=== PATIENT | female | born 1985 | race Hispanic/Latino ===

== ENCOUNTER 2018-03-10 09:47 | Emergency (ER) | payer SELFPAY ==
[2018-03-10] MEDS ORDERED: BENZONATATE 100 MG CAP PO ONE ×2 (10:18→10:27)
[2018-03-10] MEDS ORDERED: IPRATROPIUM BROM 0.5MG/2.5ML ONE (10:18)
[2018-03-10] MEDS ORDERED: ALBUTEROL 2.5 MG/3 ML NEB SOL ONE (10:18)
--- NOTE | 2018-03-10 12:01 | ER ---
Nurse's Notes [facility] Name: Allyn Lynn Age: 32 yrs Sex: Female : 1985 Arrival Date: 03/10/2018 Time: 09:49 Bed 5 Private MD: Diagnosis: Acute upper respiratory infection, unspecified Presentation: 03/10 09:53 Presenting complaint: Patient states: cough x 2 days and difficulty breathing that ss began last night. Pt denies fever. Transition of care: patient was not received from another setting of care. Resp Distress? No respiratory distress is noted at this time. Onset of symptoms was March 08, 2018. Risk Assessment: Do you want to hurt yourself or someone else? Patient reports no desire to harm self or others. Initial Sepsis Screen: Does the patient meet any 2 criteria? RR > 20 per min. Does the patient have a suspected source of infection? Yes: Productive cough/pneumonia. Care prior to arrival: None. 09:53 Method Of Arrival: Ambulatory ss 09:53 Acuity: ERICK 4 ss Historical: - Allergies: 09:55 No Known Allergies; ss - Home Meds: 09:55 None [Active]; ss - PMHx: 09:55 None; ss - PSHx: 09:55 Cholecystectomy; ss - Immunization history:: Adult Immunizations up to date. - Social history:: Smoking status: Patient/guardian denies using tobacco. - Ebola Screening: : Patient denies exposure to infectious person Patient denies travel to an Ebola-affected area in the 21 days before illness onset. Screenin:00 Abuse screen: Denies threats or abuse. Denies injuries from another. Nutritional hb screening: No deficits noted. Tuberculosis screening: No symptoms or risk factors identified. Fall Risk None identified. Assessment: 09:55 General: Appears in no apparent distress. comfortable, well groomed, well developed, sg well nourished, Behavior is calm, cooperative, appropriate for age. Pain: Denies pain. Neuro: Level of Consciousness is awake, alert, obeys commands, Oriented to person, place, time, Compliance Testing Analyst are equal bilaterally Moves all extremities. Full function Speech is normal, Facial symmetry appears normal. Cardiovascular: Heart tones S1 S2 present Capillary refill is brisk in bilateral fingers Patient's skin is warm and dry. Chest pain is denied. Respiratory: Airway is patent Respiratory effort is even, unlabored, Respiratory pattern is regular, symmetrical, Breath sounds are clear. GI: No signs and/or symptoms were reported involving the gastrointestinal system. : No signs and/or symptoms were reported regarding the genitourinary system. EENT: No signs and/or symptoms were reported regarding the EENT system. Derm: Skin is pink, warm \T\ dry. Musculoskeletal: No signs and/or symptoms reported regarding the musculoskeletal system. 10:45 Reassessment: Patient appears in no apparent distress at this time. Patient and/or hb family updated on plan of care and expected duration. Pain level reassessed. Patient is alert, oriented x 3, equal unlabored respirations, skin warm/dry/pink. Vital Signs: 09:55 Pulse 88; Resp 22; Temp 98.6(O); Pulse Ox 99% on R/A; Weight 83.91 kg; Height 5 ft. 11 ss in. (180.34 cm); Pain 5/10; 10:45 BP 122 / 70; Pulse 92; Resp 17; Pulse Ox 100% on R/A; hb 12:40 BP 114 / 70; Pulse 80; Resp 17; Pulse Ox 99% on R/A; Pain 1/10; sg 09:55 Body Mass Index 25.80 (83.91 kg, 180.34 cm) ss ED Course: 08:55 No provider procedures requiring assistance completed. sg 09:49 Patient arrived in ED. sb2 09:53 Jose Hernandez PA is PHCP. cp 09:53 Charles Kilpatrick MD is Attending Physician. cp 09:54 Triage completed. ss 09:55 Arm band placed on right wrist. ss 09:55 Patient has correct armband on for positive identification. Bed in low position. Pulse sg ox on. NIBP on. 11:14 Gab Santos, DAVID is Primary Nurse. sg 12:46 Patient did not have IV access during this emergency room visit. sg Administered Medications: 10:19 Drug: AtroVENT Aerosol 0.5 mg Route: Inhalation; sg 10:20 Drug: Albuterol 2.5 mg Route: Inhalation; sg 12:20 Drug: Tessalon Perle 200 mg Route: PO; sg Outcome: 12:00 Discharge ordered by MD. cp 12:46 Discharged to home ambulatory, with family. sg 12:46 Condition: good 12:46 Discharge instructions given to patient, Instructed on discharge instructions, follow up and referral plans. no drinking with medication, no driving heavy equipment, medication usage, Demonstrated understanding of instructions, follow-up care, medications, Prescriptions given X 3. 12:47 Patient left the ED. sg Signatures: Gab Santos RN RN sg Trudy Hassan RN RN ss Jose Hernandez PA PA cp Baxter, Heather, RN RN Renetta Quesada sb2 Corrections: (The following items were deleted from the chart) 09:56 09:53 Acuity: ERICK 3 ss
--- NOTE | 2018-03-10 12:01 | EDPHYS ---
Physician Documentation [facility] Name: Allyn Lynn Age: 32 yrs Sex: Female : 1985 Arrival Date: 03/10/2018 Time: 09:49 Bed 5 Private MD: ED Physician Charles Kilpatrick HPI: 03/10 10:08 This 32 yrs old Female presents to ER via Ambulatory with complaints of cp Congestion, Cough. 10:08 The patient or guardian reports cough, with no sputum. cp 10:08 Onset: The symptoms/episode began/occurred 2 day(s) ago. Associated signs and symptoms: cp Pertinent positives: shortness of breath, congestion, Pertinent negatives: chest pain, diarrhea, ear ache, fever, sore throat, vomiting. Severity of symptoms: in the emergency department the symptoms are unchanged. Historical: - Allergies: 09:55 No Known Allergies; ss - Home Meds: 09:55 None [Active]; ss - PMHx: 09:55 None; ss - PSHx: 09:55 Cholecystectomy; ss - Immunization history:: Adult Immunizations up to date. - Social history:: Smoking status: Patient/guardian denies using tobacco. - Ebola Screening: : Patient denies exposure to infectious person Patient denies travel to an Ebola-affected area in the 21 days before illness onset. ROS: 10:15 Constitutional: Negative for body aches, chills, fever, poor PO intake. cp 10:15 Eyes: Negative for injury, pain, redness, and discharge. cp 10:15 ENT: Negative for drainage from ear(s), ear pain, sinus congestion, sinus pain, sore throat, difficulty swallowing, difficulty handling secretions. 10:15 Neck: Negative for pain with movement, pain at rest, stiffness, swollen nodes, tenderness. 10:15 Cardiovascular: Negative for chest pain, edema, palpitations. 10:15 Respiratory: Positive for cough, with no reported sputum, shortness of breath, Negative for wheezing. 10:15 Abdomen/GI: Negative for abdominal pain, nausea, vomiting, and diarrhea. 10:15 Back: Negative for radiated pain. 10:15 : Negative for urinary symptoms. 10:15 Skin: Negative for cellulitis, rash. 10:15 Neuro: Negative for altered mental status, headache, syncope, near syncope, weakness. 10:15 All other systems are negative. Exam: 10:20 Constitutional: The patient appears in no acute distress, alert, awake, cp non-diaphoretic, non-toxic, well developed, well nourished. 10:20 Head/Face: Normocephalic, atraumatic. cp 10:20 Eyes: Periorbital structures: appear normal, Pupils: equal, round, and reactive to light and accomodation, Extraocular movements: intact throughout, Conjunctiva: normal, no exudate, no injection, Sclera: no appreciated abnormality, Lids and lashes: appear normal, bilaterally. 10:20 ENT: External ear(s): are unremarkable, Ear canal(s): are normal, clear, TM's: bulging, is not appreciated, bilaterally, dullness, bilaterally, erythema, is not appreciated, bilaterally, Nose: is normal, Mouth: Lips: moist, Oral mucosa: pink and intact, moist, Posterior pharynx: is normal, airway is patent, no erythema, no exudate, Tonsils: are normal in appearance, Uvula: midline, swelling, is not appreciated, erythema, is not appreciated, exudate, is not appreciated. 10:20 Neck: ROM/movement: is normal, is supple, without pain, no range of motions limitations, no meningismus, no nuchal rigidity, Lymph nodes: no appreciated lymphadenopathy. 10:20 Chest/axilla: Inspection: normal, Palpation: is normal, no crepitus, no tenderness. 10:20 Cardiovascular: Rate: normal, Rhythm: regular. 10:20 Respiratory: the patient does not display signs of respiratory distress, Respirations: normal, no use of accessory muscles, no retractions, no splinting, no tachypnea, labored breathing, is not present, Breath sounds: bronchial sounds, that are mild, are heard diffusely, decreased breath sounds, are not appreciated, rhonchi, are not appreciated, stridor, is not appreciated, wheezing: is not appreciated. 10:20 Abdomen/GI: Inspection: abdomen appears normal, Palpation: abdomen is soft and non-tender, in all quadrants, rebound tenderness, is not appreciated, voluntary guarding, is not appreciated, involuntary guarding, is not appreciated. 10:20 Back: pain, is absent, ROM is normal. 10:20 Skin: cellulitis, is not appreciated, no rash present. 10:20 Neuro: Orientation: is normal, Mentation: is normal, Cerebellar function: is grossly normal, Motor: moves all fours, strength is normal, Sensation: is normal. Vital Signs: 09:55 Pulse 88; Resp 22; Temp 98.6(O); Pulse Ox 99% on R/A; Weight 83.91 kg; Height 5 ft. 11 ss in. (180.34 cm); Pain 5/10; 10:45 BP 122 / 70; Pulse 92; Resp 17; Pulse Ox 100% on R/A; hb 12:40 BP 114 / 70; Pulse 80; Resp 17; Pulse Ox 99% on R/A; Pain 1/10; sg 09:55 Body Mass Index 25.80 (83.91 kg, 180.34 cm) ss MDM: 09:53 Patient medically screened. cp 11:00 Differential diagnosis: bronchitis, URI, pneumonia. Data reviewed: vital signs, nurses cp notes, lab test result(s), and as a result, I will discharge patient. 12:00 Antibiotic administration: Not indicated, the patient does not have an appreciated cp infiltrate. 03/10 11:58 Order name: Urine Dipstick--Ancillary (enter results) eb 03/10 11:58 Order name: Urine --Ancillary (enter results) eb 03/10 10:05 Order name: Urine Dipstick-Ancillary (obtain specimen); Complete Time: 11:56 cp 03/10 10:05 Order name: Urine Test (obtain specimen); Complete Time: 11:56 cp Administered Medications: 10:19 Drug: AtroVENT Aerosol 0.5 mg Route: Inhalation; sg 10:20 Drug: Albuterol 2.5 mg Route: Inhalation; sg 12:20 Drug: Tessalon Perle 200 mg Route: PO; sg Disposition: 03/11 10:35 Co-signature as Attending Physician, Charles Kilpatrick MD I agree with the assessment and kdr plan of care. Disposition: 03/10/18 12:00 Discharged to Home. Impression: Acute upper respiratory infection, unspecified. - Condition is Stable. - Discharge Instructions: Upper Respiratory Infection, Adult. - Prescriptions for Tessalon Perles 100 mg Oral Capsule - take 1 capsule by ORAL route every 8 hours As needed; 15 capsule. Prednisone 20 mg Oral Tablet - take 2 tablet by ORAL route once daily for 5 days; 10 tablet. Albuterol Sulfate 90 mcg/actuation - inhale 1-2 puff by INHALATION route every 4-6 hours; 1 Inhaler. - Medication Reconciliation Form, Thank You Letter, Antibiotic Education, Prescription Opioid Use form. - Follow up: Private Physician; When: 2 - 3 days; Reason: Recheck today's complaints. - Problem is new. - Symptoms have improved. Signatures: Dispatcher [employer] EDMS Gab Santos RN RN sg Charles Kilpatrick MD MD [facility] Trudy Hassan RN RN ss Jose Hernandez PA PA cp Corrections: (The following items were deleted from the chart) 03/10 12:47 12:00 03/10/2018 12:00 Discharged to Home. Impression: Acute upper respiratory sg infection, unspecified. Condition is Stable. Forms are Medication Reconciliation Form, Thank You Letter, Antibiotic Education, Prescription Opioid Use. Follow up: Private Physician; When: 2 - 3 days; Reason: Recheck today's complaints. Problem is new. Symptoms have improved. cp
[2018-03-10 12:50] VITALS: TEMP 98.6
[2018-03-10 12:51] VITALS: BP 122/70; O2SAT 100
[2018-03-10 14:16] LABS: Urine Blood TRACE (NEG); Urine Glucose NEGATIVE (NEG); Urine Protein NEGATIVE (NEG); Urine pH 5.5 (5.0-7.0)
== END 2018-03-10 12:47 | disposition home or self-care (01) ==
LOC: ER 09:47
DX: J06.9 Acute upper respiratory infection, unspecified (principal)
CPT/HCPCS: 81003; 81025; 99284

== ENCOUNTER 2019-06-16 10:37 | Emergency (ER) | payer SELFPAY ==
[2019-06-16] MEDS ORDERED: MECLIZINE HCL 12.5 MG TAB ONE (11:08)
--- NOTE | 2019-06-16 11:26 | RAD REPORT ---
EXAM DESCRIPTION: CT - Head Brain Wo Cont - 06/16/2019 11:19 am CLINICAL HISTORY: DIZZINESS Headache, drowsiness COMPARISON: No comparisons TECHNIQUE: All CT scans are performed using dose optimization technique as appropriate and may inclu de automated exposure control or mA/KV adjustment according to patient size. FINDINGS: No intracranial hemorrhage, hydrocephalus or extra-axial fluid collection.No areas of brai n edema or evidence of midline shift. The paranasal sinuses and mastoids are clear. The calvarium is intact. IMPRESSION: No acute intracranial abnormality.
[2019-06-16 11:45] LABS: Absolute Lymphocytes (CBC) 1.9 K/uL (0.7-4.9); Basophils % 0.5 % (0-1.3); Hematocrit 36.2 % (36.0-45.0); Lymphocytes % 24.4 % (15.3-44.8); RBC Red Blood Cell Count 4.13 M/uL (3.86-4.86)
[2019-06-16 11:48] LABS: Protime INR 1.06
[2019-06-16 12:03] LABS: ALT/SGPT 22 U/L (12-78); AST/SGOT 19 U/L (15-37); Albumin 3.7 g/dL (3.4-5.0); Alkaline Phosphatase 110 U/L (45-117); BUN Blood Urea Nitrogen 8 mg/dL (7-18); Bicarbonate 27 mmol/L (21-32); Bilirubin Direct < 0.1 mg/dL (0-0.2); Bilirubin Total 0.4 mg/dL (0.2-1.0); Glucose Level 97 mg/dL (74-106); Magnesium 2.5 mg/dL (1.8-2.4); NT PRO-BNP 41 pg/mL (<125); Potassium 3.5 mmol/L (3.5-5.1); Protein, Total 8.3 g/dL (6.4-8.2); Sodium Level 139 mmol/L (136-145); Troponin (Emerg Dept Use Only) < 0.02 ng/mL (0.0-0.045)
--- NOTE | 2019-06-16 12:58 | EDPHYS ---
Physician Documentation [facility] Name: Allyn Lynn Age: 33 yrs Sex: Female : 1985 Arrival Date: 06/16/2019 Time: 10:40 Bed 18 Private MD: ED Physician Jose Jefferson HPI: 06/16 11:06 This 33 yrs old Female presents to ER via Ambulatory with complaints of jmm Dizziness, Vision Problem. 11:06 The patient presents with dizziness. Onset: The symptoms/episode began/occurred jmm acutely, 1 week(s) ago. Modifying factors: The symptoms are alleviated by nothing, holding head still, the symptoms are aggravated by movement of head, standing up, changing position. This is a 33 year old female with a history of hlp that presents to the ED with complaints of dizziness which began 7 days ago. Patient states symptoms are worsened with changes in position. Patient has had similar episodes before. Patient unable to fill prescribed medication. Denies vomiting, denies chest pain. . 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 - Social history:: Smoking status: Patient/guardian denies using tobacco. - Ebola Screening: : Patient denies travel to an Ebola-affected area in the 21 days before illness onset. ROS: 11:06 Constitutional: Negative for fever, chills, and weight loss. jmm 11:06 Neck: Negative for injury, pain, and swelling, Cardiovascular: Negative for chest pain, palpitations, and edema, Respiratory: Negative for shortness of breath, cough, wheezing, and pleuritic chest pain, Abdomen/GI: Negative for abdominal pain, nausea, vomiting, diarrhea, and constipation. 11:06 Eyes: Positive for visual disturbance. 11:06 Neuro: Positive for dizziness. 11:06 All other systems are negative. Exam: 11:06 Constitutional: This is a well developed, well nourished patient who is awake, alert, jmm and in no acute distress. Head/Face: atraumatic. Eyes: EOMI, no conjunctival erythema appreciated ENT: Moist Mucus Membranes Neck: Trachea midline, Supple Chest/axilla: Normal chest wall appearance and motion. Cardiovascular: Regular rate and rhythm. No edema appreciated 11:06 Cardiovascular: Rate: normal, Rhythm: regular. 11:06 Respiratory: the patient does not display signs of respiratory distress, Respirations: normal, Breath sounds: are clear throughout. 11:06 Abdomen/GI: Inspection: abdomen appears normal, Bowel sounds: normal, Palpation: abdomen is soft and non-tender, in all quadrants. 11:06 Neuro: Orientation: is normal, Mentation: is normal, Memory: is normal. 11:06 Neuro: Cerebellar function: normal finger to nose testing. 11:06 Psych: Behavior/mood is pleasant, cooperative. Vital Signs: 10:51 BP 113 / 61; Pulse 72; Resp 16; Temp 98.1; Pulse Ox 100% on R/A; Weight 83.46 kg (R); aj1 Height 5 ft. 1 in. (154.94 cm) (R); Pain 0/10; 12:14 BP 109 / 61; Pulse 58; Resp 16; Pulse Ox 97% on R/A; Pain 0/10; em 13:21 BP 110 / 68; Pulse 55; Resp 18; Pulse Ox 99% on R/A; Pain 0/10; em 10:51 Body Mass Index 34.77 (83.46 kg, 154.94 cm) aj1 MDM: 10:58 Patient medically screened. sunil 12:56 Data reviewed: vital signs, nurses notes. Counseling: I had a detailed discussion with sierra the patient and/or guardian regarding: the historical points, exam findings, and any diagnostic results supporting the discharge/admit diagnosis, lab results, radiology results, the need for outpatient follow up, to return to the emergency department if symptoms worsen or persist or if there are any questions or concerns that arise at home. ED course: Patient has normal cerebellar exam, normal gait, I do not suspect central cause. Patient is advised to follow up with neuro for reevaluation and otherwise given strict return precautions. Patient understood and agrees with the plan of care. . 06/16 11: Order name: Basic Metabolic Panel; Complete Time: 12:29 [facility] 06/16 11: Order name: CBC with Diff [facility] 06/16 11:02 Order name: LFT's; Complete Time: 12:29 [facility] 06/16 11:02 Order name: Magnesium; Complete Time: 12:29 [facility] 06/16 11:02 Order name: NT PRO-BNP; Complete Time: 12:29 [facility] 06/16 11:02 Order name: PT-INR; Complete Time: 12:29 [facility] 06/16 11:02 Order name: Troponin (emerg Dept Use Only); Complete Time: 12:29 [facility] 06/16 11:02 Order name: EKG; Complete Time: 11:03 [facility] 06/16 11:02 Order name: Cardiac monitoring; Complete Time: 11:12 [facility] 06/16 11:02 Order name: EKG - Nurse/Tech; Complete Time: 11:12 [facility] 06/16 11:02 Order name: IV Saline Lock; Complete Time: 11:32 [facility] 06/16 11:02 Order name: Labs collected and sent; Complete Time: 11:12 [facility] 06/16 11:02 Order name: CT Head Brain wo Cont; Complete Time: 11:41 [facility] 06/16 11:02 Order name: O2 Per Protocol; Complete Time: 11: [facility] 06/16 11:02 Order name: O2 Sat Monitoring; Complete Time: 11:12 [facility] Administered Medications: 11:31 Drug: Meclizine 50 mg Route: PO; em 12:26 Follow up: Response: No adverse reaction; Marked relief of symptoms em Disposition: 13:44 Co-signature as Attending Physician, Jose Jefferson MD I agree with the assessment and sunil plan of care. Disposition: 06/16/19 12:57 Discharged to Home. Impression: Vertigo. - Condition is Stable. - Discharge Instructions: Benign Positional Vertigo. - Prescriptions for Meclizine 25 mg Oral Tablet - take 1 tablet by ORAL route every 8 hours As needed; 30 tablet. - Medication Reconciliation Form, Thank You Letter, Antibiotic Education, Prescription Opioid Use form. - Follow up: Saul Chowdhury MD; When: 2 - 3 days; Reason: Recheck today's complaints, Continuance of care, Re-evaluation by your physician. Signatures: Dispatcher [employer] Jennifer Caputo RN RN aj1 Ronny, Jose, MD MD sunil Mickail, Kain, PA PA jmm Urrutia, Fabio, IT HELP DESK ASSOCIATE IT HELP DESK ASSOCIATE em Corrections: (The following items were deleted from the chart) 13:41 12:57 06/16/2019 12:57 Discharged to Home. Impression: Vertigo. Condition is Stable. em Forms are Medication Reconciliation Form, Thank You Letter, Antibiotic Education, Prescription Opioid Use. Follow up: Saul Chowdhury; When: 2 - 3 days; Reason: Recheck today's complaints, Continuance of care, Re-evaluation by your physician. sierra
--- NOTE | 2019-06-16 12:58 | ER ---
Nurse's Notes [facility] Name: Allyn Lynn Age: 33 yrs Sex: Female : 1985 Arrival Date: 06/16/2019 Time: 10:40 Bed 18 Private MD: Diagnosis: Vertigo Presentation: 06/16 10:48 Presenting complaint: Patient states: "I went to a clinic and they told me I have high aj1 cholesterol and they haven't given me my medicine because they said they are changing the pills they have and they haven't called me. Today I'm feeling dizzy, like floaty. I tried changing my diet, so I'm eating healthy" Patient reports headache that comes and goes. Reports she has been feeling like this for the past week now. Transition of care: patient was not received from another setting of care. Onset of symptoms was June 2019. Risk Assessment: Do you want to hurt yourself or someone else? Patient reports no desire to harm self or others. Initial Sepsis Screen: Does the patient meet any 2 criteria? No. Patient's initial sepsis screen is negative. Does the patient have a suspected source of infection? No. Patient's initial sepsis screen is negative. Care prior to arrival: None. 10:48 Method Of Arrival: Ambulatory aj1 10:48 Acuity: ERICK 3 aj1 Triage Assessment: 10:51 General: Appears in no apparent distress. comfortable, Behavior is calm, cooperative, aj1 appropriate for age. Pain: Denies pain. Neuro: Level of Consciousness is awake, alert, obeys commands. Cardiovascular: Patient's skin is warm and dry. Respiratory: Airway is patent Respiratory effort is even, unlabored, Respiratory pattern is regular, symmetrical. 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 - Social history:: Smoking status: Patient/guardian denies using tobacco. - Ebola Screening: : Patient denies travel to an Ebola-affected area in the 21 days before illness onset. Screenin:11 Abuse screen: Denies threats or abuse. Nutritional screening: No deficits noted. em Tuberculosis screening: No symptoms or risk factors identified. Fall Risk None identified. Assessment: 11:10 General: Appears in no apparent distress. comfortable, Behavior is calm, cooperative, em Denies fever. Pain: Denies pain. Neuro: Level of Consciousness is awake, alert, obeys commands, Oriented to person, place, time, situation, Appropriate for age Moves all extremities. Speech is normal, Facial symmetry appears normal, Reports dizziness, since for 2 weeks. Cardiovascular: Capillary refill < 3 seconds Patient's skin is warm and dry. Respiratory: Airway is patent Respiratory effort is even, unlabored, Respiratory pattern is regular, symmetrical. GI: Abdomen is flat, Patient currently denies nausea, vomiting. Derm: Skin is intact, is healthy with good turgor, Skin is pink, warm \\T\\ dry. Musculoskeletal: Capillary refill < 3 seconds, Range of motion: intact in all extremities. 11:10 Reassessment: I agree with assessment completed by Fabio Urrutia LVN . aa5 12:14 Reassessment: Patient appears in no apparent distress at this time. Patient and/or em family updated on plan of care and expected duration. Pain level reassessed. Patient is alert, oriented x 3, equal unlabored respirations, skin warm/dry/pink. Patient states feeling better. Patient states symptoms have improved. 13:21 Reassessment: Patient appears in no apparent distress at this time. Patient and/or em family updated on plan of care and expected duration. Pain level reassessed. Patient is alert, oriented x 3, equal unlabored respirations, skin warm/dry/pink. Patient denies pain at this time. Patient states feeling better. Patient states symptoms have improved. Vital Signs: 10:51 BP 113 / 61; Pulse 72; Resp 16; Temp 98.1; Pulse Ox 100% on R/A; Weight 83.46 kg (R); aj1 Height 5 ft. 1 in. (154.94 cm) (R); Pain 0/10; 12:14 BP 109 / 61; Pulse 58; Resp 16; Pulse Ox 97% on R/A; Pain 0/10; em 13:21 BP 110 / 68; Pulse 55; Resp 18; Pulse Ox 99% on R/A; Pain 0/10; em 10:51 Body Mass Index 34.77 (83.46 kg, 154.94 cm) aj1 ED Course: 10:40 Patient arrived in ED. mr 10:50 Triage completed. aj1 10:51 Arm band placed on Patient placed in an exam room. aj1 10:53 Kain Kelly PA is PHCP. [facility] 10:53 Jose Jefferson MD is Attending Physician. [facility] 10:57 Fabio Urrutia LVN is Primary Nurse. em 11:11 Patient has correct armband on for positive identification. Bed in low position. Call em light in reach. Pulse ox on. NIBP on. 11:17 CT completed. Patient tolerated procedure well. Patient moved to CT via wheelchair. sw Patient moved back from CT. 11:21 CT Head Brain wo Cont In Process Unspecified. EDMS 11:27 Initial lab(s) drawn, by me, sent to lab. Inserted saline lock: 22 gauge in left em antecubital area, using aseptic technique. Blood collected. 11:29 EKG done, by television technician. reviewed by Kain ROBLES. 3 12:57 Saul Chowdhury MD is Referral Physician. [facility] 13:20 No provider procedures requiring assistance completed. IV discontinued, intact, em bleeding controlled, No redness/swelling at site. Pressure dressing applied. Administered Medications: 11:31 Drug: Meclizine 50 mg Route: PO; em 12:26 Follow up: Response: No adverse reaction; Marked relief of symptoms em Outcome: 12:57 Discharge ordered by MD. [facility] 13:20 Discharged to home ambulatory, with family. em 13:20 Condition: good 13:20 Discharge instructions given to patient, family, Instructed on discharge instructions, follow up and referral plans. medication usage, Demonstrated understanding of instructions, follow-up care, medications, Prescriptions given X 1. 13:20 Patient left the ED. sr5 Signatures: Dispatcher [employer] EDMS Jennifer Muniz, DAVID RN aj1 Kain Kelly PA PA jmm Rivera, Mary mr Fabio Urrutia, STAY CUTTER STAY CUTTER em Darya Concepcion RN RN [email or web address] Elli Workman Sam RN RN sr5 Arlin Peres sm3 Corrections: (The following items were deleted from the chart) 13:42 13:41 Patient left the ED. em sr5
[2019-06-16 18:27] VITALS: TEMP 98.1
[2019-06-16 18:28] VITALS: BP 110/68; O2SAT 99
--- NOTE | 2019-06-18 12:50 | EKG ---
Test Date: 2019-06-16 Test Time: 11:13:41 Wood Buffer: ELLYN MEASUREMENT RESULTS: Intervals: Rate: 63 TN: 132 QRSD: 86 QT: 408 QTc: 417 Polk: P: 41 TN: 132 QRS: 24 T: 15 INTERPRETIVE STATEMENTS: Normal sinus rhythm Nonspecific ST abnormality Abnormal ECG Compared to ECG 06/21/2017 04:01:58 ST (T wave) deviation now present Electronically Signed On 06-18-19 12:45:51 TANK BUILDER HELPER by Wayne Duran
--- OUTSIDE RECORDS SUMMARY | 2019-06-19 05:15 | XMS REPORT ---
:1985 Author Organization [facility] Address [address] [place] [address] Dr. Hu[address] [place] [address] Care Team Providers Name Role Phone Unavailable Unavailable Unavailable Problems This patient has no known problems. Allergies, Adverse Reactions, Alerts This patient has no known allergies or adverse reactions. Medications This patient has no known medications.
== END 2019-06-16 13:41 | disposition home or self-care (01) ==
LOC: ER 10:37
DX: R42 Dizziness and giddiness (principal); E78.5 Hyperlipidemia, unspecified
CPT/HCPCS: 36415; 70450; 80048; 80076; 83735; 83880; 84484; 85025; 85610; 93005; 99284; J8597

== ENCOUNTER 2020-02-26 06:56 | Inpatient (IN) | payer SELFPAY ==
--- OUTSIDE RECORDS SUMMARY | 2020-02-26 06:59 | XMS REPORT | Summary of Care ---
:1985 Author Organization [facility] Address [address] [place] [address] Care Team Providers Name Role Phone Rachell Oquendo [facility] Primary Care Provider Encounter Details Date Type Department Care Team Description 12/12/2019 Letter (Out) [facility]- Rachlel Oquendo [facility] 110[address] [facility] [address] [place] [id number] 955 [facility] A [phone] [place], [place] [address] [phone] Allergies No Known Allergiesdocumented as of this encounter (statuses as of 12/12/2019) Medications Medication Sig Dispensed Refills Start Date End Date Status doxylamine-pyridoxine, Take 1 tablet by 60 tablet 2 07/31/2019 Active vit B6, (DICLEGIS) mouth 4 (four) 10-10 mg per times daily as tabletIndications: needed for Nausea Supervision of high and Vomiting risk in (N/V). first trimester documented as of this encounter (statuses as of 12/12/2019) Active Problems Problem Noted Date Supervision of high-risk of elderly multigra jared 07/10/2019 AMA (advanced maternal age) multigravida 35+ 9 Obesity in 12/16/2015 Estimated Date of Delivery Comments Yes 03/03/2020 Based on last menstr ual period of 05/28/2019 (Approximate) documented as of this encounter (statuses as of 12/12/2019) Resolved Problems Problem Noted Date Resolved Date Well woman exam with routine gynecological exam 05/13/2017 07/10/2019 Encounter for contraceptive management, unspecified type 12/201607/10/2019 Screening examination for STD (sexually transmitted disease) 05/13/2017 07/10/2019 Dysuria 05/13/2017 07/10/2019 Breast pain, left 05/13/2017 12/06/2018 Pain pelvic 05/13/2017 12/06/2018 BMI 30.0-30.9,adult 05/13/2017 07/10/2019 Arm pain 12/16/2015 05/13/2017 Fatigue 07/18/2015 12/16/2015 Hair loss 07/18/2015 12/16/2015 Bone pain 07/18/2015 12/16/2015 General counseling and advice for contraceptive management 0 04/08/2015 07/10/2019 Overview: ICD10 Diagnosis Term Outpatient Coder Utility Encounter for routine gynecological examination 04/08/2015 07/18/2015 Overview: ICD10 Diagnosis Term Outpatient Coder Utility Overweight 04/08/2015 12/16/2015 Overview: ICD10 Diagnosis Term Outpatient Coder Utility care and examination of lactating mother 03/18/20 15 04/08/2015 Urinary tract infection, site not specified 03/18/2015 04/08/2015 Multiparity 02/24/2015 03/18/2015 Induction 02/22/2015 03/18/2015 Indication for care in labor and delivery, antepartum 201403/18/2015 Anemia of mother in , antepartum, third trimester 0 01/23/2015 02/23/2015 Rubella immune 10/04/2014 02/23/2015 Immune to varicella 10/04/2014 02/23/2015 related nausea, antepartum 09/05/2014 UTI in , antepartum, second trimester 09/05/2014 03/18/2015 High-risk , second trimester [V23.9] 09/05/2014 02/23/2015 Overweight 09/05/2014 02/23/2015 Overview: ICD10 Diagnosis Term Outpatient Coder Utility care and examination 01/01/2006 10/05/19 15 Overview: ICD10 Diagnosis Term Outpatient Coder Utility Anemia complicating , childbirth, or the puerperium 01/01/2006 10/05/2014 documented as of this encounter (statuses as of 12/12/2019) Immunizations Name Administration Dates Next Due Influenza Virus Vaccine Quad .5 mL IM 6+ MO 07/10/2019 Influenza Virus Vaccine Quad IM Multi-dose 6+ MO 09/05/2014 Rubella 10/22/2009 Tdap 11/30/2014 documented as of this encounter Social History Tobacco Use Types Packs/Day Years Used Date Never Smoker Smokeless Tobacco: Never Used Alcohol Use Drinks/Week oz/Week Comments No Estimated Date of Delivery Comments Yes 03/03/2020 Based on last menstr ual period of 05/28/2019 (Approximate) Sex Assigned at Date Recorded Not on file Job Start Date Occupation Industry Not on file Not on file Not on file Travel History Travel Start Travel End No recent travel history available. documented as of this encounter Last Filed Vital Signs Not on filedocumented in this encounter Plan of Treatment Date Type Specialty Care Team Description 12/21/2019 Routine Visit OB Satellites Ghada Oquendo, CNP [address] [place], [place] [address] [phone] Health Maintenance Due Date Last Done Comments PAP SMEAR 03/10/2021 09/05/2014, 10/22/2009, Postpone d from 10/18/2007, Additional 0 ( or history exists ) DTaP,Tdap,and Td Vaccines 11/30/2024 11/30/2014 (2 - Td) INFLUENZA VACCINE Completed 07/10/2019, 09/05/2014 PNEUMOCOCCAL 0-64 YEARS Aged Out No longe r eligible COMBINED SERIES based on patient 's age to complete this topic documented as of this encounter Results Not on filedocumented in this encounter Insurance Payer Benefit Plan / Subscriber ID Effective Phone Address T ype Group Dates [facility] CHILDRENS [id number] 2019-Prese P O RADHA X [facility] HEALTH PLAN nt [id number] HEALTH PLAN [place] [address] [facility] FAMILY FAMILY [id number] 2018-Pres [address] Ag ency PLANNING OPAL PLANNING OPAL ent [id number] [phone] [place] [address] documented as of this encounter Advance Directives Name Relationship Healthcare Agent Relationship Co mmunication Dejan Lynn Spouse Primary healthcare agent
--- OUTSIDE RECORDS SUMMARY | 2020-02-26 06:59 | XMS REPORT | Continuity of Care Document ---
:1985 Author Organization [facility] t Address [address] [place] [address] Care Team Providers Name Role Phone Haider Alejandre Attending Clinician Doctor Unassigned, Name Attending Clinician Unavailable Problems This patient has no known problems. Allergies, Adverse Reactions, Alerts This patient has no known allergies or adverse reactions. Medications This patient has no known medications. Procedures This patient has no known procedures. Encounters Start End Encounter Admission Attending Care Care Encounter Source Date/Time Date/Time Type Type Clinicians Facility Department ID 2020-02-22 2020-02-22 Routine Azra, [facility] [id number] 14:22:22 14:37:22 Rachell C SYSTEMS ARCHITECTURE ANALYST [id number] Visit REGIONAL [id number] MATERNAL [id number] & CHILD 107 [facility] 2020-02-22 2020-02-22 Orders Doctor ANA [id number] 00:00:00 00:00:00 Only Unassigned, STEPHANIE [id number] [place] [id number] [id number] 2020-02-14 2020-02-14 Routine Azra, [facility] [id number] 13:59:03 14:14:03 Rachell C SYSTEMS ARCHITECTURE ANALYST [id number] [facility] [id number] MATERNAL [id number] & CHILD 107 [facility] 2020-02-07 2020-02-07 Routine Akinsipe, [facility] [id number] 14:04:13 14:44:35 Rachell Maloney SYSTEMS ARCHITECTURE ANALYST [id number] [facility] [id number] MATERNAL [id number] & CHILD [address] [place] [address] [place] Results This patient has no known results.
--- OUTSIDE RECORDS SUMMARY | 2020-02-26 06:59 | XMS REPORT | Summary of Care ---
:1985 Author Organization [facility] - Health Address [address] [place] [address] Care Team Providers Name Role Phone Otisbaironjomar Rachell Maloney [facility] Primary Care Provider [phone] Encounter Details Date Type Department Care Team Description 10/11/2019 Orders Only [facility] Doctor Unassigned, No [address] [facility] [place] [address] [address] [place] [address] Allergies No Known Allergiesdocumented as of this encounter (statuses as of 12/15/2019) Medications Medication Sig Dispensed Refills Start Date End Date Status doxylamine-pyridoxine, Take 1 tablet by 60 tablet 2 07/31/2019 Active vit B6, (DICLEGIS) mouth 4 (four) 10-10 mg per times daily as tabletIndications: needed for Nausea Supervision of high and Vomiting risk in (N/V). first trimester documented as of this encounter (statuses as of 12/15/2019) Active Problems Problem Noted Date Supervision of high-risk of elderly multigra jared 07/10/2019 AMA (advanced maternal age) multigravida 35+ 9 Obesity in 12/16/2015 Estimated Date of Delivery Comments Yes 03/03/2020 Based on last menstr ual period of 05/28/2019 (Approximate) documented as of this encounter (statuses as of 12/15/2019) Resolved Problems Problem Noted Date Resolved Date [...] 0 04/08/2015 07/10/2019 Overview: ICD10 Diagnosis Term Ammunition Components Inspector Utility Encounter for routine gynecological examination 04/08/2015 07/18/2015 Overview: ICD10 Diagnosis Term Ammunition Components Inspector Utility Overweight 04/08/2015 12/16/2015 Overview: ICD10 Diagnosis Term Ammunition Components Inspector Utility care and examination of lactating mother [...] Overweight 09/05/2014 02/23/2015 Overview: ICD10 Diagnosis Term Ammunition Components Inspector Utility care and examination 01/01/2006 10/05/19 15 Overview: ICD10 Diagnosis Term Ammunition Components Inspector Utility Anemia complicating , childbirth, or the puerperium 01/01/2006 10/05/2014 documented as of this encounter (statuses as of 12/15/2019) Immunizations Name Administration Dates Next Due Influenza [...] Team Description 12/21/2019 Routine Visit OB Satellites Azra, Ghada Maloney, WHCNP [address] [place], [place] [address] [phone] Health Maintenance Due Date Last Done Comments PAP SMEAR 03/10/2021 09/05/2014, 10/22/2009, Postpone d from 10/18/2007, Additional 0 ( or history exists ) DTaP,Tdap,and Td Vaccines 11/30/2024 11/30/2014 (2 - Td) INFLUENZA VACCINE Completed 07/10/2019, 09/05/2014 PNEUMOCOCCAL 0-64 YEARS Aged Out No longe r eligible COMBINED SERIES based on patient 's age to complete this topic documented as of this encounter Procedures Procedure Name Priority Date/Time Associated Diagnosis Comme nts GENETICS COUNSELING NOTE Routine 10/11/2019 12:01 AM SLIP FEEDER documented in this encounter Results Not on filedocumented in this encounter Insurance Payer Benefit Plan / Subscriber ID Effective Phone Address T ype Group Dates [facility]IP [facility] [place] CHILDRENS [id number] 2019-Prese P O RADHA X [facility] CHILDRENS HEALTH PLAN nt [id number] [place] [id number] [facility]ILY [id number] 2018-Pres [address] Ag ency PLANNING OPAL PLANNING OPAL ent [id number] [phone] [place] [address] documented as of this encounter Advance Directives Name Relationship Healthcare Agent Relationship Co mmunication Dejan Lynn Spouse Primary healthcare agent
--- OUTSIDE RECORDS SUMMARY | 2020-02-26 06:59 | XMS REPORT | Summary of Care ---
:1985 Author Organization [facility] - Health Address [address] [place] [address] Care Team Providers Name Role Phone Otisbaironjomar Rachell Maloney [facility] Primary Care Provider [phone] Encounter Details Date Type Department Care Team Description 12/26/2019 Orders Only [facility] Doctor Unassigned, No 301 [facility] [place] [address] [address] [place] [address] Allergies No Known Allergiesdocumented as of this encounter (statuses as of 12/26/2019) Medications Medication Sig Dispensed Refills Start Date End Date Status doxylamine-pyridoxine, Take 1 tablet by 60 tablet 2 07/31/2019 Active vit B6, (DICLEGIS) mouth 4 (four) 10-10 mg per times daily as tabletIndications: needed for Nausea Supervision of high and Vomiting risk in (N/V). first trimester documented as of this encounter (statuses as of 12/26/2019) Active Problems Problem Noted Date Supervision of high-risk of elderly multigra jared 07/10/2019 AMA (advanced maternal age) multigravida 35+ 9 Obesity in 12/16/2015 Estimated Date of Delivery Comments Yes 03/03/2020 Based on last menstr ual period of 05/28/2019 (Approximate) documented as of this encounter (statuses as of 12/26/2019) Resolved Problems Problem Noted Date Resolved Date [...] 0 04/08/2015 07/10/2019 Overview: ICD10 Diagnosis Term Rubber Roller Grinder Utility Encounter for routine gynecological examination 04/08/2015 07/18/2015 Overview: ICD10 Diagnosis Term Rubber Roller Grinder Utility Overweight 04/08/2015 12/16/2015 Overview: ICD10 Diagnosis Term Rubber Roller Grinder Utility care and examination of lactating mother [...] Overweight 09/05/2014 02/23/2015 Overview: ICD10 Diagnosis Term Rubber Roller Grinder Utility care and examination 01/01/2006 10/05/19 15 Overview: ICD10 Diagnosis Term Rubber Roller Grinder Utility Anemia complicating , childbirth, or the puerperium 01/01/2006 10/05/2014 documented as of this encounter (statuses as of 12/26/2019) Immunizations Name Administration Dates Next Due Influenza [...] filedocumented in this encounter Plan of Treatment Health Maintenance Due Date Last Done Comments [...] Name Priority Date/Time Associated Diagnosis Comme nts ASSIGNMENT OF BENEFITS Routine 12/26/2019 10:01 AM CDT documented in this encounter Results Not on filedocumented in this encounter Insurance Payer Benefit Plan / Subscriber ID Effective Phone Address T ype Group Dates [facility] [id number] 2019-Prese P O RADHA X [facility] HEALTH PLAN nt [id number] [place] [address] [facility] FAMILY FAMILY [id number] 2018-Pres [address] Ag ency PLANNING OPAL PLANNING OPAL ent [id number] [phone] [place] [address] documented as of this encounter Advance Directives Name Relationship Healthcare Agent Relationship Co mmunication Dejan Lynn Spouse Primary healthcare agent
--- OUTSIDE RECORDS SUMMARY | 2020-02-26 07:00 | XMS REPORT | Summary of Care ---
:1985 Author Organization [facility] Address [address] [place] [address] Care Team Providers Name Role Phone Rachell Oquendo [facility] Primary Care Provider [phone] Reason for Visit Reason Comments Care Encounter Details Date Type Department Care Team Description 12/26/2019 Routine [facility] Azra, Supervision of high risk in second trimester (Primary Dx); Visit [facility] [place] Rachell Maloney, Multigravida of advanced mat ernal age in third trimester; [address] [facility] Need for Tdap vaccination; [place] [address] Hypertriglyceridemia [facility] [id number] [facility] [phone] [place] [address] Allergies No Known Allergiesdocumented as of this [...] of 12/26/2019) Active Problems Problem Noted Date Hypertriglyceridemia 12/26/2019 Overview: Reports history Supervision of high-risk of elderly multigra jared [...] 0 04/08/2015 07/10/2019 Overview: ICD10 Diagnosis Term Fire Regulator Utility Encounter for routine gynecological examination 04/08/2015 07/18/2015 Overview: ICD10 Diagnosis Term Fire Regulator Utility Overweight 04/08/2015 12/16/2015 Overview: ICD10 Diagnosis Term Fire Regulator Utility care and examination of lactating mother [...] Overweight 09/05/2014 02/23/2015 Overview: ICD10 Diagnosis Term Fire Regulator Utility care and examination 01/01/2006 10/05/19 15 Overview: ICD10 Diagnosis Term Fire Regulator Utility Anemia complicating , childbirth, or the puerperium 01/01/2006 10/05/2014 documented as of this encounter (statuses as of 12/26/2019) Immunizations Name Administration Dates Next Due Influenza Virus Vaccine Quad .5 mL IM 6+ MO 07/10/2019 Influenza Virus Vaccine Quad IM Multi-dose 6+ MO 09/05/2014 Rubella 10/22/2009 TDAP (ADACEL) VACCINE 12/26/2019 Tdap 11/30/2014 documented as of this encounter [...] Travel End No recent travel history available. COVID-19 Exposure Response Date Recorded In the last month, have you been in contact with No / Unsure 12/26/2019 10:06 AM CDT someone who was confirmed or suspected to have Coronavirus / COVID-19? documented as of this encounter Last Filed Vital Signs Vital Sign Reading Time Taken Comments Blood Pressure 116/68 12/26/2019 10:07 AM CDT Pulse 77 12/26/2019 10:07 AM CDT Temperature 36.3 C (97.3 F) 12/26/2019 10:07 AM CDT Respiratory Rate 16 12/26/2019 10:07 AM CDT Oxygen Saturation - - Inhaled Oxygen Concentration - - Weight 84.5 kg (186 lb 4 oz) 12/26/2019 10:07 AM CDT Height 152.4 cm (5') 12/26/2019 10:07 AM CDT Body Mass Index 36.37 12/26/2019 10:07 AM CDT documented in this encounter Progress Notes Rachell Oquendo, WHCNP - 12/26/2019 10:00 AM CDT Chief complaint: Chief Complaint Patient presents with Care HPI CC: Follow Up Visit Allyn Lynn is a 34 year old, , /White female. Patient's last menstrual period was 05/28/2019 (approximate). She is 30w2d with an intrauterine . Her estimated date of delivery is 03/03/2020, by Last Menstrual Period. She has no complaints today. She reports +FM and denies contractions, LOF and bleeding today. Histories OB History Para Term AB Living 6 4 4 0 1 4 SAB TAB Ectopic Multiple Live Births 1 0 0 0 4 # Outcome Date GA Lbr Saleem/2nd Weight Sex Delivery Anes PTL Lv 6 Current 5 Term 02/23/15 39w6d 8 lb (3.629 kg) F NORMAL SPONT ASHWINI 4 SAB 2012 15w0d 3 Term 01/01/06 40w0d 7 lb 2 oz (3.232 kg) M NORMAL SPONT EPIDURAL N ASHWINI 2 Term 06/30/03 40w0d 7 lb 15 oz (3.6 kg) M NORMAL SPONT EPIDURAL N ASHWINI 1 Term 07/31/01 40w0d 8 lb 2 oz (3.685 kg) M NORMAL SPONT EPIDURAL N ASHWINI Past Medical History: Diagnosis Date Anemia 2014 with previous . High cholesterol 2018 managed by pcp, pt dcd meds with postiive preg test Screening examination for STD (sexually transmitted disease) 05/13/2017 Family History Problem Relation Age of Onset Diabetes Mother Uterine Cancer Mother High cholesterol Mother No Significant Medical Problems Father No Significant Medical Problems Sister Other - see comments Brother stroke Diabetes Maternal Aunt Diabetes Maternal Uncle No Significant Medical Problems Paternal Aunt No Significant Medical Problems Paternal Uncle Osteoporosis Maternal Grandmother Diabetes Maternal Grandfather Diabetes Paternal Grandmother GI Paternal Grandmother No Significant Medical Problems Paternal Grandfather Arthritis NoFHx defects NoFHx Asthma NoFHx Breast Cancer NoFHx Colon Cancer NoFHx Cancer NoFHx Depression NoFHx Genetic NoFHx Heart NoFHx Hypertension NoFHx Mental retardation NoFHx Neurological NoFHx Psychiatry NoFHx Family Status Relation Name Status Mo Alive Fa Alive Sis Alive Bro Alive MAunt (Not Specified) MUnc (Not Specified) PAunt (Not Specified) PUnc (Not Specified) MGMo MGFa PGMo Alive PGFa NoFHx (Not Specified) Past Surgical History: Procedure Laterality Date ANALGESIA,LABOR/VAGINAL DEL 02/23/2015 CHOLECYSTECTOMY 2009 HEART RATE, UTERINE ACTIVITY, AND RESTING TONE MONITORING 02/23/2015 OBSTETRICAL CARE,VAG DELIV ONLY 02/23/2015 OXYTOCIN INDUCTION/AUGMENTATION REFERENCE LINK ORDER 02/23/2015 Social History Socioeconomic History Marital status: Spouse name: Not on file Number of children: Not on file Years of education: Not on file Highest education level: Not on file Occupational History Not on file Social Needs Financial resource strain: Not on file Food insecurity: Worry: Not on file Inability: Not on file Transportation needs: Medical: Not on file Non-medical: Not on file Tobacco Use Smoking status: Never Smoker Smokeless tobacco: Never Used Substance and Sexual Activity Alcohol use: No Drug use: No Sexual activity: Yes Partners: Male control/protection: Condom Comment: last sexual intercourse 07/04/2019 Lifestyle Physical activity: Days per week: Not on file Minutes per session: Not on file Stress: Not on file Relationships Social connections: Talks on phone: Not on file Gets together: Not on file Attends yarsanism service: Not on file Active member of club or organization: Not on file Attends meetings of clubs or organizations: Not on file Relationship status: Not on file Intimate partner violence: Fear of current or ex partner: Not on file Emotionally abused: Not on file Physically abused: Not on file Forced sexual activity: Not on file Other Topics Concern Not on file Social History Narrative Rastafari preference is Jehovah'S Witness. Patient lives with and children. Patient denies any cats Social History Substance and Sexual Activity Sexual Activity Yes Partners: Male control/protection: Condom Comment: last sexual intercourse 07/04/2019 Labs Labs are pending. and Routine Visit on 2019 Component Date Value POCT U SP GRAV 2019 . POCT PH U 2019 . POCT U LEUK EST 2019 . POCT U NIT 2019 . POCT U PROT 2019 Trace POCT U GLU 2019 Neg POCT U KETONE 2019 . POCT U UROBILI 2019 . POCT U BILI 2019 . POCT U BLD 2019 . AFP-MS 2019 37.0 AFP-MS Interpretation 2019 Value:NTD SCREENING RESULTS: Gestation Age: Weeks 17 days 5 based on _X_ LMP __ PE __ US. Maternal Serum AFP value in ng/mL is 37.0. The corrected AFP MOM is 1.12. NORMAL RANGE is less than 2.5 MOM in NTD screening. The NTD screen result is: _X_ Negative __ Positive with a risk of 1 in Radiology No new radiology. Allergies Allyn has No Known Allergies. Medications Allyn has a current medication list which includes the following prescription(s): doxylamine-pyridoxine (vit b6). Review of Systems Constitutional: Negative. HENT: Negative. Eyes: Negative. Respiratory: Negative. Breasts: Negative. Cardiovascular: Negative. Gastrointestinal: Negative. Genitourinary: Negative. Musculoskeletal: Negative. Skin: Negative. Neurological: Negative. Psychiatric/Behavioral: Negative. Endocrine: Endocrine negative BP 116/68 (BP Location: Right arm, Patient Position: Sitting, BP CUFF SIZE: Adult Medium) | Pulse 77 | Temp 36.3 C (97.3 F) (Oral) | Resp 16 | Ht 5' (1.524 m) | Wt 186 lb 4 oz (84.5 kg) | LMP1 (Approximate) | BMI 36.37 kg/m Pregravid BMI: 34.8 Physical Exam PHYSICAL: General Exam: Neurological: Normal Abdomen: Normal gravid Extremities: Normal Pelvic Exam: Uterus: 30 Weeks Assessment/Plan Return to clinic in 2 weeks. Denies zika virus risk, signs and symptoms such as fever,rash,joint pain, conjunctivitis (red eyes),muscle pain, headaches; outside [place] travel to areas affected by zika, and FOB exposure to zika. Educated on use of mosquito repellent. Supervision of high risk in second trimester (primary encounter diagnosis) Multigravida of advanced maternal age in third trimester Comment: routine Plan: POCT URINALYSIS W SPECIFIC GRAVITY, HIV 1/2 AG-AB WITH REFLEX, GALV ONLY - SYPHILIS IGG/IGM Need for Tdap vaccination Comment: as ordered Plan: TDAP (ADACEL) IMMUNIZATION Hypertriglyceridemia Comment: reports history Plan: Patient advised to continue diet modification, limit weight gain to 15- 20lbs, and light exercises for the , she reports she desires to see M, requesting for lab work This visit did not involve counseling and coordination that comprised more than 50% of the visit time. SHARA Merchant 12/26/2019 10:47 AM Lissy Boo RN - 12/26/2019 10:00 AM CDTPatient provided with 28 weeks packet; stressed the importance of the kick count of 10 x within 2 hours; patient verbalized understanding. Tdap given IM to left deltoid per aseptic tech; site massaged; band-aid applied; tolerated well; VISgiven and reviewed with patient at this time. Shared decision plan completed today. Reviewed s/s of labor. PHQ2 done at this time. Patient denies any complications at this time. documented in this encounter Plan of Treatment Name Type Priority Associated Diagnoses Order S chedule HIV 1/2 AG-AB WITH LAB Routine Supervision of high ri sk Ordered: 12/26/2019 REFLEX in second trimester GALV ONLY - SYPHILIS LAB Routine Supervision of high risk Ordered: 12/26/2019 IGG/IGM in second trimester Health Maintenance Due Date Last Done Comments [...] Name Priority Date/Time Associated Diagnosis Comme nts TDAP (ADACEL) Routine 12/26/2019 10:25 Need for Tdap IMMUNIZATION AM CDT vaccination POCT URINALYSIS Routine 12/26/2019 10:24 Supervision of high R esults for this AM CDT risk in procedure are in second trimester the results section. documented in this encounter Results POCT URINALYSIS W SPECIFIC GRAVITY (12/26/2019 10:24 AM CDT) Pathologist Sig nature POCT U SP GRAV . 1.005 - 1.025 mg/dl POCT PH U . 5 - 8 mg/dl POCT U LEUK EST . Negative - Negative POCT U NIT . Negative - Negative POCT U PROT Trace Negative - Negative POCT U GLU Neg Negative - Negative POCT U KETONE . Negative - Negative POCT U UROBILI . 0.2 - 1 mg/dl POCT U BILI . Negative - Negative POCT U BLD . Negative - Negative POCT U COLOR POCT U APPEAR Specimen Urine - URINE, CLEAN CATCH documented in this encounter Visit Diagnoses Diagnosis Supervision of high risk in se cond trimester - Primary Unspecified high-risk Multigravida of advanced maternal age in third trimester Need for Tdap vaccination Need for prophylactic vaccination with c ombined kvxrshxilr-wqaefkv-dqdlyatya (DTP) vaccine Hypertriglyceridemia Pure hyperglyceridemia documented in this encounter Insurance Payer Benefit Plan / Subscriber ID Effective Phone Address T ype Group Dates [facility] [id number] 2019-Prese P O RADHA X CHIP [facility] HEALTH PLAN MOM nt [id number] HEALTH PLAN [facility] [place] [address] documented as of this encounter Advance Directives Name Relationship Healthcare Agent Relationship Co mmunication Dejan Lynn Spouse Primary healthcare agent "
--- OUTSIDE RECORDS SUMMARY | 2020-02-26 07:01 | XMS REPORT | Summary of Care ---
:1985 Author Organization [facility] Address [address] [place] [address] Care Team Providers Name Role Phone Rachell Oquendo [facility] Primary Care Provider [phone] Reason for Visit Reason Comments Care Encounter Details Date Type Department Care Team Description 12/26/2019 Routine [facility] Keenan Oquendo vision of high risk in second trimester (Primary Dx); Visit Kervin Maloney [facility] Multigravida of advanced maternal age in third trimester; [address] [place] [address] Need for Tdap vaccination; [facility] Hypertriglyceridemia; [phone] LIV A Supervision of high-risk of satnam lyle multigravida [phone] [place] [address] Allergies No Known Allergiesdocumented as [...] 0 04/08/2015 07/10/2019 Overview: ICD10 Diagnosis Term Aquarist Utility Encounter for routine gynecological examination 04/08/2015 07/18/2015 Overview: ICD10 Diagnosis Term Aquarist Utility Overweight 04/08/2015 12/16/2015 Overview: ICD10 Diagnosis Term Aquarist Utility care and examination of lactating mother [...] Overweight 09/05/2014 02/23/2015 Overview: ICD10 Diagnosis Term Aquarist Utility care and examination 01/01/2006 10/05/19 15 Overview: ICD10 Diagnosis Term Aquarist Utility Anemia complicating , childbirth, or the [...] file Gets together: Not on file Attends anglican service: Not on file Active member of [...] Concern Not on file Social History Narrative Presybeterian preference is Zoroastrianism. Patient lives with and children. Patient denies [...] visit time. SHARA Merchant 12/26/2019 10:47 AM Milan Davila RN - 12/26/2019 10:00 AM CDTPatient provided [...] Patient denies any complications at this time. Pt desires permanent sterilization. Discussed the 1/200 failure rate and the increased risk for ectopic with pt. Pt counseled on the risk of infection, hemorrhage, perforation to surrounding organs, reaction to anesthesia, and the high risk of regret with the procedure. Pt declines l mc term methods, including the iud and nexplanon. She is sure that she does not want any more children. Bilateral tubal ligation consent signed and copy given to pt. MILAN DAVILA RN 12/26/2019 10:55 AM documented in this encounter Plan of Treatment Date Type Specialty Care Team Description 01/08/2020 Telemedicine Visit [facility], Lalo Dawkins Mf m Name Type Priority Associated Diagnoses Date/Ti me HIV 1/2 AG-AB WITH REFLEX LAB Routine Supervision of high risk 12/26/2019 11:06 AM in second CDT trimester GALV ONLY - SYPHILIS LAB Routine Supervision of high risk 12/26/2019 11:06 AM IGG/IGM in second CDT trimester Glucose 1 Hour Post LAB Routine Supervision of high-r isk 12/26/2019 11:06 AM Prandial of elderly CDT multigravida CBC with Differential LAB Routine Supervision of high -risk 12/26/2019 11:06 AM of elderly CDT multigravida CBC WITH DIFFERENTIAL LAB Routine Supervision of high -risk 12/26/2019 11:06 AM of elderly CDT multigravida Health Maintenance Due Date Last Done Comments [...] Need for prophylactic vaccination with c ombined ywzbpmrrqs-eqdtalv-oxiicnxzi (DTP) vaccine Hypertriglyceridemia Pure hyperglyceridemia Supervision of high-risk of satnam lyle multigravida documented in this encounter Insurance Payer Benefit Plan / Subscriber ID Effective Phone Address T ype Group Dates [facility] [id number] 2019-Prese P O RADHA X CHIP [employer]ILDR[employer] [place] PLAN [place]OM nt [id number] HE[place] [address] ([place]) [place] [address] documented as of this encounter Advance Directives Name Relationship Healthcare Agent Relationship Co mmunication Dejan Lynn Spouse Primary healthcare agent "
--- OUTSIDE RECORDS SUMMARY | 2020-02-26 07:01 | XMS REPORT | Summary of Care ---
:1985 Author Organization [facility] Address [address] [place] [address] Care Team Providers Name Role Phone Rachell Oquendo [facility] Primary Care Provider Reason for Visit Reason Comments Care Encounter Details Date Type Department Care Team Description 12/26/2019 Routine [facility] Azra, Supervision of high risk in second trimester (Primary Dx); Visit [facility] [place] Rachell Maloney, Multigravida of advanced mat ernal age in third trimester; [address] [facility] Need for Tdap vaccination; [place] [address] Hypertriglyceridemia [facility] [address] [facility] [phone] [place] [address] Allergies No Known Allergiesdocumented as [...] 0 04/08/2015 07/10/2019 Overview: ICD10 Diagnosis Term Marketing Sales Supervisor Utility Encounter for routine gynecological examination 04/08/2015 07/18/2015 Overview: ICD10 Diagnosis Term Marketing Sales Supervisor Utility Overweight 04/08/2015 12/16/2015 Overview: ICD10 Diagnosis Term Marketing Sales Supervisor Utility care and examination of lactating mother [...] Overweight 09/05/2014 02/23/2015 Overview: ICD10 Diagnosis Term Marketing Sales Supervisor Utility care and examination 01/01/2006 10/05/19 15 Overview: ICD10 Diagnosis Term Marketing Sales Supervisor Utility Anemia complicating , childbirth, or the [...] file Gets together: Not on file Attends hinduism service: Not on file Active member of [...] Concern Not on file Social History Narrative Denominational preference is Church. Patient lives with and children. Patient denies [...] Telemedicine Visit [facility], Lalo Dawkins m Name Type Priority Associated Diagnoses Order S [...] Need for prophylactic vaccination with c ombined htqglerrqi-ggzfmoc-pizydeeab (DTP) vaccine Hypertriglyceridemia Pure hyperglyceridemia documented in this encounter Insurance Payer Benefit Plan / Subscriber ID Effective Phone Address T ype Group Dates [facility] [id number] 2019-Prese P O RADHA X [facility] HEALTH PLAN MOM nt [id number] [place] [address] documented as of this encounter Advance Directives Name Relationship Healthcare Agent Relationship Co mmunication Dejan Shane Spouse Primary healthcare agent "
--- OUTSIDE RECORDS SUMMARY | 2020-02-26 07:01 | XMS REPORT | Summary of Care ---
:1985 Author Organization [facility] Address [address] [place] [address] Care Team Providers Name Role Phone Rachell Oquendo [facility] Primary Care Provider Reason for Visit Reason Comments Care Encounter Details Date Type Department Care Team Description 12/26/2019 Routine [facility]- Keenan Oquendo vision of high risk in second trimester (Primary Dx); Visit Kervin Maloney [facility] Multigravida of advanced maternal age in third trimester; [address] [place] [address] Need for Tdap vaccination; [facility] Hypertriglyceridemia; [phone] LIV [facility] Supervision of high-risk of satnam lyle multigravida [phone] [place] [address] Allergies No Known Allergiesdocumented as [...] 0 04/08/2015 07/10/2019 Overview: ICD10 Diagnosis Term Naturopathic Doctor Utility Encounter for routine gynecological examination 04/08/2015 07/18/2015 Overview: ICD10 Diagnosis Term Naturopathic Doctor Utility Overweight 04/08/2015 12/16/2015 Overview: ICD10 Diagnosis Term Naturopathic Doctor Utility care and examination of lactating mother [...] Overweight 09/05/2014 02/23/2015 Overview: ICD10 Diagnosis Term Naturopathic Doctor Utility care and examination 01/01/2006 10/05/19 15 Overview: ICD10 Diagnosis Term Naturopathic Doctor Utility Anemia complicating , childbirth, or the [...] file Gets together: Not on file Attends mormonism service: Not on file Active member of [...] Concern Not on file Social History Narrative Samaritan preference is Cheondoism. Patient lives with and children. Patient denies [...] 01/08/2020 Telemedicine Visit [facility], Lalo jovon m Name Type Priority Associated Diagnoses Order S chedule HIV 1/2 AG-AB WITH REFLEX LAB Routine Supervision of high risk Ordered: 12/26/2019 in second trimester GALV ONLY - SYPHILIS LAB Routine Supervision of high risk Ordered: 12/26/2019 IGG/IGM in second trimester CBC WITH DIFFERENTIAL LAB Routine Supervision of high -risk Ordered: 12/26/2019 of elderly multigravida Health Maintenance Due Date Last Done [...] Need for prophylactic vaccination with c ombined djyvpdnepd-gnnmpdv-fbfgaadgv (DTP) vaccine Hypertriglyceridemia Pure hyperglyceridemia Supervision of high-risk of satnam lyle multigravida documented in this encounter Insurance Payer Benefit Plan / Subscriber ID Effective Phone Address T ype Group Dates CHIP [facility] [id number] 2019-Prese P O RADHA X CHIP [employer] CHILDRENS HEALTH PLAN MOM nt [id number] HEALTH [place] [address] documented as of this encounter Advance Directives Name Relationship Healthcare Agent Relationship Co mmunication Dejan Lynn Spouse Primary healthcare agent "
--- OUTSIDE RECORDS SUMMARY | 2020-02-26 07:02 | XMS REPORT | Summary of Care ---
:1985 Author Organization [facility] Address [address] [place] [address] Care Team Providers Name Role Phone Rachell Oquendo [facility] Primary Care Provider Reason for Visit Reason Comments Abnormal Lab Encounter Details Date Type Department Care Team Description [facility] Abnormal Lab [address] [place] [address] [address] [facility] [phone] [place] [address] [phone] Allergies No Known Allergiesdocumented as of this encounter (statuses as of 12/28/2019) Medications Medication Sig Dispensed Refills Start Date End Date Status doxylamine-pyridoxine, Take 1 tablet by 60 tablet 2 07/31/2019 Active vit B6, (DICLEGIS) mouth 4 (four) 10-10 mg per times daily as tabletIndications: needed for Nausea Supervision of high and Vomiting risk in (N/V). first trimester documented as of this encounter (statuses as of 12/28/2019) Active Problems Problem Noted Date Abnormal maternal glucose tolerance, antepartum 2019 Overview: pending 3hr gtt Hypertriglyceridemia 12/26/2019 Overview: Reports history Supervision of high-risk of elderly multigra jared 07/10/2019 AMA (advanced maternal age) multigravida 35+ 9 Obesity in 12/16/2015 Estimated Date of Delivery Comments Yes 03/03/2020 Based on last menstr ual period of 05/28/2019 (Approximate) documented as of this encounter (statuses as of 12/28/2019) Resolved Problems Problem Noted Date Resolved Date [...] 0 04/08/2015 07/10/2019 Overview: ICD10 Diagnosis Term Campus Rep Utility Encounter for routine gynecological examination 04/08/2015 07/18/2015 Overview: ICD10 Diagnosis Term Campus Rep Utility Overweight 04/08/2015 12/16/2015 Overview: ICD10 Diagnosis Term Campus Rep Utility care and examination of lactating mother [...] Overweight 09/05/2014 02/23/2015 Overview: ICD10 Diagnosis Term Campus Rep Utility care and examination 01/01/2006 02/27/20 15 Overview: ICD10 Diagnosis Term Campus Rep Utility Anemia complicating , childbirth, or the puerperium 01/01/2006 10/05/2014 documented as of this encounter (statuses as of 12/28/2019) Immunizations Name Administration Dates Next Due Influenza [...] 01/08/2020 Telemedicine Visit [facility] Name Type Priority Associated Diagnoses Order S chedule 3 HR GLUCOSE TOLERANCE LAB Routine Abnormal maternal glucose Expected: 01/28/2020, PANEL tolerance, antepartum s: 01/28/2020 Health Maintenance Due Date Last Done Comments PAP SMEAR 03/10/2021 09/05/2014, 10/22/2009, Postpone d from 10/18/2007, Additional 0 ( or history exists ) DTaP,Tdap,and Td Vaccines 12/25/2029 12/26/2019, 11/30/2014 (3 - Td) INFLUENZA VACCINE Completed 07/10/2019, 09/05/2014 PNEUMOCOCCAL 0-64 YEARS Aged Out No longe r eligible COMBINED SERIES based on patient 's age to complete this topic documented as of this encounter Results Not on filedocumented in this encounter Visit Diagnoses Diagnosis Abnormal maternal glucose tolerance, ant epartum - Primary documented in this encounter Insurance Payer Benefit Plan / Subscriber ID Effective Phone Address T ype Group Dates [place] [facility] [id number] 2019-Prese P O RADHA X [facility] [place]ILDREN [place] PLAN nt [id number] [place] [address] [facility] FAMILY [id number] 2018-Pres P O BOX Ag ency PLANNING OPAL PLANNING OPAL [facility] [id number] [phone] [place] [address] documented as of this encounter Advance Directives Name Relationship Healthcare Agent Relationship Co mmunication Dejan Lynn Spouse Primary healthcare agent
--- OUTSIDE RECORDS SUMMARY | 2020-02-26 07:03 | XMS REPORT | Summary of Care ---
:1985 Author Organization [facility] Address [address] [place] [address] Care Team Providers Name Role Phone Rachell Oquendo [facility] Primary Care Provider [phone] Reason for Visit Reason Comments Abnormal Lab Encounter Details Date Type Department Care Team Description 12/28/2019 [facility], Abnormal Lab [address] [place] [address] [address] [facility] [phone] [place], [place] [address] [phone] Allergies No Known Allergiesdocumented as of this [...] 0 04/08/2015 07/10/2019 Overview: ICD10 Diagnosis Term Direct Marketing Executive Utility Encounter for routine gynecological examination 04/08/2015 07/18/2015 Overview: ICD10 Diagnosis Term Direct Marketing Executive Utility Overweight 04/08/2015 12/16/2015 Overview: ICD10 Diagnosis Term Direct Marketing Executive Utility care and examination of lactating mother [...] Overweight 09/05/2014 02/23/2015 Overview: ICD10 Diagnosis Term Direct Marketing Executive Utility care and examination 01/01/2006 02/27/20 15 Overview: ICD10 Diagnosis Term Direct Marketing Executive Utility Anemia complicating , childbirth, or the [...] Treatment Date Type Specialty Care Team Description 12/29/2019 Firer Helper Visit [facility], Yennifer 01/08/2020 Telemedicine Visit [facility] Name Type Priority Associated Diagnoses Order [...] Effective Phone Address T ype Group Dates [facility] [id number] 2019-Prese P O RADHA X [facility] HEALTH PLAN nt [phone] HEALTH PLAN [place], [place] FPL [address] [facility] FAMILY FAMILY [id number] 2018-Pres P O BOX Ag ency PLANNING OPAL PLANNING OPAL [facility] [phone]% [place] [address] documented as of this encounter Advance Directives Name Relationship Healthcare Agent Relationship Co mmunication Dejan Lynn Spouse Primary healthcare agent
--- OUTSIDE RECORDS SUMMARY | 2020-02-26 07:03 | XMS REPORT | Summary of Care ---
:1985 Author Organization [facility] Address [address] [place] [address] Care Team Providers Name Role Phone Rachell Oquendo [facility] Primary Care Provider [phone] Reason for Visit Reason Comments Abnormal Lab Encounter Details Date Type Department Care Team Description 12/28/2019 [facility], Abnormal Lab [address] [place] [address] [address] [facility] [phone] [place], [place] [address] [phone] Allergies No Known Allergiesdocumented as of this [...] 0 04/08/2015 07/10/2019 Overview: ICD10 Diagnosis Term Tea Tree Farm Worker Utility Encounter for routine gynecological examination 04/08/2015 07/18/2015 Overview: ICD10 Diagnosis Term Tea Tree Farm Worker Utility Overweight 04/08/2015 12/16/2015 Overview: ICD10 Diagnosis Term Tea Tree Farm Worker Utility care and examination of lactating mother [...] Overweight 09/05/2014 02/23/2015 Overview: ICD10 Diagnosis Term Tea Tree Farm Worker Utility care and examination 01/01/2006 02/27/20 15 Overview: ICD10 Diagnosis Term Tea Tree Farm Worker Utility Anemia complicating , childbirth, or the [...] 01/08/2020 Telemedicine Visit [facility] Name Type Priority Associated Diagnoses [...] Address T ype Group Dates [place] [facility] [id number] 2019-Prese P O RADHA X [facility] CHILDREN HEALTH PLAN nt [id number] [place] [address] [facility] FAMILY FAMILY [id number] 2018-Pres P O BOX Ag ency PLANNING OPAL PLANNING OPAL [facility] [phone] [place] [address] documented as of this encounter Advance Directives Name Relationship Healthcare Agent Relationship Co mmunication Dejan Lynn Spouse Primary healthcare agent
--- OUTSIDE RECORDS SUMMARY | 2020-02-26 07:04 | XMS REPORT | Summary of Care ---
:1985 Author Organization [facility] Address [address] [place] [address] Care Team Providers Name Role Phone Rachell Oquendo [facility] Primary Care Provider [phone] Reason for Visit Reason Comments LAB Encounter Details Date Type Department Care Team Description 12/29/2019 Print Binding Worker Visit [facility] Eleuterio Oquendo, [facility] [address] [facility] [place] [address] Abnormal maternal [place] [facility], [facility] glucose tolerance, [address] [place] [address] Allergies No Known Allergiesdocumented as of this encounter (statuses as of 12/29/2019) Medications Medication Sig Dispensed Refills Start Date End Date Status doxylamine-pyridoxine, Take 1 tablet by 60 tablet 2 07/31/2019 Active vit B6, (DICLEGIS) mouth 4 (four) 10-10 mg per times daily as tabletIndications: needed for Nausea Supervision of high and Vomiting risk in (N/V). first trimester documented as of this encounter (statuses as of 12/29/2019) Active Problems Problem Noted Date Abnormal maternal glucose tolerance, antepartum 2019 Overview: pending 3hr gtt Hypertriglyceridemia 12/26/2019 Overview: Reports history Supervision of high-risk of elderly multigra jared 07/10/2019 AMA (advanced maternal age) multigravida 35+ 9 Obesity in 12/16/2015 Estimated Date of Delivery Comments Yes 03/03/2020 Based on last menstr ual period of 05/28/2019 (Approximate) documented as of this encounter (statuses as of 12/29/2019) Resolved Problems Problem Noted Date Resolved Date [...] 0 04/08/2015 07/10/2019 Overview: ICD10 Diagnosis Term Temporary Office Assistant Utility Encounter for routine gynecological examination 04/08/2015 07/18/2015 Overview: ICD10 Diagnosis Term Temporary Office Assistant Utility Overweight 04/08/2015 12/16/2015 Overview: ICD10 Diagnosis Term Temporary Office Assistant Utility care and examination of lactating mother [...] Overweight 09/05/2014 02/23/2015 Overview: ICD10 Diagnosis Term Temporary Office Assistant Utility care and examination 01/01/2006 10/05/19 15 Overview: ICD10 Diagnosis Term Temporary Office Assistant Utility Anemia complicating , childbirth, or the puerperium 01/01/2006 10/05/2014 documented as of this encounter (statuses as of 12/29/2019) Immunizations Name Administration Dates Next Due Influenza [...] been in contact with No / Unsure 12/29/2019 8:45 AM CDT someone who was confirmed or suspected to have Coronavirus / COVID-19? documented as of this encounter Last Filed Vital Signs Not on filedocumented in this encounter Plan of Treatment Date Type Specialty Care Team Description 01/08/2020 Telemedicine Visit [facility], Lalo [facility] Mf m Name Type Priority Associated Diagnoses Date/Ti me 3 HR GLUCOSE TOLERANCE LAB Routine Abnormal maternal 12/29/2019 8:16 AM CDT PANEL glucose tolerance, antepartum GLUCOSE FASTING LAB Routine Abnormal maternal 020 8:16 AM CDT glucose tolerance, antepartum 1 HR GLUCOSE TOLERANCE LAB Routine Abnormal maternal 12/29/2019 9:24 AM CDT TEST glucose tolerance, antepartum Name Type Priority Associated Diagnoses Order S chedule 2 HR GLUCOSE TOLERANCE LAB Routine Abnormal maternal glucose Ordered: 12/29/2019 TEST tolerance, antepartum 3 HR GLUCOSE TOLERANCE LAB Routine Abnormal maternal glucose Ordered: 12/29/2019 TEST tolerance, antepartum Health Maintenance Due Date Last Done Comments [...] Diagnosis Abnormal maternal glucose tolerance, ant epartum documented in this encounter Insurance Payer Benefit Plan / Subscriber ID Effective Phone Address T ype Group Dates [facility] [id number] 2019-Prese P O RADHA X CHIP Nakia [facility] HEALTH PLAN MOM nt [id number] [place] [address] (Home) [place] [address] documented as of this encounter Advance Directives Name Relationship Healthcare Agent Relationship Co mmunication Dejan Lynn Spouse Primary healthcare agent
--- OUTSIDE RECORDS SUMMARY | 2020-02-26 07:04 | XMS REPORT | Summary of Care ---
:1985 Author Organization [facility] Address [address] [place] [address] Care Team Providers Name Role Phone Rachell Oquendo [facility] Primary Care Provider Reason for Visit Reason Comments LAB Encounter Details Date Type Department Care Team Description 12/29/2019 Advertising Copywriter Visit [facility]- Eleuterio Oquendo, [facility] [address] [facility] [place] [address] Abnormal maternal [place] Lab, [facility] glucose tolerance, [address] [place] [address] Allergies No Known Allergiesdocumented as [...] 0 04/08/2015 07/10/2019 Overview: ICD10 Diagnosis Term Baggage Agent Supervisor Utility Encounter for routine gynecological examination 04/08/2015 07/18/2015 Overview: ICD10 Diagnosis Term Baggage Agent Supervisor Utility Overweight 04/08/2015 12/16/2015 Overview: ICD10 Diagnosis Term Baggage Agent Supervisor Utility care and examination of lactating [...] Overweight 09/05/2014 02/23/2015 Overview: ICD10 Diagnosis Term Baggage Agent Supervisor Utility care and examination 01/01/2006 10/05/19 15 Overview: ICD10 Diagnosis Term Baggage Agent Supervisor Utility Anemia complicating , childbirth, or [...] 020 8:16 AM CDT glucose tolerance, antepartum Name Type Priority Associated Diagnoses Order S chedule 1 HR GLUCOSE TOLERANCE LAB Routine Abnormal maternal glucose Ordered: 12/29/2019 TEST tolerance, antepartum 2 HR GLUCOSE TOLERANCE LAB Routine Abnormal [...] Phone Address T ype Group Dates [facility] [id number] 2019-Prese P O RADHA X CHIP Nakia [facility] HEALTH PLAN MOM nt [id number] HEALTH [place] [address] documented as of this encounter Advance Directives Name Relationship Healthcare Agent Relationship Co mmunication Dejan Lynn Spouse Primary healthcare agent
--- OUTSIDE RECORDS SUMMARY | 2020-02-26 07:05 | XMS REPORT | Summary of Care ---
:1985 Author Organization [facility] Address [address] [place] [address] Care Team Providers Name Role Phone Rachell Oquendo [facility] Primary Care Provider Reason for Visit Reason Comments LAB Encounter Details Date Type Department Care Team Description 12/29/2019 Infantry Operations Specialist Visit [facility]- Eleuterio Oquendo, [facility] [address] [facility] [place] [address] Abnormal maternal [place] Lab, [facility] glucose tolerance, [address] [place] [address] Allergies No Known Allergiesdocumented as [...] 0 04/08/2015 07/10/2019 Overview: ICD10 Diagnosis Term Bonding Machine Tender Utility Encounter for routine gynecological examination 04/08/2015 07/18/2015 Overview: ICD10 Diagnosis Term Bonding Machine Tender Utility Overweight 04/08/2015 12/16/2015 Overview: ICD10 Diagnosis Term Bonding Machine Tender Utility care and examination of lactating mother [...] Overweight 09/05/2014 02/23/2015 Overview: ICD10 Diagnosis Term Bonding Machine Tender Utility care and examination 01/01/2006 10/05/19 15 Overview: ICD10 Diagnosis Term Bonding Machine Tender Utility Anemia complicating , childbirth, or the [...] Telemedicine Visit [facility], Lalo jovon Mf m Name Type Priority Associated Diagnoses Date/Ti me 3 HR GLUCOSE TOLERANCE LAB Routine Abnormal maternal 12/29/2019 8:16 AM CDT PANEL glucose tolerance, antepartum GLUCOSE FASTING LAB Routine Abnormal maternal 020 8:16 AM CDT glucose tolerance, antepartum 1 HR GLUCOSE TOLERANCE LAB Routine Abnormal maternal 12/29/2019 9:24 AM CDT TEST glucose tolerance, antepartum 2 HR GLUCOSE TOLERANCE LAB Routine Abnormal maternal 12/29/2019 10:24 AM CDT TEST glucose tolerance, antepartum 3 HR GLUCOSE TOLERANCE LAB Routine Abnormal maternal 12/29/2019 11:24 AM CDT TEST glucose tolerance, antepartum Health Maintenance Due Date Last [...] Phone Address T ype Group Dates [facility]IP [facility] [id number] 2019-Prese P O RADHA X CHIP Nakia [facility] HEALTH PLAN MOM nt [id number] [place] [address] documented as of this encounter Advance Directives Name Relationship Healthcare Agent Relationship Co mmunication Dejan Lynn Spouse Primary healthcare agent
--- OUTSIDE RECORDS SUMMARY | 2020-02-26 07:05 | XMS REPORT | Summary of Care ---
:1985 Author Organization [facility] Address [address] [place] [address] Care Team Providers Name Role Phone Rachell Oquendo [facility] Primary Care Provider Reason for Visit Reason Comments Refill Request Encounter Details Date Type Department Care Team Description 12/28/2019 [facility] Jay[facility] Refill Request [address] [address] [id number] [place] [address] [place], [place] [id number] Allergies No Known Allergiesdocumented as of this encounter (statuses as of 01/02/2020) Medications Medication Sig Dispensed Refills Start Date End Date Status doxylamine-pyridoxine, Take 1 tablet by 60 tablet 2 07/31/2019 Active vit B6, (DICLEGIS) mouth 4 (four) 10-10 mg per times daily as tabletIndications: needed for Nausea Supervision of high and Vomiting risk in (N/V). first trimester documented as of this encounter (statuses as of 01/02/2020) Active Problems Problem Noted Date Abnormal maternal glucose tolerance, antepartum 2019 Overview: pending 3hr gtt Hypertriglyceridemia 12/26/2019 Overview: Reports history Supervision of high-risk of elderly multigra ajred 07/10/2019 AMA (advanced maternal age) multigravida 35+ 9 Obesity in 12/16/2015 Estimated Date of Delivery Comments Yes 03/03/2020 Based on last menstr ual period of 05/28/2019 (Approximate) documented as of this encounter (statuses as of 01/02/2020) Resolved Problems Problem Noted Date Resolved Date [...] 0 04/08/2015 07/10/2019 Overview: ICD10 Diagnosis Term Cyber Forensic Specialist Utility Encounter for routine gynecological examination 04/08/2015 07/18/2015 Overview: ICD10 Diagnosis Term Cyber Forensic Specialist Utility Overweight 04/08/2015 12/16/2015 Overview: ICD10 Diagnosis Term Cyber Forensic Specialist Utility care and examination of lactating mother [...] Overweight 09/05/2014 02/23/2015 Overview: ICD10 Diagnosis Term Cyber Forensic Specialist Utility care and examination 01/01/2006 10/05/19 15 Overview: ICD10 Diagnosis Term Cyber Forensic Specialist Utility Anemia complicating , childbirth, or the puerperium 01/01/2006 10/05/2014 documented as of this encounter (statuses as of 01/02/2020) Immunizations Name Administration Dates Next Due Influenza [...] 01/08/2020 Telemedicine Visit [facility], Lalo Rmchp Mf m Health Maintenance Due Date Last Done Comments [...] filedocumented in this encounter Visit Diagnoses Diagnosis Supervision of high risk in rst trimester Unspecified high-risk documented in this encounter Insurance Payer Benefit Plan / Subscriber ID Effective Phone Address T ype Group Dates [facility] [place] [facility] [id number] 2019-Prese P O RADHA X CHIP Nakia CHILDRENS HEALTH PLAN nt [id number] HEALTH PLAN MOM [place] FPL [address] [facility] [id number] 2018-Pres Michael OREILLY Ag ency PLANNING OPAL PLANNING OPAL [facility] [phone]% [place] [address] documented as of this encounter Advance Directives Name Relationship Healthcare Agent Relationship Co mmunication Dejan Lynn Spouse Primary healthcare agent
--- OUTSIDE RECORDS SUMMARY | 2020-02-26 07:06 | XMS REPORT | Summary of Care ---
:1985 Author Organization [facility] Address [address] [place] [address] Care Team Providers Name Role Phone Rachell Oquendo [facility] Primary Care Provider [phone] Reason for Visit Reason Comments DIABETES IN Encounter Details Date Type Department Care Team Description 01/02/2020 Telephone [facility]- Rachell Oquendo [place] [facility] [address] [facility] [address] [facility] [address] [place], [place] [address] Allergies No Known Allergiesdocumented as of this encounter (statuses as of 01/02/2020) Medications Medication Sig Dispensed Refills Start Date End Date Status doxylamine-pyridoxine, Take 1 tablet by 60 tablet 2 07/31/2019 Active vit B6, (DICLEGIS) mouth 4 (four) 10-10 mg per times daily as tabletIndications: needed for Nausea Supervision of high and Vomiting risk in (N/V). first trimester lancets (FREESTYLE Check blood 1 Each 2 01/02/2020 Active LANCETS) 28 gauge glucose 4x daily MiscIndications: Diet controlled gestational diabetes mellitus (GDM) in third trimester Blood-Glucose Meter Check blood 1 Kit 0 01/02/2020 Active (FREESTYLE LITE METER) glucose 4x daily KitIndications: Diet controlled gestational diabetes mellitus (GDM) in third trimester blood sugar diagnostic Check blood 1 Box 2 01/02/2020 Active (FREESTYLE LITE glucose 4 daily STRIPS) stripIndications: Diet controlled gestational diabetes mellitus (GDM) in third trimester documented as of this encounter (statuses as of 01/02/2020) Active Problems Problem Noted Date GDM (gestational diabetes mellitus) 01/02/2020 Overview: Failed 3hr gtt Abnormal maternal glucose tolerance, antepartum 2019 Overview: [...] 0 04/08/2015 07/10/2019 Overview: ICD10 Diagnosis Term [facility] Utility Encounter for routine gynecological examination 04/08/2015 07/18/2015 Overview: ICD10 Diagnosis Term [facility] Utility Overweight 04/08/2015 12/16/2015 Overview: ICD10 Diagnosis Term [facility] Utility care and examination of lactating mother [...] Overweight 09/05/2014 02/23/2015 Overview: ICD10 Diagnosis Term [facility] Utility care and examination 01/01/2006 10/05/19 Overview: ICD10 Diagnosis Term [facility] Utility Anemia complicating , childbirth, or the [...] 01/08/2020 Telemedicine Visit [facility], Lalo Daleyp Mf m Health Maintenance Due Date Last [...] filedocumented in this encounter Visit Diagnoses Diagnosis Diet controlled gestational diabetes chandan litus (GDM) in third trimester - Primary documented in this encounter Insurance Payer Benefit Plan / Subscriber ID Effective Phone Address T ype Group Dates [facility] [id number] 2019-Prese P O RADHA X [facility] HEALTH PLAN nt [id number] HEALTH PLAN [facility] [id number] [facility] FAMILY FAMILY [id number] 2018-Pres P O BOX Ag ency PLANNING OPAL PLANNING OPAL ent [id number] [phone] [place] [address] documented as of this encounter Advance Directives Name Relationship Healthcare Agent Relationship Co mmunication Dejan Lynn Spouse Primary healthcare agent
--- OUTSIDE RECORDS SUMMARY | 2020-02-26 07:06 | XMS REPORT | Summary of Care ---
:1985 Author Organization [facility] Address [address] [place] [address] Care Team Providers Name Role Phone Rachell Oquendo [facility] Primary Care Provider [phone] Reason for Visit Reason Comments DIABETES IN Encounter Details Date Type Department Care Team Description 01/02/2020 Telephone [facility] Rachell Oquendo [place] [facility] [address] [facility] [address] [facility] [address] [place], [place] [id number] Allergies No Known Allergiesdocumented as of this encounter (statuses as of 01/03/2020) Medications Medication Sig Dispensed Refills Start Date [...] as of this encounter (statuses as of 01/03/2020) Active Problems Problem Noted Date GDM (gestational [...] as of this encounter (statuses as of 01/03/2020) Resolved Problems Problem Noted Date Resolved Date [...] 0 04/08/2015 07/10/2019 Overview: ICD10 Diagnosis Term Technical Associate Utility Encounter for routine gynecological examination 04/08/2015 07/18/2015 Overview: ICD10 Diagnosis Term Technical Associate Utility Overweight 04/08/2015 12/16/2015 Overview: ICD10 Diagnosis Term Technical Associate Utility care and examination of lactating mother [...] Overweight 09/05/2014 02/23/2015 Overview: ICD10 Diagnosis Term Technical Associate Utility care and examination 01/01/2006 10/05/19 Overview: ICD10 Diagnosis Term Technical Associate Utility Anemia complicating , childbirth, or the puerperium 01/01/2006 10/05/2014 documented as of this encounter (statuses as of 01/03/2020) Immunizations Name Administration Dates Next Due Influenza [...] Treatment Date Type Specialty Care Team Description 01/05/2020 Nurse Visit [facility] Visit, Yennifer Nurse 01/08/2020 Telemedicine Visit [facility] Faculty, Lalo Dawkins m Health Maintenance Due Date Last Done [...] Effective Phone Address T ype Group Dates [facility] [id number] 2019-Prese P O RADHA X [facility] HEALTH PLAN nt [id number] HEALTH PLAN [facility] [address] [facility] [id number] 2018-Pres [address] PLANNING OPAL PLANNING OPAL [facility] [id number] [phone] [place] [address] documented as of this encounter Advance Directives Name Relationship Healthcare Agent Relationship Co mmunication Dejan Lynn Spouse Primary healthcare agent
--- OUTSIDE RECORDS SUMMARY | 2020-02-26 07:07 | XMS REPORT | Summary of Care ---
:1985 Author Organization [facility] Address [address] [place] [address] Care Team Providers Name Role Phone Rachell Oquendo [facility] Primary Care Provider [phone] Reason for Visit Reason Comments Diabetic Education Encounter Details Date Type Department Care Team Description 01/05/2020 Nurse Visit [facility]- Carl Oquendo [facility] [address] [place] [address] Encounter for diabetes [place] Visit, [facility] Nurse education (Primary Dx) [address] [place] [address] Allergies No Known Allergiesdocumented as of this encounter (statuses as of 01/05/2020) Medications Medication Sig Dispensed Refills Start Date [...] as of this encounter (statuses as of 01/05/2020) Active Problems Problem Noted Date GDM (gestational [...] as of this encounter (statuses as of 01/05/2020) Resolved Problems Problem Noted Date Resolved Date [...] 0 04/08/2015 07/10/2019 Overview: ICD10 Diagnosis Term Paint Booth Operator Utility Encounter for routine gynecological examination 04/08/2015 07/18/2015 Overview: ICD10 Diagnosis Term Paint Booth Operator Utility Overweight 04/08/2015 12/16/2015 Overview: ICD10 Diagnosis Term Paint Booth Operator Utility care and examination of lactating mother [...] Overweight 09/05/2014 02/23/2015 Overview: ICD10 Diagnosis Term Paint Booth Operator Utility care and examination 01/01/2006 10/05/19 Overview: ICD10 Diagnosis Term Paint Booth Operator Utility Anemia complicating , childbirth, or the puerperium 01/01/2006 10/05/2014 documented as of this encounter (statuses as of 01/05/2020) Immunizations Name Administration Dates Next Due Influenza [...] Sign Reading Time Taken Comments Blood Pressure 101/58 01/05/2020 8:46 AM CDT Pulse 74 01/05/2020 8:46 AM CDT Temperature 36.4 C (97.5 F) 01/05/2020 8:46 AM CDT Respiratory Rate 16 01/05/2020 8:46 AM CDT Oxygen Saturation - - Inhaled Oxygen Concentration - - Weight 84.3 kg (185 lb 12.8 oz) 01/05/2020 8:46 AM CDT Height 154.9 cm (5' 1") 01/05/2020 8:46 AM CDT Body Mass Index 35.11 01/05/2020 8:46 AM CDT documented in this encounter Patient Instructions Patient InstructionsJon Castle, RN - 01/05/2020 8:00 AM CDT Patient Education Gestational Diabetes: Getting Exercise Exercise can help you keep your blood sugar in a normal range. Thats because your body uses more blood sugar when you exercise. Exercise regularly Your healthcareprovider may want you to exercise each day. The best time depends on when your blood sugar is highest. Ask about exercise during at your first care visit. Your provider will work with you to make an exercise plan that fits your needs: Aim to exercise for30 to 60 minutes a day at moderate intensity. This means you are moving enough to raise your heart rate and start sweating. But you can still talk normally. Try breaking up daily exercise into 2 or 3 sessions. For example, take a15- minute walk after each meal. Exercise with a friend or your partner. This may help you stick to your exercise plan. Find a yoga or Pilates program designed for . Go at a comfortable pace. Dont tire yourself out. Exercising may help decrease some of the common symptoms of . These include bloating, constipation, and backaches.A stationary bike is a better choice than a standard bike. It will stop you from getting off balance with your growing belly. Exercise safely Ask your healthcare provider about exercise safety measures for you and your baby. Walking, swimming, and low-impact or water aerobics are often the safest things to do. Other safety tips include: Don't do activities where you jump, turn, twist, stop or start quickly, or lift heavy weights. Don't exercise on your back after the first trimester. This can put too much pressure on an important vein. It can limit blood flow to the baby. Use a sports bra during to support your breasts. You may also want to use a belly support belt later in . Don't get overheated. Don't do hot yoga or hot Pilates. Don't raise your heart rate to a level that makes it hard to talk. Drink plenty of water. If you use insulin, carry a carbohydrate snack with you. If you walk or do low-impact aerobics, wear sturdy shoes. If you havent eaten in 2 or more hours, have a light snack before exercising. Don't do contact sports that put you at risk of being hit in the belly. These include boxing, icehockey, soccer, and basketball. Don't go niko diving or scuba diving. And don't do things that may cause a serious fall. These include horseback riding, gymnastics, and off-road cycling. When it's not safe to exercise It's not advised to exercise when if you have any of these health conditions: Some types of heart and lung diseases with twins or more, and at risk for labor labor of your water has broken (ruptured membranes) Placenta previa later than 26 weeks of Preeclampsia or high blood pressure due to Severe anemia Cervical insufficiency or cerclage When to stop exercising and call your healthcare provider Call your healthcare provider right away or go to the emergency room if you have any of these: Belly pain Shortness of breath before starting exercise Vaginal bleeding Dizziness or feeling faint Chest pain Headache Decreased movement contractions Muscle weakness Calf pain or swelling Fluid leaking from the vagina [employer] last reviewed this educational content on 01/07/201919992846-9780 [employer]. [address] [place] [address]. All rights reserved. This information is not intended as a substitute for professional medical care. Always follow your healthcare professional's instructions. documented in this encounter Progress Notes Jon Castle RN - 01/05/2020 8:00 AM CDTPt recently dx with GDM, in clinic today for diabetic teaching. Pt instructed on how to check her blood glucose levels at home 4x/day and keep a daily glucose log. Pt demonstrated appropriate teach back. Reviewed GDM nutrition packet, will adhere to a 2000 calorie diet. Pt scheduled to rtc in 2 week for follow up, verbalzied understanding. documented in this encounter Plan of Treatment Date Type Specialty Care Team Description 01/08/2020 Telemedicine Visit [facility] Faculty, Lalo Dawkins Mf m 01/19/2020 Routine Visit [facility] [address] [place], [place] [address] [phone] Health Maintenance Due Date Last Done Comments Depression Screening 12/25/2020 12/26/2019 PAP SMEAR 03/10/2021 09/05/2014, 10/22/2009, Postpone d [...] filedocumented in this encounter Visit Diagnoses Diagnosis Encounter for diabetes education - Prima ry documented in this encounter Insurance Payer Benefit Plan / Subscriber ID Effective Phone Address T ype Group Dates CHIP [facility] [id number] 2019-Prese P O RADHA X CHIP [facility] HEALTH PLAN MOM nt [id number] HE[place] [address] documented as of this encounter Advance Directives Name Relationship Healthcare Agent Relationship Co mmunication Dejan Lynn Spouse Primary healthcare agent
--- OUTSIDE RECORDS SUMMARY | 2020-02-26 07:07 | XMS REPORT | Summary of Care ---
:1985 Author Organization [facility] Address [address] [place] [address] Care Team Providers Name Role Phone Rachell Oquendo [facility] Primary Care Provider [phone] Reason for Visit Reason Comments Care Encounter Details Date Type Department Care Team Description 01/19/2020 Routine [facility]- Keenan Oquendo vision of high risk in third trimester (Primary Dx); [facility] Kint[facility]isela [facility] Multigravida of advanced maternal age in third trimester; [address] Diet c ontrolled gestational diabetes mellitus (GDM) in third trimester; [facility] Screening for viral disease [place], [place] [address] [place], [place] [phone] [address] Allergies No Known Allergiesdocumented as of this encounter (statuses as of 01/19/2020) Medications Medication Sig Dispensed Refills Start Date [...] as of this encounter (statuses as of 01/19/2020) Active Problems Problem Noted Date GDM (gestational [...] as of this encounter (statuses as of 01/19/2020) Resolved Problems Problem Noted Date Resolved Date [...] 0 04/08/2015 07/10/2019 Overview: ICD10 Diagnosis Term Warehouse Person Utility Encounter for routine gynecological examination 04/08/2015 07/18/2015 Overview: ICD10 Diagnosis Term Warehouse Person Utility Overweight 04/08/2015 12/16/2015 Overview: ICD10 Diagnosis Term Warehouse Person Utility care and examination of lactating mother [...] Overweight 09/05/2014 02/23/2015 Overview: ICD10 Diagnosis Term Warehouse Person Utility care and examination 01/01/2006 10/05/19 15 Overview: ICD10 Diagnosis Term Warehouse Person Utility Anemia complicating , childbirth, or the puerperium 01/01/2006 10/05/2014 documented as of this encounter (statuses as of 01/19/2020) Immunizations Name Administration Dates Next Due Influenza [...] been in contact with No / Unsure 01/19/2020 8:30 AM CDT someone who was confirmed or suspected to have Coronavirus / COVID-19? documented as of this encounter Last Filed Vital Signs Vital Sign Reading Time Taken Comments Blood Pressure 102/60 01/19/2020 8:31 AM CDT Pulse 69 01/19/2020 8:31 AM CDT Temperature 36.6 C (97.9 F) 01/19/2020 8:31 AM CDT Respiratory Rate 16 01/19/2020 8:31 AM CDT Oxygen Saturation - - Inhaled Oxygen Concentration - - Weight 81.7 kg (180 lb 2 oz) 01/19/2020 8:31 AM CDT Height 154.9 cm (5' 1") 01/19/2020 8:31 AM CDT Body Mass Index 34.03 01/19/2020 8:31 AM CDT documented in this encounter Progress Notes Rachell Oquendo, SAHILP - 01/19/2020 8:30 AM CDT Chief complaint: Chief Complaint Patient presents with Care HPI: CC: Follow Up Visit Allyn Lynn is a 34 year old, , /White female. Patient's last menstrual period was 05/28/2019 (approximate). She is 33w5d with an intrauterine . Her estimated date [...] N ASHWINI Past Medical History: Diagnosis Date Abnormal maternal glucose tolerance, antepartum 12/28/2019 Anemia 2015 with previous . GDM (gestational diabetes mellitus) 01/02/2020 High cholesterol 2018 managed by pcp, pt [...] file Gets together: Not on file Attends episcopalian service: Not on file Active member of [...] Concern Not on file Social History Narrative Pentecostal preference is Sikh. Patient lives with and children. Patient denies any cats Social History Substance and Sexual Activity Sexual Activity Yes Partners: Male control/protection: Condom Comment: last sexual intercourse 07/04/2019 Labs No new labs, Labs are pending. and Emergency Response Officer Visit on 12/29/2019 Component Date Value GLU FASTNG 12/29/2019 93 GLUC 1 HR 12/29/2019 187* GLUC 2 HR 12/29/2019 181* GLUC 3 HR 12/29/2019 126* Routine Visit on 12/26/2019 Component Date Value POCT U SP GRAV 12/26/2019 . POCT PH U 12/26/2019 . POCT U LEUK EST 12/26/2019 . POCT U NIT 12/26/2019 . POCT U PROT 12/26/2019 Trace POCT U GLU 12/26/2019 Neg POCT U KETONE 12/26/2019 . POCT U UROBILI 12/26/2019 . POCT U BILI 12/26/2019 . POCT U BLD 12/26/2019 . HIV 1/2 Ag-Ab with Reflex 12/26/2019 Negative HIV Semi-quantitative 12/26/2019 0.07 Syphilis IgG/IgM 12/26/2019 Non-reactive GLUC 1 HR 12/26/2019 160 WBC 12/26/2019 6.24 RBC 12/26/2019 3.67* HGB 12/26/2019 10.8* HCT 12/26/2019 33.0* MCV 12/26/2019 89.9 MCH 12/26/2019 29.4 MCHC 12/26/2019 32.7 RDW-SD 12/26/2019 42.8 RDW-CV 12/26/2019 13.0 PLT 12/26/2019 309 MPV 12/26/2019 10.4 NRBC/100 WBC 12/26/2019 0.0 NRBC x10^3 12/26/2019 <0.01 GRAN MAT (NEUT) % 12/26/2019 71.2 IMM GRAN % 12/26/2019 0.30 LYMPH % 12/26/2019 21.8 MONO % 12/26/2019 5.3 EOS % 12/26/2019 1.1 BASO % 12/26/2019 0.3 GRAN MAT x10^3(ANC) 12/26/2019 4.44 IMM GRAN x10^3 12/26/2019 <0.03 LYMPH x10^3 12/26/2019 1.36 MONO x10^3 12/26/2019 0.33 EOS x10^3 12/26/2019 0.07 BASO x10^3 12/26/2019 <0.03 Radiology No new radiology. Allergies Allyn has No Known Allergies. Medications Allyn has a current medication list which includes the following prescription(s): blood sugar diagnostic, blood-glucose meter, lancets, and doxylamine-pyridoxine (vit b6). Review of Systems Constitutional: Negative. HENT: Negative. Eyes: Negative. Respiratory: Negative. Breasts: Negative. Cardiovascular: Negative. Gastrointestinal: Negative. Genitourinary: Negative. Musculoskeletal: Negative. Skin: Negative. Neurological: Negative. Psychiatric/Behavioral: Negative. Endocrine: Endocrine negative BP 102/60 (BP Location: Right arm, Patient Position: Sitting, BP CUFF SIZE: Adult Medium) | Pulse 69 | Temp 36.6 C (97.9 F) (Oral) | Resp 16 | Ht 5' 1" (1.549 m) | Wt 180 lb 2 oz (81.7 kg) | LMP 05/28/2019 (Approximate) | BMI 34.03 kg/m Pregravid BMI: 33.7 Physical Exam PHYSICAL: General Exam: Neurological: Normal Abdomen: Normal gravid Extremities: Normal Pelvic Exam: Uterus: 35 Weeks Assessment/Plan Return to clinic in 2 weeks. pnv Denies zika virus risk, signs and symptoms such as fever,rash,joint pain, conjunctivitis (red eyes),muscle pain, headaches; outside [place] travel to areas affected by zika, and FOB exposure to zika. Educated on use of mosquito repellent. Supervision of high risk in third trimester (primary encounter diagnosis) Multigravida of advanced maternal age in third trimester Comment: routine Plan: POCT URINALYSIS W SPECIFIC GRAVITY, CBC WITH DIFF, GROUP B STREPTOCOCCUS BY PCR Diet controlled gestational diabetes mellitus (GDM) in third trimester Comment: glucose log toda y 0/15 fasting levels elevated and 3/40 after meal levels elevated Plan: continue checking blood glucose, continue diet modifications Screening for viral disease Comment: future ordered Plan: SARS-COV-2 IGG This visit did not involve counseling and coordination that comprised more than 50% of the visit time. SHARA Merchant 01/19/2020 9:08 AM documented in this encounter Plan of Treatment Date Type Specialty Care Team Description 02/02/2020 Routine Visit [facility]ell[facility] Azra SHARA Amor [address] [place], [place] [address] [phone] Name Type Priority Associated Diagnoses Order S chedule CBC WITH DIFF LAB Routine Supervision of high risk Ex pected: 01/19/2020, in third Expires: 01/18/2021 trimester GROUP B STREPTOCOCCUS BY LAB Routine Supervision of h igh risk Expected: 01/30/2020, PCR in third Expires: 01/18/2021 trimester SARS-COV-2 IGG LAB Routine Screening for viral Expect ed: 01/30/2020, disease Expires: 2020 Health Maintenance Due Date Last Done Comments Depression Screening 01/18/2021 01/19/2020 PAP SMEAR 03/10/2021 09/05/2014, 10/22/2009, Postpone d [...] Name Priority Date/Time Associated Diagnosis Comme nts POCT URINALYSIS Routine 01/19/2020 8:38 AM Supervision of marcel gusman Results for this CDT risk in procedure are in third trimester the results section. documented in this encounter Results POCT URINALYSIS W SPECIFIC GRAVITY (01/19/2020 8:38 AM CDT) Pathologist Sig nature POCT U [...] Diagnoses Diagnosis Supervision of high risk in th ird trimester - Primary Unspecified high-risk Multigravida of advanced maternal age in third trimester Diet controlled gestational diabetes chandan litus (GDM) in third trimester Screening for viral disease Special screening examination for unspec ified viral disease documented in this encounter Insurance Payer Benefit Plan / Subscriber ID Effective Phone Address T ype Group Dates CHIP N[facility]IA [facility] [id number] 2019-Prese P O RADHA X CHIP Nakia [facility] HEALTH PLAN MOM nt [id number] HEALTH [place] [address] documented as of this encounter Advance Directives Name Relationship Healthcare Agent Relationship Co mmunication Dejan Lynn Spouse Primary healthcare agent
[2020-02-26] MEDS ORDERED: OXYTOCIN/LR 20 UNIT/1,000 ML BAG IV ONE (07:08)
--- OUTSIDE RECORDS SUMMARY | 2020-02-26 07:08 | XMS REPORT | Summary of Care ---
:1985 Author Organization [facility] Address [address] [place] [address] Care Team Providers Name Role Phone Rachell Oquendo [facility] Primary Care Provider Reason for Visit Reason Comments Care Encounter Details Date Type Department Care Team Description 01/19/2020 Routine [facility] Health [facility]- Keenan Oquendo vision of high risk in third trimester (Primary Dx); [facility] [place]ts[place]ggisela [facility] Multigravida of advanced maternal age in third trimester; [address] Diet c ontrolled gestational diabetes mellitus (GDM) in third trimester; [facility] Screening for viral disease [place], [place] [address] [place], [place] [phone] [address] Allergies No Known Allergiesdocumented as of [...] 0 04/08/2015 07/10/2019 Overview: ICD10 Diagnosis Term Shoe Sticks Repairer Utility Encounter for routine gynecological examination 04/08/2015 07/18/2015 Overview: ICD10 Diagnosis Term Shoe Sticks Repairer Utility Overweight 04/08/2015 12/16/2015 Overview: ICD10 Diagnosis Term Shoe Sticks Repairer Utility care and examination of lactating mother [...] Overweight 09/05/2014 02/23/2015 Overview: ICD10 Diagnosis Term Shoe Sticks Repairer Utility care and examination 01/01/2006 10/05/19 15 Overview: ICD10 Diagnosis Term Shoe Sticks Repairer Utility Anemia complicating , childbirth, or the [...] file Gets together: Not on file Attends spiritism service: Not on file Active member of [...] Concern Not on file Social History Narrative Hindu preference is Gnosticist. Patient lives with and children. Patient denies any cats Social History Substance and Sexual Activity Sexual Activity Yes Partners: Male control/protection: Condom Comment: last sexual intercourse 07/04/2019 Labs No new labs, Labs are pending. and Private Branch Exchange Service Advisor Visit on 12/29/2019 Component Date Value GLU [...] Satellites Azra SHARA Amor [address] [place], [place] [address] [phone] Name Type Priority Associated Diagnoses Order S [...] Address T ype Group Dates CHIP NAKIA [facility] [id number] 2019-Prese P O RADHA X CHIP Nakia [facility] HEALTH PLAN MOM nt [id number] [place] [address] documented as of this encounter Advance Directives Name Relationship Healthcare Agent Relationship Co mmunication Dejan Lynn Spouse Primary healthcare agent
--- OUTSIDE RECORDS SUMMARY | 2020-02-26 07:09 | XMS REPORT | Summary of Care ---
:1985 Author Organization [facility] Address [address] [place] [address] Care Team Providers Name Role Phone Rachell Oquendo [facility] Primary Care Provider Reason for Visit Reason Comments Care Encounter Details Date Type Department Care Team Description 01/19/2020 Routine [facility]- Keenan Oquendo vision of high risk in third trimester (Primary Dx); [facility] Switzergisela [facility] Multigravida of advanced maternal age in third trimester; [address] Diet c ontrolled gestational diabetes mellitus (GDM) in third trimester; [facility] Screening for viral disease [place], [place] [address] [place], [place] [phone] [address] Allergies No Known Allergiesdocumented as of [...] 0 04/08/2015 07/10/2019 Overview: ICD10 Diagnosis Term Corporate Physical Security Supervisor Utility Encounter for routine gynecological examination 04/08/2015 07/18/2015 Overview: ICD10 Diagnosis Term Corporate Physical Security Supervisor Utility Overweight 04/08/2015 12/16/2015 Overview: ICD10 Diagnosis Term Corporate Physical Security Supervisor Utility care and examination of lactating [...] Overweight 09/05/2014 02/23/2015 Overview: ICD10 Diagnosis Term Corporate Physical Security Supervisor Utility care and examination 01/01/2006 10/05/19 15 Overview: ICD10 Diagnosis Term Corporate Physical Security Supervisor Utility Anemia complicating , childbirth, or [...] file Gets together: Not on file Attends zoroastrianism service: Not on file Active member of [...] Concern Not on file Social History Narrative Faith preference is Oriental Orthodox. Patient lives with and children. Patient denies any cats Social History Substance and Sexual Activity Sexual Activity Yes Partners: Male control/protection: Condom Comment: last sexual intercourse 07/04/2019 Labs No new labs, Labs are pending. 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
--- OUTSIDE RECORDS SUMMARY | 2020-02-26 07:09 | XMS REPORT | Summary of Care ---
:1985 Author Organization [facility] - [facility] Address [address] [place] [address] Care Team Providers Name Role Phone OtisbaironjomarCarlRachell Haider [facility] Primary Care Provider [phone] Reason for Visit Reason Comments ULTRASOUND (Routine) Status Reason Specialty Diagnoses / Referred By Referred To Procedures Contact Contact Authorized OG-OBSTETRICS & Diagnoses f/u anatomy in 4wks*add extra time* Rell Bruner [facility] GYNECOLOGY / Procedures CONSULT MATERNAL MEDICINE ULTRASOUND ULTRASOUND Shakir Rodriguez MD Ultrasound-[facility] Maternal [address] [facility] Medicine [id number] [place] [address] Drive, 3rd Floor Phone: [place], [place] [phone] Fax: Fax: Encounter Details Date Type Department Care Team Description 01/24/2020 Operations Research Scientist Visit [facility] Women's Deuce Almendarez MD [address] [facility] [id number] [place] [address] [phone] Diet controlled gestational diabetes chandan litus (GDM) in third trimester; [facility] [id number], [facility] Usg Room Supervision of elderly multigravida in t hird trimester [facility] [address], 3rd Floor [place] [phone] Allergies No Known Allergiesdocumented as of this encounter (statuses as of 01/24/2020) Medications Medication Sig Dispensed Refills Start Date [...] as of this encounter (statuses as of 01/24/2020) Active Problems Problem Noted Date GDM (gestational [...] as of this encounter (statuses as of 01/24/2020) Resolved Problems Problem Noted Date Resolved Date [...] 0 04/08/2015 07/10/2019 Overview: ICD10 Diagnosis Term Paid Internship Utility Encounter for routine gynecological examination 04/08/2015 07/18/2015 Overview: ICD10 Diagnosis Term Paid Internship Utility Overweight 04/08/2015 12/16/2015 Overview: ICD10 Diagnosis Term Paid Internship Utility care and examination of lactating mother [...] Overweight 09/05/2014 02/23/2015 Overview: ICD10 Diagnosis Term Paid Internship Utility care and examination 01/01/2006 10/05/19 15 Overview: ICD10 Diagnosis Term Paid Internship Utility Anemia complicating , childbirth, or the puerperium 01/01/2006 10/05/2014 documented as of this encounter (statuses as of 01/24/2020) Immunizations Name Administration Dates Next Due Influenza [...] been in contact with No / Unsure 01/23/2020 4:22 PM CDT someone who was confirmed or suspected to have Coronavirus / COVID-19? documented as of this encounter Last Filed Vital Signs Not on filedocumented in this encounter Plan of Treatment Date Type Specialty Care Team Description 02/02/2020 Routine Visit OB Satellites Azra, Ghada Maloney, WHCNP [address] [place], [place] [address] [phone] Health Maintenance Due Date Last Done Comments [...] diabetes chandan litus (GDM) in third trimester Supervision of elderly multigravida in t hird trimester Supervision of high-risk of el dariela multigravida documented in this encounter Insurance Payer Benefit Plan / Subscriber ID Effective Phone Address T ype Group Dates [facility] [place] [facility] [id number] 2019-Prese P O RADHA X [employer] [facility] HEALTH PLAN MOM nt [id number] [place] [address] documented as of this encounter Advance Directives Name Relationship Healthcare Agent Relationship Co mmunication Dejan Shane Spouse Primary healthcare agent
--- OUTSIDE RECORDS SUMMARY | 2020-02-26 07:09 | XMS REPORT | Summary of Care ---
:1985 Author Organization [facility] Address [address] [place] [address] Care Team Providers Name Role Phone Rachell Oquendo [facility] Primary Care Provider [phone] Reason for Visit Reason Comments Care Encounter Details Date Type Department Care Team Description 01/19/2020 Routine [facility]- Keenan Oquendo vision of high risk in third trimester (Primary Dx); [facility] Multigravida of advanced maternal age in third trimester; [address] Diet c ontrolled gestational diabetes mellitus (GDM) in third trimester; [facility] Screening for viral disease [place], [place] [address] [place], [place] [phone] [address] Allergies No Known Allergiesdocumented as of [...] 0 04/08/2015 07/10/2019 Overview: ICD10 Diagnosis Term Sample Steamer Utility Encounter for routine gynecological examination 04/08/2015 07/18/2015 Overview: ICD10 Diagnosis Term Sample Steamer Utility Overweight 04/08/2015 12/16/2015 Overview: ICD10 Diagnosis Term Sample Steamer Utility care and examination of lactating mother [...] Overweight 09/05/2014 02/23/2015 Overview: ICD10 Diagnosis Term Sample Steamer Utility care and examination 01/01/2006 10/05/19 15 Overview: ICD10 Diagnosis Term Sample Steamer Utility Anemia complicating , childbirth, or the [...] file Gets together: Not on file Attends sabianism service: Not on file Active member of [...] Concern Not on file Social History Narrative Synagogue preference is [employer]. Patient lives with and children. Patient denies any cats Social History Substance and Sexual Activity Sexual Activity Yes Partners: Male control/protection: Condom Comment: last sexual intercourse 07/04/2019 Labs No new labs, Labs are pending. and Courtesy Car Driver Visit on 12/29/2019 Component Date Value GLU [...] Treatment Date Type Specialty Care Team Description 01/24/2020 Courtesy Car Driver Visit Maternal 5, [facility] Usg Room Medicine 02/02/2020 Routine Visit OB Satellites Otisbaironjomar Ghada Maloney, SHARA [address] [place], [place] [address] [phone] Name Type Priority Associated Diagnoses Order S chedule CBC WITH DIFF LAB Routine Supervision of high risk Ex pected: 01/19/2020, in third Expires: 01/18/2021 trimester GROUP B STREPTOCOCCUS BY LAB Routine Supervision of igh risk Expected: 01/30/2020, PCR in third [...] Address T ype Group Dates [facility] [id number] 2019-Prese P O RADHA X [employer] [facility] HEALTH PLAN MOM nt [id number] [place] [address] (Home) [place] [address] documented as of this encounter Advance Directives Name Relationship Healthcare Agent Relationship Co mmunication Dejan Lynn Spouse Primary healthcare agent
--- OUTSIDE RECORDS SUMMARY | 2020-02-26 07:10 | XMS REPORT | Summary of Care ---
:1985 Author Organization [facility] Address [address] [place] [address] Care Team Providers Name Role Phone Rachell Oquendo [facility] Primary Care Provider [phone] Encounter Details Date Type Department Care Team Description [facility]/29/2020 [facility], [address] [place] [address] [phone] [place], [place] [address] [phone] Allergies No Known Allergiesdocumented as of this encounter (statuses as of 01/29/2020) Medications Medication Sig Dispensed Refills Start Date [...] as of this encounter (statuses as of 01/29/2020) Active Problems Problem Noted Date GDM (gestational [...] as of this encounter (statuses as of 01/29/2020) Resolved Problems Problem Noted Date Resolved Date [...] 0 04/08/2015 07/10/2019 Overview: ICD10 Diagnosis Term Program Coordinator Executive Education Utility Encounter for routine gynecological examination 04/08/2015 07/18/2015 Overview: ICD10 Diagnosis Term Program Coordinator Executive Education Utility Overweight 04/08/2015 12/16/2015 Overview: ICD10 Diagnosis Term Program Coordinator Executive Education Utility care and examination of lactating mother [...] Overweight 09/05/2014 02/23/2015 Overview: ICD10 Diagnosis Term Program Coordinator Executive Education Utility care and examination 01/01/2006 10/05/19 Overview: ICD10 Diagnosis Term Program Coordinator Executive Education Utility Anemia complicating , childbirth, or the puerperium 01/01/2006 10/05/2014 documented as of this encounter (statuses as of 01/29/2020) Immunizations Name Administration Dates Next Due Influenza Virus Vaccine Quad .5 mL IM 6+ MO 07/10/2019 Influenza Virus Vaccine Quad IM Multi-dose 6+ MO 09/05/2014 Rubella 10/22/2009 TDAP 11/30/2014 TDAP (ADACEL) VACCINE 12/26/2019 documented as of this encounter Social History [...] Team Description 02/02/2020 Routine Visit OB Satellites Ghdaa Oquendo, CNP [address] [place], [place] [address] [phone] Health Maintenance Due Date Last Done Comments [...] Effective Phone Address T ype Group Dates [facility] [id number] 2019-Prese P O RADHA X [facility] HEALTH PLAN nt 508365 [place] [address] [facility] FAMILY FAMILY [id number] 2018-Pres [address] PLANNING OPAL PLANNING OPAL [place] [id number] [phone] [place] [address] documented as of this encounter Advance Directives Name Relationship Healthcare Agent Relationship Co mmunication Dejan Lynn Spouse Primary healthcare agent
[2020-02-26] MEDS ORDERED: LIDOCAINE 1% MPF 30 ML VIAL ONE (07:11)
--- OUTSIDE RECORDS SUMMARY | 2020-02-26 07:11 | XMS REPORT | Summary of Care ---
:1985 Author Organization [facility] Address [address] [place] [address] Care Team Providers Name Role Phone Rachell Oquendo [facility] Primary Care Provider Reason for Visit Reason Comments Anemia Encounter Details Date Type Department Care Team Description 02/05/2020 [facility], Anemia [address] [place] [address] [phone] [place], [place] [address] [phone] Allergies No Known Allergiesdocumented as of this encounter (statuses as of 02/05/2020) Medications Medication Sig Dispensed Refills Start Date End Date Status doxylamine-pyridoxine, Take 1 tablet by 60 tablet 2 07/31/2019 Active vit B6, (DICLEGIS) mouth 4 (four) 10-10 mg per times daily as tabletIndications: needed for Nausea Supervision of high and Vomiting risk in (N/V). first trimester Blood-Glucose Meter Check blood 1 Kit 0 01/02/2020 Active (FREESTYLE LITE METER) glucose 4x daily KitIndications: Diet controlled gestational diabetes mellitus (GDM) in third trimester blood sugar diagnostic Check blood 1 Box 2 02/02/2020 Active (FREESTYLE LITE glucose 4 daily STRIPS) stripIndications: Diet controlled gestational diabetes mellitus (GDM) in third trimester lancets (FREESTYLE Check blood 1 Each 2 02/02/2020 Active LANCETS) 28 gauge glucose 4x daily MiscIndications: Diet controlled gestational diabetes mellitus (GDM) in third trimester ferrous sulfate 325 mg Take 1 tablet by 60 tablet 3 02/05/2020 Active (65 mg iron) mouth 2 (two) tabletIndications: times daily. Anemia of mother in , antepartum ascorbic acid, vitamin Take 1 tablet by 90 tablet 2 02/05/2020 Active C, 500 mg mouth 3 (three) tabletIndications: times daily. Anemia of mother in , antepartum documented as of this encounter (statuses as of 02/05/2020) Active Problems Problem Noted Date Anemia of mother in , antepartum 02/05/2020 GDM (gestational diabetes mellitus) 01/02/2020 Overview: Failed [...] as of this encounter (statuses as of 02/05/2020) Resolved Problems Problem Noted Date Resolved Date [...] 0 04/08/2015 07/10/2019 Overview: ICD10 Diagnosis Term Production Technologist Utility Encounter for routine gynecological examination 04/08/2015 07/18/2015 Overview: ICD10 Diagnosis Term Production Technologist Utility Overweight 04/08/2015 12/16/2015 Overview: ICD10 Diagnosis Term Production Technologist Utility care and examination of lactating mother [...] Overweight 09/05/2014 02/23/2015 Overview: ICD10 Diagnosis Term Production Technologist Utility care and examination 01/01/2006 10/05/19 15 Overview: ICD10 Diagnosis Term Production Technologist Utility Anemia complicating , childbirth, or the puerperium 01/01/2006 10/05/2014 documented as of this encounter (statuses as of 02/05/2020) Immunizations Name Administration Dates Next Due Influenza [...] been in contact with No / Unsure 02/02/2020 11:22 AM CDT someone who was confirmed or suspected to have Coronavirus / COVID-19? documented as of this encounter Last Filed Vital Signs Not on filedocumented in this encounter Plan of Treatment Date Type Specialty Care Team Description 02/07/2020 Routine Visit OB Satellites [facility] [address] [place], [place] [address] [phone] Health Maintenance Due Date Last Done Comments Depression Screening 02/01/2021 02/02/2020 PAP SMEAR 03/10/2021 09/05/2014, 10/22/2009, Postpone d [...] filedocumented in this encounter Visit Diagnoses Diagnosis Anemia of mother in , antepartu m - Primary Anemia, antepartum documented in this encounter Insurance Payer Benefit Plan / Subscriber ID Effective Phone Address T ype Group Dates [facility] [id number] 2019-Prese P O RADHA X [facility] HEALTH PLAN nt [phone] [place] [address] [facility] FAMILY FAMILY [id number] 2018-Pres [address] en[address] PLANNING OPAL PLANNING OPAL [facility] [id number] [phone] [place] [address] documented as of this encounter Advance Directives Name Relationship Healthcare Agent Relationship Co mmunication Dejan Fernandezata Spouse Primary healthcare agent
--- OUTSIDE RECORDS SUMMARY | 2020-02-26 07:11 | XMS REPORT | Summary of Care ---
:1985 Author Organization [facility] Address [address] [place] [address] Care Team Providers Name Role Phone Rachell Oquendo [facility] Primary Care Provider [phone] Reason for Visit Reason Comments Anemia Encounter Details Date Type Department Care Team Description 02/05/2020 [facility] Race[facility]ll Rausch, Anemia [address] [place] [address] [phone] [place], [place] [address] [phone] Allergies No Known Allergiesdocumented as of this [...] 0 04/08/2015 07/10/2019 Overview: ICD10 Diagnosis Term Employee Relation Manager Utility Encounter for routine gynecological examination 04/08/2015 07/18/2015 Overview: ICD10 Diagnosis Term Employee Relation Manager Utility Overweight 04/08/2015 12/16/2015 Overview: ICD10 Diagnosis Term Employee Relation Manager Utility care and examination of lactating mother [...] Overweight 09/05/2014 02/23/2015 Overview: ICD10 Diagnosis Term Employee Relation Manager Utility care and examination 01/01/2006 10/05/19 15 Overview: ICD10 Diagnosis Term Employee Relation Manager Utility Anemia complicating , childbirth, or the [...] 02/07/2020 Routine Visit OB Satellites [facility]ada [facility]quendo, [facility] [address] [place], [place] [address] [phone] Health Maintenance Due Date Last Done Comments [...] Effective Phone Address T ype Group Dates [facility] [id number] 2019-Prese P O RADHA X [facility] HEALTH PLAN nt [phone] HEALTH PLAN [place] [address] [facility] FAMILY FAMILY [id number] 2018-Pres [address] en[address] PLANNING OPAL PLANNING OPAL [facility] [phone] documented as of this encounter Advance Directives Name Relationship Healthcare Agent Relationship Co mmunication Dejan Fernandezata Spouse Primary healthcare agent
--- OUTSIDE RECORDS SUMMARY | 2020-02-26 07:11 | XMS REPORT | Summary of Care ---
:1985 Author Organization [facility] Address [address] [place] [address] Care Team Providers Name Role Phone Rachell Oquendo [facility] Primary Care Provider [phone] Reason for Visit Reason Comments Care Encounter Details Date Type Department Care Team Description 02/02/2020 Routine [facility]- Keenan Oquendo vision of high risk in third trimester (Primary Dx); Visit Bakergisela Maloney RONI Screening for viral disease; [address] Antepa rtum multigravida of advanced maternal age; [facility] Obesity in ; [place], [place] LIV A Diet controlled gestational diabetes chandan litus (GDM) in third trimester [address] [place], [place] [phone] [address] Allergies No Known Allergiesdocumented as of this encounter (statuses as of 02/02/2020) Medications Medication Sig Dispensed Refills Start Date End Date Status doxylamine-pyrido Take 1 tablet 60 tablet 2 07/31/2019 Active xine, vit B6, by mouth 4 (DICLEGIS) 10-10 (four) times mg per daily as tabletIndications needed for : Supervision of Nausea and high risk Vomiting in (N/V). first trimester Blood-Glucose Check blood 1 Kit 0 01/02/2020 Act tyrone Meter (FREESTYLE glucose 4x LITE METER) daily KitIndications: Diet controlled gestational diabetes mellitus (GDM) in third trimester blood sugar Check blood 1 Box 2 02/02/2020 Activ e diagnostic glucose 4 (FREESTYLE LITE daily STRIPS) stripIndications: Diet controlled gestational diabetes mellitus (GDM) in third trimester lancets Check blood 1 Each 2 02/02/2020 Active (FREESTYLE glucose 4x LANCETS) 28 gauge daily MiscIndications: Diet controlled gestational diabetes mellitus (GDM) in third trimester lancets Check blood 1 Each 2 01/02/2020 Discont inued (FREESTYLE glucose 4x 0 (Reorder ) LANCETS) 28 gauge daily MiscIndications: Diet controlled gestational diabetes mellitus (GDM) in third trimester blood sugar Check blood 1 Box 2 01/02/2020 Disco ntinued diagnostic glucose 4 0 (Reorder) (FREESTYLE LITE daily STRIPS) stripIndications: Diet controlled gestational diabetes mellitus (GDM) in third trimester documented as of this encounter (statuses as of 02/02/2020) Active Problems Problem Noted Date GDM (gestational [...] as of this encounter (statuses as of 02/02/2020) Resolved Problems Problem Noted Date Resolved Date [...] 0 04/08/2015 07/10/2019 Overview: ICD10 Diagnosis Term Handle Bender Utility Encounter for routine gynecological examination 04/08/2015 07/18/2015 Overview: ICD10 Diagnosis Term Handle Bender Utility Overweight 04/08/2015 12/16/2015 Overview: ICD10 Diagnosis Term Handle Bender Utility care and examination of lactating mother [...] Overweight 09/05/2014 02/23/2015 Overview: ICD10 Diagnosis Term Handle Bender Utility care and examination 01/01/2006 10/05/19 15 Overview: ICD10 Diagnosis Term Handle Bender Utility Anemia complicating , childbirth, or the puerperium 01/01/2006 10/05/2014 documented as of this encounter (statuses as of 02/02/2020) Immunizations Name Administration Dates Next Due Influenza [...] Sign Reading Time Taken Comments Blood Pressure 115/74 02/02/2020 11:00 AM CDT Pulse 66 02/02/2020 11:00 AM CDT Temperature 36.6 C (97.9 F) 02/02/2020 11:00 AM CDT Respiratory Rate 16 02/02/2020 11:00 AM CDT Oxygen Saturation - - Inhaled Oxygen Concentration - - Weight 83.5 kg (184 lb 1 oz) 02/02/2020 11:00 AM CDT Height 162.6 cm (5' 4") 02/02/2020 11:00 AM CDT Body Mass Index 31.59 02/02/2020 11:00 AM CDT documented in this encounter Progress Notes Rachell Oquendo, [facility] - 02/02/2020 11:00 AM CDT Chief complaint: Chief Complaint Patient presents with Care HPI CC: Follow Up Visit Allyn Lynn is a 34 year old, , /White female. Patient's last menstrual period was 05/28/2019 (approximate). She is 35w5d with an intrauterine . Her estimated date [...] NORMAL SPONT EPIDURAL N ASHWINI 1 Term 12/23/01 40w0d 8 lb 2 oz (3.685 kg) [...] file Gets together: Not on file Attends bahai service: Not on file Active member of [...] Concern Not on file Social History Narrative Sikh preference is Jew. Patient lives with and children. Patient denies any cats Social History Substance and Sexual Activity Sexual Activity Yes Partners: Male control/protection: Condom Comment: last sexual intercourse 07/04/2019 Labs No new labs, Labs are pending. and Routine Visit on 01/19/2020 Component Date Value POCT U SP GRAV 01/19/2020 . POCT PH U 01/19/2020 . POCT U LEUK EST 01/19/2020 . POCT U NIT 01/19/2020 . POCT U PROT 01/19/2020 Trace POCT U GLU 01/19/2020 Neg POCT U KETONE 01/19/2020 . POCT U UROBILI 01/19/2020 . POCT U BILI 01/19/2020 . POCT U BLD 01/19/2020 . Tube Winder Hand Visit on 12/29/2019 Component Date Value GLU [...] includes the following prescription(s): blood sugar diagnostic, lancets, blood-glucose meter, and doxylamine-pyridoxine (vit b6). Review of Systems Constitutional: Negative. HENT: Negative. Eyes: Negative. Respiratory: Negative. Breasts: Negative. Cardiovascular: Negative. Gastrointestinal: Negative. Genitourinary: Negative. Musculoskeletal: Negative. Skin: Negative. Neurological: Negative. Psychiatric/Behavioral: Negative. Endocrine: Endocrine negative BP 115/74 (BP Location: Right arm, Patient Position: Sitting, BP CUFF SIZE: Adult Medium) | Pulse 66 | Temp 36.6 C (97.9 F) (Oral) | Resp 16 | Ht 5' 4" (1.626 m) | Wt 184 lb 1 oz (83.5 kg) | LMP 05/28/2019 (Approximate) | BMI 31.59 kg/m Pregravid BMI: 30.5 Physical Exam PHYSICAL: General Exam: Neurological: Normal Abdomen: Normal gravid Extremities: Normal Pelvic Exam: Uterus: 37 Weeks Assessment/Plan Return to clinic in 1 weeks. Denies zika virus risk, signs and symptoms such as fever,rash,joint pain, conjunctivitis (red eyes),muscle pain, headaches; outside [place] travel to areas affected by zika, and FOB exposure to zika. Educated on use of mosquito repellent. Supervision of high risk in third trimester (primary encounter diagnosis) Antepartum multigravida of advanced maternal age Comment: routine Plan: CBC WITH DIFF, GROUP B STREPTOCOCCUS BY PCR, CBC WITH DIFFERENTIAL, POCT URINALYSIS W SPECIFIC GRAVITY Screening for viral disease Comment: as ordered Plan: SARS-COV-2 IGG Obesity in Comment: see bmi Plan: BMI discussed, appropriate weight gain, sensible diet, and exercise, increased fiber and waterintake and protein low in fat. Encouraged exercise for 30 min everyday; begin regimen with caution to prevent injury. Encouraged to decrease BMI to <25. Diet controlled gestational diabetes mellitus (GDM) in third trimester Comment: glucose log today 0 before glucose levels elevated and after meal glucose levels elevated Plan: blood sugar diagnostic (FREESTYLE LITE STRIPS) strip, lancets (FREESTYLE LANCETS) 28 gauge Misc This visit did not involve counseling and coordination that comprised more than 50% of the visit time SHARA Merchant 02/02/2020 11:48 AM . documented in this encounter Plan of Treatment Date Type Specialty Care Team Description 02/07/2020 Routine Visit OB Satellites Ghada Oquendo [facility] [address], [place] [address] [phone] Name Type Priority Associated Diagnoses Date/Ti me CBC WITH DIFF LAB Routine Supervision of high risk 10:58 AM in third CDT trimester GROUP B STREPTOCOCCUS BY LAB Routine Supervision of h igh risk 02/02/2020 10:58 AM PCR in third CDT trimester SARS-COV-2 IGG LAB Routine Screening for viral 2019 10:58 AM disease CDT CBC WITH DIFFERENTIAL LAB Routine Supervision of high risk 02/02/2020 10:58 AM in third CDT trimester Health Maintenance Due Date Last Done [...] Associated Diagnosis Comme nts POCT URINALYSIS Routine 02/02/2020 11:02 AM Supervision of marcel gusman Results for this CDT risk in procedure are in third trimester the results section. documented in this encounter Results POCT URINALYSIS W SPECIFIC GRAVITY (02/02/2020 11:02 AM CDT) Pathologist Sig nature POCT U SP GRAV . 1.005 - 1.025 mg/dl POCT PH U . 5 - 8 mg/dl POCT U LEUK EST . Negative - Negative POCT U NIT . Negative - Negative POCT U PROT trace Negative - Negative POCT U GLU neg Negative - Negative POCT U KETONE . Negative - Negative POCT U UROBILI . 0.2 - 1 mg/dl POCT U BILI . Negative - Negative POCT U BLD . Negative - Negative POCT U COLOR POCT U APPEAR Specimen Urine - URINE, CLEAN CATCH documented in this encounter Visit Diagnoses Diagnosis Supervision of high risk in th ird trimester - Primary Unspecified high-risk Screening for viral disease Special screening examination for unspec ified viral disease Antepartum multigravida of advanced mate rnal age Obesity in Obesity complicating , childbir th, or the puerperium, unspecified as to episode of care or not applicable Diet controlled gestational diabetes chandan litus (GDM) in third trimester documented in this encounter Insurance Payer Benefit Plan / Subscriber ID Effective Phone Address T ype Group Dates [facility] [id number] 2019-Prese P O RADHA X [facility] HEALTH PLAN MOM nt [id number] [place] [address] (Home) [place] [address] documented as of this encounter Advance Directives Name Relationship Healthcare Agent Relationship Co mmunication Dejan Shane Spouse Primary healthcare agent
--- OUTSIDE RECORDS SUMMARY | 2020-02-26 07:12 | XMS REPORT | Summary of Care ---
:1985 Author Organization [facility] Address [address] [place] [address] Care Team Providers Name Role Phone Rachell Oquendo [facility] Primary Care Provider Reason for Visit Reason Comments Anemia Encounter Details Date Type Department Care Team Description 02/05/2020 [facility]phone [facility]ll [facility]ausch, Anemia [address] [place] [address] [phone] [place], [place] [address] [phone] Allergies No Known Allergiesdocumented as of this [...] 0 04/08/2015 07/10/2019 Overview: ICD10 Diagnosis Term Frame Straightener Utility Encounter for routine gynecological examination 04/08/2015 07/18/2015 Overview: ICD10 Diagnosis Term Frame Straightener Utility Overweight 04/08/2015 12/16/2015 Overview: ICD10 Diagnosis Term Frame Straightener Utility care and examination of lactating mother [...] Overweight 09/05/2014 02/23/2015 Overview: ICD10 Diagnosis Term Frame Straightener Utility care and examination 01/01/2006 10/05/19 15 Overview: ICD10 Diagnosis Term Frame Straightener Utility Anemia complicating , childbirth, or the [...] 02/07/2020 Routine Visit OB Satellites Ghada Oquendo, [facility] [address] [place], [place] [address] [phone] Health Maintenance Due Date Last Done Comments [...] Effective Phone Address T ype Group Dates [facility] [id number] 2019-Prese P O RADHA X [facility] HEALTH PLAN nt [id number] HE[place] [address] [facility] FAMILY FAMILY [id number] 2018-Pres [address] PLANNING OPAL PLANNING OPAL [facility] [phone] [place] [address] documented as of this encounter Advance Directives Name Relationship Healthcare Agent Relationship Co mmunication Dejan Fernandezata Spouse Primary healthcare agent
--- OUTSIDE RECORDS SUMMARY | 2020-02-26 07:13 | XMS REPORT | Summary of Care ---
:1985 Author Organization [facility] Address [address] [place] [address] Care Team Providers Name Role Phone Rachell Oquendo [facility] Primary Care Provider Reason for Visit Reason Comments Assessment Encounter Details Date Type Department Care Team Description 02/06/[address] [facility], Assessment [address] [place] [address] [phone] [place], [place] [address] [phone] Allergies No Known Allergiesdocumented as of this encounter (statuses as of 02/07/2020) Medications Medication Sig Dispensed Refills Start Date [...] as of this encounter (statuses as of 02/07/2020) Active Problems Problem Noted Date Anemia of [...] as of this encounter (statuses as of 02/07/2020) Resolved Problems Problem Noted Date Resolved Date [...] 0 04/08/2015 07/10/2019 Overview: ICD10 Diagnosis Term Inspector [employer] Utility Encounter for routine gynecological examination 04/08/2015 07/18/2015 Overview: ICD10 Diagnosis Term Inspector [employer] Utility Overweight 04/08/2015 12/16/2015 Overview: ICD10 Diagnosis Term Inspector [employer] Utility care and examination of lactating mother [...] Overweight 09/05/2014 02/23/2015 Overview: ICD10 Diagnosis Term Inspector [employer] Utility care and examination 01/01/2006 10/05/19 15 Overview: ICD10 Diagnosis Term Inspector [employer] Utility Anemia complicating , childbirth, or the puerperium 01/01/2006 10/05/2014 documented as of this encounter (statuses as of 02/07/2020) Immunizations Name Administration Dates Next Due Influenza [...] 02/07/2020 Routine Visit OB Satellites Ghada Oquendo, [facility] [address] [place], [place] [address] [phone] Health Maintenance Due Date Last Done Comments INFLUENZA VACCINE (#1) 2020 07/10/2019, 09/05/2014 Depression Screening 02/01/2021 02/02/2020 PAP SMEAR 03/10/2021 09/05/2014, 10/22/2009, Postpone d from 10/18/2007, Additional 0 ( or history exists ) DTaP,Tdap,and Td Vaccines 12/25/2029 12/26/2019, 11/30/2014 (3 - Td) PNEUMOCOCCAL 0-64 YEARS Aged Out No longe r eligible COMBINED SERIES based on patient 's age to complete this topic documented as of this encounter Results Not on filedocumented in this encounter Insurance Payer Benefit Plan / Subscriber ID Effective Phone Address T ype Group Dates [facility] [id number] 2019-Prese P O RADHA X [facility] HEALTH PLAN nt [id number] HEALTH PLAN [facility] [id number] [facility] FAMILY FAMILY [id number] 2018-Pres [address] PLANNING OPAL PLANNING OPAL [facility] [id number] [phone] [place] [address] documented as of this encounter Advance Directives Name Relationship Healthcare Agent Relationship Co mmunication Dejan Lynn Spouse Primary healthcare agent
--- OUTSIDE RECORDS SUMMARY | 2020-02-26 07:13 | XMS REPORT | Summary of Care ---
:1985 Author Organization [facility] Address [address] [place] [address] Care Team Providers Name Role Phone Rachell Oquendo [facility] Primary Care Provider Reason for Visit Reason Comments Assessment Encounter Details Date Type Department Care Team Description 02/06/2020 [facility], Assessment [address] [place] [address] [phone] [place], [place] [address] [phone] Allergies No Known Allergiesdocumented as of this [...] 0 04/08/2015 07/10/2019 Overview: ICD10 Diagnosis Term Radio Host Utility Encounter for routine gynecological examination 04/08/2015 07/18/2015 Overview: ICD10 Diagnosis Term Radio Host Utility Overweight 04/08/2015 12/16/2015 Overview: ICD10 Diagnosis Term Radio Host Utility care and examination of lactating mother [...] Overweight 09/05/2014 02/23/2015 Overview: ICD10 Diagnosis Term Radio Host Utility care and examination 01/01/2006 10/05/19 15 Overview: ICD10 Diagnosis Term Radio Host Utility Anemia complicating , childbirth, or the [...] 02/07/2020 Routine Visit OB Satellites Ghada Oquendo, [facility] [address] [place], [place] [address] [phone] Health Maintenance Due Date Last Done Comments [...] Effective Phone Address T ype Group Dates [facility] [id number] 2019-Prese P O RADHA X [facility] HEALTH PLAN nt [id number] HEALTH PLAN [facility] [address] [facility] FAMILY FAMILY [id number] 2018-Pres [address] PLANNING OPAL PLANNING OPAL [facility] [phone] [place] [address] documented as of this encounter Advance Directives Name Relationship Healthcare Agent Relationship Co mmunication Dejan Lynn Spouse Primary healthcare agent
--- OUTSIDE RECORDS SUMMARY | 2020-02-26 07:13 | XMS REPORT | Summary of Care ---
:1985 Author Organization [facility] Address [address] [place] [address] Care Team Providers Name Role Phone Rachell Oquendo [facility] Primary Care Provider Reason for Visit Reason Comments Care Encounter Details Date Type Department Care Team Description 02/07/2020 Routine [facility]- Keenan Oquendo vision of high risk in third trimester (Primary Dx); Visit Laurelgisela Maloney [facility] Multigravida of advanced maternal age in third trimester; [address] Obesit y in ; Street ST Diet controlled gestational diabetes chandan litus (GDM) in third trimester; [place], [place] [address] [place] [phone] [address] Allergies No Known Allergiesdocumented as of [...] 0 04/08/2015 07/10/2019 Overview: ICD10 Diagnosis Term Skid [address] Worker Utility Encounter for routine gynecological examination 04/08/2015 07/18/2015 Overview: ICD10 Diagnosis Term [address] Worker Utility Overweight 04/08/2015 12/16/2015 Overview: ICD10 Diagnosis Term [address] Worker Utility care and examination of lactating [...] Overweight 09/05/2014 02/23/2015 Overview: ICD10 Diagnosis Term [address] Worker Utility care and examination 01/01/2006 10/05/19 15 Overview: ICD10 Diagnosis Term [address] Worker Utility Anemia complicating , childbirth, or [...] been in contact with No / Unsure 02/07/2020 2:21 PM CDT someone who was confirmed or suspected to have Coronavirus / COVID-19? documented as of this encounter Last Filed Vital Signs Vital Sign Reading Time Taken Comments Blood Pressure 103/62 02/07/2020 2:22 PM CDT Pulse 57 02/07/2020 2:22 PM CDT Temperature 36.8 C (98.3 F) 02/07/2020 2:22 PM CDT Respiratory Rate 16 02/07/2020 2:22 PM CDT Oxygen Saturation - - Inhaled Oxygen Concentration - - Weight 83.5 kg (184 lb) 02/07/2020 2:22 PM CDT Height - - Body Mass Index 31.58 02/02/2020 11:00 AM CDT documented in this encounter Progress Notes Rachell Oquendo, [facility] - 02/07/2020 2:15 PM CDT Chief complaint: Chief Complaint Patient presents with Care HPI CC: Follow Up Visit Allyn Lynn is a 34 year old, , /White female. Patient's last menstrual period was 05/28/2019 (approximate). She is 36w3d with an intrauterine . Her estimated date [...] Procedure Laterality Date ANALGESIA,LABOR/VAGINAL DEL 02/23/2015 CHOLECYSTECTOMY 2010 HEART RATE, UTERINE ACTIVITY, AND RESTING TONE [...] file Gets together: Not on file Attends holiness service: Not on file Active member of [...] Concern Not on file Social History Narrative Spiritism preference is Mandaen. Patient lives with and children. Patient denies any cats Social History Substance and Sexual Activity Sexual Activity Yes Partners: Male control/protection: Condom Comment: last sexual intercourse 07/04/2019 Labs No new labs and Routine Visit on 02/02/2020 Component Date Value Group B Streptococcus by* 02/02/2020 Negative CoV-2 IgG 02/02/2020 Negative WBC 02/02/2020 5.32 RBC 02/02/2020 3.54* HGB 02/02/2020 10.2* HCT 02/02/2020 31.5* MCV 02/02/2020 89.0 MCH 02/02/2020 28.8 MCHC 02/02/2020 32.4 RDW-SD 02/02/2020 43.7 RDW-CV 02/02/2020 13.3 PLT 02/02/2020 281 MPV 02/02/2020 11.2 NRBC/100 WBC 02/02/2020 0.0 NRBC x10^3 02/02/2020 <0.01 GRAN MAT (NEUT) % 02/02/2020 55.6 IMM GRAN % 02/02/2020 0.20 LYMPH % 02/02/2020 32.7 MONO % 02/02/2020 10.5 EOS % 02/02/2020 0.4 BASO % 02/02/2020 0.6 GRAN MAT x10^3(ANC) 02/02/2020 2.96 IMM GRAN x10^3 02/02/2020 <0.03 LYMPH x10^3 02/02/2020 1.74 MONO x10^3 02/02/2020 0.56 EOS x10^3 02/02/2020 <0.03* BASO x10^3 02/02/2020 0.03 POCT U SP GRAV 02/02/2020 . POCT PH U 02/02/2020 . POCT U LEUK EST 02/02/2020 . POCT U NIT 02/02/2020 . POCT U PROT 02/02/2020 trace POCT U GLU 02/02/2020 neg POCT U KETONE 02/02/2020 . POCT U UROBILI 02/02/2020 . POCT U BILI 02/02/2020 . POCT U BLD 02/02/2020 . Routine Visit on 01/19/2020 Component Date Value POCT U SP GRAV 01/19/2020 . POCT PH U 01/19/2020 . POCT U LEUK EST 01/19/2020 . POCT U NIT 01/19/2020 . POCT U PROT 01/19/2020 Trace POCT U GLU 01/19/2020 Neg POCT U KETONE 01/19/2020 . POCT U UROBILI 01/19/2020 . POCT U BILI 01/19/2020 . POCT U BLD 01/19/2020 . Admissions Clerk Visit on 12/29/2019 Component Date Value GLU [...] medication list which includes the following prescription(s): ascorbic acid (vitamin c), ferrous sulfate, blood sugar diagnostic, lancets, blood-glucose meter, and doxylamine-pyridoxine (vit b6). Review of Systems Constitutional: Negative. HENT: Negative. Eyes: Negative. Respiratory: Negative. Breasts: Negative. Cardiovascular: Negative. Gastrointestinal: Negative. Genitourinary: Negative. Musculoskeletal: Negative. Skin: Negative. Neurological: Negative. Psychiatric/Behavioral: Negative. Endocrine: Endocrine negative BP 103/62 (BP Location: Right arm, Patient Position: Sitting, BP CUFF SIZE: Adult Medium) | Pulse 57 | Temp 36.8 C (98.3 F) (Oral) | Resp 16 | Wt 184 lb (83.5 kg) | LMP 05/28/2019 (Approximate) | BMI 31.58 kg/m Pregravid BMI: 30.5 Physical Exam PHYSICAL: [...] Comment: routine Plan: POCT URINALYSIS W SPECIFIC GRAVITY Obesity in Comment: see bmi Plan: BMI discussed, appropriate weight gain, sensible diet, and exercise, increased fiber and waterintake and protein low in fat. Encouraged exercise for 30 min everyday; begin regimen with caution to prevent injury. Encouraged to decrease BMI to <25. Diet controlled gestational diabetes mellitus (GDM) in third trimester Comment: glcuose log today 0/6 fasting glucose levels elevated and 3/14 after meal glucose levels elevated Plan: continue diet modification, continue checking blood glucose Anemia of mother in , antepartum Comment: continue iron, PNV and iron-rich foods Plan: as needed mgmt This visit did not involve counseling and coordination that comprised more than 50% of the visit time. SHARA Merchant 02/07/2020 2:44 PM documented in this encounter Plan of Treatment Date Type Specialty Care Team Description 02/14/2020 Routine Visit OB Satellites Ghada Oquendo [facility] [address], [place] [address] [phone] Health Maintenance Due Date Last Done Comments [...] Associated Diagnosis Comme nts POCT URINALYSIS Routine 02/07/2020 Supervision of high risk Results for this in third procedure are in the trimester results section . documented in this encounter Results POCT URINALYSIS W SPECIFIC GRAVITY (02/07/2020) Pathologist Sig nature POCT U SP GRAV . 1.005 - 1.025 mg/dl POCT PH U . 5 - 8 mg/dl POCT U LEUK EST . Negative - Negative POCT U NIT . Negative - Negative POCT U PROT trace Negative - Negative POCT U GLU . Negative - Negative POCT U KETONE . Negative - Negative POCT U UROBILI . 0.2 - 1 mg/dl POCT U BILI . Negative - Negative POCT U BLD . Negative - Negative POCT U COLOR POCT U APPEAR Specimen Urine - URINE, CLEAN CATCH documented in this encounter Visit Diagnoses Diagnosis Supervision of high risk in ird trimester - Primary Unspecified high-risk Multigravida of advanced maternal age in third trimester Obesity in Obesity complicating , childbir , or the puerperium, unspecified as to episode of care or not applicable Diet controlled gestational diabetes chandan litus (GDM) in third trimester Anemia of mother in , antepartu m Anemia, antepartum documented in this encounter Insurance Payer Benefit Plan / Subscriber ID Effective Phone Address T ype Group Dates [facility] [id number] 2019-Prese P O RADHA X [facility] HEALTH PLAN MOM nt [id number] [place] [address] (Home) [place] [address] documented as of this encounter Advance Directives Name Relationship Healthcare Agent Relationship Co mmunication Dejan Lynn Spouse Primary healthcare agent "
--- OUTSIDE RECORDS SUMMARY | 2020-02-26 07:14 | XMS REPORT | Summary of Care ---
:1985 Author Organization [facility] Address [address] [place] [address] Care Team Providers Name Role Phone Rachell Oquendo [facility] Primary Care Provider [phone] Reason for Visit Reason Comments Care Encounter Details Date Type Department Care Team Description 02/07/2020 Routine [facility] Health [facility]- Keenan Oquendo vision of high risk in third trimester (Primary Dx); Visit Albiongisela Maloney [facility] Multigravida of advanced maternal age in third trimester; [address] Obesit y in ; Street ST Diet controlled gestational diabetes chandan litus (GDM) in third trimester; [place], [place] Anemia of [place] , [place] [address] [place], [place] [phone] [address] Allergies No Known Allergiesdocumented as of [...] 0 04/08/2015 07/10/2019 Overview: ICD10 Diagnosis Term Ware Cleaner Utility Encounter for routine gynecological examination 04/08/2015 07/18/2015 Overview: ICD10 Diagnosis Term Ware Cleaner Utility Overweight 04/08/2015 12/16/2015 Overview: ICD10 Diagnosis Term Ware Cleaner Utility care and examination of lactating mother [...] Overweight 09/05/2014 02/23/2015 Overview: ICD10 Diagnosis Term Ware Cleaner Utility care and examination 01/01/2006 10/05/19 15 Overview: ICD10 Diagnosis Term Ware Cleaner Utility Anemia complicating , childbirth, or the [...] file Gets together: Not on file Attends shinto service: Not on file Active member of [...] Concern Not on file Social History Narrative Anglican preference is Mormonism. Patient lives with and children. Patient denies [...] 01/19/2020 . POCT U BLD 01/19/2020 . Clay Digger Visit on 12/29/2019 Component Date Value GLU [...] Visit OB Satellites Ghada Oquendo [facility] [address] [place], [place] [address] [phone] Health Maintenance Due Date Last Done Comments [...] Effective Phone Address T ype Group Dates [facility] [id number] 2019-Prese P O RADHA X CHIP [facility] HEALTH PLAN MOM nt [id number] HE[place] [address] (Home) [place] [address] documented as of this encounter Advance Directives Name Relationship Healthcare Agent Relationship Co mmunication Dejan Lynn Spouse Primary healthcare agent "
--- OUTSIDE RECORDS SUMMARY | 2020-02-26 07:15 | XMS REPORT | Summary of Care ---
:1985 Author Organization [facility] Address [address] [place] [address] Care Team Providers Name Role Phone Rachell Oquendo [facility] Primary Care Provider [phone] Reason for Visit Reason Comments Care Encounter Details Date Type Department Care Team Description 02/14/2020 Routine [facility] Health [facility]- Keenan Oquendo vision of high risk in third trimester (Primary Dx); [facility] Multigravida of advanced maternal age in third trimester; [address] Obesit y in ; Street ST Diet controlled gestational diabetes chandan litus (GDM) in third trimester [place], [place] [address] [place] [phone] [address] Allergies No Known Allergiesdocumented as of this encounter (statuses as of 02/14/2020) Medications Medication Sig Dispensed Refills Start Date [...] as of this encounter (statuses as of 02/14/2020) Active Problems Problem Noted Date Anemia of [...] as of this encounter (statuses as of 02/14/2020) Resolved Problems Problem Noted Date Resolved Date [...] 0 04/08/2015 07/10/2019 Overview: ICD10 Diagnosis Term Servomechanism Assembler Utility Encounter for routine gynecological examination 04/08/2015 07/18/2015 Overview: ICD10 Diagnosis Term Servomechanism Assembler Utility Overweight 04/08/2015 12/16/2015 Overview: ICD10 Diagnosis Term Servomechanism Assembler Utility care and examination of lactating mother [...] Overweight 09/05/2014 02/23/2015 Overview: ICD10 Diagnosis Term Servomechanism Assembler Utility care and examination 01/01/2006 10/05/19 15 Overview: ICD10 Diagnosis Term Servomechanism Assembler Utility Anemia complicating , childbirth, or the puerperium 01/01/2006 10/05/2014 documented as of this encounter (statuses as of 02/14/2020) Immunizations Name Administration Dates Next Due Influenza [...] been in contact with No / Unsure 02/14/2020 2:13 PM CDT someone who was confirmed or suspected to have Coronavirus / COVID-19? documented as of this encounter Last Filed Vital Signs Vital Sign Reading Time Taken Comments Blood Pressure 115/63 02/14/2020 2:13 PM CDT Pulse 79 02/14/2020 2:13 PM CDT Temperature 36.8 C (98.2 F) 02/14/2020 2:13 PM CDT Respiratory Rate 16 02/14/2020 2:13 PM CDT Oxygen Saturation - - Inhaled Oxygen Concentration - - Weight 82.7 kg (182 lb 4 oz) 02/14/2020 2:13 PM CDT Height 162.6 cm (5' 4") 02/14/2020 2:13 PM CDT Body Mass Index 31.28 02/14/2020 2:13 PM CDT documented in this encounter Progress Notes Rachell Oquendo, WHSAHILP - 02/14/2020 2:00 PM CDT Chief complaint: Chief Complaint Patient presents with Care HPI CC: Follow Up Visit Allyn Lynn is a 34 year old, , /White female. Patient's last menstrual period was 05/28/2019 (approximate). She is 37w3d with an intrauterine . Her estimated date [...] file Gets together: Not on file Attends yazidism service: Not on file Active member of [...] file Social History Narrative Hindu preference is Episcopalian. Patient lives with and children. Patient denies any cats Social History Substance and Sexual Activity Sexual Activity Yes Partners: Male control/protection: Condom Comment: last sexual intercourse 07/04/2019 Labs No new labs and Routine Visit on 02/07/2020 Component Date Value POCT U SP GRAV 02/07/2020 . POCT PH U 02/07/2020 . POCT U LEUK EST 02/07/2020 . POCT U NIT 02/07/2020 . POCT U PROT 02/07/2020 trace POCT U GLU 02/07/2020 . POCT U KETONE 02/07/2020 . POCT U UROBILI 02/07/2020 . POCT U BILI 02/07/2020 . POCT U BLD 02/07/2020 . Routine Visit on 02/02/2020 Component Date Value [...] 01/19/2020 . POCT U BLD 01/19/2020 . Camera Machinist Visit on 12/29/2019 Component Date Value GLU [...] Negative. Psychiatric/Behavioral: Negative. Endocrine: Endocrine negative BP 115/63 (BP Location: Right arm, Patient Position: Sitting, BP CUFF SIZE: Adult Medium) | Pulse 79 | Temp 36.8 C (98.2 F) (Oral) | Resp 16 | Ht 5' 4" (1.626 m) | Wt 182 lb 4 oz (82.7 kg) | LMP 05/28/2019 (Approximate) | BMI 31.28 kg/m Pregravid BMI: 30.5 Physical Exam PHYSICAL: General Exam: Neurological: Normal Abdomen: Normal gravid Extremities: Normal Pelvic Exam: Uterus: 38 Weeks Assessment/Plan Return to clinic in 1 [...] in third trimester Comment: glucose log today fasting levels elevated and 10/27 after meal glucose levels elevated Plan: continue checking blood glucose, continue diet modifications This visit did not involve counseling and coordination that comprised more than 50% of the visit time SHARA Merchant 02/14/2020 2:25 PM . documented in this encounter Plan of Treatment Health Maintenance Due Date Last Done Comments INFLUENZA VACCINE (#1) 2020 07/10/2019, 09/05/2014 Depression Screening 02/13/2021 02/14/2020 PAP SMEAR 03/10/2021 09/05/2014, 10/22/2009, Postpone d from 10/18/2007, Additional 0 ( or history exists ) DTaP,Tdap,and Td Vaccines 12/25/2029 12/26/2019, 11/30/2014 (3 - Td) PNEUMOCOCCAL 0-64 YEARS Aged Out No longe r eligible COMBINED SERIES based on patient 's age to complete this topic documented as of this encounter Procedures Procedure Name Priority Date/Time Associated Diagnosis Comme nts POCT URINALYSIS Routine 02/14/2020 2:15 PM Supervision of [facility] Results for this CDT risk in procedure are in third trimester the results section. documented in this encounter Results POCT URINALYSIS W SPECIFIC GRAVITY (02/14/2020 2:15 PM CDT) Pathologist Sig nature POCT U SP [...] Phone Address T ype Group Dates [facility]IP [facility] [id number] 2019-Prese P O RADHA X CHIP Nakia [facility] HEALTH PLAN MOM nt [phone] HEALTH [place] [address] (Home) [place] [address] documented as of this encounter Advance Directives Name Relationship Healthcare Agent Relationship Co mmunication Dejan Lynn Spouse Primary healthcare agent
--- OUTSIDE RECORDS SUMMARY | 2020-02-26 07:16 | XMS REPORT | Summary of Care ---
:1985 Author Organization [facility] - Health Address [address] [place] [address] Care Team Providers Name Role Phone Otisbaironjomar Rachell Maloney [facility] Primary Care Provider [phone] Encounter Details Date Type Department Care Team Description 02/22/2020 Orders Only [facility] Doctor Unassigned, No [address] [facility] [place] [address] [address] [place] [address] Allergies No Known Allergiesdocumented as of this encounter (statuses as of 02/23/2020) Medications Medication Sig Dispensed Refills Start Date [...] daily. Anemia of mother in , antepartum lancets (FREESTYLE Check blood 2 Each 2 02/22/2020 Active LANCETS) 28 gauge glucose 4x daily MiscIndications: Diet controlled gestational diabetes mellitus (GDM) in third trimester documented as of this encounter (statuses as of 02/23/2020) Active Problems Problem Noted Date Anemia of [...] as of this encounter (statuses as of 02/23/2020) Resolved Problems Problem Noted Date Resolved Date [...] 0 04/08/2015 07/10/2019 Overview: ICD10 Diagnosis Term Sanitary Aide Utility Encounter for routine gynecological examination 04/08/2015 07/18/2015 Overview: ICD10 Diagnosis Term Sanitary Aide Utility Overweight 04/08/2015 12/16/2015 Overview: ICD10 Diagnosis Term Sanitary Aide Utility care and examination of lactating mother [...] Overweight 09/05/2014 02/23/2015 Overview: ICD10 Diagnosis Term Sanitary Aide Utility care and examination 01/01/2006 10/05/19 15 Overview: ICD10 Diagnosis Term Sanitary Aide Utility Anemia complicating , childbirth, or the puerperium 01/01/2006 10/05/2014 documented as of this encounter (statuses as of 02/23/2020) Immunizations Name Administration Dates Next Due Influenza [...] been in contact with No / Unsure 02/22/2020 2:43 PM CDT someone who was confirmed or suspected to have Coronavirus / COVID-19? documented as of this encounter Last Filed Vital Signs Not on filedocumented in this encounter Plan of Treatment Health Maintenance Due Date Last Done Comments INFLUENZA VACCINE (#1) 2020 07/10/2019, 09/05/2014 Depression Screening 02/21/2021 02/22/2020 PAP SMEAR 03/10/2021 09/05/2014, 10/22/2009, Postpone d from 10/18/2007, Additional 0 ( or history exists ) DTaP,Tdap,and Td Vaccines 12/25/2029 12/26/2019, 11/30/2014 (3 - Td) PNEUMOCOCCAL 0-64 YEARS Aged Out No longe r eligible COMBINED SERIES based on patient 's age to complete this topic documented as of this encounter Procedures Procedure Name Priority Date/Time Associated Diagnosis Comme nts PATIENT QUESTIONNAIRE Routine 02/22/2020 12:01 AM CDT documented in this encounter Results Not on filedocumented in this encounter Insurance Payer Benefit Plan / Subscriber ID Effective Phone Address T ype Group Dates [facility] [id number] 2019-Prese P O RADHA X [facility] HEALTH PLAN nt [id number] HEALTH PL[place] [address] [facility] FAMILY FAMILY [id number] 2018-Pres [address] PLANNING OPAL PLANN[facility] OPAL [facility] [id number] [phone] [place] [address] documented as of this encounter Advance Directives Name Relationship Healthcare Agent Relationship Co mmunication Dejan Lynn Spouse Primary healthcare agent
--- OUTSIDE RECORDS SUMMARY | 2020-02-26 07:16 | XMS REPORT | Summary of Care ---
:1985 Author Organization [facility] Address [address] [place] [address] Care Team Providers Name Role Phone Rachell Oquendo [facility] Primary Care Provider [phone] Reason for Visit Reason Comments Care Encounter Details Date Type Department Care Team Description 02/22/2020 Routine [facility] Health [facility]- Azra, Keenan vision of high- risk of elderly multigravida (Primary Dx); Visit [place] Rachell Maloney [facility] Multigravida of advanced maternal age in third trimester; [address] Obesit y in ; Street Anemia of mother in , antepartu m; [place], [place] LIV [place] Diet controlled gestational diabetes chandan litus (GDM) in third trimester; [address] [place], [place] Supervision of high risk pre gnancy in third trimester [phone] [address] Allergies No Known Allergiesdocumented as of this encounter (statuses as of 02/22/2020) Medications Medication Sig Dispensed Refills Start Date [...] mellitus (GDM) in third trimester ferrous sulfate Take 1 tablet 60 tablet 3 02/05/2020 Active 325 mg (65 mg by mouth 2 iron) (two) times tabletIndications daily. : Anemia of mother in , antepartum ascorbic acid, Take 1 tablet 90 tablet 2 02/05/2020 Active vitamin C, 500 mg by mouth 3 tabletIndications (three) times : Anemia of daily. mother in , antepartum lancets Check blood 2 Each 2 02/22/2020 Active (FREESTYLE glucose 4x LANCETS) 28 gauge daily MiscIndications: Diet controlled gestational diabetes mellitus (GDM) in third trimester lancets Check blood 1 Each 2 02/02/2020 Discont inued (FREESTYLE glucose 4x 0 (Reorder ) LANCETS) 28 gauge daily MiscIndications: Diet controlled gestational diabetes mellitus (GDM) in third trimester documented as of this encounter (statuses as of 02/22/2020) Active Problems Problem Noted Date Anemia of [...] as of this encounter (statuses as of 02/22/2020) Resolved Problems Problem Noted Date Resolved Date [...] 0 04/08/2015 07/10/2019 Overview: ICD10 Diagnosis 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 Encounter for routine gynecological examination 04/08/2015 07/18/2015 Overview: ICD10 Diagnosis 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 Overweight 04/08/2015 12/16/2015 Overview: ICD10 Diagnosis 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 care and examination of lactating mother [...] Overweight 09/05/2014 02/23/2015 Overview: ICD10 Diagnosis 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 care and examination 01/01/2006 10/05/19 15 Overview: ICD10 Diagnosis 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 Anemia complicating , childbirth, or the puerperium 01/01/2006 10/05/2014 documented as of this encounter (statuses as of 02/22/2020) Immunizations Name Administration Dates Next Due Influenza [...] Sign Reading Time Taken Comments Blood Pressure 114/66 02/22/2020 2:43 PM CDT Pulse 66 02/22/2020 2:43 PM CDT Temperature 36.5 C (97.7 F) 02/22/2020 2:43 PM CDT Respiratory Rate 16 02/22/2020 2:43 PM CDT Oxygen Saturation - - Inhaled Oxygen Concentration - - Weight 82.7 kg (182 lb 6 oz) 02/22/2020 2:43 PM CDT Height 162.6 cm (5' 4") 02/22/2020 2:43 PM CDT Body Mass Index 31.3 02/22/2020 2:43 PM CDT documented in this encounter Progress Notes Rachell Oquendo, CNP - 02/22/2020 2:15 PM CDT Chief complaint: Chief Complaint Patient presents with Care HPI CC: Follow Up Visit Allyn Lynn is a 34 year old, , /White female. Patient's last menstrual period was 05/28/2019 (approximate). She is 38w4d with an intrauterine . Her estimated date [...] file Gets together: Not on file Attends yarsani service: Not on file Active member of [...] file Social History Narrative Presybeterian preference is Yazidi. Patient lives with and children. Patient denies any cats Social History Substance and Sexual Activity Sexual Activity Yes Partners: Male control/protection: Condom Comment: last sexual intercourse 07/04/2019 Labs No new labs and Routine Visit on 02/14/2020 Component Date Value POCT U SP GRAV 02/14/2020 . POCT PH U 02/14/2020 . POCT U LEUK EST 02/14/2020 . POCT U NIT 02/14/2020 . POCT U PROT 02/14/2020 Trace POCT U GLU 02/14/2020 Neg POCT U KETONE 02/14/2020 . POCT U UROBILI 02/14/2020 . POCT U BILI 02/14/2020 . POCT U BLD 02/14/2020 . Routine Visit on 02/07/2020 Component Date Value [...] 01/19/2020 . POCT U BLD 01/19/2020 . Inking Machine Tender Visit on 12/29/2019 Component Date Value GLU [...] medication list which includes the following prescription(s): lancets, ascorbic acid (vitamin c), ferrous sulfate, blood sugar diagnostic, blood-glucose meter, and doxylamine-pyridoxine (vit b6). Review of Systems Constitutional: Negative. HENT: Negative. Eyes: Negative. Respiratory: Negative. Breasts: Negative. Cardiovascular: Negative. Gastrointestinal: Negative. Genitourinary: Negative. Musculoskeletal: Negative. Skin: Negative. Neurological: Negative. Psychiatric/Behavioral: Negative. Endocrine: Endocrine negative BP 114/66 (BP Location: Right arm, Patient Position: Sitting, BP CUFF SIZE: Adult Medium) | Pulse 66 | Temp 36.5 C (97.7 F) (Oral) | Resp 16 | Ht 5' 4" (1.626 m) | Wt 182 lb 6 oz (82.7 kg) | LMP 05/28/2019 (Approximate) | BMI 31.30 kg/m Pregravid BMI: 30.5 Physical Exam PHYSICAL: General Exam: Neurological: Normal Abdomen: Normal gravid Extremities: Normal Pelvic Exam: Uterus: 40 Weeks Assessment/Plan Return to clinic in 1 weeks. Denies zika virus risk, signs and symptoms such as fever,rash,joint pain, conjunctivitis (red eyes),muscle pain, headaches; outside [place] travel to areas affected by zika, and FOB exposure to zika. Educated on use of mosquito repellent. Supervision of high-risk of elderly multigravida (primary encounter diagnosis) Multigravida of advanced maternal age in third trimester Comment: routine Plan: as needed mgmt Obesity in Comment: see bmi Plan: BMI discussed, appropriate weight gain, sensible diet, and exercise, increased fiber and waterintake and protein low in fat. Encouraged exercise for 30 min everyday; begin regimen with caution to prevent injury. Encouraged to decrease BMI to <25. Anemia of mother in , antepartum Comment: continue iron, PNV and iron-rich foods Plan: monitor Diet controlled gestational diabetes mellitus (GDM) in third trimester Comment: glucose log today 0 fasting levels elevated and 08/31 after meal glucose levels elevated Plan: lancets (FREESTYLE LANCETS) 28 gauge Misc, continue diet modifications, continue checking blood glucose This visit did not involve counseling and coordination that comprised more than 50% of the visit time. SHARA Merchant 02/22/2020 2:49 PM documented in this encounter Plan of [...] Associated Diagnosis Comme nts POCT URINALYSIS Routine 02/22/2020 2:45 PM Supervision of marcel gusman Results for this CDT risk in procedure are in third trimester the results section. documented in this encounter Results POCT URINALYSIS W SPECIFIC GRAVITY (02/22/2020 2:45 PM CDT) Pathologist Sig nature POCT U [...] this encounter Visit Diagnoses Diagnosis Supervision of high-risk of satnam dariela multigravida - Primary Multigravida of advanced maternal age in third trimester Obesity in Obesity complicating , childbir th, or the puerperium, unspecified as to episode of care or not applicable Anemia of mother in , antepartu m Anemia, antepartum Diet controlled gestational diabetes chandan litus (GDM) in third trimester Supervision of high risk in ird trimester Unspecified high-risk documented in this encounter Insurance Payer Benefit Plan / Subscriber ID Effective Phone Address T ype Group Dates [facility]IP [place] [facility] [id number] 2019-Prese P O RADHA X CHIP [employer] [facility] HEALTH PLAN MOM nt [id number] HEALTH PLAN CHIP LOW [place] [id number] documented as of this encounter Advance Directives Name Relationship Healthcare Agent Relationship Co mmunication Dejan Lynn Spouse Primary healthcare agent
[2020-02-26] MEDS ORDERED: Ringers Lactate 1,000 ML IV PRN (07:27)
[2020-02-26 08:00] LABS: Urine Appearance CLEAR; Urine Bilirubin NEGATIVE (NEG); Urine Blood 1+ (NEG); Urine Color YELLOW; Urine Glucose NEGATIVE (NEG); Urine Protein NEGATIVE (NEG); Urine pH 5.5 (5.0-7.0)
[2020-02-26] MEDS ORDERED: Ringers Lactate 1,000 ML IV SCH (08:00)
[2020-02-26 08:02] LABS: Absolute Lymphocytes (CBC) 3.3 K/uL (0.7-4.9); Basophils % 0.2 % (0-1.3); Hematocrit 35.5 % (36.0-45.0); MPV 9.8 fL (7.6-11.3); RBC Red Blood Cell Count 4.08 M/uL (3.86-4.86)
[2020-02-26 08:08] LABS: Urine Microscopic Reflex ORDER UMIC
[2020-02-26 08:52] LABS: Urine Bacteria <20 /HPF (<20); Urine Culture Reflex Order REFLEXED; Urine Mucus 1+ /HPF (NONE SEEN)
--- NOTE | 2020-02-26 09:43 | PREOPHP ---
Date of Admission: 02/26/2020 A 34-year-old, 5, para 4, followed by [facility], noted to have gestational diabetes and anemia. N o other lab or history available. Came into our institution 7-8 cm and pushing. When I saw the michael ent, she was complete, rupture of membranes, very light meconium. Basically 1 push, spontaneous vagi nal delivery of an estimated 7-pound plus male . Nuchal cord x2. Apgars 9 and 9. Very small first-degree laceration, more of a small tear, 1 [id number] stitch with 3-0 chromic after local infiltration. Schultze delivery of the placenta, which was inspected and noted to be intact and norm al. 350 cc blood loss at this point. Blood type is pending. Final Diagnoses: Term intrauterine . The patient is scheduled for induction tomorrow at [facility], vaginal delivery. Lab pending. Nuchal cord x2. Very light meconium. No suspicion of aspiratio n. NBC/MODL Voice ID: [id number]
[2020-02-26 10:25] VITALS: BMI 4919.1
[2020-02-26] MEDS ORDERED: IBUPROFEN 400 MG TAB PO PRN (11:14)
[2020-02-26] MEDS ORDERED: BISACODYL 10 MG RECTAL SUPP RC PRN (12:43)
[2020-02-26] MEDS ORDERED: Oxycodone HCl/Acetaminophen 1 TAB TAB PO PRN ×2 (12:43)
[2020-02-26] MEDS ORDERED: DOCUSATE NA/SENNA CONC 1 TAB PO PRN (12:43)
[2020-02-26] MEDS ORDERED: DIPHENHYDRAMINE 25 MG TAB/CAP PO PRN (12:43)
[2020-02-26] MEDS ORDERED: IBUPROFEN 600 MG TAB PO PRN (12:43)
[2020-02-26] MEDS ORDERED: ACETAMINOPHEN 500 MG TAB PO PRN (12:43)
[2020-02-26] MEDS ORDERED: miSOPROStoL 100 MCG TAB ONE (12:52)
[2020-02-26] MEDS ORDERED: OXYTOCIN/LR 20 UNIT/1,000 ML BAG IV SCH (13:00)
[2020-02-27 01:52] LABS: RPR (Rapid Plasma Reagin) NON-REACT (NON-REACT)
[2020-02-27 07:41] VITALS: BP 108/60; TEMP 97.1
--- NOTE | 2020-02-27 07:51 | DS ---
Allyn Lynn is a 34-year-old, multiparous female, G6, P5, 39 weeks gestation, followed antepartum by [facility], dropped into our institution in active advanced labor 7-8 cm on admission, was comple te when I examined her second stage of 10 minutes or less. Spontaneous vaginal delivery a 6 pounds, 15 ounce male , Apgars 9 and 9. Very small first-degree tear repaired with 1 [id number] s titch 3-0 chromic under local infiltration. Schultze delivery of the placenta. Estimated blood loss 350 mL. Rh positive, immune to Rubella. Negative beta strep screen. Tolerated all procedures well . ; afebrile, ambulating and voiding. Lochia is normal. She will be dismissed after pedi atric evaluation the baby. She can come back to my office in 6 weeks for followup, or follow up with [facility]. Final Diagnoses: Term intrauterine , 39 weeks. [facility] drop in delivery. JUHI/SANCHEZ Voice ID: [id number] Report ID: [id number]
--- NOTE | 2020-02-27 09:15 | HP ---
Date of Admission: 02/26/2020 History Of Present Illness: This is a 34-year-old, 5, para 4, followed antepartum at [facility] apparent complications other than anemia and gestational diabetes, diet controlled. Family History: Noncontributory. Allergies: NO ALLERGIES NOTED. Physical Examination: HEENT: Clear. Pupils are equal, round, reactive to light and accommodation. Conjunctivae well perf used. No oral, lingual or buccal lesions. Chest and Lungs: Basically clear. Breasts: Not examined. Abdomen: Term size. Baby is vertex. Completely dilated on first exam by myself. Extremities: Clear without edema, cyanosis, or clubbing. Assessment And Plan: Advanced at 39 weeks 1 day, delivery eminent. Admit for delivery. JUHI/SANCHEZ Voice ID: [id number]
== END 2020-02-27 10:12 | disposition home or self-care (01) | DRG 807 ==
LOC: L&D 06:56 → 2ND-WCNRSY 07:41 → 2ND-WC 07:44
PROVIDERS: ADMIT Specialist; ATTEND Specialist
PROC: 10E0XZZ Delivery of Products of Conception, External Approach (ICD-10-PCS; principal; 2020-02-27)
PROC: 10907ZC Drainage of Amniotic Fluid, Therapeutic from Products of Conception, Via Natural or Artificial Opening (ICD-10-PCS; 2020-02-27)
PROC: 0HQ9XZZ Repair Perineum Skin, External Approach (ICD-10-PCS; 2020-02-27)
DX: O24.429 Gestational diabetes mellitus in childbirth, unspecified control (principal); Z37.0 Single live birth; O99.02 Anemia complicating childbirth; Z3A.39 39 weeks gestation of pregnancy
CPT/HCPCS: 36415; 81003; 81015; 85025; 86592; 86900; 86901; 87086; 87088; 87340; J2590; U0002

== ENCOUNTER 2021-03-20 20:32 | Emergency (ER) | payer OTHER, SELFPAY ==
--- OUTSIDE RECORDS SUMMARY | 2021-03-20 20:35 | XMS REPORT | Continuity of Care Document ---
:1985 Author Organization [facility] t Address [address] [place] [address] Care Team Providers Name Role Phone Stephan Almendarez DO Attending Clinician Omid Wells Attending Clinician Doctor Unassigned, Name Attending Clinician Unavailable Problems This patient has no known problems. Allergies, Adverse Reactions, Alerts This patient has no known allergies or adverse reactions. Social History Social Habit Start Date Stop Date Quantity Comments Source Sex Assigned At [facility] Medications This patient has no known medications. Procedures This patient has no known procedures. Encounters Start End Encounter Admission Attending Care Care Encounter Source Date/Time Date/Time Type Type Clinicians Facility Department ID 2020-10-28 2020-10-28 Patient Erickson NEJULIAN [id number] 00:00:00 00:00:00 Outreach [facility] [id number] Stephan [facility] [id number] ERIS [id number] 2020-04-19 2020-04-19 Office Kapil NEJULIAN [id number] 08:06:56 09:49:01 Visit Huseyin Anne LATHE TENDER [id number] [facility] [id number] MATERNAL [id number] & CHILD [address] [place] [address] 2020-02-14 2020-02-14 Orders Doctor PEREZ [id number] 00:00:00 00:00:00 Only UnassignedSTEPHANIE [id number] [place] [facility] [id number] [id number] 2020-02-05 2020-02-05 Orders Doctor ANA [id number] 00:00:00 00:00:00 Only UnassignedSTEPHANIE [id number] [place] [facility] [id number] [id number] 2020-01-19 2020-01-19 Orders Doctor ANA Holguin.[id number] 00:00:00 00:00:00 Only UnassignedSTEPHANIE [id number] [place] [facility] [id number] [id number] Results Test Description Test Time Test Comments Results Result Comments Source SARS-COV2/RT-PCR ([facility]) 2020-02-27 10:08:00 Test Item Value Reference Range Interpretation Comme nts SARS-COV2/RT-PCR (test code = [id number]) Negative Not Detected, N egative, See external report for linked test SARS-COV-2 PERFORMING LAB (test code = [facility] [id number]) Negative result for this test determines that SARS-CoV-2 RNA was not present in the specimen above the Limit of Detection (LOD). However, Negative results do not preclude SARS-CoV-2 infection and should not be used as the sole basis for treatment or patient management decisions. Negative results mustbe combined with clinical observations, patient history, and epidemiological information. A false negative result may occur if a specimen is improperly collected, transported or handled. A false negative result should be considered if patient's recent exposures or clinical presentation indicate that COVID-19 (SARS-CoV-2) is likely and diagnostic tests for other causes of illness are negative. Re-testing should be considered in cases of suspected false negatives.The limit of detection for this assay is 800 copies/mL.This SARS CoV-2 test is a real-time RT-PCR test intended for the qualitative detection of nucleic acid from SARS-CoV-2 in a nasopharyngeal swab specimen collected from individuals susp ected of COVID-19 by their healthcare provider.This test has not been Food and Drug Administration (FDA) cleared or approved. This is a modified version of an approved Emergency Use Authorization (EUA) and is in the process of review by the FDA. Once authorized by the FDA, the issued EUA will be effective until the declaration that circumstances exist justifying the authorization of the emergency use of in vitro diagnostic tests for detection and/or diagnosis of COVID-19 is terminated under Section 564(b)(2) of the Act or the EUA is revoked under Section 564(g) of the Act.Fact Sheet for Healthcare Providers:https://www.[employer]/sites/default/files/product/documents/Fact_Shee a_NM_Wyeyevicl_Jkik_FXAR-AwW-7.pdfFact Sheet for Healthcare Patients:https://www.[employer]/sites/default/files/product/ documents/Ocqv_Roeen_Oxdqxdes_Ihgi_TAJR-VoU-0.pdfPerforming Laboratory:[facility] [place] [address]
[2021-03-20] MEDS ORDERED: ACETAMINOPHEN 500 MG TAB ONE (22:20)
[2021-03-20 23:03] LABS: SARS-COV-2 RT PCR POSITIVE (NEGATIVE)
--- NOTE | 2021-03-21 00:11 | ER ---
Nurse's Notes [facility] Name: Allyn Lynn Age: 35 yrs Sex: Female : 1985 Arrival Date: 03/20/2021 Time: 20:37 Bed DIS11 Private MD: Diagnosis: Headache;SARS-associated coronavirus as the cause of diseases classified elsewhere;Acute upper respiratory infection, unspecified Presentation: 03/20 21:42 Chief complaint: Patient states: Cough and headache with fever that started early this lp1 morning. Coronavirus screen: Client denies travel out of the [place] in the last 14 days. Client presents with at least one sign or symptom that may indicate coronavirus-19. Standard/surgical mask placed on the client. Ebola Screen: Patient negative for fever greater than or equal to 101.5 degrees Fahrenheit, and additional compatible Ebola Virus Disease symptoms Patient denies exposure to infectious person. Patient denies travel to an Ebola-affected area in the 21 days before illness onset. Initial Sepsis Screen: Does the patient meet any 2 criteria? No. Patient's initial sepsis screen is negative. Does the patient have a suspected source of infection? No. Patient's initial sepsis screen is negative. Risk Assessment: Do you want to hurt yourself or someone else? Patient reports no desire to harm self or others. Onset of symptoms was March 20, 2021. 21:42 Method Of Arrival: Ambulatory lp1 21:42 Acuity: ERICK 3 lp1 PERIOPERATIVE TECH: 21:43 LMP 02/28/2021 lp1 Historical: - Allergies: 21:44 No Known Allergies; lp1 - Home Meds: 21:44 None [Active]; lp1 - PMHx: 21:44 Hyperlipidemia; lp1 - PSHx: 21:44 Cholecystectomy; lp1 - Immunization history:: Client reports having NOT received the Covid vaccine. - Social history:: Smoking status: Patient denies any tobacco usage or history of. Patient/guardian denies using alcohol, street drugs. Screenin/13 00:28 Abuse screen: Denies threats or abuse. Nutritional screening: No deficits noted. bb Tuberculosis screening: No symptoms or risk factors identified. Fall Risk None identified. Assessment: 00:28 Reassessment: pt seen by this RN at discharge pt is A\T\O x 4, resp unlabored, pt bb verbalized understanding of and agrees to plan of care pt ambulated with steady gait to exit. Vital Signs: 03/20 21:43 BP 112 / 60; Pulse 90; Resp 18; Temp 100.1; Pulse Ox 98% ; Weight 77.56 kg; Height 5 lp1 ft. 0 in. (152.40 cm); Pain 4/10; 03/21 00:23 BP 98 / 59 RA Sitting (auto/reg); Pulse 80; Resp 18; Temp 98.9; Pulse Ox 97% on R/A; tt3 03/20 21:43 Body Mass Index 33.40 (77.56 kg, 152.40 cm) lp1 ED Course: 03/20 20:37 Patient arrived in ED. bp1 21:43 Triage completed. lp1 21:45 Arm band placed on right wrist. lp1 23:55 Jose Hernandez PA is PHCP. cp 23:55 Jose Jefferson MD is Attending Physician. cp 03/21 00:28 Patient has correct armband on for positive identification. bb 00:28 No provider procedures requiring assistance completed. Patient did not have IV access bb during this emergency room visit. Administered Medications: 03/20 22:00 Drug: Tylenol 1000 mg Route: PO; lp1 03/21 00:30 Follow up: Response: No adverse reaction bb Outcome: 00:10 Discharge ordered by . cp 00:28 Discharged to home ambulatory. bb 00:28 Condition: stable 00:28 Discharge instructions given to patient, Instructed on discharge instructions, follow up and referral plans. medication usage, Demonstrated understanding of instructions, follow-up care, medications, Prescriptions given X 2. 00:30 Patient left the ED. bb Signatures: Mirna Maldonado, RN RN bb Irma Richards, DAVID RN lp1 Jose Hernandez PA PA cp Irina Payton bp1 Trim, Abiodun tt3
--- NOTE | 2021-03-21 00:11 | EDPHYS ---
Physician Documentation [facility] Name: Allyn Lynn Age: 35 yrs Sex: Female : 1985 Arrival Date: 03/20/2021 Time: 20:37 Bed DIS11 Private MD: SHU Physician Jose Jefferson HPI: 03/21 00:04 This 35 yrs old Female presents to ER via Ambulatory with complaints of Cough, cp Headache. 00:04 The patient or guardian reports cough, that is intermittent. Onset: The cp symptoms/episode began/occurred yesterday. Associated signs and symptoms: Pertinent positives: fever, Pertinent negatives: chest pain, ear ache, sore throat, vomiting. 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 - Social history:: Smoking status: Patient denies any tobacco usage or history of. Patient/guardian denies using alcohol, street drugs. ROS: 03/21 00:06 Eyes: Negative for injury, pain, redness, and discharge. cp Constitutional: Positive for body aches, Negative for fever, poor PO intake. ENT: Negative for drainage from ear(s), ear pain, sore throat, difficulty swallowing, difficulty handling secretions. Cardiovascular: Negative for chest pain, edema. Respiratory: Positive for cough, with no reported sputum, Negative for shortness of breath, wheezing. Abdomen/GI: Negative for abdominal pain, nausea, vomiting, and diarrhea. Back: Negative for radiated pain. Neuro: Positive for headache, Negative for altered mental status, dizziness, syncope, weakness. All other systems are negative. Exam: 00:07 Head/Face: Normocephalic, atraumatic. cp 00:07 Constitutional: The patient appears in no acute distress, alert, awake, comfortable, non-toxic, well developed, well nourished. 00:07 Eyes: Periorbital structures: appear normal, Conjunctiva: normal, no exudate, no injection, Sclera: no appreciated abnormality, Lids and lashes: appear normal, bilaterally. 00:07 ENT: External ear(s): are unremarkable, Nose: is normal, Mouth: Lips: moist, Oral mucosa: moist, Posterior pharynx: Airway: no evidence of obstruction, patent. 00:07 Neck: ROM/movement: is normal, is supple, without pain, no range of motions limitations, no meningismus. 00:07 Chest/axilla: Inspection: normal, Palpation: is normal, no crepitus, no tenderness. 00:07 Cardiovascular: Rate: normal, Rhythm: regular. 00:07 Respiratory: the patient does not display signs of respiratory distress, Respirations: normal, no use of accessory muscles, no retractions, labored breathing, is not present, Breath sounds: are clear throughout, no decreased breath sounds, no stridor, no wheezing. 00:07 Abdomen/GI: Exam negative for discomfort, distension, guarding, Inspection: abdomen cp appears normal. 00:07 Skin: no rash present. cp 00:07 Neuro: Orientation: to person, place \T\ time. Mentation: is normal, Motor: moves all fours, strength is normal, Gait: is steady. Vital Signs: 03/20 21:43 BP 112 / 60; Pulse 90; Resp 18; Temp 100.1; Pulse Ox 98% ; Weight 77.56 kg; Height 5 lp1 ft. 0 in. (152.40 cm); Pain 4/10; 03/21 00:23 BP 98 / 59 RA Sitting (auto/reg); Pulse 80; Resp 18; Temp 98.9; Pulse Ox 97% on R/A; tt3 03/20 21:43 Body Mass Index 33.40 (77.56 kg, 152.40 cm) lp1 MDM: 03/20 23:56 Patient medically screened. cp 03/21 00:00 Differential Diagnosis: Influenza Sinusitis Pharyngitis Otitis Media Viral Syndrome cp Pneumonia Other COVID-19. 00:10 Data reviewed: vital signs, nurses notes, lab test result(s). cp 00:10 Counseling: I had a detailed discussion with the patient and/or guardian regarding: the cp historical points, exam findings, and any diagnostic results supporting the discharge/admit diagnosis, lab results, to return to the emergency department if symptoms worsen or persist or if there are any questions or concerns that arise at home. ED course: VSS. Patient appears non-toxic and no signs of respiratory distress. Will discharge to home for continued monitoring. 03/20 21:47 Order name: Flu lp1 03/20 23:03 Order name: COVID-19/FLU A+B; Complete Time: 23:55 EDMS Administered Medications: 03/20 22:00 Drug: Tylenol 1000 mg Route: PO; lp1 03/21 00:30 Follow up: Response: No adverse reaction bb Disposition: 07:47 Co-signature as Attending Physician, Jose Jefferson MD I agree with the assessment and sunil plan of care. Disposition Summary: 03/21/21 00:10 Discharge Ordered Location: Home cp Problem: new cp Symptoms: have improved cp Condition: Stable cp Diagnosis - Headache cp - SARS-associated coronavirus as the cause of diseases classified elsewhere cp - Acute upper respiratory infection, unspecified cp Followup: cp - With: Private Physician - When: 2 - 3 days - Reason: Worsening of condition Discharge Instructions: - Discharge Summary Sheet cp - General Headache Without Cause cp - Upper Respiratory Infection, Adult cp - Viral Respiratory Infection cp - Cool Mist Vaporizer cp - Form - Excuse from Work, School, or Physical Activity cp - COVID-19 cp - Things to Know about the COVID-19 Pandemic - [facility] cp - 10 Things You Can Do to Manage Your COVID-19 Symptoms at Home - [facility] cp - COVID-19: Quarantine vs. Isolation - [facility] cp - Prevent the Spread of COVID-19 if You Are Sick - [facility] cp Forms: - Medication Reconciliation Form cp - Thank You Letter cp - Antibiotic Education cp - Prescription Opioid Use cp Prescriptions: - Ibuprofen 800 mg Oral Tablet - take 1 tablet by ORAL route every 8 hours As needed take with food; 30 tablet; cp Refills: 0, Product Selection Permitted - Tessalon Perles 100 mg Oral Capsule - take 2 capsule by ORAL route every 8 hours As needed; 30 capsule; Refills: 0, cp Product Selection Permitted Signatures: Dispatcher [employer] Jose Jones MD MD cha Pena, Laura RN RN lp1 Jose Hernandez PA PA cp Ballard, Brenda RN bb Corrections: (The following items were deleted from the chart) 03/20 22:13 21:47 Influenza Screen (A ordered. EDNH EDMS 22:13 21:53 CORONAVIRUS+MR.LAB.BRZ ordered. EDMS EDMS
[2021-03-21 00:50] VITALS: BP 98/59; TEMP 98.9; O2SAT 97
== END 2021-03-21 00:30 | disposition home or self-care (01) ==
LOC: ER 20:32
DX: U07.1 COVID-19 (principal); J06.9 Acute upper respiratory infection, unspecified
CPT/HCPCS: 0240U; 99283

== ENCOUNTER 2021-04-21 21:14 | Inpatient (IN) | payer SELFPAY ==
--- OUTSIDE RECORDS SUMMARY | 2021-04-21 21:20 | XMS REPORT | Continuity of Care Document ---
:1985 Author Organization [facility] t Address 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 [id number] 2020-02-05 2020-02-05 Orders Doctor ANA [id number] 00:00:00 00:00:00 Only UnassignedSTEPHANIE [id number] [facility] [id number] 2020-01-19 2020-01-19 Orders Doctor ANA [id number] [id number] 00:00:00 00:00:00 [facility]PHANIE [id number] [id number] Results This patient has no known results.
[2021-04-21 22:16] LABS: Absolute Lymphocytes (CBC) 2.3 K/uL (0.7-4.9); Basophils % 1.8 % (0-1.3); Hematocrit 38.1 % (36.0-45.0); Lymphocytes % 25.7 % (15.3-44.8); RBC Red Blood Cell Count 4.39 M/uL (3.86-4.86)
--- NOTE | 2021-04-21 22:20 | RAD REPORT ---
EXAM DESCRIPTION: RAD - Chest Single View - 04/21/2021 10:07 pm CLINICAL HISTORY: CHEST PAIN COMPARISON: July 2016 TECHNIQUE: AP portable chest image was obtained 04/21/2021 10:07 pm . FINDINGS: Lungs are clear. Heart and vasculature are normal. No measurable pleural effusion and no p neumothorax. No acute bony abnormality seen. No acute aortic findings suspected. IMPRESSION: No acute cardiopulmonary process.
[2021-04-21] MEDS ORDERED: NA CHLORIDE 0.9% 1,000 ML ONE (22:22)
[2021-04-21 22:34] LABS: ALT/SGPT 13 U/L (12-78); AST/SGOT 19 U/L (15-37); Alkaline Phosphatase 122 U/L (45-117); BUN Blood Urea Nitrogen 11 mg/dL (7-18); Bicarbonate 22 mmol/L (21-32); Bilirubin Direct < 0.1 mg/dL (0-0.2); Bilirubin Total 0.3 mg/dL (0.2-1.0); Glucose Level 130 mg/dL (74-106); Magnesium 2.4 mg/dL (1.8-2.4); NT PRO-BNP 67 pg/mL (<125); Potassium 3.1 mmol/L (3.5-5.1); Protein, Total 8.4 g/dL (6.4-8.2); Sodium Level 141 mmol/L (136-145); Troponin (Emerg Dept Use Only) < 0.02 ng/mL (0.0-0.045)
--- NOTE | 2021-04-21 22:56 | EDPHYS ---
Physician Documentation [facility] Name: Allyn Lynn Age: 35 yrs Sex: Female : 1985 Arrival Date: 04/21/2021 Time: 21:19 Bed 15 Private MD: ED Physician Avelino Lamb HPI: 04/21 21:53 This 35 yrs old Female presents to ER via Ambulatory with complaints of pkl FAST/SLOW HR. 21:53 The patient or guardian reports chest pain that is located primarily in the substernal pkl area. The pain does not radiate. Associated signs and symptoms: Pertinent positives: nausea, palpitations. The chest pain is described as a pressure. The patient has experienced a previous episode, approximately 1 months ago. Historical: - Allergies: 21:30 No Known Allergies; wg - Home Meds: 21:30 None [Active]; wg - Immunization history:: Adult Immunizations. - Social history:: Smoking status: Patient denies any tobacco usage or history of. ROS: 21:53 Eyes: Negative for injury, pain, redness, and discharge, ENT: Negative for injury, pkl pain, and discharge, Neck: Negative for injury, pain, and swelling. 21:53 Cardiovascular: Positive for chest pain. 21:53 Respiratory: Negative for cough, shortness of breath. 21:53 Abdomen/GI: Negative for abdominal pain, nausea, vomiting, and diarrhea. 21:53 Back: Negative for acute changes. 21:53 : Negative for urinary symptoms. 21:53 MS/extremity: Negative for acute changes. 21:53 Skin: Negative for rash. 21:53 Neuro: Negative for altered mental status, loss of consciousness. Exam: 21:53 Head/Face: Normocephalic, atraumatic. Eyes: Pupils equal round and reactive to light, pkl extra-ocular motions intact. Lids and lashes normal. Conjunctiva and sclera are non-icteric and not injected. Cornea within normal limits. Periorbital areas with no swelling, redness, or edema. ENT: Nares patent. No nasal discharge, no septal abnormalities noted. Tympanic membranes are normal and external auditory canals are clear. Oropharynx with no redness, swelling, or masses, exudates, or evidence of obstruction, uvula midline. Mucous membranes moist. Neck: Trachea midline, no thyromegaly or masses palpated, and no cervical lymphadenopathy. Supple, full range of motion without nuchal rigidity, or vertebral point tenderness. No Meningismus. Chest/axilla: Normal chest wall appearance and motion. Nontender with no deformity. No lesions are appreciated. 21:53 Cardiovascular: Rate: normal, Rhythm: irregular. 21:53 ECG was reviewed by the Attending Physician. 21:53 Respiratory: the patient does not display signs of respiratory distress, Respirations: normal, Breath sounds: are clear throughout. 21:53 Abdomen/GI: Bowel sounds: 21:53 Abdomen/GI: Bowel sounds: normal, Palpation: abdomen is soft and non-tender, in all quadrants. 21:53 Back: Exam negative for acute changes. 21:53 : Exam negative for acute changes. 21:53 Musculoskeletal/extremity: Exam is negative for acute changes. 21:53 Skin: Exam negative for rash. Vital Signs: 21:26 BP 118 / 65 RA Sitting (auto/reg); Pulse 42; Resp 18; Temp 98.7; Pulse Ox 100% on R/A; wg Weight 75.3 kg; Height 5 ft. 1 in. (154.94 cm); Pain 4/10; 22:40 BP 128 / 91; Pulse 95; Resp 18; Pulse Ox 96% on R/A; Pain 0/10; ms4 22:50 BP 132 / 80; Pulse 98; Resp 20; Pulse Ox 100% ; Pain 0/10; ms4 21:26 Body Mass Index 31.37 (75.30 kg, 154.94 cm) wg MDM: 21:43 Patient medically screened. pkl 22:42 Data reviewed: vital signs, nurses notes, lab test result(s), EKG, radiologic studies, pkl plain films. ED course: Talked to Theo Torres ( STUDY ABROAD ADVISOR ) For observation ( Dr. Smith ). 04/21 21:33 Order name: Basic Metabolic Panel 04/21 21:33 Order name: CBC with Diff; Complete Time: 22:27 04/21 21:33 Order name: LFT's; Complete Time: 22:35 04/21 21:33 Order name: Magnesium; Complete Time: 22:35 04/21 21:33 Order name: NT PRO-BNP; Complete Time: 22:35 04/21 21:33 Order name: PT-INR; Complete Time: 22:35 wg 04/21 21:33 Order name: Troponin (emerg Dept Use Only); Complete Time: 22:35 wg 04/21 21:33 Order name: Basic Metabolic Panel; Complete Time: 22:35 EDOH 04/21 21:50 Order name: UDS pkl 04/21 22:14 Order name: D-Dimer; Complete Time: 22:35 EDMS 04/21 21:33 Order name: XRAY Chest (1 view); Complete Time: 22:27 wg 04/21 22:14 Order name: T4 Free; Complete Time: 22:35 EDMS 04/21 22:14 Order name: Thyroid Stimulating Hormone; Complete Time: 22:35 EDMS 04/21 22:38 Order name: CT Chest For PE Angio la1 04/21 23:14 Order name: Urine Dipstick-Ancillary [facility] 04/21 23:20 Order name: SARS-COV-2 RT PCR EDOH 04/22 05:53 Order name: CBC with Automated Diff EDOH 04/22 06:22 Order name: Comprehensive Metabolic Panel [facility] 04/22 06:22 Order name: Troponin I [facility] 04/22 06:22 Order name: Lipid Profile [facility]OH 04/22 06:22 Order name: Magnesium EDOH 04/22 12:27 Order name: Troponin I [facility] 04/22 12:45 Order name: CT [facility] 04/21 21:33 Order name: EKG; Complete Time: 21:33 04/21 21:33 Order name: Cardiac monitoring; Complete Time: 22:05 04/21 21:33 Order name: EKG - Nurse/Tech; Complete Time: 22:05 04/21 21:33 Order name: IV Saline Lock; Complete Time: 22:05 04/21 21:33 Order name: Labs collected and sent; Complete Time: 22:05 04/21 21:33 Order name: O2 Per Protocol; Complete Time: 22:05 04/21 21:33 Order name: O2 Sat Monitoring; Complete Time: 22:05 04/21 21:49 Order name: Urine Dipstick-Ancillary (obtain specimen); Complete Time: 23:35 pkl Administered Medications: 22:04 Drug: NS 0.9% 1000 ml Route: IV; Rate: 125 ml/hr; Site: right forearm; ms4 23:31 Drug: Lopressor (metoprolol TARTRATE)) 25 mg Route: PO; ms4 23:31 Drug: Potassium Effervescent Tablet 50 mEq Route: PO; ms4 Disposition Summary: 04/21/21 22:55 Hospitalization Ordered Hospitalization Status: Observation pkl Provider: Ricki Smith pkl Condition: Stable pkl Problem: new pkl Symptoms: are unchanged pkl Bed/Room Type: Standard pkl Location: [facility] ER HOLD(04/22/21 00:17) Room Assignment: ERHOLD-(04/22/21 00:17) Diagnosis - Chest pain. Palpitations pkl Discharge Instructions: - Discharge Summary Sheet iw Forms: - Medication Reconciliation Form pkl - SBAR form pkl Signatures: Dispatcher [employer] EDMS Jojo Hughes RN RN Avelino Lamb MD MD pkl Theo Torres, BELLMAN DRIVER-C BELLMAN DRIVER-Cla1 Lorna Waddell RN RN ms4 Augustine Naiper RN wg Corrections: (The following items were deleted from the chart) 22:13 21:50 D-DIMER+COAG.LAB.BRZ ordered. EDMS EDMS 22:13 21:52 THYROID STIMULAT HORMONE+C.LAB.BRZ ordered. EDMS EDMS 22:13 21:52 T4 FREE+C.LAB.BRZ ordered. EDMS EDMS 22:19 21:52 CORONAVIRUS+MR.LAB.BRZ ordered. EDMS EDMS 04/22 00:04/21 22:55 Telemetry/MedSurg (observation) pkl 04/22 00:04/21 22:55 pkl
--- NOTE | 2021-04-21 22:56 | ER ---
Nurse's Notes [facility] Name: Allyn Lynn Age: 35 yrs Sex: Female : 1985 Arrival Date: 04/21/2021 Time: 21:19 Bed 15 Private MD: Diagnosis: Chest pain. Palpitations Presentation: 04/21 21:26 Chief complaint: Patient states: Pt states around 7pm she was eating and experienced wg chest pressure non radiating. Pt states she checked her heart rate and it was around 140 and then dropped to around 40. Pt stated she felt nauseated and has also experienced diarrhea. Pt denies SOB, dizziness, Abd pain. Coronavirus screen: At this time, the client does not indicate any symptoms associated with coronavirus-19. Client reports previous positive COVID test result. Date of collection: March 18, 2021. Ebola Screen: Patient negative for fever greater than or equal to 101.5 degrees Fahrenheit, and additional compatible Ebola Virus Disease symptoms Patient denies exposure to infectious person. Patient denies travel to an Ebola-affected area in the 21 days before illness onset. No symptoms or risks identified at this time. Initial Sepsis Screen: Does the patient meet any 2 criteria? No. Patient's initial sepsis screen is negative. Does the patient have a suspected source of infection? No. Patient's initial sepsis screen is negative. Risk Assessment: Do you want to hurt yourself or someone else? Patient reports no desire to harm self or others. Onset of symptoms was April 21, 2021 at 19:00. Care prior to arrival: None. 21:26 Method Of Arrival: Ambulatory 21:26 Acuity: ERICK 3 Triage Assessment: 21:31 General: Appears in no apparent distress. uncomfortable, Behavior is calm, cooperative, wg appropriate for age. Pain: Complains of pain in chest. EENT: No deficits noted. Neuro: No deficits noted. Cardiovascular: Reports chest pain, nausea, Denies diaphoresis, lightheadedness, shortness of breath, vomiting, Rhythm is. Respiratory: No deficits noted. GI: No deficits noted. : No deficits noted. Derm: No deficits noted. Musculoskeletal: No deficits noted. Historical: - Allergies: 21:30 No Known Allergies; wg - Home Meds: 21:30 None [Active]; wg - Immunization history:: Adult Immunizations. - Social history:: Smoking status: Patient denies any tobacco usage or history of. Screenin:44 Abuse screen: Denies threats or abuse. Denies injuries from another. Nutritional ms4 screening: No deficits noted. Tuberculosis screening: No symptoms or risk factors identified. Fall Risk None identified. Assessment: 22:38 Reassessment: Patient appears in no apparent distress at this time. No changes from ms4 previously documented assessment. Patient and/or family updated on plan of care and expected duration. Pain level reassessed. Patient is alert, oriented x 3, equal unlabored respirations, skin warm/dry/pink. General: Appears in no apparent distress. Behavior is calm, cooperative, appropriate for age. Cardiovascular: Reports chest pain, palpitations. Respiratory: Reports shortness of breath on exertion. Vital Signs: 21:26 BP 118 / 65 RA Sitting (auto/reg); Pulse 42; Resp 18; Temp 98.7; Pulse Ox 100% on R/A; wg Weight 75.3 kg; Height 5 ft. 1 in. (154.94 cm); Pain 4/10; 22:40 BP 128 / 91; Pulse 95; Resp 18; Pulse Ox 96% on R/A; Pain 0/10; ms4 22:50 BP 132 / 80; Pulse 98; Resp 20; Pulse Ox 100% ; Pain 0/10; ms4 21:26 Body Mass Index 31.37 (75.30 kg, 154.94 cm) ED Course: 21:19 Patient arrived in ED. wm 21:30 Triage completed. wg 21:30 Arm band placed on right wrist. wg 21:42 Avelino Lamb MD is Attending Physician. pkl 22:05 XRAY Chest (1 view) Sent. ms4 22:05 Basic Metabolic Panel Sent. ms4 22:06 XRAY Chest (1 view) In Process Unspecified. EDMS 22:28 Notified ED physician of a critical lab result(s). D-Dimer 665. Dr Lamb notified. bb 22:54 Ricki Smith DO is Hospitalizing Provider. pkl 04/22 09:13 Nusrat Jeong is Primary Nurse. kh1 15:06 No provider procedures requiring assistance completed. kh1 Administered Medications: 04/21 22:04 Drug: NS 0.9% 1000 ml Route: IV; Rate: 125 ml/hr; Site: right forearm; ms4 23:31 Drug: Lopressor (metoprolol TARTRATE)) 25 mg Route: PO; ms4 23:31 Drug: Potassium Effervescent Tablet 50 mEq Route: PO; ms4 Outcome: 22:55 Decision to Hospitalize by Provider. pkpatricia 04/22 15:06 Discharged to home ambulatory. kh1 Condition: stable Discharge instructions given to patient. 15:07 Patient left the ED. iw Signatures: Dispatcher [employer] EDAvelino Smith MD MD pkl Ballard, Brenda RN RN bb Kavitha Kim RN RN Alexandria Valle Mikaela, RN RN ms4 Nusrat Jeong 1 Augustine Napier RN
--- NOTE | 2021-04-21 23:02 | P.HP ---
Certification for Inpatient Patient admitted to: Observation With expected LOS: <2 Midnights Patient will require the following post-hospital care: None Practitioner: I am a practitioner with admitting privileges, knowledge of patient current condition, hospital course, and medical plan of care. Services: Services provided to patient in accordance with Admission requirements found in Title 42 Section 412.3 of the Code of Federal Regulations Patient History Date of Service: 04/21/21 Reason for admission: Chest pain, palpitations History of Present Illness: 35-year-old female with history of Covid infection tested + March 20, 2021 presented to the emergency department for chest pressure, palpitations. Patient reports 2 similar episodes in the past couple of weeks each lasting for couple of hours. Upon arrival to the emergency department patient noted to be tachycardic with heart rate around 110-120, very irregular with ventricular b igeminy and frequent PACs/PVCs. Patient was evaluated in the emergency department labs were significant for potassium 3.1 D-dimer 665 UDS pending thyroid function normal CT PE protocol pending. ED prior wishes to admit patient under observation for palpitations/chest pain rule out. Allergies No Known Allergies Allergy (Unverified 05/16/12 21:18) Home Medications: NK [No Home Meds] 02/26/20 - Past Medical/Surgical History Diabetic: Yes -: Gestational diabetic -: Cholecystectomy Psychosocial/ Personal History: Unemployed, lives with family - Family History Mother -: Hypertension, Diabetes Sister -: Hypertension - Social History Smoking Status: Never smoker Alcohol use: No CD- Drugs: No Caffeine use: No Place of Residence: Home Review of Systems 10-point ROS is otherwise unremarkable Cardiovascular: Chest Pain, Palpitations Physical Examination - Physical Exam General: Alert, In no apparent distress, Oriented x3 HEENT: Atraumatic Neck: Supple Respiratory: Clear to auscultation bilaterally, Normal air movement Cardiovascular: No edema, Normal S1 S2 Capillary refill: <2 Seconds Gastrointestinal: Normal bowel sounds Musculoskeletal: No contractures, No erythema, No tenderness Integumentary: No significant lesion, No tenderness/swelling, No erythema Neurological: Normal speech, Normal strength at 5/5 x4 extr, Normal tone, Sensation intact - Studies Laboratory Data (last 24 hrs) 04/21/21 21:55: PT 11.5, INR 1.00 04/21/21 21:55: WBC 9.10, Hgb 12.8, Hct 38.1, Plt Count 261 04/21/21 21:55: Sodium 141, Potassium 3.1 L, BUN 11, Creatinine 0.57, Glucose 130 H, Magnesium 2.4, Total Bilirubin 0.3, AST 19, ALT 13, Alkaline Phosphatase 122 H Assessment and Plan - Plan Assessment: Chest pain, palpitations, ventricular bigeminy Recent COVID-19 infection Plan: Chest pain, palpitations, ventricular bigeminy: Trend troponins, monitor on telemetry, cardiology consult in place continue Lopressor 25 mg p.o. twice daily, daily aspirin. Appreciate further input from cardiology, likely related to COVID-19. Recent COVID-19 infection: Tested + March 20, patient with no respiratory symptoms at this time. Continue to monitor. DVT PPX: Lovenox Code status: Full Discharge Plan: Home Plan to discharge in: 24 Hours - Advance Directives Does patient have a Living Will: No Does patient have a Durable POA for Healthcare: No - Code Status/Comfort Care Code Status Assessed: Yes (FC) Critical Care: No Time Spent Managing Pts Care (In Minutes): 55
[2021-04-21 23:14] LABS: Urine Blood 3+ (Negative); Urine Glucose Negative (Negative); Urine Protein Negative (Negative)
[2021-04-21] MEDS ORDERED: METOPROLOL TAR 25 MG TAB ONE (23:26)
[2021-04-21] MEDS ORDERED: POTASSIUM 25 MEQ EFFERV TAB ONE (23:26)
[2021-04-21 23:40] LABS: Barbiturates NEGATIVE (NEGATIVE); Benzodiazepines NEGATIVE (NEGATIVE); Cocaine NEGATIVE (NEGATIVE); METHAMPHETAM NEGATIVE (NEGATIVE); Methadone NEGATIVE (NEGATIVE); Opiates NEGATIVE (NEGATIVE); Phencyclidine NEGATIVE (NEGATIVE); THC Cannibis NEGATIVE (NEGATIVE)
[2021-04-22] MEDS ORDERED: ACETAMINOPHEN 500 MG TAB PO PRN (00:03)
[2021-04-22] MEDS: NA CHLORIDE 0.9% 1,000 ML IV SCH ×2 (00:03→10:03)
[2021-04-22] MEDS ORDERED: ONDANSETRON 4 MG/2 ML VIAL IV PRN (00:03)
[2021-04-22 00:09] VITALS: BMI 31.4
[2021-04-22] MEDS ORDERED: NA CHLORIDE 0.9% 1,000 ML ONE (02:53)
[2021-04-22 05:49] LABS: Absolute Lymphocytes (CBC) 1.5 K/uL (0.7-4.9); Basophils % 0.4 % (0-1.3); Hematocrit 34.8 % (36.0-45.0); Lymphocytes % 21.7 % (15.3-44.8); MPV 8.6 fL (7.6-11.3); RBC Red Blood Cell Count 4.01 M/uL (3.86-4.86)
[2021-04-22] MEDS ORDERED: METOPROLOL TAR 25 MG TAB PO SCH ×2 (06:00→18:00)
[2021-04-22 06:22] LABS: ALT/SGPT 15 U/L (12-78); AST/SGOT 10 U/L (15-37); Albumin 3.5 g/dL (3.4-5.0); Alkaline Phosphatase 97 U/L (45-117); BUN Blood Urea Nitrogen 7 mg/dL (7-18); Bicarbonate 22 mmol/L (21-32); Bilirubin Total 0.3 mg/dL (0.2-1.0); Glucose Level 118 mg/dL (74-106); HDL Cholesterol 44 mg/dL (40-60); LDL Cholesterol, Calculated 100 (<130); Magnesium 2.3 mg/dL (1.8-2.4); Potassium 3.5 mmol/L (3.5-5.1); Protein, Total 7.6 g/dL (6.4-8.2); Sodium Level 143 mmol/L (136-145); Troponin I < 0.02 ng/mL (0.0-0.045)
--- NOTE | 2021-04-22 06:27 | P.PN ---
Subjective Date of Service: 04/22/21 Primary Care Provider: none Chief Complaint: Chest pain, palpitations Subjective: Improving, Doing well Physical Examination - Vital Signs Blood Pressure: 104/59 Pulse: 58 Respirations: 18 Pulse Ox (%): 98 - Studies Laboratory Data (last 24 hrs) 04/21/21 21:55: PT 11.5, INR 1.00 04/21/21 21:55: WBC 9.10, Hgb 12.8, Hct 38.1, Plt Count 261 04/21/21 21:55: Sodium 141, Potassium 3.1 L, BUN 11, Creatinine 0.57, Glucose 130 H, Magnesium 2.4, Total Bilirubin 0.3, AST 19, ALT 13, Alkaline Phosphatase 122 H Assessment & Plan Discharge Plan: Home Plan to discharge in: 24 Hours Physician Review Additional Text: COVID: Negative CT Chest: Pending Physical exam: General: Alert, In no apparent distress, Oriented x3 HEENT: Atraumatic Neck: Supple Respiratory: Clear to auscultation bilaterally, Normal air movement Cardiovascular: No edema, Normal S1 S2 Capillary refill: <2 Seconds Gastrointestinal: Normal bowel sounds Musculoskeletal: No contractures, No erythema, No tenderness Integumentary: No significant lesion, No tenderness/swelling, No erythema Neurological: Normal speech, Normal strength at 5/5 x4 extr, Normal tone, Sensation intact Impression: Chest pain, palpitations, ventricular bigeminy Recent COVID-19 infection Plan: Chest pain, palpitations, ventricular bigeminy: So far troponins unremarkable. Patient doing well with Lopressor. Continue Lopressor 12.5 mg 1 pill twice daily with parameters in place. CT chest pending. Await recommendations from cardiology. Anticipate likely home today with follow-up with cardiology. Recent COVID-19 infection: Tested + March 20, patient with no respiratory symptoms at this time. Repeat negative at this time. Continue to monitor. DVT PPX: Lovenox Code status: Full Discharge Plan: Home Time Spent Managing Pts Care (In Minutes): 55
[2021-04-22] MEDS ORDERED: POTASSIUM 25 MEQ EFFERV TAB PO ONE (06:32)
[2021-04-22] MEDS ORDERED: POTASSIUM 25 MEQ EFFERV TAB ONE (06:59)
--- NOTE | 2021-04-22 07:53 | P.DS ---
Admission Date: 04/22/21 Discharge Date: 04/22/21 Primary Care Provider: none Discharge Condition: GOOD Reason for Admission: Chest pain, palpitations Consultations: Cardiology-Dr. Duran Procedures: COVID: Negative CT Chest: FINDINGS: Pulmonary arteries and vascular: Diagnostic quality bolus. No filling defects. Heart and mediastinum: Heart size is normal. No lymphadenopathy. Thyroid gland: Visualized portions are normal. Lungs: Areas of mild air trapping are noted in the upper lobes. Airways: No filling defects. No bronchiectasis. Pleura: No pneumothorax. No significant pleural effusion. Subphrenic structures: Cholecystectomy. Musculoskeletal and soft tissues: Within normal limits for age. CHEST IMPRESSION: 1. No evidence of pulmonary embolus. 2. Areas of mild air trapping may represent mild reactive airways disease or COPD, among other causes. ECHO: WNL, unremarkable Medical problem list: Chest pain, palpitations, ventricular bigeminy Recent COVID-19 infection Brief History of Present Illness: 35-year-old female with history of Covid infection tested + March 20, 2021 presented to the emergency department for chest pressure, palpitations. Patient reports 2 similar episodes in the past couple of weeks each lasting for couple of hours. Upon arrival to the emergency department patient noted to be tachycardic with heart rate around 110-120, very irregular with ventricular bigeminy and frequent PACs/PVCs. Patient was evaluated in the emergency department labs were significant for potassium 3.1 D-dimer 665 UDS pending thyroid function normal. Patient admitted for further evaluation. Hospital Course: Patient presented with chest pain, palpitations and ventricular bigeminy. Patient was admitted for further evaluation and treatment. Patient with history of COVID-19 infection. Repeat Covid test at this time negative. Cardiac enzymes unremarkable. Patient was placed on Lopressor with improvement of symptoms. Cardiology consulted. No further intervention required. At discharge patient will continue with Lopressor 12.5 mg 1 pill twice daily. Hold if blood pressure systolic less than 110 or heart rate less than 50. Recommend follow-up with cardiology within 1 week to follow-up this hospitalization. Further outpatient work-up will be done by cardiology. Repeat Covid test negative at this time. Continue with handwashing, facemask use and social distancing. Vital Signs/Physical Exam: Temp Pulse Resp BP Pulse Ox 58 18 104/59 L 98 04/22/21 07:52 04/22/21 07:52 04/22/21 07:52 04/22/21 07:52 General: Alert, In no apparent distress, Oriented x3, Cooperative HEENT: Atraumatic Neck: Supple Respiratory: Clear to auscultation bilaterally, Normal air movement Cardiovascular: Normal pulses, Regular rate/rhythm Gastrointestinal: Normal bowel sounds, No tenderness, No masses, No rebound, No guarding Musculoskeletal: No erythema, No tenderness, No warmth Integumentary: No tenderness/swelling Neurological: Normal speech, Normal strength at 5/5 x4 extr, Normal tone, Normal affect Laboratory Data at Discharge: WBC 6.70 K/uL (4.3-10.9) D 04/22/21 05:18 Hgb 11.6 g/dL (12.0-15.0) L 04/22/21 05:18 Hct 34.8 % (36.0-45.0) L 04/22/21 05:18 Plt Count 270 K/uL (152-406) 04/22/21 05:18 PT 11.5 SECONDS (9.5-12.5) 04/21/21 21:55 INR 1.00 04/21/21 21:55 Sodium 143 mmol/L (136-145) 04/22/21 05:18 Potassium 3.5 mmol/L (3.5-5.1) 04/22/21 05:18 BUN 7 mg/dL (7-18) 04/22/21 05:18 Creatinine 0.42 mg/dL (0.55-1.3) L 04/22/21 05:18 Glucose 118 mg/dL (74-106) H 04/22/21 05:18 Magnesium 2.3 mg/dL (1.8-2.4) 04/22/21 05:18 Total Bilirubin 0.3 mg/dL (0.2-1.0) 04/22/21 05:18 AST 10 U/L (15-37) L 04/22/21 05:18 ALT 15 U/L (12-78) 04/22/21 05:18 Alkaline Phosphatase 97 U/L (45-117) 04/22/21 05:18 Troponin I < 0.02 ng/mL (0.0-0.045) 09/14/21 05:18 Triglycerides 99 mg/dL (<150) 04/22/21 05:18 Cholesterol 164 mg/dL (<200) 04/22/21 05:18 HDL Cholesterol 44 mg/dL (40-60) 04/22/21 05:18 Cholesterol/HDL Ratio 3.73 04/22/21 05:18 Home Medications: Metoprolol Tartrate [Lopressor*] 12.5 mg PO BID 6AM 6PM #30 tab 04/22/21 New Medications: Metoprolol Tartrate [Lopressor*] 12.5 mg PO BID 6AM 6PM #30 tab Physician Discharge Instructions: Patient presented with chest pain, palpitations and ventricular bigeminy. Patient was admitted for further evaluation and treatment. Patient with history of COVID-19 infection. Repeat Covid test at this time negative. Cardiac enzymes unremarkable. Patient was placed on Lopressor with improvement of symptoms. Cardiology consulted. No further intervention required. At discharge patient will continue with Lopressor 12.5 mg 1 pill twice daily. Hold if blood pressure systolic less than 110 or heart rate less than 50. Recommend follow-up with cardiology within 1 week to follow-up this hospitalization. Further outpatient work-up will be done by cardiology. Repeat Covid test negative at this time. Continue with handwashing, facemask use and social distancing. Diet: AHA Activity: Ad tara Followup: NONE,NONE [Primary Care Provider] - Time spent managing pt's care (in minutes): 55
[2021-04-22] MEDS ORDERED: ASPIRIN EC 81 MG TAB PO SCH (09:00)
[2021-04-22] MEDS ORDERED: ENOXAPARIN 40 MG/0.4 ML SQ SCH (09:00)
[2021-04-22] MEDS ORDERED: ASPIRIN EC 81 MG TAB PO ONE (09:57)
[2021-04-22] MEDS ORDERED: METOPROLOL TAR 25 MG TAB ONE (09:57)
[2021-04-22] MEDS ORDERED: ENOXAPARIN 40 MG/0.4 ML SQ ONE (09:57)
--- NOTE | 2021-04-22 10:06 | EKG ---
Test Date: 2021-04-21 Test Time: 21:39:02 Driving Teacher: DUY MEASUREMENT RESULTS: Intervals: Rate: 116 AL: 138 QRSD: 80 QT: 334 QTc: 464 [place]: P: 61 AL: 138 QRS: 36 T: 26 INTERPRETIVE STATEMENTS: Undetermined rhythm Nonspecific ST abnormality Abnormal ECG Compared to ECG 06/16/2019 11:13:41 Sinus rhythm no longer present ST (T wave) deviation still present Electronically Signed On 04-22-21 10:04:37 CDT by Wayne Duran
--- NOTE | 2021-04-22 10:06 | EKG ---
Test Date: 2021-04-21 Test Time: 21:39:28 Hand Sewer: DUY MEASUREMENT RESULTS: Intervals: Rate: 124 VT: 134 QRSD: 76 QT: 356 QTc: 511 [place]: P: 50 VT: 134 QRS: 31 T: 25 INTERPRETIVE STATEMENTS: Undetermined rhythm Nonspecific ST abnormality Abnormal ECG Compared to ECG 04/21/2021 21:39:02 No significant changes Electronically Signed On 04-22-21 10:04:36 CDT by Wayne Duran
--- NOTE | 2021-04-22 12:43 | RAD REPORT ---
EXAM DESCRIPTION: CTA Chest, Pulmonary Embolus Protocol COMPARISON: None. CLINICAL HISTORY: HS MAIN Chest pain, elev. DD, tachycardia TECHNIQUE: CT images through the chest with IV contrast using the pulmonary embolus protocol. Multip lanar reformats. MIPS reformats are provided. Automated exposure control was utilized on this exami nation as a dose lowering technique. FINDINGS: Pulmonary arteries and vascular: Diagnostic quality bolus. No filling defects. Heart and mediastinum: Heart size is normal. No lymphadenopathy. Thyroid gland: Visualized portions are normal. Lungs: Areas of mild air trapping are noted in the upper lobes. Airways: No filling defects. No bronchiectasis. Pleura: No pneumothorax. No significant pleural effusion. Subphrenic structures: Cholecystectomy. Musculoskeletal and soft tissues: Within normal limits for age. CHEST IMPRESSION: 1. No evidence of pulmonary embolus. 2. Areas of mild air trapping may represent mild reactive airways disease or COPD, among other causes . Electronically signed by: Juan Bell MD 04/21/2021 11:46 PM CDT Due to temporary technical issues with the PACS/Fluency reporting system, reports are being signed by the in house radiologists without review as a courtesy to insure prompt reporting. The interpreting radiologist is fully responsible for the content of the report.
[2021-04-22 13:13] VITALS: BP 99/58; TEMP 98.3
[2021-04-22 15:29] VITALS: O2SAT 100
--- NOTE | 2021-04-23 08:48 | ECHO ---
HEIGHT: 5 ft 1 in WEIGHT: 166 lb 0.129 oz DATE OF STUDY: 04/22/[address]: Ricki Smith DO 2-DIMENSIONAL: YES M.MODE: YES DOPPLER: YES COLOR FLOW: YES TDS: NO PORTABLE: NO DEFINITY: NO BUBBLE STUDY: NO DIAGNOSIS: PALPITATIONS, CHEST PAIN CARDIAC HISTORY: CATHERIZATION: NO SURGERY: NO PROSTHETIC VALVE: NO PACEMAKER: NO MEASUREMENTS (cm) DIASTOLIC (NORMALS) SYSTOLIC (NORMALS) IVSd 0.9 (0.6-1.2) LA Diam 2.4 (1.9-4.0) LVEF 62% LVIDd 4.3 (3.5-5.7) LVIDs 2.9 (2.0-3.5) %FS 33% LVPWd 0.9 (0.6-1.2) Ao Diam 2.2 (2.0-3.7) 2 DIMENSIONAL ASSESSMENT: RIGHT ATRIUM: NORMAL LEFT ATRIUM: NORMAL RIGHT VENTRICLE: NORMAL LEFT VENTRICLE: NORMAL TRICUSPID VALVE: NORMAL MITRAL VALVE: NORMAL PULMONIC VALVE: NORMAL AORTIC VALVE: NORMAL PERICARDIAL EFFUSION: NONE AORTIC ROOT: NORMAL LEFT VENTRICULAR WALL MOTION: NORMAL DOPPLER/COLOR FLOW: NORMAL COMMENTS: NORMAL 2D ECHOCARDIOGRAM WITH DOPPLER. NO EFFUISION. TECHNOLOGIST: Simon COBB
--- NOTE | 2021-04-27 07:31 | CON ---
Date of Consultation: 04/22/2021 Admitted on 04/21/[address] Smith. I saw the patient on 04/22/2021. Reason For Consultation: Chest pain. History Of Present Illness: Ms. Lynn is a young lady. She is 35. She has recently had COVID and came in with headache, cough, atypical chest pain, palpitation. Her cough was getting worse when she took a deep breath. Her chest pain was also worse when she took a deep breath. Palpitation was her most significant complaint. Denied fever or chills. Denied PND, orthopnea, pedal edema, or syncope . Past Medical History: Negative. Allergies: NONE. Review of Systems: Negative. Social History: Negative. Family History: Negative. Physical Examination: Vital Signs: Stable. Afebrile. HEENT: Negative. Neck: Supple. No bruit. Chest: Clear. Cardiac: Revealed a regular rhythm and rate. No murmurs, gallops, or rubs. Abdomen: Benign. Extremities: Revealed no clubbing, cyanosis, or edema. Diagnostic Data: All normal. Echocardiogram was perfectly normal. Impression And Plan: Palpitations may be reasonable to treat with a low-dose beta luba and it may be reasonable for her to get her appointment an outpatient event monitor to make sure she is not hav ing any atrial fibrillation. For now, we have not seen anything except for some premature atrial con tractions. Her thyroid level is normal. Her potassium is normal. Her other issues include pleuriti c chest pain that does not really need to be evaluated at this point. I am comfortable with her charlie g home whenever it is okay with Dr. Smith. I will see her as an outpatient. TATE/SANCHEZ Voice ID: [id number] Report ID: [id number]
== END 2021-04-22 15:04 | disposition home or self-care (01) | DRG 313 ==
LOC: ER 21:14 → ERHOLD 23:09 → OBSVTOIN 04-22 10:35
PROVIDERS: ADMIT Family Medicine; ATTEND Family Medicine
DX: R07.9 Chest pain, unspecified (principal); R00.2 Palpitations; R00.8 Other abnormalities of heart beat; Z86.16 Personal history of COVID-19
CPT/HCPCS: 36415; 71045; 71275; 80048; 80053; 80061; 80076; 80307; 81003; 83735; 83880; 84439; 84443; 84484; 85025; 85379; 85610; 93005; 93306; 99283; G0378; J1650; J7030; Q9967; U0003

== ENCOUNTER 2021-04-25 19:06 | Emergency (ER) | payer SELFPAY ==
--- NOTE | 2021-04-25 20:06 | RAD REPORT ---
EXAM DESCRIPTION: Lucio Single View04/25/2021 7:52 pm CLINICAL HISTORY: Chest pain COMPARISON: April 21, 2021 FINDINGS: The lungs are mildly aerated. The lungs appear clear of acute infiltrate. The heart is normal size IMPRESSION: No acute abnormalities displayed
[2021-04-25 22:17] LABS: Absolute Lymphocytes (CBC) 2.3 K/uL (0.7-4.9); Basophils % 0.3 % (0-1.3); Lymphocytes % 31.8 % (15.3-44.8); MPV 8.7 fL (7.6-11.3); Protime INR 1.03; RBC Red Blood Cell Count 4.68 M/uL (3.86-4.86)
[2021-04-25 22:44] LABS: ALT/SGPT 14 U/L (12-78); AST/SGOT 13 U/L (15-37); Albumin 4.4 g/dL (3.4-5.0); Alkaline Phosphatase 119 U/L (45-117); BUN Blood Urea Nitrogen 10 mg/dL (7-18); Bicarbonate 24 mmol/L (21-32); Bilirubin Direct < 0.1 mg/dL (0-0.2); Bilirubin Total 0.3 mg/dL (0.2-1.0); Glucose Level 97 mg/dL (74-106); Magnesium 2.5 mg/dL (1.8-2.4); NT PRO-BNP 96 pg/mL (<125); Potassium 3.3 mmol/L (3.5-5.1); Protein, Total 9.2 g/dL (6.4-8.2); Sodium Level 140 mmol/L (136-145); Troponin (Emerg Dept Use Only) < 0.02 ng/mL (0.0-0.045)
--- NOTE | 2021-04-25 23:13 | ER ---
Nurse's Notes [facility] Name: Allyn Lynn Age: 35 yrs Sex: Female : 1985 Arrival Date: 04/25/2021 Time: 19:11 Bed 6 Private MD: Diagnosis: Chest pain, unspecified;Palpitations Presentation: 04/25 19:12 Chief complaint: Patient states: chest pain that started last night, was admitted to em the hospital on Wednesday for the same thing. Coronavirus screen: Vaccine status: Patient reports being unvaccinated. Ebola Screen: Patient negative for fever greater than or equal to 101.5 degrees Fahrenheit, and additional compatible Ebola Virus Disease symptoms Patient denies exposure to infectious person. Patient denies travel to an Ebola-affected area in the 21 days before illness onset. No symptoms or risks identified at this time. Initial Sepsis Screen: Does the patient meet any 2 criteria? No. Patient's initial sepsis screen is negative. Does the patient have a suspected source of infection? No. Patient's initial sepsis screen is negative. Risk Assessment: Do you want to hurt yourself or someone else? Patient reports no desire to harm self or others. Onset of symptoms was April 25, 2021. 19:12 Method Of Arrival: Ambulatory em 19:12 Acuity: ERICK 3 em Historical: - Allergies: 19:13 No Known Allergies; em - PMHx: 19:13 Hyperlipidemia; em - PSHx: 19:13 Cholecystectomy; em - Immunization history:: Client reports having NOT received the Covid vaccine. - Social history:: Smoking status: Patient denies any tobacco usage or history of. Screenin:51 Abuse screen: Denies threats or abuse. Nutritional screening: No deficits noted. ch4 Tuberculosis screening: No symptoms or risk factors identified. Fall Risk None identified. Assessment: 19:46 General: Appears distressed, Behavior is cooperative, anxious. Pain: Complains of pain ch4 in chest Pain does not radiate. Pain began 1 hour ago. Neuro: No deficits noted. Cardiovascular: Reports chest pain, lightheadedness, nausea, Heart tones S1 S2. Respiratory: No deficits noted. Reports cough that is. GI: No deficits noted. : No deficits noted. 19:51 Also complains of nausea. Musculoskeletal: No deficits noted. ch4 Vital Signs: 19:12 BP 139 / 75; Pulse 82; Resp 18; Temp 98.5; Pulse Ox 99% on R/A; Weight 73.94 kg; Height em 5 ft. 0 in. (152.40 cm); 19:50 BP 101 / 51; Pulse 75; Resp 20; Temp 98.4; Pulse Ox 99% on R/A; ch4 22:48 BP 112 / 69; Pulse 57; Resp 18; Pulse Ox 99% ; ch4 23:20 BP 96 / 49; Pulse 53; Resp 18; Temp 98.4; Pulse Ox 100% ; ch4 19:12 Body Mass Index 31.83 (73.94 kg, 152.40 cm) em Vitals: 19:51 Cardiac Rhythm Assessment Regular. ch4 Evelin Coma Score: 19:51 Eye Response: spontaneous(4). Verbal Response: oriented(5). Motor Response: obeys ch4 commands(6). Total: 15. ED Course: 19:11 Patient arrived in ED. em 19:13 Triage completed. em 19:13 Arm band placed on. em 19:26 Mahesh Silva MD is Attending Physician. [facility] 19:46 Inserted saline lock: 22 gauge in right forearm, using aseptic technique. ch4 19:47 Dulce Ontiveros, RN is Primary Nurse. ch4 19:51 Patient has correct armband on for positive identification. teletypesetter monitor on. Pulse ch4 ox on. NIBP on. 19:52 XRAY Chest (1 view) In Process Unspecified. EDMS 23:12 Wayne Duran MD is Referral Physician. [facility] 23:20 IV discontinued, intact, bleeding controlled, No redness/swelling at site. Pressure ch4 dressing applied. Administered Medications: 23:10 Drug: Potassium Chloride 20 mEq Route: PO; ch4 Outcome: 23:12 Discharge ordered by . 7 23:45 Patient left the ED. [facility] Signatures: Dispatcher [employer] EDNV Fabio Urrutia, RN RN Mahesh Silva MD MD [facility] Dulce Ontiveros, DAVID RN [facility]
--- NOTE | 2021-04-25 23:13 | EDPHYS ---
Physician Documentation [facility] Name: Allyn Lynn Age: 35 yrs Sex: Female : 1985 Arrival Date: 04/25/2021 Time: 19:11 Bed 6 Private MD: ED Physician Mahesh Silva HPI: 04/25 19:45 This 35 yrs old Female presents to ER via Ambulatory with complaints of Chest mh7 Pain > 30 y/o. 19:45 The patient or guardian reports chest pain that is located primarily in the anterior mh7 chest wall, bilaterally. The pain does not radiate. 19:45 Associated signs and symptoms: Pertinent positives: dizziness, lightheadedness, nausea, mh7 palpitations, Pertinent negatives: abdominal pain, cough, diaphoresis, headache, lower extremity pain, lower extremity swelling, near syncope, recent travel, shortness of breath, syncope, vomiting. The chest pain is described as a pressure. Duration: The patient or guardian reports multiple episodes, that are intermittent, that wax and wane. 19:45 Modifying factors: The symptoms are alleviated by nothing. the symptoms are aggravated mh7 by nothing. Severity of pain: At its worst the pain was moderate yesterday, in the emergency department the pain has resolved and did so just prior to arrival. The patient has experienced similar episodes in the past, a few times. The patient has been recently been admitted at [facility], was discharged earlier this week. Patient reports being admitted to the hospital for fast heartbeat and chest pressure 4 days ago. She was discharged and told to take Lopressor which was called into pharmacy due to computers being down. She has not been able to get the medication from pharmacy who state that they do not have record of that medication being called in. . Historical: - Allergies: 19:13 No Known Allergies; em - PMHx: 19:13 Hyperlipidemia; em - PSHx: 19:13 Cholecystectomy; em - Immunization history:: Client reports having NOT received the Covid vaccine. - Social history:: Smoking status: Patient denies any tobacco usage or history of. ROS: 19:45 Constitutional: Negative for fever, chills, and weight loss, Eyes: Negative for injury, mh7 pain, redness, and discharge, ENT: Negative for injury, pain, and discharge, Neck: Negative for injury, pain, and swelling, Respiratory: Negative for shortness of breath, cough, wheezing, and pleuritic chest pain. 19:45 Back: Negative for injury and pain, : Negative for injury, bleeding, discharge, and swelling, MS/Extremity: Negative for injury and deformity, Skin: Negative for injury, rash, and discoloration, Neuro: Negative for headache, weakness, numbness, tingling, and seizure, Psych: Negative for depression, anxiety, suicide ideation, homicidal ideation, and hallucinations, Allergy/Immunology: Negative for hives, rash, and allergies, Endocrine: Negative for neck swelling, polydipsia, polyuria, polyphagia, and marked weight changes, Hematologic/Lymphatic: Negative for swollen nodes, abnormal bleeding, and unusual bruising. 19:45 Abdomen/GI: Negative for abdominal pain, vomiting, diarrhea, constipation, abdominal cramps, abdominal distension, anorexia, dysphagia, hematemesis, black/tarry stool, rectal pain, rectal bleeding, bowel incontinence, flatulence. Exam: 19:45 Constitutional: This is a well developed, well nourished patient who is awake, alert, mh7 and in no acute distress. Head/Face: Normocephalic, atraumatic. Eyes: Pupils equal round and reactive to light, extra-ocular motions intact. Lids and lashes normal. Conjunctiva and sclera are non-icteric and not injected. Cornea within normal limits. Periorbital areas with no swelling, redness, or edema. Neck: Trachea midline, no thyromegaly or masses palpated, and no cervical lymphadenopathy. Supple, full range of motion without nuchal rigidity, or vertebral point tenderness. No Meningismus. Chest/axilla: Normal chest wall appearance and motion. Nontender with no deformity. No lesions are appreciated. Cardiovascular: Regular rate and rhythm with a normal S1 and S2. No gallops, murmurs, or rubs. Normal PMI, no JVD. No pulse deficits. Respiratory: Lungs have equal breath sounds bilaterally, clear to auscultation and percussion. No rales, rhonchi or wheezes noted. No increased work of breathing, no retractions or nasal flaring. Abdomen/GI: Soft, non-tender, with normal bowel sounds. No distension or tympany. No guarding or rebound. No evidence of tenderness throughout. Back: No spinal tenderness. No costovertebral tenderness. Full range of motion. Skin: Warm, dry with normal turgor. Normal color with no rashes, no lesions, and no evidence of cellulitis. MS/ Extremity: Pulses equal, no cyanosis. Neurovascular intact. Full, normal range of motion. Neuro: Awake and alert, GCS 15, oriented to person, place, time, and situation. Cranial nerves II-XII grossly intact. Motor strength 5/5 in all extremities. Sensory grossly intact. Cerebellar exam normal. Normal gait. Psych: Awake, alert, with orientation to person, place and time. Behavior, mood, and affect are within normal limits. Vital Signs: 19:12 BP 139 / 75; Pulse 82; Resp 18; Temp 98.5; Pulse Ox 99% on R/A; Weight 73.94 kg; Height em 5 ft. 0 in. (152.40 cm); 19:50 BP 101 / 51; Pulse 75; Resp 20; Temp 98.4; Pulse Ox 99% on R/A; ch4 22:48 BP 112 / 69; Pulse 57; Resp 18; Pulse Ox 99% ; ch4 23:20 BP 96 / 49; Pulse 53; Resp 18; Temp 98.4; Pulse Ox 100% ; ch4 19:12 Body Mass Index 31.83 (73.94 kg, 152.40 cm) em Evelin Coma Score: 19:51 Eye Response: spontaneous(4). Verbal Response: oriented(5). Motor Response: obeys ch4 commands(6). Total: 15. MDM: 23:10 Differential diagnosis: acute myocardial infarction, acute pericarditis, anxiety, mh7 coronary artery disease chest wall pain, costochondritis, myocarditis, pericarditis, pneumonia, pneumothorax. HEART Score: History: Slightly Suspicious (0), ECG: Non specific repolarization disturbance / LBTB / PM (1), Age: < or = 45 years (0), Risk Factors: 1 or 2 risk factors (1), [Hypercholesterolemia] Troponin: < or = 1 x Normal Limit (0), Total Score = 2. Data reviewed: vital signs, nurses notes, old medical records, lab test result(s), cardiac enzymes, CBC, electrolytes, EKG, radiologic studies, plain films. Data interpreted: Pulse oximetry: on room air is 99 %. Interpretation: normal. Counseling: I had a detailed discussion with the patient and/or guardian regarding: the historical points, exam findings, and any diagnostic results supporting the discharge/admit diagnosis, lab results, radiology results, the need for outpatient follow up, to return to the emergency department if symptoms worsen or persist or if there are any questions or concerns that arise at home. Response to treatment: the patient's symptoms have resolved after treatment, the patient's blood pressure is in an acceptable range, mental status has returned to baseline, the patient no longer shows bradycardia, the patient is not short of breath, the patient is not tachycardic, the patient's pain is gone, the patient's temperature has normalized. 23:12 Patient medically screened. [facility] 04/25 19:20 Order name: Basic Metabolic Panel; Complete Time: 23:04 04/25 19:20 Order name: CBC with Diff; Complete Time: 23: 04/25 19:20 Order name: LFT's; Complete Time: 23: 04/25 19:20 Order name: Magnesium; Complete Time: 23: 04/25 19:20 Order name: NT PRO-BNP; Complete Time: 23: 04/25 19:20 Order name: PT-INR; Complete Time: 22:26 04/25 19:20 Order name: Troponin (emerg Dept Use Only); Complete Time: 23:04 04/25 19:20 Order name: XRAY Chest (1 view); Complete Time: 20:38 04/25 19:20 Order name: EKG; Complete Time: 19:21 04/25 19:20 Order name: Cardiac monitoring; Complete Time: 19:46 04/25 19:20 Order name: EKG - Nurse/Tech; Complete Time: 19:46 04/25 19:20 Order name: IV Saline Lock; Complete Time: 19:46 04/25 19:20 Order name: Labs collected and sent; Complete Time: :46 04/25 19:20 Order name: O2 Per Protocol; Complete Time: :46 04/25 19:20 Order name: O2 Sat Monitoring; Complete Time: 19:46 Administered Medications: 23:10 Drug: Potassium Chloride 20 mEq Route: PO; ch4 Disposition Summary: 04/25/21 23:12 Discharge Ordered Location: Home [facility] Problem: an ongoing problem [facility] Symptoms: have improved [facility] Condition: Stable [facility] Diagnosis - Chest pain, unspecified [facility] - Palpitations 7 Followup: [facility] - With: Private Physician - When: 2 - 3 days - Reason: Worsening of condition, Recheck today's complaints, Continuance of care, Re-evaluation by your physician Followup: [facility] - With: Wayne Duran MD - When: 5 - 6 days - Reason: Worsening of condition, Recheck today's complaints Discharge Instructions: - Discharge Summary Sheet [facility] - Nonspecific Chest Pain, Adult, [id number] [facility] - Palpitations, [id number] [facility] Forms: - Medication Reconciliation Form [facility] - Thank You Letter [facility] - Antibiotic Education [facility] - Prescription Opioid Use [facility] Prescriptions: - metoprolol tartrate (bulk) - take 12.5 milligram by ORAL route every 12 hours Hold if blood pressure [facility] systolic less than 110 or heart rate less than 50.; 30 tablet; Refills: 0, Product Selection Permitted Signatures: Dispatcher [employer] Fabio Pena, Roslyn Levin RN, RN RN ea Holmes, Maurice, MD MD [facility] Dulce Ontiveros RN DAVID ch4 Corrections: (The following items were deleted from the chart) 20:07 19:45 Associated signs and symptoms: Pertinent positives: palpitations, Pertinent [facility] negatives: abdominal pain, cough, diaphoresis, lower extremity pain, lower extremity swelling, nausea, near syncope, recent travel, shortness of breath, syncope, vomiting, 7
[2021-04-25] MEDS ORDERED: POTASSIUM CL SA 10 MEQ TAB PO ONE (23:34)
[2021-04-26 00:36] VITALS: TEMP 98.4
[2021-04-26 00:38] VITALS: BP 96/49; O2SAT 100
== END 2021-04-25 23:45 | disposition home or self-care (01) ==
LOC: ER 19:06
DX: R00.2 Palpitations (principal); E78.5 Hyperlipidemia, unspecified
CPT/HCPCS: 36415; 71045; 80048; 80076; 83735; 83880; 84484; 85025; 85610; 93005; 99284

== ENCOUNTER 2021-06-16 18:45 | Emergency (ER) | payer SELFPAY ==
[2021-06-16] MEDS ORDERED: NA CHLORIDE 0.9% 500 ML ONE (19:15)
[2021-06-16 19:55] LABS: Urine Blood Trace-intact (Negative); Urine Glucose Negative (Negative); Urine Protein Negative (Negative); Urine Specific Gravity >=1.030 (1.005-1.030); Urine pH 5.5 (5.0-7.0)
[2021-06-16 20:23] LABS: Protime INR 1.03
--- NOTE | 2021-06-16 20:25 | RAD REPORT ---
EXAM DESCRIPTION: RAD - Chest Single View - 06/16/2021 7:56 pm CLINICAL HISTORY: dizziness;Palpitations Chest pain. COMPARISON: Chest Single View dated 04/25/2021; Chest Single View dated 04/21/2021; Chest Single View dated 07/30/2016; Chest Single View dated 06/08/2016 FINDINGS: Portable technique limits examination quality. The lungs are grossly clear. The heart is normal in size. No displaced fractures. IMPRESSION: No acute intrathoracic process suspected.
[2021-06-16 20:29] LABS: Absolute Lymphocytes (CBC) 2.2 K/uL (0.7-4.9); Basophils % 0.5 % (0-1.3); Hematocrit 36.3 % (36.0-45.0); Lymphocytes % 20.8 % (15.3-44.8); MPV 9.3 fL (7.6-11.3); RBC Red Blood Cell Count 4.17 M/uL (3.86-4.86)
[2021-06-16 20:34] LABS: Urine Bacteria <20 /HPF (<20); Urine Mucus MOD /HPF (NONE SEEN); Urine RBC NONE SEEN /HPF (NONE SEEN)
[2021-06-16 20:38] LABS: Urine Specific Gravity/Preg >1.030 (1.005-1.030)
[2021-06-16 20:48] LABS: BUN Blood Urea Nitrogen 8 mg/dL (7-18); Bicarbonate 25 mmol/L (21-32); Glucose Level 98 mg/dL (74-106); Magnesium 2.3 mg/dL (1.8-2.4); NT PRO-BNP 38 pg/mL (<125); Potassium 3.4 mmol/L (3.5-5.1); Sodium Level 140 mmol/L (136-145); Troponin (Emerg Dept Use Only) < 0.02 ng/mL (0.0-0.045)
[2021-06-16 20:59] LABS: Blood Morphology Comment NOT SEEN (NOT SEEN); Platelet Estimate ADEQ; White Blood Cell Scan OK (OK)
--- NOTE | 2021-06-16 21:07 | EDPHYS ---
Physician Documentation [facility] Name: Allyn Lynn Age: 35 yrs Sex: Female : 1985 Arrival Date: 06/16/2021 Time: 18:49 Bed 6 Private MD: ED Physician Stepehn Gleason HPI: 06/16 19:41 This 35 yrs old Female presents to ER via Ambulatory with complaints of rn Dizziness. 19:42 The patient has experienced near-syncope, almost passed out, felt dizzy, felt faint. rn The patient has experienced near-syncope, felt like heart was pounding. Onset: The symptoms/episode began/occurred just prior to arrival. Duration: This was a single episode, that lasted an unknown period of time. Associated injury: The patient did not suffer any apparent associated injury. Associated signs and symptoms: Pertinent positives: palpitations, Pertinent negatives: abdominal pain, agitation, ataxia, blurred vision, chest pain, confusion, headache, seizure, shortness of breath, vertigo, vomiting. Current symptoms: Mild dizziness. The patient has experienced similar episodes in the past. The patient has been recently seen by a physician:. Patient felt dizzy and lightheaded prior to arrival. States this is happened multiple times before with negative work-ups in ER, followed up with cardiology with negative stress test and echo. Ultimately was put on metoprolol twice daily and compliant with medication. States today was at rest when felt lightheaded and dizzy like was going to pass out, did not completely pass out, feels similar to previous episodes but still not back to normal so came for evaluation. Has not taken nighttime metoprolol yet. Denies any other complaints. Denies headache or vision changes. Denies chest pain or cough or shortness of breath. Denies abdominal pain/vomiting/diarrhea. Last menstrual period was 1 month ago and denies heavy periods.. 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 - Social history:: Smoking status: Patient denies any tobacco usage or history of. - Family history:: not pertinent. - Hospitalizations: : No recent hospitalization is reported. ROS: 19:42 Constitutional: Negative for fever, chills, and weight loss, Eyes: Negative for injury, rn pain, redness, and discharge, ENT: Negative for injury, pain, and discharge, Neck: Negative for injury, pain, and swelling, Cardiovascular: Negative for chest pain, and edema, Respiratory: Negative for shortness of breath, cough, wheezing, and pleuritic chest pain, Abdomen/GI: Negative for abdominal pain, nausea, vomiting, diarrhea, and constipation, Back: Negative for injury and pain, : Negative for injury, bleeding, discharge, and swelling, MS/Extremity: Negative for injury and deformity, Skin: Negative for injury, rash, and discoloration, Neuro: Negative for headache, numbness, tingling, and seizure. Exam: 19:42 Constitutional: This is a well developed, well nourished patient who is awake, alert, rn and in no acute distress. Head/Face: Normocephalic, atraumatic. Eyes: Pupils equal round and reactive to light, extra-ocular motions intact. Lids and lashes normal. Conjunctiva and sclera are non-icteric and not injected. Cornea within normal limits. Periorbital areas with no swelling, redness, or edema. ENT: Dry mucous membranes Neck: Trachea midline, no thyromegaly or masses palpated, and no cervical lymphadenopathy. Supple, full range of motion without nuchal rigidity, or vertebral point tenderness. No Meningismus. Cardiovascular: Regular rate and rhythm. No pulse deficits. Respiratory: No increased work of breathing, no retractions or nasal flaring. Abdomen/GI: Soft, non-tender Skin: Warm, dry MS/ Extremity: Pulses equal, no cyanosis. Neurovascular intact. Full, normal range of motion. Equal circumference. Neuro: Awake and alert, GCS 15, oriented to person, place, time, and situation. Cranial nerves II-XII grossly intact. Motor strength 5/5 in all extremities. Sensory grossly intact. Cerebellar exam normal. 21:04 ECG was reviewed by the Attending Physician. rn Vital Signs: 18:52 BP 128 / 68; Pulse 83; Resp 17; Temp 97.6(TE); Pulse Ox 100% on R/A; tw2 19:27 BP 150 / 55; Pulse 70; Resp 22; Pulse Ox 100% on R/A; Pain 0/10; tw5 21:24 BP 116 / 60; Pulse 62; Resp 18; Pulse Ox 99% on R/A; Pain 0/10; df1 MDM: 19:00 Patient medically screened. rn 21:04 Differential Diagnosis: cardiac arrhythmia, emotional response, idiopathic syncope, rn vasovagal episode, dehydration, palpitations, anxiety. Data reviewed: vital signs, nurses notes, lab test result(s), EKG, radiologic studies, plain films, and as a result, I will discharge patient. Data interpreted: media monitor: rate is 70 beats/min, rhythm is normal sinus rhythm, regular, with no ectopy, Interpretation: normal rate, normal rhythm, Pulse oximetry: on room air is 100 %. Interpretation: normal. Test interpretation: by ED physician or midlevel provider: ECG, plain radiologic studies, CXR negative for pneumothorax/pneumonia. Counseling: I had a detailed discussion with the patient and/or guardian regarding: the historical points, exam findings, and any diagnostic results supporting the discharge/admit diagnosis, lab results, radiology results, the need for outpatient follow up, to return to the emergency department if symptoms worsen or persist or if there are any questions or concerns that arise at home. Response to treatment: the patient's symptoms have markedly improved after treatment, and as a result, I will discharge patient. Special discussion: I discussed with the patient/guardian in detail that at this point there is no indication for admission to the hospital. It is understood, however, that if the symptoms persist or worsen the patient needs to return immediately for re-evaluation. Based on the history and exam findings, there is no indication for further emergent testing or inpatient evaluation. I discussed with the patient/guardian the need to see the lithographed plate inspector for further evaluation of the symptoms. I discussed with the patient/guardian the need to see the primary care provider for further evaluation of the symptoms. 06/16 19:11 Order name: Basic Metabolic Panel; Complete Time: 21:03 rn 06/16 19:11 Order name: CBC with Diff; Complete Time: 21:03 rn 06/16 19:11 Order name: Magnesium; Complete Time: 21: rn 06/16 19:11 Order name: NT PRO-BNP; Complete Time: 21:03 rn 06/16 19:11 Order name: PT-INR; Complete Time: 21:03 rn 06/16 19:11 Order name: Troponin (emerg Dept Use Only); Complete Time: 21:03 rn 06/16 19:11 Order name: XRAY Chest (1 view); Complete Time: 20:26 rn 06/16 19:11 Order name: TSH; Complete Time: 21:03 rn 06/16 19:11 Order name: T4 Free; Complete Time: 21:03 rn 06/16 19:11 Order name: Urine Microscopic Only; Complete Time: 21:03 rn 06/16 19:55 Order name: Urine Dipstick-Ancillary; Complete Time: 20:19 [facility] 06/16 20:02 Order name: Urine --Ancillary (enter results); Complete Time: 21:03 [facility] 06/16 20:59 Order name: CBC Smear Scan; Complete Time: 21:03 EDKY 06/16 19:11 Order name: EKG; Complete Time: 19:12 06/16 19:11 Order name: Cardiac monitoring; Complete Time: 20:38 rn 06/16 19:11 Order name: EKG - Nurse/Tech; Complete Time: 20:49 rn 06/16 19:11 Order name: IV Saline Lock; Complete Time: 20:38 rn 06/16 19:11 Order name: Labs collected and sent; Complete Time: 20:38 rn 06/16 19:11 Order name: O2 Per Protocol; Complete Time: 20:38 rn 06/16 19:11 Order name: O2 Sat Monitoring; Complete Time: 20:38 rn 06/16 19:11 Order name: Urine Dipstick-Ancillary (obtain specimen); Complete Time: 19:58 rn 06/16 19:11 Order name: Urine Test (obtain specimen); Complete Time: 20:00 rn EC:04 Rate is 60 beats/min. Rhythm is regular. QRS [place] is Normal. [place] interval is normal. QRS rn interval is normal. QT interval is normal. No Q waves. T waves are Normal. No ST changes noted. Clinical impression: Normal ECG. Interpreted by me. Reviewed by me. Administered Medications: 19:47 Drug: NS 0.9% 500 ml Route: IV; Rate: bolus; Site: right hand; tw5 Disposition Summary: 06/16/21 21:06 Discharge Ordered Location: Home rn Problem: an ongoing problem rn Symptoms: have improved rn Condition: Stable rn Diagnosis - Dizziness and giddiness rn - Essential (primary) hypertension rn Followup: rn - With: Private Physician - When: As needed - Reason: Recheck today's complaints, Re-evaluation by your physician Discharge Instructions: - Discharge Summary Sheet rn - Dizziness rn - Hypertension, Adult rn Forms: - Medication Reconciliation Form rn - Thank You Letter rn - Antibiotic precision grinder external - Prescription Opioid Use rn Signatures: Dispatcher [employer] Stephen Perkins MD MD rn Wise, Tara, RN RN tw2 Kayleigh Crespo tw5
--- NOTE | 2021-06-16 21:07 | ER ---
Nurse's Notes [facility] Name: Allyn Lynn Age: 35 yrs Sex: Female : 1985 Arrival Date: 06/16/2021 Time: 18:49 Bed 6 Private MD: Diagnosis: Dizziness and giddiness;Essential (primary) hypertension Presentation: 06/16 18:52 Chief complaint: Patient states: i felt like i was going to pass out. i am taking some tw2 medicine for my blood pressure and its making me so dizzy. its Metoprolol 25 mg. i have been on it a month. Chief complaint: Patient states: no matter what i am doing i stay dizzy all day. Coronavirus screen: At this time, the client does not indicate any symptoms associated with coronavirus-19. Ebola Screen: Patient denies travel to an Ebola-affected area in the 21 days before illness onset. Initial Sepsis Screen: Does the patient meet any 2 criteria? No. Patient's initial sepsis screen is negative. Does the patient have a suspected source of infection? No. Patient's initial sepsis screen is negative. Risk Assessment: Do you want to hurt yourself or someone else? Patient reports no desire to harm self or others. Onset of symptoms was June 16, 2021. 18:52 Method Of Arrival: Ambulatory tw2 18:52 Acuity: ERICK 3 tw2 Triage Assessment: 18:56 General: Appears in no apparent distress. slender, Behavior is calm, cooperative, tw2 appropriate for age. Pain: Denies pain. 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 - Social history:: Smoking status: Patient denies any tobacco usage or history of. - Family history:: not pertinent. - Hospitalizations: : No recent hospitalization is reported. Screenin:27 Abuse screen: Denies threats or abuse. Denies injuries from another. Nutritional tw5 screening: No deficits noted. Tuberculosis screening: No symptoms or risk factors identified. Fall Risk None identified. Assessment: 19:27 General: Reports " I have just been feeling so dizzy since they told me to take a whole tw5 metoprolol in the morning and at night. before I was only taking a half. I have been taking the whole tab for two weeks and I just feel so so dizzy. I cannot even bend ove to clean my table without feeling like I am going to pass out.". Pain: Denies pain. Neuro: Level of Consciousness is awake, alert, obeys commands, Oriented to person, place, time, situation, Cell Repairer are equal bilaterally Moves all extremities. Full function. Neuro: Pupils are PERRLA. Cardiovascular: Heart tones S1 S2 present Capillary refill < 3 seconds is brisk in bilateral fingers. Respiratory: Airway is patent Trachea midline Respiratory effort is even, Respiratory pattern is regular. : Urine is clear. Vital Signs: 18:52 BP 128 / 68; Pulse 83; Resp 17; Temp 97.6(TE); Pulse Ox 100% on R/A; tw2 19:27 BP 150 / 55; Pulse 70; Resp 22; Pulse Ox 100% on R/A; Pain 0/10; tw5 21:24 BP 116 / 60; Pulse 62; Resp 18; Pulse Ox 99% on R/A; Pain 0/10; df1 ED Course: 18:49 Patient arrived in ED. am2 18:55 Triage completed. tw2 18:55 Arm band placed on. tw2 18:57 Devan Cash, RN is Primary Nurse. bp 19:00 Stephen Gleason MD is Attending Physician. rn 19:19 Primary Nurse role handed off by Devan Cash, DAVID tw5 19:19 Kayleigh Crespo is Primary Nurse. tw5 19:20 Patient has correct armband on for positive identification. Assisted to bathroom. tw5 19:27 shaper operator on. Pulse ox on. NIBP on. Door closed. Noise minimized. Lights dimmed. tw5 Moved to private room. Warm blanket given. Verbal reassurance given. 19:56 XRAY Chest (1 view) In Process Unspecified. EDMS 19:57 Resting quietly. tw5 19:57 Unable to obtain blood. Lab called. Inserted saline lock: 22 gauge in right hand, using tw5 aseptic technique. Missed attempt(s): 22 gauge in right forearm. Bleeding controlled, band aid applied, catheter tip intact. 20:00 Urine Microscopic Only Sent. tw5 21:33 No provider procedures requiring assistance completed. IV discontinued, intact, df1 bleeding controlled, No redness/swelling at site. Pressure dressing applied. Administered Medications: 19:47 Drug: NS 0.9% 500 ml Route: IV; Rate: bolus; Site: right hand; tw5 Outcome: 21:06 Discharge ordered by . rn 21:33 Discharged to home ambulatory. df1 21:33 Condition: good 21:33 Discharge instructions given to patient, Instructed on discharge instructions, follow up and referral plans. medication usage, Demonstrated understanding of instructions, follow-up care, medications. 21:34 Patient left the ED. df1 Signatures: Dispatcher [employer] EDMS Stephen Gleason MD MD rn Wise, Tara RN RN tw2 Alexa Sauceda Brian RN Vidhi Gonzalez df1 Kayleigh Crespo tw5
[2021-06-16 22:25] VITALS: TEMP 97.6
[2021-06-16 22:27] VITALS: BP 116/60; O2SAT 99
--- NOTE | 2021-06-18 11:25 | EKG ---
Test Date: 2021-06-16 Test Time: 20:44:16 Trucker Hand: MEASUREMENT RESULTS: Intervals: Rate: 60 [place]: 140 QRSD: 82 QT: 436 QTc: 436 [place]: P: 43 [place]: 140 QRS: 9 T: 8 INTERPRETIVE STATEMENTS: Normal sinus rhythm with sinus arrhythmia Normal ECG Compared to ECG 04/25/2021 19:28:50 ST (T wave) deviation no longer present Electronically Signed On 06-18-21 11:20:49 PIN DRAFTER OPERATOR by Wayne Duran
--- OUTSIDE RECORDS SUMMARY | 2021-06-21 17:32 | XMS REPORT | Continuity of Care Document ---
:1985 Author Organization [facility] t Address [address] [place] [address] Care Team Providers Name Role Phone Azra Rachell OLMEDO Primary Care Physician [phone] Zack MCQUEEN.H. Attending Clinician Unavailable Richar HUTCHINS, K.H. Attending Clinician Stephan Almendarez DO Attending Clinician Omid Wells Attending Clinician Doctor Unassigned, Name Attending Clinician Unavailable Advance Directives Directive Decision Effective Termination Comments Source Date Date Healthcare Agents on N/A [facility] FileNameRelationshipHealthcare [place] [facility] Alliance Agent Medical RelationshipCommunicationJose Branch [facility] [phone] (Mobile) Problems Condition Condition Condition Status Onset Resolution Last Treating Co mments Source Name Details Category Date Date Treatment Clinician Date Screen for Screen for Disease Active U nivers STD STD 8-11 ity of ([place] transmit[place] transmit[place] 00 Me dical d disease) d disease) Br anch Anemia of Anemia of Disease Active Uni vers mother in mother in 6-29 [place] , [place] antepartum antepartum 00 Me dical Branch GDM GDM Disease Active Overview: Univer s (gestation (gestation 5-26 Formattin ity of al al 00:00: g of this [place] diabetes diabetes 00 note Medica l mellitus) mellitus) might be Br anch different from the original. Failed 3hr gtt Hypertrigl Hypertrigl Disease Active Overview : Univers yceridemia yceridemia 5-19 Formattin ity of 00:00: g of this [place] 00 note Medical might be Branch different from the original. Reports history Encounter Encounter Disease Active 2016-08 Uni vers for for 0-05 ity of contracept contracept 00:00: yohannes tyrone tyrone 00 Medical management management Br anch , , unspecifie unspecifie d type d type BMI BMI Disease Active 2016-08 Univers 31.0-31.9, 31.0-31.9, 0-05 it y of adult adult 00:00: [place] 00 Medical Branch Obesity, Obesity, Disease Active Unive rs unspecifie unspecifie -09 it y of d d 00:00: [place] classifica classifica 00 Me dical tion, tion, Branch unspecifie unspecifie d obesity d obesity type, type, unspecifie unspecifie d whether d whether serious serious comorbidit comorbidit y present y present Allergies, Adverse Reactions, Alerts Allergy Allergy Status Severity Reaction(s) Onset Inactive Treating Comm ents Source Name Type Date Date Clinician NO KNOWN Drug Active Univers ALLERGIE Class ity of S [facility] Social History Social Habit Start Date Stop Date Quantity Comments Source Exposure to Not sure [facility] SARS-CoV-2 [place] Medical (event) Branch Alcohol intake 2021-06-18 2021-06-18 Current University of 00:00:00 00:00:00 non-drinker of [facility] alcohol [place] (finding) Tobacco use and 2014-09-05 2014-09-05 Never used Universit y of exposure 00:00:00 00:00:00 [facility] Sex Ass[birth year] At [birth year] Universit y of 00:00:00 00:00:00 [facility] Smoking Status Start Date Stop Date Source Never smoker [facility] Medications Ordered Filled Start Stop Current Ordering Indication Dosage Frequency Signature Comments Components Source Medication Medication Date Date Medication? Clinician (SIG) Name Name diltiazem 2020-08- Yes [id number] 120mg Take 1 Univers (CARDIZEM 08-18 capsule by ity of ) 120 mg 00:00: 05:59 mouth [place] 24 hr 00 :00 daily for Medical capsule 30 days. Branch diltiazem 2020-08- Yes [id number] 120mg Take 1 Univers (CARDIZEM 1-11 capsule by ity of ) 120 mg 00:00: 05:59 mouth [place] 24 hr 00 :00 daily for Medical capsule 30 days. Branch metoprolol 2020-08- No [id number] 25mg Take 1 Univers tartrate 25 0-22 11-10 tablet by it y of mg tablet 00:00: 00:00 [place] (two[place] Medical times [place] daily. metoprolol 2020-08- No [id number] 25mg Take 1 Univers tartrate 25 0-22 11-10 tablet by it y of mg tablet 00:00: 00:00 [place] (two[place] Medical times [place] daily. Immunizations Ordered Filled Immunization Date Status Comments [facility] e Immunization Name Name TDAP (ADACEL) 2019-12-26 Completed University of VACCINE 00:00:00 [facility] TDAP (ADACEL) 2019-12-26 Completed University of VACCINE 00:00:00 [facility] Influenza Virus 2019-07-10 Completed Universit y of Vaccine Quad .5 mL 00:00:00 [facility] IM 6+ MO Branch Influenza Virus 2019-07-10 Completed Universit y of Vaccine Quad .5 mL 00:00:00 [facility] IM 6+ MO Branch TDAP 2014-11-30 Completed University of 00:00:00 [facility] TDAP 2014-11-30 Completed University of 00:00:00 [facility] Influenza Virus 2014-09-05 Completed Universit y of Vaccine Quad IM 00:00:00 [place] Med ical Multi-dose 6+ MO Branch Influenza Virus 2014-09-05 Completed Universit y of Vaccine Quad IM 00:00:00 [facility] ical Multi-dose 6+ MO Branch Rubella 2009-10-22 Completed University of 00:00:00 [facility] Rubella 2009-10-22 Completed University of 00:00:00 [facility] Vital Signs Vital Name Observation Time Observation Value Comments Source Systolic blood 2021-06-18 17:02:00 130 mm[Hg] Univer sity of pressure [facility] Diastolic blood 2021-06-18 17:02:00 75 mm[Hg] Unive rsity of pressure [facility] Heart rate 2021-06-18 17:02:00 69 /min [facility] Respiratory rate 2021-06-18 17:02:00 21 /min [facility] Body height 2021-06-18 17:02:00 154.9 cm [facility] Body weight 2021-06-18 17:02:00 74.571 kg [facility] BMI 2021-06-18 17:02:00 31.06 kg/m2 [facility] Oxygen saturation in 2021-06-18 17:02:00 100 /min [facility] Arterial blood by [facility] Pulse oximetry Branch Procedures This patient has no known procedures. Encounters Start End Encounter Admission Attending Care Care Encounter Source Date/Time Date/Time Type Type Clinicians Facility Department ID 2021-06-18 2021-06-18 Outpatient R RICHAR [facility] [id number] Univers 11:00:00 11:34:21 GRISELDA [facility] 2021-06-18 2021-06-18 [facility] [id number] Univers 10:47:15 11:34:21 Visit Griselda SERRANO [id number] padmini [facility] [id number] Jose Elias ODOM [id number] [address] 2020-10-28 2020-10-[address] [facility] [id number] 00:00:00 00:00:00 Outreach Herminio STACY [id number] Stephan [facility] [id number] ERIS [id number] 2020-04-19 2020-04-19 [facility] [id number] 08:06:56 09:49:01 Visit Huseyin Anne [employer]PER[employer] [id number] [facility] [id number] MATERNAL [phone] & CHILD [address] [place] [address] 2020-02-14 2020-02-14 Orders Doctor PEREZ [id number] 00:00:00 00:00:00 Only Unassigned, STEPHANIE [id number] [facility] [id number] 2020-02-05 2020-02-05 Orders Doctor NAA Holguin.[id number] 00:00:00 00:00:00 Only UnassignedSTEPHANIE [id number] [facility] [id number] 2020-01-19 2020-01-19 Orders Doctor ANA [id number] 00:00:00 00:00:00 Only UnassignedSTEPHANIE [id number] [facility] [id number] Results Test Description Test Time Test Comments Results Result Comments Source SARS-COV2/RT-PCR ([facility]) 2020-02-27 10:08:00 Test Item Value Reference Range Interpretation Comme nts SARS-COV2/RT-PCR (test code = [id number]) Negative Not Detected, N egative, See external report for linked test SARS-COV-2 PERFORMING LAB (test code = [facility] [id number]) Negative result for this test determines that [...] a nasopharyngeal swab specimen collected from individuals suspected of COVID-19 by their healthcare provider.This test [...] 564(g) of the Act.Fact Sheet for Healthcare Providers:https://www.[employer]/sites/default/files/product/documents/Fact_Shee h_VO_Ekfywrajl_Xjmv_YTPQ-WgY-8.pdfFact Sheet for Healthcare Patients:https://www.[employer]rage[employer]/sites/default/files/product/ documents/Prqi_Hupuz_Zwxezpqy_Lhzh_RVFK-FpX-7.pdfPerforming Laboratory:[facility] [place] [address]
== END 2021-06-16 21:34 | disposition home or self-care (01) ==
LOC: ER 18:45
DX: I10 Essential (primary) hypertension (principal)
CPT/HCPCS: 36415; 71045; 80048; 81003; 81015; 81025; 83735; 83880; 84439; 84443; 84484; 85025; 85610; 93005; 99284; J7040

== ENCOUNTER 2023-04-09 23:06 | Emergency (ER) | payer SELFPAY ==
--- OUTSIDE RECORDS SUMMARY | 2023-04-09 23:11 | XMS REPORT | Continuity of Care Document ---
:1985 Author Organization [facility] t Address [address] [facility] [address] [place] [address] Care Team Providers Name Role Phone Rebekah Alejandre Primary Care Physician [phone] REBEKAH OQUENDO Attending Clinician Unavailable MILAGRO MARTINEZ Attending Clinician Unavailable MILAGRO MARTINEZ Attending Clinician Unavailable URVASHI NUNEZ Attending Clinician Unavailable Urvashi Nunez DNP Attending Clinician Room, [facility] Attending Clinician Unavailable Clyde Guzman MD Attending Clinician CLYDE GUZMAN Attending Clinician Unavailable CHRISTINA COSTA Attending Clinician Unavailable Eileen Wolfe RN Attending Clinician Unavailable Christina Costa MD Attending Clinician KYM WADE Attending Clinician Unavailable Kym Wade DO Attending Clinician Azra Rebekah TAMAYO Attending Clinician [phone] Huseyin Wells Attending Clinician Unavailable Doctor Unassigned, [place] Attending Clinician Unavailable TEE GRANADOS Attending Clinician Unavailable Tee Granados MD Attending Clinician HUSEYIN RODRIGUEZ Attending Clinician Unavailable Lab, [facility] Attending Clinician Unavailable Cruz Mcqueen MD Attending Clinician CRUZ MCQUEEN Attending Clinician Unavailable Herminio Almendarez DO Attending Clinician 5, [facility] Usg Room Attending Clinician Unavailable Elli Almendarez MD Attending Clinician Visit, [facility] Nurse Attending Clinician Unavailable Lloyd Peter MD Attending Clinician LUZ CLIFTON Attending Clinician Unavailable Luz Clifton MD Attending Clinician Jennifer Li Attending Clinician Rell Bruner MD Attending Clinician Binta Azevedo MD Attending Clinician [facility] Attending Clinician Unavailable Lab, [facility] Attending Clinician Unavailable LLOYD PETER Attending Clinician Unavailable LLOYD PETER Attending Clinician Unavailable Neeta Paige Attending Clinician KYM WADE Admitting Clinician Unavailable Payers Payer Name Policy Type Policy Number Effective Date Expiration Date Mack SAMSS [id number] 2019 [employer]ALTH PLAN MOM 00:00:00 CHIP LOW [employer] Problems Condition Condition Condition Status Onset Resolution Last Treating Co mments Source Name Details Category Date Date Treatment Clinician Date Metrorrhag Metrorrhag Disease Active U nivers ia ia 5-12 ity of 00:00: [place] 00 Medical Branch Hematuria, Hematuria, Disease Active U nivers unspecifie unspecifie 5-12 it y of d type d type 00:00: [place] 00 Medical Branch Other Other Disease Active Univers general general 3-08 [place] of [place] advice 00 Me dical for for Branch contracept contracept tyrone tyrone management management Family Family Disease Active Univers history of history of 3-08 it y of diabetes diabetes 00:00: [place] mellitus mellitus 00 Medica l Branch Screen for Screen for Disease Active U nivers STD STD 8-11 ity of (sexually ([place] transmit[place] transmitte 00 Me dical d disease) d disease) Br anch Hypertrigl Hypertrigl Disease Active Overview : Univers yceridemia yceridemia 5-19 Formattin ity of 00:00: g of this [place] 00 note Medical might be Branch different from the original. Reports history Obesity Obesity Disease Active 2016-08 Univers (BMI (BMI 0-05 ity of 30-39.9) 30-39.9) 00:00: [address] Allergies, Adverse Reactions, Alerts Allergy Allergy Status Severity Reaction(s) Onset Inactive Treating Comm ents Source Name Type Date Date Clinician NO KNOWN Allergy Active [facility] NO KNOWN Drug Active Univers ALLERGIE Class ity of S [facility] Social History Social Habit Start Date Stop Date Quantity Comments Source Gender identity Universit y [facility] [place] [facility] Sexual orientation Univer sity [facility] [place] [facility] Exposure to 2023-01-29 2023-02-08 Not sure University of SARS-CoV-2 (event) 00:00:00 10:59:00 [facility] History of Social 2022-12-21 2022-12-21 Univers ity of function 00:00:00 00:00:00 [facility] Tobacco use and 2022-11-13 2022-11-[address] [facility] [facility] exposure 00:00:00 00:00:00 tobacco non-user [facility] Alcohol intake 2022-11-13 2022-11-[address] [facility] 00:00:00 00:00:00 non-drinker [facility] (finding) Sex Assigned At [address] [address] [facility] 00:00:00 00:00:00 [facility] Smoking Status Start Date Stop Date Source Never smoked tobacco [facility] Medications Ordered Filled Start Stop Current Ordering Indication Dosage Frequency Signature Comments Components Source Medication Medication Date Date Medication? Clinician (SIG) Name Name acetaminoph 2022- No 1000mg 1,000 mg, Univers en 01-27 Oral, ity of (TYLENOL) 00:15: 00:12 [place] dose, On Medical 1,000 mg [facility] 01/26/23 at 1915, [place] doxycycline Yes 100mg Q.5D Take [address] (VIBRAMYCIN 4-07 capsule [facility] ) 100 MG 17:10: (100 mg Medica l capsule 26 total) by Center mouth in the morning and 1 capsule (100 mg total) before bedtime. meclizine 0 2022- No 25mg Take 1 [facility] t (ANTIVERT) 11-13 04-17 tablet (25 Jeanne kes 25 mg 00:00: 23:59 mg total) Medica l tablet 00 :00 by mouth 3 Center (three) times daily as needed for up to 10 days. No known 0 No Univers medications 5-12 ity of 13:02: [address] Branch Immunizations Ordered Filled Immunization Date Status Comments [facility] e Immunization Name Name TDAP (ADACEL) 2019-12-26 Completed University of VACCINE 00:00:00 [facility] TDAP (ADACEL) 2019-12-26 Completed University of VACCINE 00:00:00 [facility] Branch TDAP (ADACEL) 2019-12-26 Completed University of VACCINE 00:00:00 [facility] TDAP (ADACEL) 2019-12-26 Completed University of VACCINE 00:00:00 [facility] TDAP (ADACEL) 2019-12-26 Completed University of VACCINE 00:00:00 [facility] Branch TDAP (ADACEL) 2019-12-26 Completed University of VACCINE 00:00:00 [facility] Branch TDAP (ADACEL) 2019-12-26 Completed University of VACCINE 00:00:00 [facility] Branch TDAP (ADACEL) 2019-12-26 Completed University of VACCINE 00:00:00 [facility] Branch TDAP (ADACEL) 2019-12-26 Completed University of VACCINE 00:00:00 [facility] Branch TDAP (ADACEL) 2019-12-26 Completed University of VACCINE 00:00:00 [facility] Branch TDAP (ADACEL) 2019-12-26 Completed University of VACCINE 00:00:00 [facility] Branch TDAP (ADACEL) 2019-12-26 Completed University of VACCINE 00:00:00 [facility] Branch TDAP (ADACEL) 2019-12-26 Completed University of VACCINE 00:00:00 [facility] Branch TDAP (ADACEL) 2019-12-26 Completed University of VACCINE 00:00:00 [facility] Branch TDAP (ADACEL) 2019-12-26 Completed University of VACCINE 00:00:00 [facility] Branch TDAP (ADACEL) 2019-12-26 Completed University of VACCINE 00:00:00 [place] [facility] TDAP (ADACEL) 2019-12-26 Completed University of VACCINE 00:00:00 [facility] Branch TDAP (ADACEL) 2019-12-26 Completed University of VACCINE 00:00:00 [facility] Branch TDAP (ADACEL) 2019-12-26 Completed University of VACCINE 00:00:00 [facility] TDAP (ADACEL) 2019-12-26 Completed University of VACCINE 00:00:00 [facility] TDAP (ADACEL) 2019-12-26 Completed University of VACCINE 00:00:00 [facility] TDAP (ADACEL) 2019-12-26 Completed University of VACCINE 00:00:00 [facility] Influenza Virus 2019-07-10 Completed Universit y of Vaccine Quad .5 mL 00:00:00 [place] [facility] 6+ MO Branch Influenza Virus 2019-07-10 Completed Universit y of Vaccine Quad .5 mL 00:00:00 [place] [facility] 6+ MO Branch Influenza Virus 2019-07-10 Completed Universit y of Vaccine Quad .5 mL 00:00:00 [place] [facility] IM 6+ MO Branch Influenza Virus 2019-07-10 Completed Universit y of Vaccine Quad .5 mL 00:00:00 [place] [facility] 6+ MO Branch Influenza Virus 2019-07-10 Completed Universit y of Vaccine Quad .5 mL 00:00:00 [place] [facility] 6+ MO Branch Influenza Virus 2019-07-10 Completed Universit y of Vaccine Quad .5 mL 00:00:00 [place] [facility] 6+ MO Branch Influenza Virus 2019-07-10 Completed Universit y of Vaccine Quad .5 mL 00:00:00 [place] [facility] 6+ MO Branch Influenza Virus 2019-07-10 Completed Universit y of Vaccine Quad .5 mL 00:00:00 [place] [facility] IM 6+ MO Branch Influenza Virus 2019-07-10 Completed Universit y of Vaccine Quad .5 mL 00:00:00 [place] [facility] 6+ MO Branch Influenza Virus 2019-07-10 Completed Universit y of Vaccine Quad .5 mL 00:00:00 [place] [facility] 6+ MO Branch Influenza Virus 2019-07-10 Completed Universit y of Vaccine Quad .5 mL 00:00:00 [place] [facility] 6+ MO Branch Influenza Virus 2019-07-10 Completed Universit y of Vaccine Quad .5 mL 00:00:00 [place] [facility] IM 6+ MO Branch Influenza Virus 2019-07-10 Completed Universit y of Vaccine Quad .5 mL 00:00:00 [place] [facility] 6+ MO Branch Influenza Virus 2019-07-10 Completed Universit y of Vaccine Quad .5 mL 00:00:00 [place] [facility] 6+ MO Branch Influenza Virus 2019-07-10 Completed Universit y of Vaccine Quad .5 mL 00:00:00 [place] [facility] 6+ MO Branch Influenza Virus 2019-07-10 Completed Universit y of Vaccine Quad .5 mL 00:00:00 [place] [facility] 6+ MO Branch Influenza Virus 2019-07-10 Completed Universit y of Vaccine Quad .5 mL 00:00:00 [place] [facility] IM 6+ MO Branch Influenza Virus 2019-07-10 Completed Universit y of Vaccine Quad .5 mL 00:00:00 [place] [facility] 6+ MO Branch Influenza Virus 2019-07-10 Completed Universit y of Vaccine Quad .5 mL 00:00:00 [place] [facility] IM 6+ MO Branch Influenza Virus 2019-07-10 Completed Universit y of Vaccine Quad .5 mL 00:00:00 [place] [facility] 6+ MO Branch Influenza Virus 2019-07-10 Completed Universit y of Vaccine Quad .5 mL 00:00:00 [place] [facility] IM 6+ MO Branch Influenza Virus 2019-07-10 Completed Universit y of Vaccine Quad .5 mL 00:00:00 [facility] 6+ MO Branch TDAP 2014-11-30 Completed University of 00:00:00 [place] [facility] TDAP 2014-11-30 Completed University of 00:00:00 [place] [facility] TDAP 2014-11-30 Completed University of 00:00:00 [place] [facility] TDAP 2014-11-30 Completed University of 00:00:00 [place] [facility] TDAP 2014-11-30 Completed University of 00:00:00 [place] [facility] TDAP 2014-11-30 Completed University of 00:00:00 [place] [facility] TDAP 2014-11-30 Completed University of 00:00:00 [place] [facility] TDAP 2014-11-30 Completed University of 00:00:00 [place] [facility] TDAP 2014-11-30 Completed University of 00:00:00 [place] [facility] TDAP 2014-11-30 Completed University of 00:00:00 [place] [facility] TDAP 2014-11-30 Completed University of 00:00:00 [place] [facility] TDAP 2014-11-30 Completed University of 00:00:00 [place] [facility] [place] TDAP 2014-11-30 Completed University of 00:00:00 [facility] Branch TDAP 2014-11-30 Completed University of 00:00: [facility] Branch TDAP 2014-11-30 Completed University of 00:00: [place] [facility] TDAP 2014-11-30 Completed University of 00:00: [place] [facility] TDAP 2014-11-30 Completed University of 00:00:00 [facility] Branch TDAP 2014-11-30 Completed University of 00:00:00 [place] [facility] TDAP 2014-11-30 Completed University of 00:00:00 [facility] Branch TDAP 2014-11-30 Completed University of 00:00:00 [facility] Branch TDAP 2014-11-30 Completed University of 00:00:00 [facility] TDAP 2014-11-30 Completed University of 00:00:00 [facility] Influenza Virus 2014-09-05 Completed Universit y of Vaccine Quad IM 00:00:00 [place] Med ical Multi-dose 6+ MO Branch Influenza Virus 2014-09-05 Completed Universit y of Vaccine Quad IM 00:00:00 [place] Med ical Multi-dose 6+ MO Branch Influenza Virus 2014-09-05 Completed Universit y of Vaccine Quad IM 00:00:00 [place] Med ical Multi-dose 6+ MO Branch Influenza Virus 2014-09-05 Completed Universit y of Vaccine Quad IM 00:00:00 [place] Med ical Multi-dose 6+ MO Branch Influenza Virus 2014-09-05 Completed Universit y of Vaccine Quad IM 00:00:00 [place] Med ical Multi-dose 6+ MO Branch Influenza Virus 2014-09-05 Completed Universit y of Vaccine Quad IM 00:00:00 [place] Med ical Multi-dose 6+ MO Branch Influenza Virus 2014-09-05 Completed Universit y of Vaccine Quad IM 00:00:00 [place] Med ical Multi-dose 6+ MO Branch Influenza Virus 2014-09-05 Completed Universit y of Vaccine Quad IM 00:00:00 [place] Med ical Multi-dose 6+ MO Branch Influenza Virus 2014-09-05 Completed Universit y of Vaccine Quad IM 00:00:00 [place] Med ical Multi-dose 6+ MO Branch Influenza Virus 2014-09-05 Completed Universit y of Vaccine Quad IM 00:00:00 [place] Med ical Multi-dose 6+ MO Branch Influenza Virus 2014-09-05 Completed Universit y of Vaccine Quad IM 00:00:00 [place] Med ical Multi-dose 6+ MO Branch Influenza Virus 2014-09-05 Completed Universit y of Vaccine Quad IM 00:00:00 [place] Med ical Multi-dose 6+ MO Branch Influenza Virus 2014-09-05 Completed Universit y of Vaccine Quad IM 00:00:00 [place] Med ical Multi-dose 6+ MO Branch Influenza Virus 2014-09-05 Completed Universit y of Vaccine Quad IM 00:00:00 [place] Med ical Multi-dose 6+ MO Branch Influenza Virus 2014-09-05 Completed Universit y of Vaccine Quad IM 00:00:00 [place] Med ical Multi-dose 6+ MO Branch Influenza Virus 2014-09-05 Completed Universit y of Vaccine Quad IM 00:00:00 [place] Med ical Multi-dose 6+ MO Branch Influenza Virus 2014-09-05 Completed Universit y of Vaccine Quad IM 00:00:00 [place] Med ical Multi-dose 6+ MO Branch Influenza Virus 2014-09-05 Completed Universit y of Vaccine Quad IM 00:00:00 [place] Med ical Multi-dose 6+ MO Branch Influenza Virus 2014-09-05 Completed Universit y of Vaccine Quad IM 00:00:00 [place] Med ical Multi-dose 6+ MO Branch Influenza Virus 2014-09-05 Completed Universit y of Vaccine Quad IM 00:00:00 [place] Med ical Multi-dose 6+ MO Branch Influenza Virus 2014-09-05 Completed Universit y of Vaccine Quad IM 00:00:00 [place] Med ical Multi-dose 6+ MO Branch Influenza Virus 2014-09-05 Completed Universit y of Vaccine Quad IM 00:00:00 [place] Med ical Multi-dose 6+ MO Branch Rubella 2009-10-22 Completed University of 00:00:00 [facility] Rubella 2009-10-22 Completed University of 00:00:00 [facility] Rubella 2009-10-22 Completed University of 00:00:00 [facility] Rubella 2009-10-22 Completed University of 00:00:00 [facility] Rubella 2009-10-22 Completed University of 00:00:00 [facility] Rubella 2009-10-22 Completed University of 00:00:00 [facility] Rubella 2009-10-22 Completed University of 00:00:00 [facility] Rubella 2009-10-22 Completed University of 00:00:00 [facility] Rubella 2009-10-22 Completed University of 00:00:00 [place] [facility] Rubella 2009-10-22 Completed University of 00:00:00 [place] [facility] Rubella 2009-10-22 Completed University of 00:00:00 [place] [facility] Rubella 2009-10-22 Completed University of 00:00:00 [place] [facility] Rubella 2009-10-22 Completed University of 00:00:00 [place] [facility] Rubella 2009-10-22 Completed University of 00:00:00 [place] [facility] Rubella 2009-10-22 Completed University of 00:00:00 [place] [facility] Rubella 2009-10-22 Completed University of 00:00:00 [place] [facility] Rubella 2009-10-22 Completed University of 00:00:00 [place] [facility] Rubella 2009-10-22 Completed University of 00:00:00 [place] [facility] Rubella 2009-10-22 Completed University of 00:00:00 [place] [facility] Rubella 2009-10-22 Completed University of 00:00:00 [facility] Rubella 2009-10-22 Completed University of 00:00:00 [facility] Rubella 2009-10-22 Completed University of 00:00:00 [facility] Vital Signs Vital Name Observation Time Observation Value Comments Source Systolic blood 2023-03-09 18:57:00 110 mm[Hg] Univer sity of pressure [facility] Diastolic blood 2023-03-09 18:57:00 66 mm[Hg] Unive rsity of pressure [facility] Heart rate 2023-03-09 18:57:00 78 /min [facility] Body temperature 2023-03-09 18:57:00 [facility].56 [facility] 2023-03-09 18:57:00 162.6 cm [facility] Body weight 2023-03-09 18:57:00 81.647 kg [facility] BMI 2023-03-09 18:57:00 30.90 kg/m2 [facility] Systolic blood 2023-03-09 14:35:00 126 mm[Hg] Univer sity of pressure [facility] Diastolic blood 2023-03-09 14:35:00 84 mm[Hg] Unive rsity of pressure [facility] Heart rate 2023-03-09 14:35:00 64 /min Universi ty of [place] [facility] Body temperature 2023-03-09 14:35:00 37 Cora Univ ersity of [place] [facility] Respiratory rate 2023-03-09 14:35:00 16 /min Univ ersity of [place] [facility] Body height 2023-03-09 14:35:00 162.6 cm Universi ty of [place] [facility] Body weight 2023-03-09 14:35:00 81.647 kg Universi ty [facility] [place] [facility] BMI 2023-03-09 14:35:00 30.90 kg/m2 Universi ty of [place] [facility] Oxygen saturation in 2023-03-09 14:35:00 99 /min University of Arterial blood by [email or web address] oximetry Branch Body height 2023-01-27 00:07:00 154.9 cm Universi ty of [place] [facility] Body weight 2023-01-27 00:07:00 79.379 kg Universi ty [facility] [place] [facility] BMI 2023-01-27 00:07:00 33.07 kg/m2 Universi ty [facility] [place] [facility] Systolic blood 2023-01-27 00:06:00 132 mm[Hg] Univer sity of pressure [place] [facility] Diastolic blood 2023-01-27 00:06:00 65 mm[Hg] Unive rsity of pressure [place] [facility] Heart rate 2023-01-27 00:06:00 80 /min Universi ty of [place] [facility] Body temperature 2023-01-27 00:06:00 37 Cora Univ ersity of [place] [facility] Respiratory rate 2023-01-27 00:06:00 16 /min Univ ersity of [place] [facility] Oxygen saturation in 2023-01-27 00:06:00 100 /min University of Arterial blood by [email or web address] Pulse oximetry Branch Systolic blood 2022-12-21 13:39:00 113 mm[Hg] Univer sity of pressure [place] [facility] Diastolic blood 2022-12-21 13:39:00 65 mm[Hg] Unive rsity of pressure [place] [facility] Heart rate 2022-12-21 13:39:00 67 /min Universi ty of [place] [facility] Body temperature 2022-12-21 13:39:00 35.11 Cora Univ ersity of [place] [facility] Respiratory rate 2022-12-21 13:39:00 18 /min Univ ersity of [place] [facility] Body height 2022-12-21 13:39:00 154.9 cm Universi ty of [facility] Body weight 2022-12-21 13:39:00 83.19 kg Universi ty of [facility] BMI 2022-12-21 13:39:00 34.65 kg/m2 Universi ty of [facility] HEIGHT 2022-11-13 17:02:00 154.9 cm WEIGHT 2022-11-13 17:02:00 77.111 kg HEIGHT 2022-11-13 17:02:00 154.9 cm WEIGHT 2022-11-13 17:02:00 77.111 kg HEIGHT 2022-11-13 17:02:00 154.9 cm WEIGHT 2022-11-13 17:02:00 77.111 kg Systolic blood 2021-12-18 14:07:00 121 mm[Hg] Univer sity of [facility] Diastolic blood 2021-12-18 14:07:00 65 mm[Hg] Unive rsity [facility] Heart rate 2021-12-18 14:07:00 67 /min Universi ty of [facility] Body temperature 2021-12-18 14:07:00 36.56 Cora [facility] Respiratory rate 2021-12-18 14:07:00 16 /min [facility] height 2021-12-18 14:07:00 154.9 cm Universi ty of [facility] Body weight 2021-12-18 14:07:00 73.619 kg Universi ty of [facility] BMI 2021-12-18 14:07:00 30.67 kg/m2 Universi ty [facility] Systolic blood 2022-11-13 20:40:00 110 mm[Hg] [facility] Diastolic blood 2022-11-13 20:40:00 63 mm[Hg] [facility] S t [facility] Heart rate 2022-11-13 20:40:00 61 /min [facility] Body temperature 2022-11-13 20:40:[address] [facility] Respiratory rate 2022-11-13 20:40:00 15 /min [facility] Oxygen saturation in 2022-11-13 20:40:00 98 /min [facility] Arterial blood by Medical Ce nter Pulse oximetry Body height 2022-11-13 17:02:00 154.9 cm [facility] Body weight 2022-11-13 17:02:00 77.111 kg [facility] BMI 2022-11-13 17:02:00 32.12 kg/m2 [facility] Procedures Procedure Date / Time Performing Clinician Source Performed TRANSTHORACIC ECHO (TTE) 2023-03-30 19:03:09 Milagro Martinez [facility] XR ANKLE 3+ VW RIGHT 2023-03-09 19:22:17 Urvashi Nunez [facility] XR ANKLE <3 VW RIGHT 2023-02-10 16:21:32 Coleman Grace [facility] XR ANKLE 3+ VW RIGHT 2023-02-10 16:00:43 Clyde Guzman [facility] XR ANKLE 3+ VW RIGHT 2023-01-27 00:38:00 Kym Wade [facility] NOTICE OF PRIVACY 2023-01-26 23:55:30 Doctor Unassigned, No [facility] PRACTICES [facility] CONSENT/REFUSAL FOR 2023-01-26 23:54:58 Doctor Unassigned, No [facility] DIAGNOSIS AND TREATMENT [facility] ASSIGNMENT OF BENEFITS 2022-12-21 13:14:11 Doctor Unassigned, No [facility] BASIC METABOLIC PANEL 2022-11-13 18:52:[address] [facility] CBC W/PLT COUNT & AUTO 2022-11-13 18:32:00 Tee Granados [facility] DIFFERENTIAL Center CBC W/PLT COUNT & AUTO 2022-11-13 18:32:00 Tee Granados [facility] DIFFERENTIAL Center XR CHEST 2 VIEWS 2022-11-13 18:08:00 Tee Granados [facility] POCT URINALYSIS W/O 2021-12-18 19:28:00 Huseyin Rodriguez [facility] SPECIFIC GRAVITY [facility] POCT TEST 2021-12-18 14:11:00 Huseyin Rodriguez [facility] Plan of Care Planned Activity Planned Date Details Comments Source Future Scheduled 2029-12-25 DTAP/TDAP/TD VACCINES ([address] [facility] Test 00:00:00 - Td or Tdap) [code = Medica l Center DTAP/TDAP/TD VACCINES (3 - Td or Tdap)] Future Scheduled 2023-11-[address] [facility] Test 00:00:00 Counseling and Screening Med ical Center (12+) [code = Tobacco Cessation Counseling and Screening (12+)] Future Scheduled 2023-04-09 Influenza Vaccine (#1) [facility] Test 00:00:00 [code = Influenza Vaccine Wa dical Center (#1)] Future Scheduled 2022-08-[address] [facility] Test 00:00:00 (12+) [code = DEPRESSION Med ical Center SCREENING (12+)] Future Scheduled 2004 Screening for malignant [facility] Test 00:00:00 neoplasm of cervix Medical C enter (procedure) [code = 746068685] Future Scheduled 2003 Lipid panel (procedure) [facility] Test 00:00:00 [code = 85636960] Medical Ce nter Future Scheduled 2001 HEPATITIS C SCREENING [facility] Test 00:00:00 [code = HEPATITIS C Medical Center SCREENING] Future Scheduled [address] Human immunodeficiency [facility] Test 00:00:00 virus screening Medical Cent er (procedure) [code = 018212999] Future Scheduled 1984-03-29 COVID-19 VACCINE (#1) [facility] Test 00:00:00 [code = COVID-19 VACCINE Med ical Center (#1)] Encounters Start End Encounter Admission Attending Care Care Encounter Source Date/Time Date/Time Type Type Clinicians Facility Department ID 2023-12-22 2023-12-22 Outpatient R [facility] [id number] Univers 14:00:00 14:00:00 REBEKAH connor [facility] 2023-03-30 2023-03-30 Outpatient R MILAGRO [facility] [id number] Univers 13:17:03 23:59:00 JUAN KWAMEKATHERINE ity of [facility] 2023-03-30 2023-03-30 [facility] 1.2.698.371 [id number] Univers 13:17:03 23:59:00 Encounter Muhie HEALTH 350.1.13.10 [place] [id number] [address] OFFICE [facility] 2023-03-30 2023-03-30 [facility] 1.2.337.407 [id number] Univers 13:00:00 13:16:00 Encounter Muhie HEALTH 350.1.13.10 [place] [id number] [address] OFFICE [facility] 2023-03-30 2023-03-30 [facility] 1.2.840.114 [id number] Univers 00:00:00 00:00:00 Muhie HEALTH 350.1.13.10 it y [place] [id number] [address] OFFICE [facility] 2023-03-09 2023-03-09 [facility] 1.2.840.114 [id number] Univers 14:05:00 23:59:00 Encounter Urvashi SPECIALTY 350.1.13.10 it[place] [id number] Wa cheryle MCDUFFIE 809 [facility] 2023-03-09 2023-03-09 Office [facility] 1.2.840.114 [id number] Univers 14:40:00 14:40:00 Visit Urvashi SPECIALTY 350.1.13.10 it[place] of [place] [phone] Wa cheryle MCDUFFIE 198 [facility] 2023-03-09 2023-03-09 Outpatient R MILAGRO [facility] [id number] Univers 09:30:00 12:45:42 MILAGRO MARTINEZ ity [facility] 2023-03-09 2023-03-09 Office Juan [facility] 1.2.840.114 [id number] Univers 09:30:00 10:00:00 Visit [facility] HEALTH 350.1.13.10 it y of [place] [phone] [place] [address] [place] OFFICE BUILDING 2023-02-18 2023-02-18 Ski Molder Room, s Ortho [facility] 1. 2.840.114 [id number] Univers 13:00:00 13:30:00 Visit Clyde Guzman [facility] 350.1.13.10 it[place] of C[place].2.[place] C[place] [phone] Wa cheryle MCDUFFIE [address] [place] [address] 2023-02-18 2023-02-18 Outpatient R CLYDE [facility]MAN [facility] [id number] Univers 13:00:00 13:00:00 ity of [facility] 2023-02-13 2023-02-13 Nurse ANA Wolfe 1.2.840.114 [id number] Univers 00:00:00 00:00:00 Triage Eileen STEPHANIE 350.1.13.10 it y of HOSPITAL 4.2.7.2.686 [place] as [id number] [address] 2023-02-10 2023-02-10 [facility] Clyde Guzman [facility] 1.2.840.114 [id number] Univers 11:09:21 23:59:00 Encounter HEALTH 350.1.13.10 it[place] of [place] [phone] [facility] [address] [place] [address] OFFICE BUILDING 2023-02-10 2023-02-10 Outpatient R CLYDE GUZMAN [facility] [id number] Univers 10:54:21 11:08:00 ity of [facility] 2023-02-10 2023-02-10 [facility] Clyde Gzuman [facility] 1.2.840.114 [id number] Univers 10:54:21 11:08:00 Encounter HEALTH 350.1.13.10 it[place] of [place] [id number] [address] OFFICE BUILDING 2023-01-28 2023-01-28 Telephone [facility] 1.2.840.114 10 [id number] Univers 00:00:00 00:00:00 [facility] 350.1.13.10 it y of [place] 4.2.7.2.686 [place] as MARGY?BLEA [id number] Wa cheryle RE[address]ER[address] MEDICAL OFFICE [facility] 2023-01-26 2023-01-26 Emergency X [facility] ERT [id number] Univers 19:07:00 20:52:00 KYM ity [facility] 2023-01-26 2023-01-26 Emergency [facility] 1.2.840.114 10 [id number] Univers 19:07:00 20:52:00 Kym SERRANO 350.1.13.10 ity of [place] 4.2.7.2.686 [place] [facility] [id number] [address] 2022-12-22 2022-12-22 Telephone [facility] 1.2.840.114 10 [id number] Univers 00:00:00 00:00:00 Rebekah Maloney FERRY HAND 350.1.13.10 ity of [facility] 4.2.7.2.686 [place] MATERNAL [id number] Med ical & CHILD [address] [place] [address] 2022-12-21 2022-12-21 Outpatient R AZRA [facility] [id number] Univers 08:15:00 09:59:08 REBEKAH [place] o f [facility] 2022-12-21 2022-12-21 Office Rebekah Oquendo [facility] 1.2.8 40.114 [id number] Univers 08:15:00 09:59:08 Visit Huseyin Rodriguez FERRY HAND 350.1.13.10 ity of [facility] 4.2.7.2.686 [place] MATERNAL [id number] [facility] ical & CHILD [address] [place] [address] 2022-12-21 2022-12-21 Orders Doctor PEREZ 1.2.840.114 [id number] Univers 00:00:00 00:00:00 Only Unassigned, STEPHANIE 350.1.13.10 ity of [place] [facility] 4.2.7.2.686 [place] as [id number] [address] 2022-11-13 2022-11-13 Emergency ER TEE GRANADOS SLE Emergency 20 [id number] [facility] 17:05:00 20:43:00 2022-11-13 2022-11-[address] [facility] [id number] 17:05:00 20:43:00 [facility] 2022-11-13 2022-11-[address] [facility] [id number] [facility] 00:00:[facility] 00:00:00 [facility] 2021-12-18 2021-12-18 Outpatient O[facility] [id number] Univers 09:00:00 09:42:45 HUSEYIN [place] o [facility] 2021-12-18 2021-12-18 Office [facility] 1.2.840.114 [id number] Univers 09:00:00 09:42:45 Visit Huseyin Anne FERRY HAND 350.1.13.10 [address]y [address]2.686 [place] MATERNAL [id number] Med ical & CHILD [address] [place] [address] 2021-12-18 2021-12-18 Outpatient Omid [facility] [id number] Univers 09:00:00 09:42:45 HUSEYIN [place] o [facility] 2021-10-17 2021-10-17 Telephone [facility] 1.2.840.114 [id number] Univers 00:00:00 00:00:00 Rebekah Maloney FERRY HAND 350.1.13.10 ity of [facility] 4.2.7.2.686 [place] MATERNAL [phone] Med ical & CHILD [address] [place] [address] 2021-10-15 2021-10-15 Ski Molder Lab, [facility] 1.2.840. 114 [id number] Univers 08:30:00 09:01:47 Visit Rebekah Oquendo FERRY HAND 350.1.13. 10 ity [facility] 4.2.7.2.686 [place] MATERNAL [id number] Med ical & CHILD [address] [place] [address] 2021-10-15 2021-10-15 Outpatient R AZRA [facility] [id number] Univers 08:30:00 09:01:47 REBEKAH rosario [facility] 2021-10-14 2021-10-[address] 1.2.489.043 [id number] Univers 10:30:00 11:14:59 Visit Rebekah Maloney FERRY HAND 350.1.13.10 ity of [facility] 4.2.7.2.686 [place] MATERNAL [id number] [facility] & CHILD [address] [place] [address] 2021-10-14 2021-10-14 Outpatient [facility] [id number] Univers 10:30:00 11:14:59 REBEKAH rosario [facility] 2021-10-14 2021-10-14 Orders Doctor PEREZ 1.2.840.114 [id number] Univers 00:00:00 00:00:00 Only Unassigned, STEPHANIE 350.1.13.10 ity of [place] [facility] 4.2.7.2.686 [place] as [id number] [address] 2021-07-07 2021-07-07 Telephone [facility] 1.2.840.114 [id number] Univers 00:00:00 00:00:00 Rebekah Maloney FERRY HAND 350.1.13.10 ity of [facility] 4.2.7.2.686 [place] MATERNAL [id number] [facility] & CHILD [address] [place] [address] 2021-06-23 2021-06-23 Telephone [facility] 1.2.582.851 [id number] Univers 00:00:00 00:00:00 Sendjoan SERRANO 350.1.13.10 ity [facility] 4.2.7.2.[place] [phone] [place] 173889 [facility] 2021-06-18 2021-06-18 Outpatient R RICHAR [facility] [id number] Univers 11:00:00 11:34:21 SENDIL ity of [facility] 2021-06-18 2021-06-18 Office [facility] 1.2.840.114 [id number] Univers 10:47:15 11:34:21 Visit Sendil Bashir SERRANO 350.1.13.10 ity of [place].2.7.2.[place] [phone] Wa dicla NAL 9 [facility] 2021-06-18 2021-06-18 Outpatient [facility] [id number] Univers 11:00:00 11:00:00 SENDIL ity [facility] 2021-06-03 2021-06-03 Telephone [facility] 1.2.504.040 [id number] Univers 00:00:00 00:00:00 Sendil Bashir Serrano 350.1.13.10 ity of [place] Profess[place] [id number] [address] 2021-06-02 2021-06-02 Outpatient [facility] [id number] Univers 11:30:00 11:30:00 SENDIL ity [facility] 2021-05-29 2021-05-29 Telephone [facility] 1.2.706.973 [id number] Univers 00:00:00 00:00:00 Sendil Bashir Serr[place] 350.1.13.10 ity of [place]2.[place].2.[place] Profess[place] [phone] [place] 540829 [facility] 2021-05-20 2021-05-20 [facility] 1.2.840.114 [id number] Univers 11:00:00 23:59:00 Encounter Sendjoan Serrano 350.1.13.10 ity of [place]2.[place].2.[place] Profess[place] [id number] Wa dicla nal 843 [facility] 2021-05-20 2021-05-20 Outpatient [facility] [id number] Univers 11:00:00 11:00:00 SENDIL ity [facility] 2021-05-09 2021-05-09 Telephone [facility] 1.2.198.353 [id number] Univers 00:00:00 00:00:00 Sendjoan Serrano 350.1.13.10 ity of [place] Profess[place] [phone] [place] 540829 [facility] 2021-05-02 2021-05-02 Office [facility] 1.2.840.114 [id number] Univers 11:06:47 11:58:39 Visit Cruz Serrano 350.1.13.10 ity of [place].2.[place] Profess[place] [id number] [address] 2021-05-02 2021-05-02 Outpatient [facility] [id number] Univers 11:00:00 11:00:00 SENDIL ity [facility] 2021-05-02 2021-05-02 Orders Doctor ANA 1.2.840.114 [id number] Univers 00:00:00 00:00:00 Only Unassigned, STEPHANIE 350.1.13.10 ity of [place] [facility] 4.2.7.2.686 [place] as [id number] [address] 2020-10-28 2020-10-28 Patient [facility] 1.2.840.114 [id number] 00:00:00 00:00:00 Outreach Herminio PRIMARY 350.1.13.10 Stephan CARE 4.2.7.2.686 PAVILLION [phone] [facility] 2020-10-28 2020-10-28 Patient Erickson [facility] 1.2.840.114 [id number] Univers 00:00:00 00:00:00 Outreach Herminio PRIMARY 350.1.13.10 i ty of [place] C[place].2.[place].2.[place] [id number] [address] 2020-04-19 2020-04-19 Office [facility] 1.2.840.114 [id number] 08:06:56 09:49:01 Visit Roshunda R FERRY HAND 350.1.13.10 REGIONAL 4.2.7.2.686 MATERNAL [phone] & CHILD [address] [place] [address] 2020-04-19 2020-04-19 Office Kapil [facility] 1.2.840.114 [id number] Univers 08:06:56 09:49:01 Visit Huseyin R FERRY HAND 350.1.13.10 ity of REGIONAL 4.2.7.2.686 [place] as MATERNAL [id number] [facility] & CHILD [address] [place] [address] 2020-04-19 2020-04-19 Outpatient R AKINSIPE, [facility] [id number] Univers 07:30:00 07:30:00 REBEKAH ity o [facility] 2020-04-09 2020-04-09 Outpatient R AKINSIPE, [facility] [id number] Univers 08:15:00 08:15:00 REBEKAH ity o [facility] 2020-04-09 2020-04-09 Outpatient R AKINSIPE, [facility] [id number] Univers 08:15:00 08:15:00 REBEKAH ity o [facility] 2020-04-09 2020-04-09 Outpatient R [facility] [id number] Univers 07:45:00 07:45:00 ity of [facility] 2020-03-19 2020-03-19 Routine Akinsipe, [facility] 1.2.875.677 [id number] Univers 13:07:40 14:13:11 Rebekah C FERRY HAND 350.1.13.10 ity of Visit REGIONAL 4.2.7.2.686 [place] MATERNAL [id number] [facility] & CHILD [address] [place] [address] 2020-03-19 2020-03-19 Outpatient R AKINSIPE, [facility] [id number] Univers 09:15:00 09:15:00 REBEKAH ity o [facility] 2020-02-22 2020-02-22 Routine Akinsipe, [facility] 1.2.873.807 [id number] Univers 14:22:22 14:37:22 Rebekah C FERRY HAND 350.1.13.10 ity of Visit REGIONAL 4.2.7.2.686 [place] as MATERNAL [id number] Med ical & CHILD [address] [place] [address] 2020-02-22 2020-02-22 [facility] [id number] Univers 14:15:00 14:15:00 REBEKAH itselena o f [facility] 2020-02-22 2020-02-22 Orders Doctor ANA Holguin.2.840.114 [id number] Univers 00:00:00 00:00:00 Only Unassigned, STEPHANIE 350.1.13.10 ity of [place] [facility] 4.2.7.2.686 [place] as [id number] [address] 2020-02-14 2020-02-14 Routine [facility] 1.2.872.631 [id number] Univers 13:59:03 14:14:03 Rebekah C FERRY HAND 350.1.13.10 ity of Visit [facility] 4.2.7.2.686 [place] MATERNAL [phone] Med ical & CHILD [address] [place] [address] 2020-02-14 2020-02-14 Outpatient R [facility] [id number] Univers 14:00:00 14:00:00 REBEKAH rosario f [facility] 2020-02-14 2020-02-14 Orders Doctor PEREZ 1.2.840.114 [id number] Univers 00:00:00 00:00:00 Only Unassigned, STEPHANIE 350.1.13.10 ity of [place] [facility] 4.2.7.2.686 [place] as [id number] [address] 2020-02-14 2020-02-14 Orders Doctor PEREZ 1.2.840.114 [id number] 00:00:00 00:00:00 Only Unassigned, STEPHANIE 350.1.13.10 [place] [facility] 4.2.7.2.686 [id number] 2020-02-07 2020-02-07 Routine [facility] 1.2.972.056 [id number] Univers 14:04:13 14:44:35 Rebekah C FERRY HAND 350.1.13.10 ity of Visit REGIONAL 4.2.7.2.686 [place] MATERNAL [id number] Med ical & CHILD [address] [place] [address] 2020-02-07 2020-02-07 Outpatient R AZRA, [facility] [id number] Univers 14:15:00 14:15:00 REBEKAH ity o f [facility] 2020-02-06 2020-02-06 Telephone [facility] 1.2.840.114 [id number] Univers 00:00:00 00:00:00 Rebekah C FERRY HAND 350.1.13.10 ity of REGIONAL 4.2.7.2.686 [place] as MATERNAL [id number] [facility] & CHILD [address] [place] [address] 2020-02-05 2020-02-05 Telephone [facility] 1.2.840.114 [id number] Univers 00:00:00 00:00:00 Rebekah C FERRY HAND 350.1.13.10 ity of REGIONAL 4.2.7.2.686 [place] as MATERNAL [id number] [facility] & [address] 2020-02-05 2020-02-05 Orders Doctor ANA 1.2.840.114 [id number] Univers 00:00:00 00:00:00 Only Unassigned, STEPHANIE 350.1.13.10 ity of [place] [facility] 4.2.7.2.686 [place] as [id number] [address] 2020-02-05 2020-02-05 Orders Doctor ANA 1.2.840.114 [id number] 00:00:00 00:00:00 Only Unassigned, STEPHANIE 350.1.13.10 [place] [facility] 4.2.7.2.686 [id number] [facility] 2020-02-02 2020-02-[address] [facility], [facility] 1.2.016.126 [id number] Univers 10:51:51 11:50:42 Rebekah C FERRY HAND 350.1.13.10 ity of Visit REGIONAL 4.2.7.2.686 [place] as MATERNAL [id number] [facility] & CHILD [address] [place] [address] 2020-02-02 2020-02-02 Outpatient R AZRA, [facility] [id number] Univers 11:00:00 11:00:00 REBEKAH ity o f [facility] 2020-01-29 2020-01-29 Abstract Akinpe, [facility] 1.2.840.114 [id number] Univers 00:00:00 00:00:00 Rebekah C FERRY HAND 350.1.13.10 ity of REGIONAL 4.2.7.2.686 [place] as MATERNAL [id number] [facility] & CHILD [address] [place] [address] 2020-01-24 2020-01-24 Ski Molder 5, [facility] Us Room UNIVERSIT 1 .2.840.114 [id number] Univers 10:46:01 11:16:01 Visit Elli Almendarez Brianne [facility] 350.1.13.10 ity of CLINICS 4.2.[place].2.[place] [id number] [facility] [address] 2020-01-24 2020-01-24 Outpatient P [facility] [id number] Univers 11:00:00 11:00:00 ity of [facility] 2020-01-19 2020-01-19 Routine [facility] 1.2.583.668 [id number] Univers 08:25:29 09:08:35 Reebkah C FERRY HAND 350.1.13.10 ity of Visit REGIONAL 4.2.7.2.686 [place] as MATERNAL [id number] [facility] & CHILD [address] [place] [address] 2020-01-19 2020-01-19 Out[facility] [id number] Univers 08:30:00 08:30:00 REBEKAH rosario f [facility] 2020-01-19 2020-01-19 Orders Doctor ANA 1.2.840.114 [id number] Univers 00:00:00 00:00:00 Only Unassigned, STEPHANIE 350.1.13.10 ity of [place] [facility] 4.2.7.2.686 [place] as [id number] [facility] [address] 2020-01-19 2020-01-19 Orders Doctor ANA 1.2.840.114 [id number] 00:00:00 00:00:00 Only Unassigned, STEPHANIE 350.1.13.10 [place] [facility] 4.2.7.2.686 [id number] 009 2020-01-08 2020-01-08 Outpatient R [facility] [id number] Univers 10:00:00 10:00:00 ity of [facility] 2020-01-05 2020-01-05 [facility] 1.2 .840.114 [id number] Univers 07:55:35 08:46:40 Visit Rebekah Oquendo FERRY HAND 350.1.13. 10 ity of [facility] 4.2.7.2.686 [place] as MATERNAL [id number] [facility] & CHILD [address] [place] [address] 2020-01-05 2020-01-05 Outpatient [facility] [id number] Univers 08:00:00 08:00:00 REBEKAH rosario geeta [facility] 2020-01-02 2020-01-[address] 1.2.840.114 [id number] Univers 00:00:00 00:00:00 Rebekah Haider FERRY HAND 350.1.13.10 ity of [facility] 4.2.7.2.686 [place] MATERNAL [phone] [facility] & CHILD [address] [place] [address] 2019-12-29 2019-12-29 Outpatient R AZRA [facility] [id number] Univers 10:30:00 10:30:00 REBEKAH connor [facility] 2019-12-29 2019-12-29 [facility], [facility] 1.2.840. 114 [id number] Univers 08:10:34 08:32:02 Visit Rebekah Oquendo FERRY HAND 350.1.13. 10 ity of [facility] 4.2.7.2.686 [place] as MATERNAL [id number] [facility] & CHILD [address] [place] [address] 2019-12-28 2019-12-28 Telephone [facility] 1.2.840.114 [id number] Univers 00:00:00 00:00:00 Rebekah C FERRY HAND 350.1.13.10 ity of [facility] 4.2.7.2.686 [place] as MATERNAL [phone] [facility] & CHILD [address] [place] [address] 2019-12-28 2019-12-28 William [facility]in[facility] 1.2.840.114 [id number] Univers 00:00:00 00:00:00 Lloyd FERRY HAND 350.1.13.10 i ty of [facility] 4.2.7.2.686 [place] as MATERNAL [id number] [facility] & [address] 2019-12-26 2019-12-26 Routine [facility] 1.2.040.740 [id number] Univers 09:50:52 11:02:52 Rebekah C FERRY HAND 350.1.13.10 ity of Visit [facility] 4.2.7.2.686 [place] as MATERNAL [id number] [address] 2019-12-26 2019-12-26 Outpatient R AZRA [facility] [id number] Univers 10:00:00 10:00:00 REBEKAH connor [facility] 2019-12-26 2019-12-26 Orders Doctor ANA 1.2.840.114 [id number] Univers 00:00:00 00:00:00 Only Unassigned, STEPHANIE 350.1.13.10 ity of [place] [facility] 4.2.7.2.686 [place] as [id number] [address] 2019-12-21 2019-12-21 Outpatient Omid OQUENDO [facility] [id number] Univers 13:00:00 13:00:00 REBEKAH connor [facility] 2019-12-12 2019-12-[address] 1.2.852.374 [id number] Univers 00:00:00 00:00:00 (Out) Rebekah Maloney FERRY HAND 350.1.13.10 ity of [facility] 4.2.7.2.686 [place] as MATERNAL [phone] [address] 2019-12-05 2019-12-05 Outpatient Omid OQUENDO [facility] [id number] Univers 10:45:00 10:45:00 REBEKAH connor [facility] 2019-12-04 2019-12-04 Outpatient Omid [facility] [id number] Univers 11:00:00 11:00:00 REBEKAH connor [facility] 2019-11-13 2019-11-13 Outpatient P [facility] [id number] Univers 10:00:00 10:00:00 LUZ washing[place] [facility] 2019-11-06 2019-11-06 Telemedici [facility] 1.2.840.114 [id number] Univers 13:22:45 14:22:11 ne Visit Rebekah Maloney FERRY HAND 350.1.13.10 ity of [facility] 4.2.7.2.686 [place] as MATERNAL [phone] Med ical & CHILD [address] [place] [address] 2019-11-06 2019-11-06 Outpatient R AZRA [facility] [id number] Univers 14:15:00 14:15:00 REBEKAH padmini marlene connor [facility] 2019-10-11 2019-10-11 Ski Molder 5, [facility] Room UNIVERSIT 1 .2.840.114 [id number] Univers 10:50:56 14:13:19 Visit ElodiaLuz [facility] 350.1.13.10 ity of [place]enn[place] [facility] 4.2.7.2.686 [place] Rell Bruner [phone] [address] 2019-10-11 2019-10-11 Office [place], [facility] 1.2.840.114 [id number] Univers 10:05:23 10:48:41 Visit [facility] 350.1.13.10 ity of CL[place] [id number] [address] 2019-10-11 2019-10-11 Outpatient P [facility] [id number] Univers 10:45:00 10:45:00 LUZ [facility] 2019-10-11 2019-10-11 [facility] 1.2.840.114 [id number] Univers 00:00:00 00:00:00 Rebekah Maloney FERRY HAND 350.1.13.10 ity of REGIONAL 4.2.7.2.686 [place] as MATERNAL [phone] [facility] ical & CHILD [address] [place] [address] 2019-10-11 2019-10-11 Orders Doctor ANA 1.2.840.114 [id number] Univers 00:00:00 00:00:00 Only Unassigned, STEPHANIE 350.1.13.10 ity of [place] [facility] 4.2.7.2.686 [place] as [phone] [facility] [address] 2019 2019 Routine [facility] [id number] Univers 09:13:55 10:34:00 Rebekah C FERRY HAND 350.1.13.10 ity of Visit [facility] 4.2.7.2.686 [place] as MATERNAL [phone] Med ical & CHILD [address] [place] [address] 2019-08-30 2019-08-30 Routine [facility] 1.2.530.062 [id number] Univers 10:17:25 11:03:45 Rebekah C FERRY HAND 350.1.13.10 ity of Visit [facility] 4.2.7.2.686 [place] as MATERNAL [phone] Med ical & CHILD [address] [place] [address] 2019-08-25 2019-08-25 Ski Molder [facility] UNIVERSIT 1.2.840.114 [id number] Univers 13:26:34 13:41:34 Visit Rebekah Oquendo C Y [facility]ALTH 350.1.13 .10 ity of CLINICS [place] [phone] [facility] [address] 2019-08-25 2019-08-25 Ski Molder Lab, [facility] UNIVERSIT 1.2.84 0.114 [id number] Univers 12:17:52 13:25:09 Visit ElodiaLuz [facility] 350.1.13.10 ity of [place] Peter CLINICS 4.2.7.2.686 [place] [phone] [facility] [address] 2019-08-25 2019-08-25 Outpatient P [facility] [id number] Univers 11:15:00 12:13:10 LLOYD PETER ity of [facility] 2019-08-25 2019-08-25 [place] UNIVERSIT 1.2.091.814 [id number] 00:00:00 00:00:00 [facility] [id number] ity of CLINICS [id number] Jose Elias millard [id number] [facility] [address] Results Test Description Test Time Test Comments Results Result Comments Source Transthoracic echo (TTE) 2023-03-30 20:17:38 Test Item Value Reference Range Interpretation Comme nts Height (test code = 4797627413) 64 in Weight (test code = 2537041416) 180 lbs Systolic BP (test code = 0155260218) 110 mmHg Diastolic BP (test code = 3350556861) 66 mmHg Heart Rate (test code = 4363920312) 80 bpm BSA (test code = 7302123797) 1.89 m2 LVIDD (test code = 9179119158) 4.40 cm Left Ventricular End Diastolic Volume 86.9 mL by Teichholz Method (test code = 9429426) IVS (test code = 4040508959) 0.90 cm Interventricular Septum Diastolic 0.90 cm Thickness by 2D (test code = 3503673) LVPWD (test code = 6640215250) 0.96 cm PW (test code = 6655363507) 0.96 cm 0.6-1.1 EF(Teich) (test code = 7061728101) 68.60 % LVIDS (test code = 7059381979) 2.70 cm Left Ventricular End Systolic Volume 27.3 mL by Teichholz Method (test code = 2487398) FS (test code = 5122582452) 38 % EF - 2D (test code = 36798675) 68.60 % LVOT diameter (test code = 3210657917) 1.80 cm LVOT area (test code = 6009821340) 2.50 cm2 Ao root diam (test code = 1193860105) 2.60 cm Aortic root (test code = 1335930831) 2.6 cm Ao root annulus (test code = 2.6 cm 0948573560) LA size (test code = 9223672266) 3.0 cm Pulmonic Regurgitant End Max Velocity 75.6 cm/s (test code = 6874996482) TR Peak Luis (test code = 3658367606) 225.3 cm/s Triscuspid Valve Regurgitation Peak 20.3 mmHg Gradient (test code = 6049538145) LAV(MOD-sp4) (test code = 5616775733) 33.20 mL MV Peak E Luis (test code = 3222572526) 115.9 cm/s E wave decelartion time (test code = 0.26 s 8176570932) MV Peak A Luis (test code = 5582003932) 60.9 cm/s E/A ratio (test code = 2899606753) 1.90 ratio LVOT stroke volume (test code = 59.10 cm3 2280777000) LVOT peak luis (test code = 6151756782) 113.7 cm/s LVOT mn grad (test code = 2638433488) 2.4 mmHg AV LVOT peak gradient (test code = 5.2 mmHg 1110893723) LVOT peak VTI (test code = 1070825765) 23.3 cm LV V1 mean (test code = 4244568899) 71.90 cm/s TASV (test code = 9178279637) 16.6 cm/s LA Volume Index (BP) (test code = 20.9 mL/m2 3963945846) LA volume (BP) (test code = 39.6 mL 6172323289) LAV(MOD-sp2) (test code = 1036377867) 46.00 mL Radiology Study observation (narrative) (test code = 26939-1) PAUL (test code = PAUL) ?Left?Ventricle: Left ventricle size is normal. Normal wall thickness. Septal motion is normal. Normal wall motion. Normal systolic function with a visually estimated EF of 55 - 60%. Normal diastolic function. ?Tricuspid?Valve: Mild transvalvular regurgitation. Right ventricular systolic pressure is 20-25 mmHg. Left VentricleLeft ventricle size is normal. Normal wall thickness. Septal motion is normal. Normal wall motion. Normal systolic function with a visually estimated EF of 55 - 60%. Normal diastolic function.Right VentricleRight ventricle size is normal. Normal wall thickness. Normal systolic function.Left AtriumLeft atrium size is normal.Right AtriumRight atrium size is normal.IVC/SVCIVC diameter is less than or equal to 21 mm and decreases greater than 50% during inspiration; therefore the estimated right atrial pressure is normal (~0-5 mmHg). IVC normal in size and respiratory variation.Mitral ValveMitral valve structure is normal. Trace transvalvular regurgitation. No stenosis.Tricuspid ValveTricuspid valve structure is normal. Mild transvalvular regurgitation. Right ventricular systolic pressure is 20-25 mmHg. No stenosis.Aortic ValveAortic valve structure is normal.Pulmonic ValveNot well visualized. Valve structure is grossly normal. Mild transvalvular regurgitation.Ascending AortaNormal sized annulus and sinus of Valsalva.PericardiumThe pericardium is normal. No pericardial effusion.Study DetailsStudy quality was good. A complete echocardiogram was performed using 2D, color flow Doppler and spectral Doppler. [facility] METABOLIC [id number] 19:16:42 Test Item Value Reference Range Interpretation Comments SODIUM (BEAKER) 138 meq/L 136-145 (test code = 381) POTASSIUM 4.2 meq/L 3.5-5.1 Specimen slight ly (BEAKER) (test hemolyzed code = 379) CHLORIDE (BEAKER) 108 meq/L 98-107 H (test code = 382) CO2 (BEAKER) 22 meq/L 22-29 (test code = 355) BLOOD UREA 10 mg/dL 7-21 NITROGEN (BEAKER) (test code = 354) CREATININE 0.68 mg/dL 0.57-1.25 Specimen slight ly (BEAKER) (test hemolyzed code = 358) GLUCOSE RANDOM 108 mg/dL 70-105 H (BEAKER) (test code = 652) CALCIUM (BEAKER) 9.3 mg/dL 8.4-10.2 (test code = 697) EGFR (BEAKER) 114 Interpretatio n of eGFR (test code = mL/min/1.73 values Stage De scription 1092) sq m Result G1 Mary Jo l or high >=90 G2 Mildly decreased 60-89 G3a Mildl y to moderately 45-5 9 G3b Moderately to s everely 30-44 G4 Severl y decreased 15-29 G5 Kidney failure <15Reported eGF R is based on the CKD-EPI 2021 equation that d oes not use a race coefficientEsti mated GFR is not as accur ate as Creatinine Jeni matt in predicting glom erular filtration rate . Estimated GFR is not appl icable for dialysis patien ts Cloth Colorer ID - BSCBC W/PLT COUNT & AUTO [id number] 18:48:10 Test Item Value Reference Range Interpretation Comments WHITE BLOOD CELL COUNT 7.2 K/ L 3.5-10.5 (BEAKER) (test code = 775) RED BLOOD CELL COUNT 4.42 M/ L 3.93-5.22 (BEAKER) (test code = 761) HEMOGLOBIN (BEAKER) 12.3 GM/DL 11.2-15.7 (test code = 410) HEMATOCRIT (BEAKER) 37.5 % 34.1-44.9 (test code = 411) MEAN CORPUSCULAR VOLUME 85 fL 79-95 (BEAKER) (test code = 753) MEAN CORPUSCULAR 27.8 pg 25.6-32.2 HEMOGLOBIN (BEAKER) (test code = 751) MEAN CORPUSCULAR 32.8 GM/DL 32.2-35.5 HEMOGLOBIN CONC (BEAKER) (test code = 752) RED CELL DISTRIBUTION 14.6 % 11.7-14.4 H WIDTH (BEAKER) (test code = 412) PLATELET COUNT (BEAKER) 257 K/CU MM 150-450 No c lots or clumps (test code = 756) in tube MEAN PLATELET VOLUME 10.9 fL 9.4-12.3 (BEAKER) (test code = 754) NUCLEATED RED BLOOD 0 /100 WBC 0-0 CELLS (BEAKER) (test code = 413) NEUTROPHILS RELATIVE 63 % PERCENT (BEAKER) (test code = 429) LYMPHOCYTES RELATIVE 28 % PERCENT (BEAKER) (test code = 430) MONOCYTES RELATIVE 7 % PERCENT (BEAKER) (test code = 431) EOSINOPHILS RELATIVE 2 % PERCENT (BEAKER) (test code = 432) BASOPHILS RELATIVE 1 % PERCENT (BEAKER) (test code = 437) NEUTROPHILS ABSOLUTE 4.49 K/ L 1.56-6.13 COUNT (BEAKER) (test code = 670) LYMPHOCYTES ABSOLUTE 2.01 K/ L 1.18-3.74 COUNT (BEAKER) (test code = 414) MONOCYTES ABSOLUTE 0.47 K/ L 0.24-0.36 H COUNT (BEAKER) (test code = 415) EOSINOPHILS ABSOLUTE 0.14 K/ L 0.04-0.36 COUNT (BEAKER) (test code = 416) BASOPHILS ABSOLUTE 0.04 K/ L 0.01-0.08 COUNT (BEAKER) (test code = 417) IMMATURE 0.30 % 0.00-1.00 GRANULOCYTES-RELATIVE PERCENT (BEAKER) (test code = 2801) RAD, CHEST, 2 [id number] 18:13:00Reason for exam:->HEADACHEReason for exam:->DIZZINESSX 6 days [facility] 1985 Sex: FFINAL REPORT TECHNIQUE: Frontal and lateral views of the chest. INDICATION: HEADACHEDIZZINESS COMPARISON: None FINDINGS: LINES/TUBES: None. LUNGS: The lungs are well inflated and clear. No consolidation or pulmonary edema. PLEURA: No pleural effusion or pneumothorax. HEART AND MEDIASTINUM:The cardiomediastinal contour within normal limits. SOFT TISSUES AND BONES: Unremarkable. IMPRESSION:No acute cardiopulmonary process. Signed: Doni Carmona MDReport Verified Date/Time: 11/13/2022 18:13:31 POCT URINALYSIS W/O SPECIFIC [id number] 19:28:00 Test Item Value Reference Range Interpretation Comments POCT PH U (test code = 3254) 7 mg/dl 5-8 POCT U LEUK EST (test code = 1+ Negative - Negative 3262) POCT U NIT (test code = 3262) neg Negative - Negative POCT U PROT (test code = 3259) trace Negative - Negative POCT U GLU (test code = 3256) neg Negative - Negative POCT U KETONE (test code = 3258) neg Negative - Negative POCT U BLD (test code = 3257) large Negative - Negative General acute hospitalCT [id number] 14:11:00 Test Item Value Reference Range Interpretation Comments POCT PREG (test code = 1605) Negative On board controls acceptable with C Yes Line (test code = 3574) POCT PREG LOT # (test code = 3575) POCT PREG TEST DATE (test code = 3576) [facility] 2020-02-27 10:08:00 Test Item Value Reference Range Interpretation Comments SARS-COV2/RT-PCR (test Negative Not Detected, Negative, code = 7350020) See external report for linked test SARS-COV-2 PERFORMING LAB [facility] (test code = 4897943) Negative result for this test determines that SARS-CoV-2 RNA was not present in the specimen above the Limit of Detection (LOD). However, Negative results do not preclude SARS-CoV-2 infection and should not be used as the sole basis for treatment or patient management decisions. Negative results must be combined with clinical observations, patient history, and [...] justifying the authorization of the emergency use ofin vitro diagnostic tests for detection and/or diagnosis of COVID-19 is terminated under Section 564(b)(2) of the Act or the EUA is revoked under Section 564(g) of the Act.Fact Sheet for Healthcare Prov iders:https://www.[employer]/sites/default/files/product/documents/Fact_Sheet_HC _Sgptmumpy_Rfkd_DGML-XmK-3.pdfFact Sheet for Healthcare Patients:https://www.[employer]/sites/default/files/product/docume nts/Azxz_Awfhx_Pywsxvnu_Hmwj_HDJC-HxR-4.pdfPerforming Laboratory:[facility] [place] [address] Notes Date/Time Note Provider Source 2023-03-30 Formatting of this note might be differe nt from the original. Ledy Muniz RN [facility] 15:54:12-00:00 Called pt and notified that she must call [facility] to discuss payment. Number is [phone]. [employer] message also sent to pt Electronically signed by Ledy Muniz RN a t 03/30/2023 3:57 PM CDT 2023-03-30 Formatting of this note might be differe nt from the original. Ledy Muniz RN [facility] 14:00:00-00:00 Event monitor placed on michael ent without complication. Questions and concerns answered and addressed. Pt instructed to call free number in info booklet if he should have any questions. Pt verbalizes understanding. Electronically signed by Ledy Muniz RN a t 03/30/2023 3:41 PM CDT
[2023-04-10 00:01] LABS: Specific Gravity 1.006 (1.005-1.030); Urine Bilirubin NEGATIVE (Negative); Urine Blood Negative (Negative); Urine Clarity Clear (Clear); Urine Color Colorless (Yellow); Urine Glucose NEGATIVE (Negative); Urine Protein NEGATIVE (Negative); Urine Urobilinogen Normal (Normal)
[2023-04-10 00:05] LABS: Absolute Lymphocytes (CBC) 3.2 K/uL (0.7-4.9); Hematocrit 35.7 % (36.0-45.0); MCV 83.9 fL (80-100); MPV 8.2 fL (7.6-11.3); Platelets 326 thou/uL (152-406); RBC Red Blood Cell Count 4.26 M/uL (3.86-4.86)
[2023-04-10 00:06] LABS: Protime INR 1.05
[2023-04-10 00:09] LABS: Barbiturates NEGATIVE (NEGATIVE); Benzodiazepines NEGATIVE (NEGATIVE); Cocaine NEGATIVE (NEGATIVE); METHAMPHETAM NEGATIVE (NEGATIVE); Methadone NEGATIVE (NEGATIVE); Opiates NEGATIVE (NEGATIVE); Phencyclidine NEGATIVE (NEGATIVE); THC Cannibis NEGATIVE (NEGATIVE)
[2023-04-10] MEDS ORDERED: NA CHLORIDE 0.9% 1,000 ML ONE (00:20)
[2023-04-10] MEDS ORDERED: METOPROLOL TAR 50 MG TAB ONE (00:20)
[2023-04-10 00:22] LABS: ALT/SGPT 21 U/L (13-56); AST/SGOT 15 U/L (15-37); Albumin 3.5 g/dL (3.4-5.0); Alkaline Phosphatase 117 U/L (45-117); BUN Blood Urea Nitrogen 9 mg/dL (7-18); Bicarbonate 24 mEq/L (21-32); Bilirubin Total 0.2 mg/dL (0.2-1.0); Glomerular Filtration Rate 86 ml/min (=/>90); Glucose Level 113 mg/dL (74-106); Magnesium 2.4 mg/dL (1.6-2.4); NT PRO-BNP 66 pg/mL (<125); Potassium 3.7 mEq/L (3.5-5.1); Protein, Total 7.9 g/dL (6.4-8.2); Sodium Level 138 mEq/L (136-145); Troponin High Sensitivity 17.1 pg/mL (<58.9)
[2023-04-10 00:29] LABS: Bilirubin Direct < 0.1 mg/dL (0-0.2); Bilirubin Indirect, Calculated ND mg/dL (0.2-0.8)
[2023-04-10 03:06] LABS: SARS-CoV-2 Antigen Rapid Res Negative (Negative)
--- NOTE | 2023-04-10 03:37 | ER ---
Nurse's Notes [facility] Name: Allyn Lynn Age: 37 yrs Sex: Female : 1985 Arrival Date: 04/09/2023 Time: 23:06 Bed 4 Private MD: Diagnosis: Palpitations;Essential (primary) hypertension Presentation: 04/09 23:16 Chief complaint: Patient states: I'm here for high blood pressure and palpitations. I vc1 had palpitations first then I felt pressure in my head so I checked my blood pressure. It was 149/104. I have pressure from the back of my head to my eyes and around nose. I have a heart monitor so they can watch my palpitations. Coronavirus screen: Client denies travel out of the [place] in the last 14 days. At this time, the client does not indicate any symptoms associated with coronavirus-19. Ebola Screen: Patient negative for fever greater than or equal to 101.5 degrees Fahrenheit, and additional compatible Ebola Virus Disease symptoms Patient denies exposure to infectious person. Patient denies travel to an Ebola-affected area in the 21 days before illness onset. No symptoms or risks identified at this time. Initial Sepsis Screen: Does the patient meet any 2 criteria? No. Patient's initial sepsis screen is negative. Does the patient have a suspected source of infection? No. Patient's initial sepsis screen is negative. Risk Assessment: Do you want to hurt yourself or someone else? Patient reports no desire to harm self or others. Onset of symptoms was April 09, 2023. 23:16 Method Of Arrival: Ambulatory vc1 23:16 Acuity: ERICK 3 vc1 Triage Assessment: 23:21 General: Appears in no apparent distress. uncomfortable, Behavior is anxious. Pain: vc1 Denies pain. EENT: Reports pressure around eyes and nose. Neuro: Level of Consciousness is awake, alert, obeys commands, Oriented to person, place, time, situation, Appropriate for age. Cardiovascular: Reports palpitations, dizzy Chest pain is denied. Respiratory: Airway is patent Respiratory effort is even, unlabored, Respiratory pattern is symmetrical, tachypnea. GI: No deficits noted. No signs and/or symptoms were reported involving the gastrointestinal system. : No deficits noted. No signs and/or symptoms were reported regarding the genitourinary system. Derm: No deficits noted. No signs and/or symptoms reported regarding the dermatologic system. Musculoskeletal: No deficits noted. No signs and/or symptoms reported regarding the musculoskeletal system. 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 - Social history:: Smoking status: Patient denies any tobacco usage or history of. - Family history:: not pertinent. Screenin:52 [facility] ED Fall Risk Assessment (Adult) History of falling in the last 3 months, bp including since admission No falls in past 3 months (0 pts). Abuse screen: Denies threats or abuse. Denies injuries from another. Nutritional screening: No deficits noted. Tuberculosis screening: No symptoms or risk factors identified. Assessment: 23:52 General: SEE TRIAGE NOTE. bp 04/10 00:53 Reassessment: No changes from previously documented assessment. Patient and/or family bp updated on plan of care and expected duration. Pain level reassessed. 02:58 Reassessment: Patient appears in no apparent distress at this time. Patient is alert, bp oriented x 3, equal unlabored respirations, skin warm/dry/pink. Vital Signs: 04/09 23:16 BP 135 / 81; Pulse 63; Resp 24; Pulse Ox 100% ; Weight 86.18 kg; Height 5 ft. 5 in. ; vc1 Pain 0/10; 04/10 00:53 BP 115 / 74; Pulse 101; Resp 22; Pulse Ox 99% ; bp 02:58 BP 124 / 64; Pulse 94; Resp 16; Pulse Ox 99% ; bp 03:47 BP 116 / 77; Pulse 86; Resp 16; Temp 98; Pulse Ox 100% ; rv 04/09 23:16 Body Mass Index 31.62 (86.18 kg, 165.1 cm) vc1 04/09 23:16 Pain Scale: Adult vc1 ED Course: 04/09 23:07 Patient arrived in ED. mr 23:20 Triage completed. vc1 23:20 Arm band placed on right wrist. vc1 23:24 Devan Cash, RN is Primary Nurse. bp 23:36 Jose Jefferson MD is Attending Physician. sunil 23:51 Inserted saline lock: 20 gauge in right forearm, using aseptic technique. Blood bp collected. 23:52 Patient has correct armband on for positive identification. Bed in low position. Call bp light in reach. Side rails up X2. Adult w/ patient. 04/10 00:05 XRAY Chest (1 view) In Process Unspecified. EDMS 02:32 Troponin HS: 2 AM Sent. bp 02:32 SARS RAPID Sent. bp 02:34 CT Head Brain wo Cont In Process Unspecified. EDMS 02:34 CT Chest For PE Angio In Process Unspecified. EDMS 03:37 Dean Santana MD is Referral Physician. sunil 03:45 No provider procedures requiring assistance completed. IV discontinued, intact, rv bleeding controlled, No redness/swelling at site. Pressure dressing applied. 03:46 Provided Education on:. rv Administered Medications: 00:00 Drug: NS 0.9% IV 1000 ml Route: IV; Rate: 125 ml/hr; Site: right forearm; bp 00:00 Drug: Metoprolol PO 50 mg Route: PO; bp 01:30 Follow up: Response: No adverse reaction bp Medication: 04/09 23:52 VIS not applicable for this client. bp Outcome: 04/10 03:37 Discharge ordered by . sunil 03:45 Discharged to home ambulatory. rv 03:45 Condition: improved 03:45 Discharge instructions given to patient, Instructed on discharge instructions, follow up and referral plans. Demonstrated understanding of instructions, follow-up care. 03:48 Patient left the ED. rv Signatures: Dispatcher [employer] EDRI Jose Jefferson MD MD cha Rivera, Mary mr Peltier, Brian, RN RN Bret Vargas, RN RN rv Freda Olivas, RN RN vc1
--- NOTE | 2023-04-10 03:38 | EDPHYS ---
Physician Documentation [facility] Name: Allyn Lynn Age: 37 yrs Sex: Female : 1985 Arrival Date: 04/09/2023 Time: 23:06 Bed 4 Private MD: SHU Physician Jose Jefferson HPI: 04/10 01:30 This 37 yrs old Female presents to ER via Ambulatory with complaints of High sunil Blood Pressure. 01:30 The patient has elevated blood pressure and discovered this at home. Onset: The sunil symptoms/episode began/occurred just prior to arrival, yesterday. Modifying factors: The symptoms are aggravated by activity, The symptoms are alleviated by remaining still. Associated signs and symptoms: Pertinent positives: chest pain. Severity of symptoms: At its worst the blood pressure was mild, in the emergency department the blood pressure is improved, markedly. The patient has experienced similar episodes in the past, multiple times. 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 - Social history:: Smoking status: Patient denies any tobacco usage or history of. - Family history:: not pertinent. ROS: 04/10 01:30 Constitutional: Negative for fever, chills, and weight loss, Eyes: Negative for injury, sunil pain, redness, and discharge, ENT: Negative for injury, pain, and discharge, Neck: Negative for injury, pain, and swelling, Cardiovascular: Negative for chest pain, palpitations, and edema, Respiratory: Negative for shortness of breath, cough, wheezing, and pleuritic chest pain, Abdomen/GI: Negative for abdominal pain, nausea, vomiting, diarrhea, and constipation, Back: Negative for injury and pain, : Negative for injury, bleeding, discharge, and swelling, MS/Extremity: Negative for injury and deformity, Skin: Negative for injury, rash, and discoloration, Neuro: Negative for headache, weakness, numbness, tingling, and seizure, Psych: Negative for depression, anxiety, suicide ideation, homicidal ideation, and hallucinations, Allergy/Immunology: Negative for hives, rash, and allergies, Endocrine: Negative for neck swelling, polydipsia, polyuria, polyphagia, and marked weight changes, Hematologic/Lymphatic: Negative for swollen nodes, abnormal bleeding, and unusual bruising. Exam: 01:30 Constitutional: This is a well developed, well nourished patient who is awake, alert, sunil and in no acute distress. Head/Face: Normocephalic, atraumatic. Eyes: Pupils equal round and reactive to light, extra-ocular motions intact. Lids and lashes normal. Conjunctiva and sclera are non-icteric and not injected. Cornea within normal limits. Periorbital areas with no swelling, redness, or edema. ENT: Nares patent. No nasal discharge, no septal abnormalities noted. Tympanic membranes are normal and external auditory canals are clear. Oropharynx with no redness, swelling, or masses, exudates, or evidence of obstruction, uvula midline. Mucous membranes moist. Neck: Trachea midline, no thyromegaly or masses palpated, and no cervical lymphadenopathy. Supple, full range of motion without nuchal rigidity, or vertebral point tenderness. No Meningismus. Chest/axilla: Normal chest wall appearance and motion. Nontender with no deformity. No lesions are appreciated. Cardiovascular: Regular rate and rhythm with a normal S1 and S2. No gallops, murmurs, or rubs. Normal PMI, no JVD. No pulse deficits. Respiratory: Lungs have equal breath sounds bilaterally, clear to auscultation and percussion. No rales, rhonchi or wheezes noted. No increased work of breathing, no retractions or nasal flaring. Abdomen/GI: Soft, non-tender, with normal bowel sounds. No distension or tympany. No guarding or rebound. No evidence of tenderness throughout. Back: No spinal tenderness. No costovertebral tenderness. Full range of motion. Female : Normal external genitalia. Skin: Warm, dry with normal turgor. Normal color with no rashes, no lesions, and no evidence of cellulitis. MS/ Extremity: Pulses equal, no cyanosis. Neurovascular intact. Full, normal range of motion. Neuro: Awake and alert, GCS 15, oriented to person, place, time, and situation. Cranial nerves II-XII grossly intact. Motor strength 5/5 in all extremities. Sensory grossly intact. Cerebellar exam normal. Normal gait. Psych: Awake, alert, with orientation to person, place and time. Behavior, mood, and affect are within normal limits. 01:30 ECG was reviewed by the Attending Physician. 02:43 ECG was reviewed by the Attending Physician. [facility] [place] Vital Signs: 04/09 23:16 BP 135 / 81; Pulse 63; Resp 24; Pulse Ox 100% ; Weight 86.18 kg; Height 5 ft. 5 in. ; vc1 Pain 0/10; 04/10 00:53 BP 115 / 74; Pulse 101; Resp 22; Pulse Ox 99% ; bp 02:58 BP 124 / 64; Pulse 94; Resp 16; Pulse Ox 99% ; bp 03:47 BP 116 / 77; Pulse 86; Resp 16; Temp 98; Pulse Ox 100% ; rv 04/09 23:16 Body Mass Index 31.62 (86.18 kg, 165.1 cm) vc1 04/09 23:16 Pain Scale: Adult vc1 MDM: 04/09 23:39 Patient medically screened. [facility] [place] 04/10 01:32 Differential diagnosis: hypertensive crisis, Malignant HTN, CVA, intracerebral sunil hemorrhage. Data reviewed: vital signs, nurses notes, lab test result(s), EKG, radiologic studies, CT scan, plain films. Consideration of Admission/Observation Escalation of care including admission/observation considered. I considered the following discharge prescriptions or medication management in the emergency department Medications were administered in the Emergency Department. See MAR. Test considered but Not performed: MRI: MRI BRAIN. Care significantly affected by the following chronic conditions: PALPITATIONS, HYPERLIPID. Counseling: I had a detailed discussion with the patient and/or guardian regarding the historical points, exam findings, and any diagnostic results supporting the discharge/admit diagnosis, lab results, radiology results, the need for outpatient follow up, for definitive care, a implementation coordinator, a family practitioner. 04/09 23:37 Order name: Basic Metabolic Panel; Complete Time: [facility] [place] 04/09 23:37 Order name: CBC with Diff; Complete Time: [facility] 04/09 23:37 Order name: LFT's; Complete Time: [facility] 04/09 23:37 Order name: Magnesium; Complete Time: [facility] 04/09 23:37 Order name: NT PRO-BNP; Complete Time: [facility] 04/09 23:37 Order name: PT-INR; Complete Time: 01:28 sunil 04/09 23:37 Order name: Troponin HS; Complete Time: 01:28 sunil 04/09 23:37 Order name: Urinalysis w/ reflexes; Complete Time: 01:28 sunil 04/09 23:37 Order name: UDS; Complete Time: 01:28 sunil 04/10 01:30 Order name: Troponin HS: 2 AM; Complete Time: 03:16 sunil 04/10 01:32 Order name: SARS RAPID; Complete Time: 03:16 wm 04/09 23:37 Order name: XRAY Chest (1 view) 04/10 01:28 Order name: CT Head Brain wo Cont sunil 04/10 01:28 Order name: CT Chest For PE Angio [facility] [place] 04/09 23:37 Order name: EKG; Complete Time: 23:38 sunil 04/10 01:30 Order name: EKG; Complete Time: 01:30 sunil 04/09 23:37 Order name: Cardiac monitoring; Complete Time: 23:40 [facility] 04/09 23:37 Order name: EKG - Nurse/Tech; Complete Time: 23:40 [facility] 04/09 23:37 Order name: IV Saline Lock; Complete Time: 00:09 sunil 04/09 23:37 Order name: Labs collected and sent; Complete Time: 00:09 sunil 04/09 23:37 Order name: O2 Per Protocol; Complete Time: 23:40 [facility] 04/09 23:37 Order name: O2 Sat Monitoring; Complete Time: 23:40 sunil 04/10 01:30 Order name: EKG - Nurse/Tech; Complete Time: 02:32 [facility] EC:30 Rate is 107 beats/min. Rhythm is irregular. QRS Morton is Normal. DC interval is normal. sunil QRS interval is normal. QT interval is normal. No Q waves. T waves are Normal. No ST changes noted. Clinical impression: Sinus tachycardia. Interpreted by me. Reviewed by me. 02:43 Rate is 76 beats/min. Rhythm is regular. QRS Morton is Normal. DC interval is normal. QRS sunil interval is normal. QT interval is normal. No Q waves. T waves are Normal. No ST changes noted. Clinical impression: NSR w/ Non-specific ST/T Changes and No evidence of ischemia. Interpreted by me. Reviewed by me. Administered Medications: 00:00 Drug: NS 0.9% IV 1000 ml Route: IV; Rate: 125 ml/hr; Site: right forearm; bp 00:00 Drug: Metoprolol PO 50 mg Route: PO; bp 01:30 Follow up: Response: No adverse reaction bp Disposition Summary: 04/10/23 03:37 Discharge Ordered Location: Home sunil Problem: new sunil Symptoms: have improved sunil Condition: Stable sunil Diagnosis - Palpitations sunil - Essential (primary) hypertension sunil Followup: sunil - With: Private Physician - When: 2 - 3 days - Reason: Recheck today's complaints, Continuance of care, Re-evaluation by your physician Followup: sunil - With: - When: 2 - 3 days - Reason: Recheck today's complaints, Re-evaluation by your physician Discharge Instructions: - Discharge Summary Sheet sunil - Hypertension, Adult sunil - Palpitations sunil - Hypertension, Adult, [id number] sunil - How to Take Your Blood Pressure, [id number] sunil - Aspirin and Your Heart sunil - Palpitations, [id number] sunil - Managing Your Hypertension sunil Forms: - Medication Reconciliation Form sunil - Thank You Letter sunil - Antibiotic Education sunil - Prescription Opioid Use sunil - Patient Portal Instructions sunil - Leadership Thank You Letter [facility] [place] Prescriptions: - Toprol XL 50 mg Oral Tablet - take 1 tablet by ORAL route once daily; 20 tablet; Refills: 0, Product sunil Selection Permitted Signatures: Dispatcher [employer] Jose Jones MD MD cha Peltier, Brian, RN RN bp Freda Olivas RN RN vc1
[2023-04-10 04:07] VITALS: O2SAT 100
[2023-04-10 04:21] VITALS: BP 116/77; TEMP 98
--- NOTE | 2023-04-10 14:36 | EKG ---
Test Date: 2023-04-10 Test Time: 02:35:27 [employer] Vat Worker: RV MEASUREMENT RESULTS: Intervals: Rate: 76 ID: [id number] QRSD: 84 QT: 390 QTc: 438 [place]: P: 54 ID: [id number] QRS: 19 T: 35 INTERPRETIVE STATEMENTS: Sinus rhythm with marked sinus arrhythmia with occasional premature ventricular complexes Possible Left atrial enlargement Borderline ECG Compared to ECG 11/08/2022 06:52:22 Ventricular premature complex(es) now present Atrial premature complex(es) no longer present ST (T wave) deviation no longer present Electronically Signed On 04-10-23 14:35:35 CDT by Dean Santana
--- NOTE | 2023-04-10 14:37 | EKG ---
Test Date: 2023-04-09 Test Time: 23:35:29 Center Medical Specialist: BP MEASUREMENT RESULTS: Intervals: Rate: 107 NM: 134 QRSD: 82 QT: 392 QTc: 523 Anderson: P: 55 NM: 134 QRS: 27 T: 34 INTERPRETIVE STATEMENTS: Sinus tachycardia with premature ventricular complexes or fusion complexes Possible Left atrial enlargement Nonspecific ST and T wave abnormality Prolonged QT Abnormal ECG Compared to ECG 11/08/2022 06:52:22 Fusion complex(es) now present Ventricular premature complex(es) now present Prolonged QT interval now present Sinus rhythm no longer present Atrial premature complex(es) no longer present ST (T wave) deviation still present Electronically Signed On 04-10-23 14:35:59 CDT by Daen Santana
--- NOTE | 2023-04-10 20:47 | RAD REPORT ---
EXAM DESCRIPTION: RAD - Chest Single View - 04/10/2023 12:04 am CLINICAL HISTORY: COUGH TECHNIQUE: AP chest COMPARISON: None available for comparison FINDINGS: CHEST: Device overlying the left upper thorax Heart: The cardiomediastinal silhouette is within normal limits. Lungs: No focal consolidation. Mediastinum: Unremarkable Pleura: No appreciable effusion. No pneumothorax. Bones: Intact IMPRESSION: No acute cardiopulmonary disease. Electronically signed by: Dejan Pedraza MD 04/10/2023 12:13 AM CDT Due to temporary technical issues with the PACS/Fluency reporting system, reports are being signed by the in house radiologists without review as a courtesy to insure prompt reporting. The interpreting radiologist is fully responsible for the content of the report.
--- NOTE | 2023-04-10 20:49 | RAD REPORT ---
EXAM DESCRIPTION: CT - Head Brain Wo Cont - 04/10/2023 6:19 am CLINICAL HISTORY: HEADACHE TECHNIQUE: Contiguous axial CT images obtained through the brain without IV contrast. Coronal and sa gittal reformatted images were provided. This exam was performed according to our departmental dose-optimization program, which includes autom ated exposure control, adjustment of the mA and/or kV according to patient size and/or use of iterati ve reconstruction technique. COMPARISON: June 2019 FINDINGS: Brain: No significant white matter changes. No focal mass effect. Larkin-white matter differ entiation is within normal limits. No hemorrhage. Ventricles: No ventriculomegaly or midline shift. Extra-axial spaces: No extra-axial collection or hemorrhage. Paranasal sinuses and mastoid air cells: Well-aerated Bones: Unremarkable Soft tissues: Unremarkable IMPRESSION: No evidence of acute intracranial pathology. Electronically signed by: Dejan Pedraza MD 04/10/2023 2:54 AM CDT Due to temporary technical issues with the PACS/Fluency reporting system, reports are being signed by the in house radiologists without review as a courtesy to insure prompt reporting. The interpreting radiologist is fully responsible for the content of the report.
--- NOTE | 2023-04-10 20:51 | RAD REPORT ---
EXAM DESCRIPTION: CT - Chest For Pe Angio - 04/10/2023 6:20 am CLINICAL HISTORY: PALPITATIONS TECHNIQUE: Contiguous axial images obtained through the chest during angiographic phase following the uneventful administration of IV contrast. Sagittal and coronal reformatted images were provided. 3-D MIP reform atted images were provided. This exam was performed according to our departmental dose-optimization program, which includes autom ated exposure control, adjustment of the mA and/or kV according to patient size and/or use of iterati ve reconstruction technique. COMPARISON: No prior exams provided for comparison. FINDINGS: Diagnostic quality: Evaluation of segmental and subsegmental pulmonary arteries is signifi cantly limited by severe respiratory motion artifact Lungs: No focal consolidation. Airways are patent. Mild diffuse groundglass airspace disease througho ut the lungs bilaterally with mosaic pattern, nonspecific and which may be seen with pneumonitis, sma ll airway obstructive disease and mild pulmonary edema. Pleura: No effusion. No pneumothorax. Heart and pericardium: The heart is normal in size. No pericardial effusion. Mediastinum and armando: No pathologically enlarged lymph nodes. Lower neck and chest wall: Unremarkable Vessels: No evidence of central pulmonary emboli. No thoracic aortic aneurysm. Upper abdomen: Unremarkable Bones: Unremarkable IMPRESSION: 1. Evaluation of segmental and subsegmental pulmonary arteries is significantly limite d by severe respiratory motion artifact. No evidence of central pulmonary emboli. 2. Mild diffuse groundglass airspace disease throughout the lungs bilaterally with mosaic pattern, nonspecific and which may be seen with pneumonitis, small airway obstructive disease and mild pulmona ry edema. Electronically signed by: Dejan Pedraza MD 04/10/2023 3:03 AM CDT Due to temporary technical issues with the PACS/Fluency reporting system, reports are being signed by the in house radiologists without review as a courtesy to insure prompt reporting. The interpreting radiologist is fully responsible for the content of the report.
== END 2023-04-10 03:48 | disposition home or self-care (01) ==
LOC: ER 23:06
DX: I10 Essential (primary) hypertension (principal)
CPT/HCPCS: 36415; 70450; 71045; 71275; 80048; 80076; 80307; 81003; 83735; 83880; 84484; 85025; 85610; 87811; 93005; 99284; J7030; Q9967

== ENCOUNTER 2023-06-23 20:55 | Emergency (ER) | payer SELFPAY ==
--- OUTSIDE RECORDS SUMMARY | 2023-06-23 21:02 | XMS REPORT | Continuity of Care Document ---
:1985 Author Organization [facility] t Address [address] [place] [address] Care Team Providers Name Role Phone Rebekah Alejandre Primary Care Physician [phone] REBEKAH OQUENDO Attending Clinician Unavailable GILBERT VIVEROS Attending Clinician Unavailable GILBERT VIVEROS Attending Clinician Unavailable MILAGRO MARTINEZ Attending Clinician Unavailable MILAGRO MARTINEZ Attending Clinician Unavailable PASTOR MEEK Attending Clinician Unavailable Chandan Medel MD Attending Clinician Pastor Meek MD Attending Clinician Doctor Unassigned, [place] Attending Clinician Unavailable Pob, [facility] Main Attending Clinician Unavailable Mirna Alvarez CNM Attending Clinician Urvashi uNnez DNP Attending Clinician URVASHI NUNEZ Attending Clinician Unavailable MIRNA ALVAREZ Attending Clinician Unavailable Rebekah Alejandre Attending Clinician [phone] Room, [facility] Attending Clinician Unavailable Clyde Guzman MD Attending Clinician CLYDE GUZMAN Attending Clinician Unavailable CHRISTINA COSTA Attending Clinician Unavailable Eileen Wolfe RN Attending Clinician Unavailable Christina Costa MD Attending Clinician KYM WADE Attending Clinician Unavailable Kym Wade DO Attending Clinician Huseyin Wells Attending Clinician Unavailable Tee Granados MD Attending Clinician TEE GRANADOS Attending Clinician Unavailable HUSEYIN RODRIGUEZ Attending Clinician Unavailable Lab, [facility] Attending Clinician Unavailable Richar HUTCHINS, Cruz Camejo Attending Clinician CRUZ MCQUEEN Attending Clinician Unavailable Herminio Almendarez DO Attending Clinician 5, [facility] Room Attending Clinician Unavailable Elli Almendarez MD Attending Clinician Visit, [facility] Nurse Attending Clinician Unavailable Lloyd Peter MD Attending Clinician LUZ CLIFTON Attending Clinician Unavailable Luz Clifton MD Attending Clinician Jennifer Li Attending Clinician Rell Bruner MD Attending Clinician Binta Azevedo MD Attending Clinician [facility] Attending Clinician Unavailable Lab, [facility] Attending Clinician Unavailable LLOYD PETER Attending Clinician Unavailable LLOYD PETER Attending Clinician Unavailable Neeta Paige Attending Clinician MILAGRO MARTINEZ Admitting Clinician Unavailable KYM WADE Admitting Clinician Unavailable Payers Payer Name Policy Type Policy Number Effective Date Expiration Date Mack [employer] [id number] 2019 HEALTH PLAN MOM 00:00:00 [employer] L[employer] Problems Condition Condition Condition Status Onset Resolution Last Treating Co mments Source Name Details Category Date Date Treatment Clinician Date Paroxysmal Paroxysmal Disease Active 2022-08 U nivers supraventr supraventr 0-05 it y of icular icular 00:00: [place] tachycardi tachycardi 00 Me dical a a Branch Metrorrhag Metrorrhag Disease Active 2021-0 U nivers ia ia 5-12 ity of 00:00: [place] 00 Medical Branch Hematuria, Hematuria, Disease Active U nivers unspecifie unspecifie 5-12 it y of d type d type 00:00: [place] 00 Medical Branch Other Other Disease Active [...] Formattin ity of 00:00: g of this [place] 00 note Medical might be Branch different from the original. Reports history Obesity Obesity Disease Active 2016-08 Univers (BMI (BMI 0-05 ity of 30-39.9) 30-39.9) 00:00: [place] 00 [facility] Allergies, Adverse Reactions, Alerts Allergy Allergy Status Severity Reaction(s) Onset Inactive Treating Comm ents Source Name Type Date Date Clinician NO KNOWN Allergy Active [facility]OWN Drug Active [facility] ALLERGIE Class ity of [facility] Social History Social Habit Start Date Stop Date Quantity Comments Source Gender identity [facility] ASSERTION [facility] [place] [facility] Sexual orientation [facility] Exposure to 2023-01-29 2023-02-08 Not sure [facility] SARS-CoV-2 (event) 00:00:00 10:59:00 [facility] Tobacco use and 2022-11-13 2022-11-[address] [facility] exposure 00:00:00 00:00:00 tobacco non-user [facility] Alcohol intake 2022-11-13 2022-11-[address] [facility] 00:[facility]:00 00:00:00 non-drinker [facility] Casey anne (finding) History of Social 2022-11-13 2022-11-[address] [facility] function 00:00:00 00:00:00 [facility] Sex [birth year] [facility] 00:00:00 00:00:00 [facility] Smoking Status Start Date Stop Date Source Never smoked tobacco [facility] Medications Ordered Filled Start Stop Current Ordering Indication Dosage Frequency Signature Comments Components Source Medication Medication Date Date Medication? Clinician (SIG) Name Name apixaban 2022-08 Yes [id number] 5mg Take 2 Unive rs mg (74 1-14 tablets by ity of tabs) 5 mg 00:00: mouth [place] VTE starter 00 twice Medical pack daily for Branch 7 days. Then, take 1 tablet by mouth twice daily. apixaban 2022-08 Yes 1291 5mg Take 2 Unive rs mg (74 1-14 tablets by ity of tabs) 5 mg 00:00: mouth [place] VTE starter 00 twice Medical pack daily for Branch 7 days. Then, take 1 tablet by mouth twice daily. KCL 2022-08- No 40meq 40 mEq, Univers (KLOR-CON 08-21 Oral, ity of M20) tablet 15:15: 14:16 ONCE, 1 [place] 40 mEq 00 :00 dose, On Medical [facility] Branch 06/21/23 at 0915, Routine KCL 2022-08- No 40meq 40 mEq, Univers (KLOR-CON 08-21 Oral, ity of M20) tablet 15:15: 14:16 [place]CE[place] 1 [place] 40 mEq 00 :00 dose, On Medical [facility] Branch 06/21/23 at 0915, Routine enoxaparin 2022-08 Yes 1mg/kg 80 mg Univ ers (LOVENOX) 08-21 (rounded ity of injection 02:30: from 83.5 [place] as 80 mg 00 mg = 1 Medical mg/kg Branch ?83.5 kg), Subcutaneo us, Q12H, First dose on 06/20/23 at 2030, Until Discontinu ed, Routine enoxaparin 2022-08- No 1mg/kg 80 mg Uni vers (LOVENOX) 08-21 (rounded ity o f injection 02:30: 19:16 [place] 83.5 [place] 80 mg 00 :41 mg = 1 Medical mg/kg Branch ?83.5 kg), Subcutaneo us, Q12H, First dose on 06/20/23 at 2030, Until Discontinu ed, Routine iopamidol 2022-08- No [id number] 80mL 80 mL, Un marcelina (ISOVUE 1-13 11-13 Intravenou ity o f 370-500 mL) 01:15: 01:15 s, ONCE, 1 [place] injection 00 :00 dose, On Medica l 80 mL [place] Branch 06/20/23 at 1915, Routine iopamidol 2022-08- No [id number] 80mL 80 mL, Un marcelina (ISOVUE -13 11-13 Intravenou ity o f 370-500 mL) 01:15: 01:15 s, ONCE, 1 [place] injection 00 :00 dose, On Medica l 80 mL [facility] 06/20/23 at 1915, Routine apixaban 5 2022-08- No [id number] 5mg Take 1 Univ ers mg (74 1- 11-14 tablet by ity of tabs) 5 mg 00:00: 00:00 mouth [place] VTE starter 00 :00 SEE-INSTRU Me dical pack CTIONS. Branch Follow dosing instructio ns included in package. Indication s: a clot in the lung apixaban 5 2022-08- No 1291 5mg Take 1 Univ ers mg (74 08-21 11-14 tablet by ity of tabs) 5 mg 00:00: 00:00 mouth [place] VTE starter 00 :00 SEE-INSTRU Me dical pack CTIONS. Branch Follow dosing instructio ns included in package. Indication s: a clot in the lung apixaban 2022-08- No [id number] 5mg 5 mg, Un marcel[place] (ELIQUIS) 08-20-13 Oral, BID, ity of tablet 5 mg 14:00: 02:21 First dose [place] 00 :33 (after Medical last Branch modificati on) on [place] 06/20/23 at 0800, Until Discontinu ed, Routine
Indicatio ns: Non-Valvul ar Atrial Fibrillati on apixaban 2022-08- No [id number] 5mg 5 mg, Un [place]cel[place] (ELIQUIS) 08-20-13 Oral, BID, ity of tablet 5 mg 14:00: 02:21 First dose [place] 00 :33 (after Medical last Branch modificati on) on 06/20/23 at 0800, Until Discontinu ed, Routine
Indicatio ns: Non-Valvul ar Atrial Fibrillati on atropine 2022-08- No .2mg 0.2 mg, IV Un marcel[place] injection 08-19 Push, ity of 0.2 mg 08:00: 07:23 ONCE, 1 00 :00 dose, [facility]/23 at 0200, Routine atropine 2022-08- No .2mg 0.2 mg, IV Un marcel[place] injection 08-19 Push, ity of 0.2 mg 08:00: 07:23 ONCE, 1 00 :00 dose, On Medical [facility] 06/19/23 at 0200, Routine NaCl 0.9% 2022-08- No 500mL at 999 Univ ers (NS) bolus 08-19 mL/hr, 500 it y of infusion 07:45: 06:58 mL, IV [place] 500 mL 00 :00 Piggyback, Medical ONCE, 1 Branch dose, On 06/19/23 at 0145, STAT NaCl 0.9% 2022-08- No 500mL at 999 Univ ers (NS) bolus 08-19 mL/hr, 500 it y of infusion 07:45: 06:58 mL, IV [place] 500 mL 00 :00 Piggyback, Medical ONCE, 1 Branch dose, On [facility]23 at 0145, STAT proCHLORper 2022-08 Yes 5mg 5 mg, IV Un marcelina azine 08-19 Piggyback, ity of (COMPAZINE) 06:41: at 100 [place] 5 mg in 41 mL/hr Medical NaCl 0.9% Administer Bran ch (NS) over 30 piggyback Minutes, Q4HPRN, Starting on 06/19/23 at 0041, Until Discontinu ed, Routine, Nausea and Vomiting (N/V) proCHLORper 2022-08- No 5mg 5 mg, IV U nivers azine 08-19 1114 Piggyback, ity of (COMPAZINE) 06:41: 19:16 at 100 [place] as 5 mg in 41 :41 mL/hr Medical NaCl 0.9% Administer Bran ch (NS) over 30 piggyback Minutes, Q4HPRN, Starting on 06/19/23 at 0041, Until 06/22/23 at 1316, Routine, Nausea and Vomiting (N/V) NaCl 0.9% 2022-08- No 1000mL at 100 Uni vers (NS) IV 08-19 11-13 mL/hr, IV ity of infusion 03:15: 17:01 Infusion, [place] 1,000 mL 00 :33 CONTINUOUS Medic al , Starting Branch on Wed06/18/23 at 2115, Until Wed06/21/23 at 1101, Routine NaCl 0.9% 2022-08- No 1000mL at 100 Uni vers (NS) IV 08-19 11-13 mL/hr, IV ity of infusion 03:15: 17:01 Infusion, [place] 1,000 mL 00 :33 CONTINUOUS Medic al , Starting Branch on Wed06/18/23 at 2115, Until Wed06/21/23 at 1101, Routine NaCl 0.9% 2022-08- No 1000mL at 999 Uni vers (NS) bolus 08-19 11-11 mL/hr, ity of infusion 02:00: 01:19 1,000 mL, [place] 1,000 mL 00 :34 IV Medical Infusion, Branch ONCE, 1 dose, On Wed06/18/23 at 2000, STAT NaCl 0.9% 2022-08- No 1000mL at 999 Uni vers (NS) bolus 08-19 11-11 mL/hr, ity of infusion 02:00: 01:19 1,000 mL, [place] 1,000 mL 00 :34 IV Medical Infusion, Branch ONCE, 1 dose, On Wed06/18/23 at 1999, STAT ondansetron 2022-08 Yes 4mg 4 mg, Slow Univers (ZOFRAN 1-11 IV Push, ity of (PF)) 01:14: Q6HPRN, [place] injection 4 03 Nausea and Me dical mg Vomiting Branch (N/V), Starting on Wed06/18/23 at 1914
Do ses of ondansetro n 16 mg and above need to be administer ed via IV piggyback. For Dose >=24mg ECG monitoring is advisable.
ondansetron 2022-08- No 4mg 4 mg, Slow Univers (ZOFRAN 1-11 11-14 IV Push, ity of (PF)) 01:14: 19:16 Q6HPRN, [place] injection 4 03 :41 Nausea and Me dical mg Vomiting Branch (N/V), Starting on Wed06/18/23 at 1914
Do ses of ondansetro n 16 mg and above need to be administer ed via IV piggyback. For Dose >=24mg ECG monitoring is advisable.
ondansetron 2022-08- No [id number] 4mg 4 mg, Slow Univers (ZOFRAN 1-10 11-10 IV Push, ity of (PF)) 21:45: 21:01 ONCE, 1 [place] injection 4 00 :00 dose, On Medi tiny mg Fri Branch 06/18/23 at 1545, Routine NaCl 0.9% 2022-08- No [id number] 500mL at 999 Univers (NS) bolus 1-10 11-10 mL/hr, 500 it y of infusion 21:45: 21:03 mL, IV [place] 500 mL 00 :00 Infusion, Medical ONCE, 1 Branch dose, On Wed06/18/23 at 1545, STAT ondansetron 2022-08- No [id number] 4mg 4 mg, Slow Univers (ZOFRAN 1-10 11-10 IV Push, ity of (PF)) 21:45: 21:01 ONCE, 1 [place] injection 4 00 :00 dose, On Medi tiny mg Fri Branch 06/18/23 at 1545, Routine NaCl 0.9% 2022-08- No [id number] 500mL at 999 Univers (NS) bolus 1-10 11-10 mL/hr, 500 it y of infusion 21:45: 21:03 mL, IV [place] 500 mL 00 :00 Infusion, Medical ONCE, 1 Branch dose, On Wed06/18/23 at 1545, STAT ondansetron 2022-08- No [id number] 4mg 4 mg, Slow Univers (ZOFRAN 1-10 11-10 IV Push, ity of (PF)) 20:00: 19:20 ONCE, 1 [place] injection 4 00 :00 dose, On Medi tiny mg Wed Branch 06/18/23 at 1400, Routine ondansetron 2022-08- No [id number] 4mg 4 mg, Slow Univers (ZOFRAN 08-18 IV Push, ity of (PF)) 20:00: 19:20 ONCE, 1 [place] injection 4 00 :00 dose, On Medi tiny mg Fri Branch 06/18/23 at 1400, Routine iopamidol 2022-08- No ONCE INTRA U nivers (ISOVUE 08-18 PROCEDURE, ity o f 300-500 mL) 17:02: 17:23 Starting [place] injection 46 :05 on Fri Medical 06/18/23 Branch at 1102, Until 06/18/23 at 1123, Routine, CV Intraproce dure lidocaine 2022-08- No ONCE INTRA U nivers 1% (PF) 08-18 PROCEDURE, ity o f (XYLOCAINE) 15:14: 17:23 Starting [place] injection 00 :05 on Fri Medical 06/18/23 Branch at 0914, Until Wed06/18/23 at 1123, Routine, CV Intraproce dure apixaban 5 2022-08- No 5mg Take 1 Univ ers mg tablet 08-18- tablet by ity of 00:00: 00:00 mouth in [place] 00 :00 the Medical morning Branch and 1 tablet in the evening. Indication s: atrial tachycardi a ablation apixaban 5 2022-08- No 5mg Take 1 Univ ers mg tablet 08-18-13 tablet by ity of 00:00: 00:00 mouth in [place] 00 :00 the Medical morning Branch and 1 tablet in the evening. Indication s: atrial tachycardi a ablation amoxicillin 2022-08- Yes [id number] 500mg Take 1 Univers -pot 0-07 10-13 tablet by ity of clavulanate 00:00: 04:59 mouth in [place] 500 mg 00 :00 the Medical 500-125 mg morning Branch tablet and 1 tablet in the evening. Do all this for 5 days. amoxicillin 2022-08- Yes [id number] 500mg Take 1 Univers -pot 0-07 10-13 tablet by ity of clavulanate 00:00: 04:59 mouth [place] 500 mg 00 :00 the Medical 500-125 mg morning Branch tablet and 1 tablet in the evening. Do all this for 5 days. metroNIDAZO 2022-08- Yes [id number] 500mg Take 1 Univers LE 500 mg 0-04 10-12 tablet by ity of tablet 00:00: 04:59 mouth in [place] 00 :00 the Medical morning Branch and 1 tablet in the evening. Do all this for 7 days. metroNIDAZO 2022-08- Yes [id number] 500mg Take 1 Univers LE 500 mg 0-04 10-12 tablet by ity of tablet 00:00: 04:59 mouth in [place] 00 :00 the Medical morning Branch and 1 tablet in the evening. Do all this for 7 days. metroNIDAZO 2022-08- Yes [id number] 500mg Take 1 Univers LE 500 mg 0-04 10-12 tablet by ity of tablet 00:00: 04:59 mouth in [place] 00 :00 the Medical morning Branch and 1 tablet in the evening. Do all this for 7 days. metroNIDAZO 2022-08- Yes [id number] 500mg Take 1 Univers LE 500 mg 0-04 10-12 tablet by ity of tablet 00:00: 04:59 mouth in [place] 00 :00 the Medical morning Branch and 1 tablet in the evening. Do all this for 7 days. metroNIDAZO 2022-08- Yes [id number] 500mg Take 1 Univers LE 500 mg 0-04 10-12 tablet by ity of tablet 00:00: 04:59 mouth in [place] 00 :00 the Medical morning Branch and 1 tablet in the evening. Do all this for 7 days. metroNIDAZO 2022-08- Yes [id number] 500mg Take 1 Univers LE 500 mg 0-04 10-12 tablet by ity of tablet 00:00: 04:59 mouth in [place] 00 :00 the Medical morning Branch and 1 tablet in the evening. Do all this for 7 days. metroNIDAZO 2022-08- Yes [id number] 500mg Take 1 Univers LE 500 mg 0-04 10-12 tablet by ity of tablet 00:00: 04:59 mouth in [place] 00 :00 the Medical morning Branch and 1 tablet in the evening. Do all this for 7 days. metroNIDAZO 2022-08- Yes [id number] 500mg Take 1 Univers LE 500 mg 0-04 10-12 tablet by ity of tablet 00:00: 04:59 mouth in [place] 00 :00 the Medical morning Branch and 1 tablet in the evening. Do all this for 7 days. metroNIDAZO 2022-08- Yes [id number] 500mg Take 1 Univers LE 500 mg 0-04 10-12 tablet by ity of tablet 00:00: 04:59 mouth in [place] 00 :00 the Medical morning Branch and 1 tablet in the evening. Do all this for 7 days. metroNIDAZO 2022-08- Yes [id number] 500mg Take 1 Univers LE 500 mg 0-04 10-12 tablet by ity of tablet 00:00: 04:59 mouth in [place] 00 :00 the Medical morning Branch and 1 tablet in the evening. Do all this for 7 days. fluconazole 2022-08- No [id number] 150mg Take 1 Univers (DIFLUCAN) 0-04 10-05 tablet by ity of 150 mg 00:00: 04:59 mouth [place] tablet 00 :00 now for 1 Medical dose. Branch fluconazole 2022-08- No [id number] 150mg Take 1 Univers (DIFLUCAN) 0-04 10-05 tablet by ity of 150 mg 00:00: 04:59 mouth [place] tablet 00 :00 now for 1 Medical dose. Branch acetaminoph 2022- No 1000mg 1,000 mg, Univers en 01-27- Oral, ity of (TYLENOL) 00:15: 00:12 ONCE, 1 [place] tablet 00 :00 dose, On Medical 1,000 mg Tue Branch 01/26/23 at 1915, [facility] doxycycline 2022-0 Yes 100mg Q.5D Take [address] [facility] (VIBRAMYCIN 4-07 capsule [facility] ) 100 MG 17:10: (100 mg Medica l capsule 26 total) by Center mouth in the morning and 1 capsule (100 mg total) before bedtime. doxycycline 2022-0 Yes 100mg Q.5D Take [address] [facility] (VIBRAMYCIN 4-07 capsule [facility] ) 100 MG 17:10: (100 mg Medica l capsule 26 total) by Center mouth in the morning and 1 capsule (100 mg total) before bedtime. meclizine 2022- No 25mg Take 1 [facility] (ANTIVERT) 11-13-17 tablet (25 Jeanne kes 25 mg 00:00: 23:59 mg total) Medica l tablet 00 :00 by mouth 3 Center (three) times daily as needed for up to 10 days. meclizine 2022- No 25mg Take 1 [facility] (ANTIVERT) 11-13-17 tablet (25 Jeanne kes 25 mg 00:00: 23:59 mg total) Medica l tablet 00 :00 by mouth 3 Center (three) times daily as needed for up to 10 days. No known No Univers medications 5-12 ity of 13:02: [place] 02 Medical Branch diltiazem 2020-08- No [id number] 120mg Take 1 Univers (CARDIZEM 1-10 12-11 capsule by ity of ) 120 mg 00:00: 05:59 mouth [place] 24 hr 00 :00 daily for Medical capsule 30 days. Branch Immunizations Ordered Filled Date Status Comments Source Immunization Name Immunization Name TDAP (ADACEL) 2019-12-26 Completed University of VACCINE 00:00:00 [facility] TDAP (ADACEL) 2019-12-26 Completed University of VACCINE 00:00:00 [facility] TDAP (ADACEL) 2019-12-26 Completed University of VACCINE 00:00:00 [facility] TDAP (ADACEL) 2019-12-26 Completed University of VACCINE 00:00:00 [facility] TDAP (ADACEL) 2019-12-26 Completed University of VACCINE 00:00:00 [facility] TDAP (ADACEL) 2019-12-26 Completed University of VACCINE 00:00:00 [facility] TDAP (ADACEL) 2019-12-26 Completed University of VACCINE 00:00:00 [facility] TDAP (ADACEL) 2019-12-26 Completed University of VACCINE 00:00:00 [facility] Branch TDAP (ADACEL) 2019-12-26 Completed University of VACCINE 00:00:00 [facility] TDAP (ADACEL) 2019-12-26 Completed University of VACCINE 00:00:00 [facility] TDAP (ADACEL) 2019-12-26 Completed University of VACCINE 00:00:00 [facility] Branch TDAP (ADACEL) 2019-12-26 Completed University of VACCINE 00:00:00 [facility] TDAP (ADACEL) 2019-12-26 Completed University of VACCINE 00:00:00 [facility] Branch TDAP (ADACEL) 2019-12-26 Completed University of VACCINE 00:00:00 [facility] Branch TDAP (ADACEL) 2019-12-26 Completed University of VACCINE 00:00:00 [facility] Branch TDAP (ADACEL) 2019-12-26 Completed University of VACCINE 00:00:00 [facility] Branch TDAP (ADACEL) 2019-12-26 Completed University of VACCINE 00:00:00 [facility] Branch TDAP (ADACEL) 2019-12-26 Completed University of VACCINE 00:00:00 [facility] Branch TDAP (ADACEL) 2019-12-26 Completed University of VACCINE 00:00:00 [facility] Branch TDAP (ADACEL) 2019-12-26 Completed University of VACCINE 00:00:00 [facility] TDAP (ADACEL) 2019-12-26 Completed University of VACCINE 00:00:00 [facility] TDAP (ADACEL) 2019-12-26 Completed University of VACCINE 00:00:00 [facility] TDAP (ADACEL) 2019-12-26 Completed University of VACCINE 00:00:00 [facility] TDAP (ADACEL) 2019-12-26 Completed University of VACCINE 00:00:00 [facility] Influenza Virus 2019-07-10 Completed Universit y of Vaccine Quad .5 mL 00:00:00 [facility] IM 6+ MO Branch Influenza Virus 2019-07-10 Completed Universit y of Vaccine Quad .5 mL 00:00:00 [place] Medical IM 6+ MO Branch Influenza Virus 2019-07-10 Completed Universit y of Vaccine Quad .5 mL 00:00:00 [place] Medical IM 6+ MO Branch Influenza Virus 2019-07-10 Completed Universit y of Vaccine Quad .5 mL 00:00:00 [place] Medical IM 6+ MO Branch Influenza Virus 2019-07-10 Completed Universit y of Vaccine Quad .5 mL 00:00:00 [place] Medical IM 6+ MO Branch Influenza Virus 2019-07-10 Completed Universit y of Vaccine Quad .5 mL 00:00:00 [place] Medical IM 6+ MO Branch Influenza Virus 2019-07-10 Completed Universit y of Vaccine Quad .5 mL 00:00:00 [place] Medical IM 6+ MO Branch Influenza Virus [...] y of Vaccine Quad .5 mL 00:00:00 [place] Medical IM 6+ MO Branch Influenza Virus 2019-07-10 Completed Universit y of Vaccine Quad .5 mL 00:00:00 [place] Medical IM 6+ MO Branch Influenza Virus 2019-07-10 Completed Universit y of Vaccine [place] .5 mL 00:00:00 [place] Medical IM 6+ MO Branch Influenza Virus 2019-07-10 Completed Universit y of Vaccine Quad .5 mL 00:00:00 [place] Medical IM 6+ MO Branch Influenza Virus 2019-07-10 Completed Universit y of Vaccine Quad .5 mL 00:00:00 [place] Medical IM 6+ MO Branch Influenza Virus 2019-07-10 Completed Universit y of Vaccine Quad .5 mL 00:00:00 [place] Medical IM 6+ MO Branch Influenza Virus 2019-07-10 Completed Universit y of Vaccine Quad .5 mL 00:00:00 [place] Medical IM 6+ MO Branch Influenza Virus 2019-07-10 Completed Universit y of Vaccine Quad .5 mL 00:00:00 [place] Medical IM 6+ MO Branch Influenza Virus 2019-07-10 Completed Universit y of Vaccine Quad .5 mL 00:00:00 [place] Medical IM 6+ MO Branch Influenza Virus 2019-07-10 Completed Universit y of Vaccine Quad .5 mL 00:00:00 [place] Medical IM 6+ MO Branch (FLUZONE/FLULAVAL/F LUARIX) Influenza Virus 2019-07-10 Completed Universit y of Vaccine Quad .5 mL 00:00:00 [place] Medical IM 6+ MO Branch (FLUZONE/FLULAVAL/F LUARIX) TDAP 2014-11-30 Completed University of 00:00:00 [facility] Branch TDAP 2014-11-30 Completed University of 00:00:00 [facility] Branch TDAP 2014-11-30 Completed University of 00:00:00 [facility] Branch TDAP 2014-11-30 Completed University of 00:00:00 [facility] Branch TDAP 2014-11-30 Completed University of 00:00:00 [facility] Branch TDAP 2014-11-30 Completed University of 00:00:00 [facility] Branch TDAP 2014-11-30 Completed University of 00:00:00 [facility] Branch TDAP 2014-11-30 Completed University of 00:00:00 [facility] Branch TDAP 2014-11-30 Completed University of 00:00:00 [facility] Branch TDAP 2014-11-30 Completed University of 00:00:00 [facility] Branch TDAP 2014-11-30 Completed University of 00:00:00 [facility] Branch TDAP 2014-11-30 Completed University of 00:00:00 [facility] Branch TDAP 2014-11-30 Completed University of 00:00:00 [facility] Branch TDAP 2014-11-30 Completed University of 00:00:00 [facility] Branch TDAP 2014-11-30 Completed University of 00:00:00 [facility] Branch TDAP 2014-11-30 Completed University of 00:00:00 [facility] Branch TDAP 2014-11-30 Completed University of 00:00:00 [facility] Branch TDAP 2014-11-30 Completed University of 00:00:00 [facility] Branch TDAP 2014-11-30 Completed University of 00:00:00 [facility] Branch TDAP 2014-11-30 Completed University of 00:00:00 [facility] Branch TDAP 2014-11-30 Completed University of 00:00:00 [facility] Branch TDAP 2014-11-30 Completed University of 00:00:00 [facility] Branch TDAP 2014-11-30 Completed University of 00:00:00 [facility] Branch TDAP 2014-11-30 Completed University of 00:00:00 [facility] Influenza Virus 2014-09-05 Completed Universit y of Vaccine Quad IM 00:00:00 [place] Med ical Multi-dose 6+ MO Branch Influenza Virus 2014-09-05 Completed Universit y of Vaccine Quad IM 00:00:00 [place] [facility] Influenza Virus 2014-09-05 Completed [facility] 00:00:00 [place] [facility] Influenza Virus 2014-09-05 Completed [facility] 00:00:00 [place] [facility] 6+ [facility] Influenza Virus 2014-09-05 Completed [facility] 00:00:00 [place] [facility] 6+ MO [facility] Influenza Virus 2014-09-05 Completed [facility] 00:00:00 [place] [facility] 6+ MO [facility] Influenza Virus 2014-09-05 Completed [facility] 00:00:00 [place] [facility] 6+ MO [facility] Influenza Virus 2014-09-05 Completed [facility] IM 00:00:00 [place] [facility] 6+ MO [facility] Influenza Virus 2014-09-05 Completed [facility] IM 00:00:00 [place] [facility] 6+ MO [facility] Influenza Virus 2014-09-05 Completed [facility] IM 00:00:00 [place] [facility] 6+ MO [facility] Influenza Virus 2014-09-05 Completed [facility] IM 00:00:00 [place] [facility] 6+ MO [facility] Influenza Virus 2014-09-05 Completed [facility] IM 00:00:00 [place] [facility] 6+ MO [facility] Influenza Virus 2014-09-05 Completed [facility] IM 00:00:00 [place] [facility] 6+ MO [facility] Influenza Virus 2014-09-05 Completed [facility] IM 00:00:00 [place] [facility] 6+ MO [facility] Influenza Virus 2014-09-05 Completed [facility] IM 00:00:00 [place] [facility] 6+ MO [facility] Influenza Virus 2014-09-05 Completed [facility] IM 00:00:00 [place] [facility] 6+ MO [facility] Influenza Virus 2014-09-05 Completed [facility] IM 00:00:00 [place] [facility] 6+ MO [facility] Influenza Virus 2014-09-05 Completed [facility] IM 00:00:00 [place] [facility] 6+ MO Branch Influenza [...] [facility]it y of [facility] IM 00:00:00 [place] [facility] Rubella 2009-10-22 Completed University of 00:00:00 [facility] Rubella 2009-10-22 Completed University of 00:00:00 [facility] Rubella 2009-10-22 Completed University of 00:00:00 [facility] Rubella 2009-10-22 Completed University of 00:00:00 [facility] Rubella 2009-10-22 Completed University of 00:00:00 [facility] Rubella 2009-10-22 Completed University of 00:00:00 [facility] Rubella 2009-10-22 Completed University of 00:00:00 [facility] Rubella 2009-10-22 Completed University of 00:00:00 [facility] Rubella 2009-10-22 Completed University of 00:00:00 [facility] Rubella 2009-10-22 Completed University of 00:00:00 [facility] Rubella 2009-10-22 Completed University of 00:00:00 [facility] Rubella 2009-10-22 Completed University of 00:00:00 [facility] Rubella 2009-10-22 Completed University of 00:00:00 [facility] Rubella 2009-10-22 Completed University of 00:00:00 [facility] Rubella 2009-10-22 Completed University of 00:00:00 [facility] Rubella 2009-10-22 Completed University of 00:00:00 [facility] Rubella 2009-10-22 Completed University of 00:00:00 [facility] Rubella 2009-10-22 Completed University of 00:00:00 [facility] Rubella 2009-10-22 Completed University of 00:00:00 [facility] Rubella 2009-10-22 Completed University of 00:00:00 [facility] Rubella 2009-10-22 Completed University of 00:00:00 [facility] Rubella 2009-10-22 Completed University of 00:00:00 [facility] Rubella 2009-10-22 Completed University of 00:00:00 [facility] Rubella 2009-10-22 Completed University of 00:00:00 [facility] Rubella Unknown Completed [facility] Influenza Virus Unknown Completed [facility]it y of Vaccine Quad IM [place] [facility] TDAP Unknown Completed [facility] Influenza Virus Unknown Completed [facility] y of [facility] .5 mL [facility] 6+ MO Branch (FLUZONE/FLULAVAL/F LUARIX) TDAP (ADACEL) Unknown Completed [facility] Rubella Unknown Completed [facility] Influenza Virus Unknown Completed [facility]it y of Vaccine Quad IM [place] [facility] MO [facility] TDAP Unknown Completed [facility] Influenza Virus Unknown Completed [facility]it y of [facility] .5 mL [facility] IM 6+ MO Branch (FLUZONE/FLULAVAL/F LUARIX) TDAP (ADACEL) Unknown Completed [facility] Rubella Unknown Completed [facility] Influenza Virus Unknown Completed [facility] y of [facility] IM [place] [facility] 6[facility] MO [facility] TDAP Unknown Completed [facility] Influenza Virus Unknown Completed [facility] y of [facility] Quad .5 mL [facility] IM 6+ MO Branch (FLUZONE/FLULAVAL/F LUARIX) TDAP (ADACEL) Unknown Completed [facility] Rubella Unknown Completed [facility] Influenza Virus Unknown Completed [facility] IM [place] [facility] 6[facility] MO [facility] TDAP Unknown Completed [facility] Influenza Virus Unknown Completed [facility] of [facility] .5 mL [facility] IM 6+ MO Branch (FLUZONE/FLULAVAL/F LUARIX) TDAP (ADACEL) Unknown Completed [facility] Rubella Unknown Completed [facility] Influenza Virus Unknown Completed [facility] IM [place] [facility] 6[facility] MO [facility] TDAP Unknown Completed [facility] Influenza Virus Unknown Completed [facility] .5 mL [place] [facility] 6+ MO Branch (FLUZONE/FLULAVAL/F LUARIX) TDAP (ADACEL) Unknown Completed [facility] Rubella Unknown Completed [facility] Influenza Virus Unknown Completed Universit y of Vaccine Quad IM [facility] ical Multi-dose 6+ MO Branch TDAP Unknown Completed [facility] Influenza Virus Unknown Completed [facility] of [facility] Quad .5 mL [facility] IM 6+ MO Branch (FLUZONE/FLULAVAL/F LUARIX) TDAP (ADACEL) Unknown Completed [facility] Rubella Unknown Completed [facility] Influenza Virus Unknown Completed [facility]it y of Vaccine Quad IM [facility] ical Multi-dose 6+ MO Branch TDAP Unknown Completed [facility] Influenza Virus Unknown Completed [facility] of [facility] .5 mL [facility] 6+ MO Branch (FLUZONE/FLULAVAL/F LUARIX) TDAP (ADACEL) Unknown Completed [facility] Rubella Unknown Completed [facility] Influenza Virus Unknown Completed [facility] y of Vaccine Quad IM [facility] ical Multi-dose 6+ MO Branch TDAP Unknown Completed [facility] Influenza Virus Unknown Completed [facility] .5 mL [facility] 6+ MO Branch (FLUZONE/FLULAVAL/F LUARIX) TDAP (ADACEL) Unknown Completed [facility] Rubella Unknown Completed [facility] Influenza Virus Unknown Completed [facility]it y of Vaccine Quad IM [facility] ical Multi-dose 6+ MO Branch TDAP Unknown Completed [facility] Influenza Virus Unknown Completed [facility] of [facility] .5 mL [facility] 6+ MO Branch (FLUZONE/FLULAVAL/F LUARIX) TDAP (ADACEL) Unknown Completed [facility] Rubella Unknown Completed [facility] Influenza Virus Unknown Completed [facility] IM [place] [facility] 6+ MO [facility] TDAP Unknown Completed [facility] Influenza Virus Unknown Completed [facility] of [facility] .5 mL [facility] 6+ MO Branch (FLUZONE/FLULAVAL/F LUARIX) TDAP (ADACEL) Unknown Completed [facility] Rubella Unknown Completed [facility] Influenza Virus Unknown Completed [facility] IM [place] [facility] 6+ MO Branch TDAP Unknown Completed [facility] Influenza Virus Unknown Completed [facility] of [facility] .5 mL [place] [facility] 6+ MO Branch (FLUZONE/FLULAVAL/F LUARIX) TDAP (ADACEL) Unknown Completed [facility] Rubella Unknown Completed [facility] Influenza Virus Unknown Completed [facility] y of Vaccine Quad IM [place] [facility] 6+ MO Branch TDAP Unknown Completed [facility] Influenza Virus Unknown Completed [facility]it y of Vaccine Quad .5 mL [facility] IM 6+ MO Branch (FLUZONE/FLULAVAL/F LUARIX) TDAP (ADACEL) Unknown Completed [facility] Rubella Unknown Completed [facility] Influenza Virus Unknown Completed [facility]it y of Vaccine Quad IM [facility] ical Multi-dose 6+ MO Branch TDAP Unknown Completed [facility] Influenza Virus Unknown Completed [facility] y of [facility] .5 mL [facility] 6+ MO Branch (FLUZONE/FLULAVAL/F LUARIX) TDAP (ADACEL) Unknown Completed [facility] Rubella Unknown Completed [facility] Influenza Virus Unknown Completed [facility]it y of Vaccine Quad IM [facility] ical Multi-dose 6+ MO Branch TDAP Unknown Completed [facility] Influenza Virus Unknown Completed [facility] y of [facility] .5 mL [facility] 6+ MO Branch (FLUZONE/FLULAVAL/F LUARIX) TDAP (ADACEL) Unknown Completed [facility] Rubella Unknown Completed [facility] Influenza Virus Unknown Completed [facility]it y of Vaccine Quad IM [facility] ical Multi-dose 6+ MO Branch TDAP Unknown Completed [facility] Influenza Virus Unknown Completed [facility]it y of Vaccine Quad .5 mL [facility] IM 6+ MO Branch (FLUZONE/FLULAVAL/F LUARIX) TDAP (ADACEL) Unknown Completed [facility] Rubella Unknown Completed [facility] Influenza Virus Unknown Completed [facility]it y of Vaccine Quad IM [facility] ical Multi-dose 6+ MO Branch TDAP Unknown Completed [facility] Influenza Virus Unknown Completed [facility]it y of Vaccine Quad .5 mL [facility] IM 6+ MO Branch (FLUZONE/FLULAVAL/F LUARIX) TDAP (ADACEL) Unknown Completed [facility] Rubella Unknown Completed [facility] Influenza Virus Unknown Completed [facility] y of Vaccine Quad IM [place] [facility] Multi[facility] 6+ MO Branch TDAP Unknown Completed [facility] Influenza Virus Unknown Completed [facility] y of Vaccine Quad .5 mL [place] [facility] IM 6+ MO Branch (FLUZONE/FLULAVAL/F LUARIX) TDAP (ADACEL) Unknown Completed [facility] Rubella Unknown Completed [facility] Influenza Virus Unknown Completed [facility] y of Vaccine Quad IM [place] [facility] Multi[facility] 6+ MO Branch TDAP Unknown Completed [facility] Influenza Virus Unknown Completed [facility]it y of Vaccine Quad .5 mL [facility] IM 6+ MO Branch (FLUZONE/FLULAVAL/F LUARIX) TDAP (ADACEL) Unknown Completed [facility] Rubella Unknown Completed [facility] Influenza Virus Unknown Completed [facility] y of Vaccine Quad IM [place] [facility] Multi[facility] 6+ MO Branch TDAP Unknown Completed [facility] Influenza Virus Unknown Completed [facility]it y of Vaccine Quad .5 mL [facility] IM 6+ MO Branch (FLUZONE/FLULAVAL/F LUARIX) TDAP (ADACEL) Unknown Completed [facility] Rubella Unknown Completed [facility] Influenza Virus Unknown Completed [facility]it y of Vaccine Quad IM [facility] ical Multi-dose 6+ MO Branch TDAP Unknown Completed [facility] Influenza Virus Unknown Completed [facility]it y of Vaccine Quad .5 mL [facility] IM 6+ MO Branch (FLUZONE/FLULAVAL/F LUARIX) TDAP (ADACEL) Unknown Completed [facility] Vital Signs Vital Name Observation Time Observation Value Comments Source Systolic blood 2023-06-22 13:13:00 115 mm[Hg] Univer sity of pressure [facility] Diastolic blood 2023-06-22 13:13:00 80 mm[Hg] Unive rsity of pressure [facility] Heart rate 2023-06-22 13:13:00 62 /min Universi [facility] Body temperature 2023-06-22 13:13:00 36.89 Cora Univ ersity [facility] Respiratory rate 2023-06-22 13:13:00 18 /min Univ ersity [facility] [place] [facility] Oxygen saturation in 2023-06-22 13:13:00 97 /min University of Arterial blood by [facility] Pulse oximetry Branch Body height 2023-06-19 04:19:00 162.6 cm [facility] [place] [facility] Body weight 2023-06-19 04:19:00 83.462 kg [facility]i ty [facility] [place] [facility] BMI 2023-06-19 04:19:00 31.57 kg/m2 [facility] [place] [facility] Systolic blood 2023-06-18 13:35:00 119 mm[Hg] Univer sity of pressure [facility] Diastolic blood 2023-06-18 13:35:00 71 mm[Hg] Unive rsity of pressure [place] [facility] Heart rate 2023-06-18 13:35:00 68 /min [facility] [place] [facility] Body temperature 2023-06-18 13:35:00 36.83 Cora Univ ersity [facility] [place] [facility] Respiratory rate 2023-06-18 13:35:00 22 /min Univ ersity [facility] [place] [facility] Oxygen saturation in 2023-06-18 13:35:00 100 /min University of Arterial blood by [facility] Pulse oximetry Branch Systolic blood 2023-05-13 21:30:00 119 mm[Hg] Univer sity of pressure [place] [facility] Diastolic blood 2023-05-13 21:30:00 75 mm[Hg] Unive rsity of pressure [facility] Heart rate 2023-05-13 21:30:00 72 /min [facility] [place] [facility] Body temperature 2023-05-13 21:30:00 36.61 Cora [facility] [place] [facility] Body height 2023-05-13 21:30:00 162.6 cm [facility] [place] [facility] Body weight 2023-05-13 21:30:00 83.915 kg [facility] [place] [facility] BMI 2023-05-13 21:30:00 31.76 kg/m2 [facility] [place] [facility] Systolic blood 2023-05-13 19:15:00 103 mm[Hg] Univer sity of pressure [place] [facility] Diastolic blood 2023-05-13 19:15:00 68 mm[Hg] Unive rsity of pressure [place] [facility] Heart rate 2023-05-13 19:15:00 70 /min [facility] [place] [facility] Body temperature 2023-05-13 19:15:00 36.78 Cora [facility] [place] [facility] Respiratory rate 2023-05-13 19:15:00 16 /min Univ [facility] [place] [facility] Body height 2023-05-13 19:15:00 162.6 cm [facility] [place] [facility] Body weight 2023-05-13 19:15:00 83.462 kg [facility] [place] [facility] BMI 2023-05-13 19:15:00 31.58 kg/m2 Universi ty of [facility] Oxygen saturation in 2023-05-13 19:15:00 100 /min University of Arterial blood by [facility] Pulse oximetry Branch Systolic blood 2023-05-12 15:06:00 122 mm[Hg] Univer sity of pressure [facility] Diastolic blood 2023-05-12 15:06:00 63 mm[Hg] Unive rsity of pressure [place] [facility] [place] Heart rate 2023-05-12 15:06:00 66 /min [facility] [place] [facility] Body temperature 2023-05-12 15:06:00 36.78 Cora Univ ersity of [facility] Respiratory rate 2023-05-12 15:06:00 16 /min Univ ersity [facility] [place] [facility] Body height 2023-05-12 15:06:00 162.6 cm Universi ty of [place] [facility] [place] Body weight 2023-05-12 15:06:00 83.008 kg [facility] [place] [facility] BMI 2023-05-12 15:06:00 31.41 kg/m2 [facility] [place] [facility] Systolic blood 2023-03-09 18:57:00 110 mm[Hg] Univer sity of pressure [place] [facility] Diastolic blood 2023-03-09 18:57:00 66 mm[Hg] Unive rsity of pressure [facility] Heart rate 2023-03-09 18:57:00 78 /min [facility] [place] [facility] Body temperature 2023-03-09 18:57:00 36.56 Cora [facility] [place] [facility] Body height 2023-03-09 18:57:00 162.6 cm [facility] [place] [facility] Body weight 2023-03-09 18:57:00 81.647 kg [facility] [place] [facility] BMI 2023-03-09 18:57:00 30.90 kg/m2 [facility] [place] [facility] Systolic blood 2023-03-09 14:35:00 126 mm[Hg] Univer sity of pressure [facility] Diastolic blood 2023-03-09 14:35:00 84 mm[Hg] Unive rsity of pressure [facility] Heart rate 2023-03-09 14:35:00 64 /min [facility] [place] [facility] Body temperature 2023-03-09 14:35:00 37 Cora [facility] [place] [facility] Respiratory rate 2023-03-09 14:35:00 16 /min Univ [facility] [place] [facility] Body height 2023-03-09 14:35:00 162.6 cm [facility] [place] [facility] Body weight 2023-03-09 14:35:00 81.647 kg [facility] [place] [facility] BMI 2023-03-09 14:35:00 30.90 kg/m2 [facility] [place] [facility] Oxygen saturation in 2023-03-09 14:35:00 99 /min University of Arterial blood by [facility] Pulse oximetry Branch Body height 2023-01-27 00:07:00 154.9 cm [facility] [place] [facility] Body weight 2023-01-27 00:07:00 79.379 kg [facility] [place] [facility] BMI 2023-01-27 00:07:00 33.07 kg/m2 [facility] [place] [facility] Systolic blood 2023-01-27 00:06:00 132 mm[Hg] Univer sity of pressure [facility] Diastolic blood 2023-01-27 00:06:00 65 mm[Hg] Unive rsity of pressure [facility] Heart rate 2023-01-27 00:06:00 80 /min [facility] [place] [facility] Body temperature 2023-01-27 00:06:00 37 Cora [facility] [place] [facility] Respiratory rate 2023-01-27 00:06:00 16 /min Univ ersity [facility] [place] [facility] Oxygen saturation in 2023-01-27 00:06:00 100 /min University of Arterial blood by [employer] [facility] Pulse oximetry Branch Systolic blood 2022-12-21 13:39:00 113 mm[Hg] Univer sity of pressure [place] [facility] Diastolic blood 2022-12-21 13:39:00 65 mm[Hg] Unive rsity of pressure [place] [facility] Heart rate 2022-12-21 13:39:00 67 /min [facility]i ty [facility] [place] [facility] Body temperature 2022-12-21 13:39:00 35.11 Cora Univ [facility] [place] [facility] Respiratory rate 2022-12-21 13:39:00 18 /min Univ ersity [facility] [place] [facility] Body height 2022-12-21 13:39:00 154.9 cm [facility]i [facility] [place] [facility] Body weight 2022-12-21 13:39:00 83.19 kg [facility] [place] [facility] BMI 2022-12-21 13:39:00 34.65 kg/m2 [facility] [place] [facility] HEIGHT 2022-11-13 17:02:00 154.9 cm WEIGHT 2022-11-13 17:02:00 77.111 kg HEIGHT 2022-11-13 17:02:00 154.9 cm WEIGHT 2022-11-13 17:02:00 77.111 kg HEIGHT 2022-11-13 17:02:00 154.9 cm WEIGHT 2022-11-13 17:02:00 77.111 kg Systolic blood 2021-12-18 14:07:00 121 mm[Hg] Univer sity of pressure [facility] Diastolic blood 2021-12-18 14:07:00 65 mm[Hg] Unive rsity of pressure [facility] Heart rate 2021-12-18 14:07:00 67 /min [facility] [place] [facility] Body temperature 2021-12-18 14:07:00 36.56 Cora [facility] [place] [facility] Respiratory rate 2021-12-18 14:07:00 16 /min Univ [facility] [place] [facility] Body height 2021-12-18 14:07:00 154.9 cm [facility] [place] [facility] Body weight 2021-12-18 14:07:00 73.619 kg [facility] [place] [facility] BMI 2021-12-18 14:07:00 30.67 kg/m2 [facility] [place] [facility] Systolic blood 2022-11-13 20:40:00 110 mm[Hg] [facility] Diastolic blood 2022-11-13 20:40:00 63 mm[Hg] [facility] Heart rate 2022-11-13 20:40:00 61 /min [facility] Body temperature 2022-11-13 20:40:00 36.94 Cora [facility] Respiratory rate 2022-11-13 20:40:00 15 /min [facility] Oxygen saturation in 2022-11-13 20:40:00 98 /min [facility] Arterial blood by Medical Ce nter Pulse oximetry Body height 2022-11-13 17:02:00 154.9 cm [facility] Body weight 2022-11-13 17:02:00 77.111 kg [facility] BMI 2022-11-13 17:02:00 32.12 kg/m2 [facility] Procedures Procedure Date / Time Performing Clinician Source Performed BASIC METABOLIC PANEL (NA, 2023-06-21 12:37:00 Felix Bernardo [facility] K, CL, CO2, GLUCOSE, BUN, Medica l Branch CREATININE, [place]) CBC WITHOUT DIFF 2023-06-21 12:37:00 Az [facility] BASIC METABOLIC PANEL (NA, 2023-06-21 12:37:00 Felix Bernardo [facility] K, CL, CO2, GLUCOSE, BUN, Medica l Branch CREATININE, CA) CBC WITHOUT DIFF 2023-06-21 12:37:00 Az [facility] CT CHEST PULMONARY 2023-06-21 00:22:[address] [facility] [address] CHEST PULMONARY 2023-06-21 00:22:29 Az [facility] TROPONIN I 2023-06-20 08:44:00 Kirill [facility] TROPONIN I 2023-06-20 08:44:00 Kirill [facility] TRANSTHORACIC ECHO (TTE) 2023-06-19 14:26:06 Steven Madrigal U [facility] TRANSTHORACIC ECHO (TTE) 2023-06-19 14:26:06 Steven Madrigal [facility] ELECTROPHYSIOLOGY PROCEDURE 2023-06-18 16:58:57 Juan [facility] ELECTROPHYSIOLOGY PROCEDURE 2023-06-18 16:58:57 Juan [facility] POCT ACT LOW RANGE 2023-06-18 16:56:00 Teddydickabdias [facility] POCT ACT LOW RANGE 2023-06-18 16:56:00 Juan [facility] POCT ACT LOW RANGE 2023-06-18 16:26:00 Juan [facility] POCT ACT LOW RANGE 2023-06-18 16:26:00 Juan [facility] POCT ACT LOW RANGE 2023-06-18 16:08:00 Gricelabdias [facility] POCT ACT LOW RANGE 2023-06-18 16:08:00 Juan [facility] POCT ACT LOW RANGE 2023-06-18 15:48:00 Teddyfanny [facility] POCT ACT LOW RANGE 2023-06-18 15:48:00 Juan [facility] CATH PROCEDURE LOG 2023-06-18 15:14:00 Juan [facility] CATH PROCEDURE LOG 2023-06-18 15:14:00 Juan [facility] HB INDIRECT ANTIGLOBULIN 2023-06-18 14:41:00 [facility] 2023-06-18 14:41:00 Cassie Moffett [facility] ASSIGNMENT OF BENEFITS 2023-06-18 13:02:37 [facility] PHOSPHORUS 2023-06-16 16:20:00 Juan [facility] MAGNESIUM 2023-06-16 16:20:00 [facility] BASIC METABOLIC PANEL (NA, 2023-06-16 16:20:00 Milagro Martinez [facility] [facility] K, CL, CO2, GLUCOSE, BUN, Medica l Branch CREATININE, CA) CBC WITHOUT DIFF 2023-06-16 16:20:00 Milagro Martinez [facility] PROTHROMBIN TIME / INR 2023-06-16 16:20:00 Milagro Martinez [facility] TEST, SERUM 2023-06-16 16:20:00 [facility] TEST, SERUM 2023-06-16 16:20:00 [facility] ANKLE 3+ VW RIGHT 2023-05-13 21:43:00 Enrique [facility] HB ECG ROUTINE & RHYTHM 2023-05-13 19:19:31 Milagro Martinez [facility] GC & CHLAMYDIA AMPLIFIED 2023-05-12 18:59:00 Mirna Alvarez [facility] URINE CULTURE 2023-05-12 16:39:00 Mirna Alvarez [facility] TRANSTHORACIC ECHO (TTE) 2023-03-30 19:03:09 Milagro Martinez [facility] XR ANKLE 3+ VW RIGHT 2023-03-09 19:22:17 Enrique [facility] XR ANKLE <3 VW RIGHT 2023-02-10 16:21:32 Coleman Grace [facility] XR ANKLE 3+ VW RIGHT 2023-02-10 16:00:43 Clyde Guzman [facility] XR ANKLE 3+ VW RIGHT 2023-01-27 00:38:00 Kym Wade [facility] NOTICE OF PRIVACY PRACTICES 2023-01-26 23:55:30 Doctor Brayden martins [facility] CONSENT/REFUSAL FOR 2023-01-26 23:54:58 Doctor Raf [facility] DIAGNOSIS AND TREATMENT [facility] [place] ASSIGNMENT OF BENEFITS 2022-12-21 13:14:11 [facility] BASIC METABOLIC PANEL 2022-11-13 18:52:00 Tee Granados [facility] CBC W/PLT COUNT & AUTO 2022-11-13 18:32:00 Tee Granados [facility] DIFFERENTIAL [facility] CBC W/PLT COUNT & AUTO 2022-11-13 18:32:[address] [facility] XR CHEST 2 VIEWS 2022-11-13 18:08:00 Tee Granados [facility] POCT URINALYSIS W/O 2021-12-18 19:28:00 [facility] SPECIFIC GRAVITY [facility] POCT TEST 2021-12-18 14:11:00 [facility]useyin Rodriguez [facility] Plan of Care Planned Activity Planned Date Details Comments Source Future Scheduled 2029-12-25 DTAP/TDAP/TD VACCINES ([address] [facility] Test 00:00:00 - Td or Tdap) [code = Medica l Center DTAP/TDAP/TD VACCINES (3 - Td or Tdap)] Future Scheduled 2029-12-25 DTAP/TDAP/TD VACCINES ([address] [facility] Test 00:00:00 - Td or Tdap) [code = Medica l Center DTAP/TDAP/TD VACCINES (3 - Td or Tdap)] Future Scheduled 2023-11-[address] [facility] Test 00:00:00 Counseling and Screening Med [facility] (12+) [code = Tobacco Cessation Counseling and Screening (12+)] Future Scheduled 2023-11-[address] [facility] Test 00:00:00 Counseling and Screening [facility] (12+) [code = Tobacco Cessation Counseling and Screening (12+)] Future Scheduled 2023-04-09 Influenza Vaccine (#1) [facility] 00:00:00 [code = Influenza Vaccine [facility] (#1)] Future Scheduled 2023-04-09 Influenza Vaccine (#1) [facility] 00:00:00 [code = Influenza Vaccine Nh dical Center (#1)] Future Scheduled 2022-08-[address] [facility] Test 00:00:00 (12+) [code = DEPRESSION Med ical Center SCREENING (12+)] Future Scheduled 2022-08-[address] [facility] Test 00:00:00 (12+) [code = DEPRESSION Med ical Center SCREENING (12+)] Future Scheduled 2004 Screening for malignant [facility] Test 00:00:00 neoplasm of cervix Medical C enter (procedure) [code = 083384570] Future Scheduled 2004 Screening for malignant [facility] Test 00:00:00 neoplasm of cervix Medical C enter (procedure) [code = 856892593] Future Scheduled 2003 Lipid panel (procedure) [facility] Test 00:00:00 [code = 64072209] Medical Ce nter Future Scheduled 2003 Lipid panel (procedure) [facility] Test 00:00:00 [code = 24818594] Medical Ce nter Future Scheduled 2001 HEPATITIS C SCREENING [facility] 00:00:00 [code = HEPATITIS C Medical Center SCREENING] Future Scheduled 2001 HEPATITIS C [facility] 00:00:00 [code = HEPATITIS C Medical Center SCREENING] Future Scheduled [address] Human immunodeficiency [facility] 00:00:00 virus screening Medical Cent er (procedure) [code = 884760547] Future Scheduled [address] [facility] 00:00:00 virus screening Medical Cent er (procedure) [code = 169735510] Future Scheduled 1984-03-29 COVID-19 VACCINE (#1) [facility] 00:00[facility]00 [code = COVID-19 VACCINE Med ical Center (#1)] Future Scheduled 1984-03-29 COVID-19 VACCINE (#1) [facility] 00:00:00 [code = COVID-19 VACCINE Med ical Center (#1)] Encounters Start End Encounter Admission Attending Care Care Encounter Source Date/Time Date/Time Type Type Clinicians Facility Department ID 2023-12-22 2023-12-22 Outpatient R AZRA [facility] [id number] Univers 14:00:00 14:00:00 REBEKAH ity o f [facility] 2023-06-18 2023-06-22 Outpatient R V[facility]MA [facility] [id number] Univers 07:09:00 11:16:00 TASO ity of [facility] 2023-06-18 2023-06-22 [facility] Narciso Martinezarnick [facility] 1.2.840.11 [id number] Univers 07:09:00 11:16:00 Encounter AlissonAakash appiahFormerly [facility] 350.1.13.10 ity of Pastor Meek CLEAR 4.2.7.2.686 [place] [phone] [facility] [address] Branch ([facility]) 2023-06-18 2023-06-18 Surgery [facility] 1.2.840.114 [id number] Univers 09:30:00 10:30:00 [facility] 350.1.13.10 it y of [place] [phone] [facility] 840 Branch ([facility]) 2023-06-18 2023-06-18 Orders Doctor ANA 1.2.840.114 [id number] Univers 00:00:00 00:00:00 Only Unassigned, STEPHANIE 350.1.13.10 ity of [facility] 4.2.7.2.686 [place] as [phone] [facility] 009 Branch 2023-06-16 2023-06-16 Pattern Drafter Maryellen, Antoni Lab Main [facility] 1.2.8 40.114 [id number] Univers 10:00:00 10:15:00 Visit Milagro Martinez [place] 350.1.13.10 ity of [place] 4[place] [id number] Nh dical [facility] [address] BUILDING 2023-06-16 2023-06-16 Outpatient R MILAGRO MARTINEZ [facility] [id number] Univers 10:00:00 10:00:00 MILAGRO MARTINEZ ity of [facility] 2023-05-17 2023-05-17 Telephone [facility] 1.2.840.114 [id number] Univers 00:00:00 00:00:00 [facility] 350.1.13.10 it y of [place] [phone] [address] OFFICE [facility] 2023-05-15 2023-05-15 [facility] 1.2.840.114 [id number] Univers 00:00:00 00:00:00 Management Mirna A [employer] 350.1.13.10 ity of REGIONAL 4.2.7.2.686 [place] as MATERNAL [phone] Med ical & CHILD 107 [facility] 2023-05-13 2023-05-13 [facility] 1.2.840.114 [id number] Univers 15:30:00 23:59:00 Encounter Urvashi SPECIALTY 350.1.13.10 ity of C[place].2.[place] C[place] [id number] Nh clayfernando MCDUFFIE 809 [facility] 2023-05-13 2023-05-13 Office [facility] 1.2.840.114 [id number] Univers 16:40:00 16:48:08 Visit Urvashi SPECIALTY 350.1.13.10 ity of [place] 4[place] [phone] Nh cheryle [facility] 198 [facility] 2023-05-13 2023-05-13 Office [facility] 1.2.840.114 [id number] Univers 14:00:00 14:15:00 Visit [facility] 350.1.13.10 it y of [place] [id number] [address] OFFICE [facility] 2023-05-13 2023-05-13 Outpatient R MILAGRO MARTINEZ [facility] [id number] Univers 14:00:00 14:00:00 MILAGRO MARTINEZ [facility] 2023-05-12 2023-05-12 [facility] [id number] Univers 10:15:00 10:37:59 MIRNA [facility] 2023-05-12 2023-05-12 [facility] 1.2.840.114 [id number] Univers 10:15:00 10:37:59 Visit Mirna Self [employer] 350.1.13.10 i ty of [facility] 4.2.7.2.686 [place] as MATERNAL [phone] [facility] & CHILD [address] [place] [address] 2023-05-11 2023-05-11 Telephone [facility] 1.2.840.114 [id number] Univers 00:00:00 00:00:00 Rebekah C [employer]EL[employer] 350.1.13.10 ity of [facility] 4.2.7.2.686 [place] as MATERNAL [id number] [facility] & [address] 2023-04-20 2023-04-20 Outpatient R [facility] [id number] Univers 14:40:00 14:40:00 URVASHI [facility] 2023-04-09 2023-04-09 Telephone [facility] 1.2.840.114 [id number] Univers 00:00:00 00:00:00 [facility] 350.1.13.10 it y of [place] [id number] [address] OFFICE [facility] 2023-04-05 2023-04-05 Telephone [facility] 1.2.840.114 [id number] Univers 00:00:00 00:00:00 [facility] 350.1.13.10 it y of [place] [phone] [address] OFFICE BUILDING 2023-03-30 2023-03-30 Outpatient R MILAGRO MARTINEZ [facility] [id number] Univers 13:17:03 23:59:00 GRICELABDIAS NARCISOKATHERINE [facility] 2023-03-30 2023-03-30 [facility] 1.2.003.849 [id number] Univers 13:17:03 23:59:00 Encounter [facility] 350.1.13.10 ity of [place] [phone] [facility] [address] OFFICE BUILDING 2023-03-30 2023-03-30 Hospital [facility] 1.2.117.189 [id number] Univers 13:00:00 13:16:00 [facility] 350.1.13.10 it[place] of [place] 4.2.[place] [id number] [facility] [address] [place] OFFICE BUILDING 2023-03-30 2023-03-30 Telephone [facility] 1.2.840.114 [id number] Univers 00:00:00 00:00:00 [place] HEALTH 350.1.13.10 it y of [place] 4.2.7.2.686 [place] [id number] [facility] [address] [place] OFFICE BUILDING 2023-03-29 2023-03-29 Patient Doctor ANA 1.2.840.114 [id number] Univers 00:00:00 00:00:00 Secure Msg Unassigned, STEPHANIE 350.1.13.10 ity of [facility] 4.2.7.2.686 [place] as [phone] [address] 2023-03-09 2023-03-09 [facility] 1.2.840.114 [id number] Univers 14:05:00 23:59:00 Encounter Urvashi SPECIALTY 350.1.13.10 ity of CARE 4.2.7.2.[place] C[place] [phone] Nh cheryle MCDUFFIE 809 [facility] 2023-03-09 2023-03-09 Office [facility] 1.2.840.114 [id number] Univers 14:40:00 14:40:00 Visit Urvashi SPECIALTY 350.1.13.10 ity of CARE 4.2.7.2.[place] [id number] Nh cheryle MCDUFF[place] 198 [facility] 2023-03-09 2023-03-09 Outpatient R MILAGRO MARTINEZ [facility] [id number] Univers 09:30:00 12:45:42 MILAGRO MARTINEZ ity of [facility] 2023-03-09 2023-03-09 Office Juan [facility] 1.2.840.114 [id number] Univers 09:30:00 10:00:00 Visit Muhie HEALTH 350.1.13.10 it y of [place] 4.2.[place] [phone] [facility] [address] [place] OFFICE BUILDING 2023-02-18 2023-02-18 Pattern Drafter Room, s [facility] 1. 2.840.114 [id number] Univers 13:00:00 13:30:00 Visit Clyde Guzman [facility] 350.1.13.10 ity of CARE 4.2.7.2.[place] C[place] AT [id number] Nh clayfernando MCDUFFIE [address] [place] [address] 2023-02-18 2023-02-18 Outpatient R CLYDE GUZMAN [facility] [id number] Univers 13:00:00 13:00:00 ity of [facility] 2023-02-13 2023-02-13 Nurse ANA Wolfe 1.2.840.114 [id number] Univers 00:00:00 00:00:00 Triage Eileen STEPHANIE 350.1.13.10 it y of HOSPITAL 4.2.7.2.686 [place] as [id number] [address] 2023-02-10 2023-02-10 Hospital Clyde Guzman [facility] 1.2.840.114 [id number] Univers 11:09:21 23:59:00 Encounter HEALTH 350.1.13.10 ity of [place] 4.2.7.2.[place] [phone] [facility] [address] [place] OFFICE BUILDING 2023-02-10 2023-02-10 Outpatient R CLYDE GUZMAN [facility] [id number] Univers 10:54:21 11:08:00 ity of [facility] 2023-02-10 2023-02-10 Hospital Clyde Guzman [facility] 1.2.840.114 [id number] Univers 10:54:21 11:08:00 Encounter HEALTH 350.1.13.10 ity of [place] 4.2.[place].2.[place] [id number] [facility] [address] OFFICE BUILDING 2023-01-28 2023-01-28 Telephone [facility] 1.2.840.114 [id number] Univers 00:00:00 00:00:00 [facility] 350.1.13.10 it y of [place] 4.2.7.2.686 [place] as MARGY?BLEA [phone] Nh dical [address] MEDICAL OFFICE BUILDING 2023-01-27 2023-01-27 Patient Doctor ANA 1.2.840.114 [id number] Univers 00:00:00 00:00:00 Secure Msg Unassigned, STEPHANIE 350.1.13.[address] [facility] 4.2.7.2.686 [place] as [phone] [address] 2023-01-26 2023-01-26 Emergency X [facility] E[facility] [id number] Univers 19:07:00 20:52:00 KYM ity [facility] 2023-01-26 2023-01-26 Emergency [facility] 1.2.840.114 [id number] Univers 19:07:00 20:52:00 Kym Farah [place] 350.1.13.10 ity [facility] 4.2.7.2.686 [place] [facility] [phone] [facility] [address] [place] 2022-12-22 2022-12-22 Telephone [facility] 1.2.840.114 [id number] Univers 00:00:00 00:00:00 Rebekah Maloney [employer] 350.1.13.10 ity [facility] 4.2.7.2.686 [place] as MATERNAL [phone] [facility] ical & CHILD [address] [place] [address] 2022-12-21 2022-12-21 Outpatient R AZRA [facility] [id number] Univers 08:15:00 09:59:08 REBEKAH connor [facility] 2022-12-21 2022-12-21 Office Rebekah Oquendo [facility] 1.2.8 40.114 [id number] Univers 08:15:00 09:59:08 Visit Huseyin Rodriguez [employer] 350.1.13.10 ity of [facility] 4.2.7.2.686 [place] as MATERNAL [phone] Med ical & CHILD 107 [facility] 2022-12-21 2022-12-21 Orders Doctor ANA 1.2.840.114 [id number] Univers 00:00:00 00:00:00 Only Unassigned, STEPHANIE 350.1.13.10 ity of [facility] 4.2.7.2.686 [place] as [phone] [address] 2022-11-13 2022-11-13 Emergency ER Tee Granados [facility] [id number] 17:05:00 20:43:00 [facility] 2022-11-13 2022-11-13 Emergency ER [facility] Emergency 20 [id number] [facility] 17:05:00 20:43:00 2022-11-13 2022-11-13 Emergency DarwinTee [facility] [id number] 17:05:00 20:43:00 [facility] 2022-11-13 2022-11-13 Travel [facility] [id number] [facility] 00:00:00 [facility] 2022-11-13 2022-11-13 Travel [facility] [id number] [facility] 00:[facility] 00:00:00 [facility] 2021-12-18 2021-12-18 Outpatient Omid RODRIGUEZ [facility] [id number] Univers 09:00:00 09:42:45 HUSEYIN leonardoy o geeta [facility] 2021-12-18 2021-12-18 Office Kapil [facility] 1.2.840.114 [id number] Univers 09:00:00 09:42:45 Visit Huseyin Anne [employer] 350.1.13.10 ity of [facility] 4.2.7.2.686 [place] MATERNAL [id number] Med ical & CHILD [address] [place] [address] 2021-12-18 2021-12-18 Outpatient Omid RODRIGUEZ [facility] [id number] Univers 09:00:00 09:42:45 HUSEYIN rosario geeta [facility] 2021-10-17 2021-10-17 Telephone [facility] 1.2.840.114 [id number] Univers 00:00:00 00:00:00 Rebekah Maloney [employer] 350.1.13.10 ity of [facility] 42.7.2.686 [place] as MATERNAL [phone] [facility]ILD [address] [place] [address] 2021-10-15 2021-10-15 Pattern Drafter Lab, [facility] 1.2.840. 114 [id number] Univers 08:30:00 09:01:47 Visit Rebekah Oquendo [employer] 350.1.13. 10 ity of [place] [address]..2.686 [place] as MATERNAL [id number] [address] 2021-10-15 2021-10-15 Outpatient R AZRA [facility] [id number] Univers 08:30:00 09:01:47 REBEKAH rosario [facility] 2021-10-14 2021-10-14 Office [facility] 1.2.678.241 [id number] Univers 10:30:00 11:14:59 Visit Rebekah Maloney [employer] 350.1.13.10 ity of [place] [address]..2.686 [place] as MATERNAL [phone] [address] 2021-10-14 2021-10-14 Outpatient R AZRA [facility] [id number] Univers 10:30:00 11:14:59 REBEKAH rosario [facility] 2021-10-14 2021-10-14 Orders Doctor ANA 1.2.840.114 [id number] Univers 00:00:00 00:00:00 Only Unassigned, STEPHANIE 350.1.13.10 ity of [address]2.686 [place] as [id number] [address] 2021-07-07 2021-07-07 Telephone Azra [facility] 1.2.840.114 [id number] Univers 00:00:00 00:00:00 Rebekah Maloney [employer] 350.1.13.10 ity of [facility] 4.2.7.2.686 [place] as MATERNAL [phone] Med ical & CHILD [address] [place] [address] 2021-06-27 2021-06-27 Patient Doctor [facility] 1.2.840.114 [id number] Univers 00:00:00 00:00:00 Secure Msg Unassigned, [place] 350.1.13.10 ity of [place] 4.2.7.2.[place] [phone] Nh dic[address] 2021-06-23 2021-06-23 Telephone [facility] 1.2.566.630 [id number] Univers 00:00:00 00:00:00 Sendil Bashir SERRANO 350.1.13.10 ity of [place] 4.2.7.2.686 [place] [phone] [facility] NAL [address] [place] [address] 2021-06-18 2021-06-18 Outpatient [facility] [id number] Univers 11:00:00 11:34:21 SENDIL ity [facility] 2021-06-18 2021-06-18 Office [facility] 1.2.840.114 [id number] Univers 10:47:15 11:34:21 Visit Sendjoan SERRANO 350.1.13.10 ity of [place] 4.2.7.2.[place] [phone] Nh dicla NAL [address] [place] [address] 2021-06-18 2021-06-18 Outpatient [facility] [id number] Univers 11:00:00 11:00:00 SENDIL ity [facility] 2021-06-03 2021-06-03 Telephone [facility] 1.2.990.836 [id number] Univers 00:00:00 00:00:00 Sendil Bashir [place] 350.1.13.10 ity of [place] 4.2.7.2.[place] Profess[place] [phone] Nh dicla nal [address] [place] [address] 2021-06-02 2021-06-02 Outpatient [facility] [id number] Univers 11:30:00 11:30:00 SENDIL ity [facility] 2021-05-29 2021-05-29 Telephone [facility] 1.2.691.515 [id number] Univers 00:00:00 00:00:00 Sendil Bashir [place] 350.1.13.10 ity of [place] 4.2.7.2.[place] Profess[place] [phone] [address] 2021-05-20 2021-05-20 Hospital [facility] 1.2.840.114 [id number] Univers 11:00:00 23:59:00 Encounter Sendil Bashir [place] 350.1.13.10 ity of [place] 4.2.7.2.686 [place] Professio [phone] [facility] 843 [facility] 2021-05-20 2021-05-20 Outpatient R [facility] [id number] Univers 11:00:00 11:00:00 SENDIL ity [facility] 2021-05-09 2021-05-09 Telephone [facility] 1.2.266.875 [id number] Univers 00:00:00 00:00:00 Sendil Bashir [place] 350.1.13.10 ity of [place] 4.2.7.2.[place] Profess[place] [phone] [address] 2021-05-02 2021-05-02 Office [facility] 1.2.840.114 [id number] Univers 11:06:47 11:58:39 Visit Sendjoan Serrano 350.1.13.10 ity of [place] 4.2.7.2.[place] Profess[place] [phone] [facility] nal [address] [place] [address] 2021-05-02 2021-05-02 Outpatient R [facility] [id number] Univers 11:00:00 11:00:00 SENDIL ity [facility] 2021-05-02 2021-05-02 Orders Doctor ANA 1.2.840.114 [id number] Univers 00:00:00 00:00:00 Only Unassigned, STEPHANIE 350.1.13.[address] [facility] 4.2.7.2.686 [place] as [phone] [facility] [address] 2020-10-28 2020-10-28 Patient Erickson MEJULIAN 1.2.840.114 [id number] Univers 00:00:00 00:00:00 Outreach Herminio PRIMARY 350.1.13.10 i [facility] [place] [phone] Me dical [address] 2020-10-28 2020-10-28 Patient Erickson MEJULIAN 1.2.840.114 [id number] 00:00:00 00:00:00 Outreach Herminio PRIMARY 350.1.13.10 Stephan [facility] 4.2.7.2.686 PAVILLION [phone] 388 2020-04-19 2020-04-19 Office [facility] 1.2.840.114 [id number] Univers 08:06:56 09:49:01 [facility] [employer]EL[employer] 350.1.13.10 ity of [facility] 4.2.7.2.686 [place] as MATERNAL [phone] Med ical & CHILD [address] [place] [address] 2020-04-19 2020-04-19 Office Rodriguez, [facility] 1.2.840.114 [id number] 08:06:56 09:49:01 Visit Loidanda R [employer]EL[employer] 350.1.13.10 REGIONAL 4.2.7.2.686 MATERNAL [phone] & CHILD [address] [place] [address] 2020-04-19 2020-04-19 Outpatient R AZRA, [facility] [id number] Univers 07:30:00 07:30:00 REBEKAH connor [facility] 2020-04-09 2020-04-09 Outpatient R AZRA, [facility] [id number] Univers 08:15:00 08:15:00 REBEKAH connor [facility] 2020-04-09 2020-04-09 Outpatient R AKINSHONA, [facility] [id number] Univers 08:15:00 08:15:00 REBEKAH ity o f [facility] 2020-04-09 2020-04-09 Outpatient R [facility] [id number] Univers 07:45:00 07:45:00 ity of [facility] 2020-03-19 2020-03-19 Routine Akinsipe, [facility] [id number] Univers 13:07:40 14:13:11 Rebekah C [employer] [id number] ity of Visit REGIONAL 4.2.7.2.686 [place] as MATERNAL [phone] [facility] ical & CHILD [address] [place] [address] 2020-03-19 2020-03-19 Outpatient R AZRA, [facility] [id number] Univers 09:15:00 09:15:00 REBEKAH leonardoy o f [facility] 2020-02-22 2020-02-22 Routine Akinpe, [facility] [id number] Univers 14:22:22 14:37:22 Rebekah C [employer] 350.1.13.10 ity of Visit REGIONAL 4.2.7.2.686 [place] MATERNAL [phone] [facility] [address] [place] [address] 2020-02-22 2020-02-22 Outpatient R [facility] [id number] Univers 14:15:00 14:15:00 REBEKAH leonardoy o f [facility] 2020-02-22 2020-02-22 Orders Doctor ANA [id number] Univers 00:00:00 00:00:00 Only Unassigned, STEPHANIE 350.1.13.10 ity of [facility] 4.2.7.2.686 [place] as [id number] [address] 2020-02-14 2020-02-14 Routine Akinsipe, [facility] [id number] Univers 13:59:03 14:14:03 Rebekah C [employer] 350.1.13.10 ity of Visit REGIONAL 4.2.7.2.686 [place] MATERNAL [id number] [facility] ical & CHILD [address] [place] [address] 2020-02-14 2020-02-14 Outpatient R AKINSIPE, [facility] [id number] Univers 14:00:00 14:00:00 REBEKAH [place] o f [facility] 2020-02-14 2020-02-14 Orders Doctor ANA 1.2.840.114 [id number] 00:00:00 00:00:00 Only Unassigned, STEPHANIE 350.1.13.10 [facility] 4.2.7.2.686 [id number] 2020-02-14 2020-02-14 Orders Doctor ANA 1.2.840.114 [id number] Univers 00:00:00 00:00:00 Only Unassigned, STEPHANIE 350.1.13.10 ity of [place] [facility] 4.2.7.2.686 [place] as [phone] [address] 2020-02-07 2020-02-07 Routine [facility] 1.2.498.536 [id number] Univers 14:04:13 14:44:35 Rebekah C [employer] 350.1.13.10 ity of Visit REGIONAL 4.2.7.2.686 [place] as MATERNAL [phone] Med ical & CHILD [address] [place] [address] 2020-02-07 2020-02-07 Outpatient R AZRA, [facility] [id number] Univers 14:15:00 14:15:00 REBEKAH [place] o f [facility] 2020-02-06 2020-02-06 [facility]phone [facility] 1.2.840.114 [id number] [facility] 00:00:00 00:00:00 Rebekah C [employer]EL[employer] 350.1.13.10 ity of REGIONAL 4.2.7.2.686 [place] as MATERNAL [id number] [facility] ical & CHILD [address] [place] [address] 2020-02-05 2020-02-05 Orders Doctor PEREZ 1.2.840.114 [id number] 00:00:00 00:00:00 Only Unassigned, STEPHANIE 350.1.13.10 [place] [facility] 4.2.7.2.686 [id number] 2020-02-05 2020-02-05 Telephone [facility] 1.2.840.114 [id number] Univers 00:00:00 00:00:00 Rebekah C [employer] DEVELOPER 350.1.13.10 ity of REGIONAL 4.2.7.2.686 [place] MATERNAL [phone] [facility] & CHILD [address] [place] [address] 2020-02-05 2020-02-05 Orders Doctor ANA 1.2.840.114 [id number] Univers 00:00:00 00:00:00 Only Unassigned, STEPHANIE 350.1.13.10 ity of [place] [facility] 4.2.7.2.686 [place] [phone] [place] [address] [place] 2020-02-03 2020-02-03 Patient Doctor [facility] 1.2.840.114 [id number] Univers 00:00:00 00:00:00 Secure Msg Unassigned, HEALTH 350.1.13.10 ity of [place] [address]7.2.686 [place] [facility] [phone] [facility] PRIMARY & [facility] SPECIALTY CARE 2020-02-02 2020-02-02 Routine [facility] 1.2.350.835 [id number] Univers 10:51:51 11:50:42 Rebekah C [employer] DEVELOPER 350.1.13.10 ity of Visit [facility] 4.2.7.2.686 [place] MATERNAL [phone] [facility] & [address] 2020-02-02 2020-02-02 [facility] [id number] Univers 11:00:00 11:00:00 REBEKAH [place] o f [facility] 2020-01-29 2020-01-29 Abstract [facility] 1.2.840.114 [id number] Univers 00:00:00 00:00:00 Rebekah C [employer] DEVELOPER 350.1.13.10 ity of [facility] 4.2.7.2.686 [place] MATERNAL [phone] [facility] & [address] 2020-01-24 2020-01-24 Pattern Drafter 5, [facility] Us Room UNIVERSIT 1 .2.840.114 [id number] Univers 10:46:01 11:16:01 Visit Elli Almendarez HEALTH 350.1.13.10 ity of CL[place] [id number] [facility] [address] [place] 2020-01-24 2020-01-24 Outpatient P [facility] [id number] Univers 11:00:00 11:00:00 ity of [facility] 2020-01-19 2020-01-19 Routine Azra, [facility] 1.2.856.800 [id number] Univers 08:25:29 09:08:35 Rebekah C [employer]EL[employer] 350.1.13.10 ity of Visit REGIONAL 4.2.7.2.686 [place] MATERNAL [id number] Med ical & CHILD [address] [place] [address] 2020-01-19 2020-01-19 Outpatient R AZRA [facility] [id number] Univers 08:30:00 08:30:00 REBEKAH ity o f [facility] 2020-01-19 2020-01-19 Orders Doctor PEREZ 1.2.840.114 [id number] 00:00:00 00:00:00 Only Unassigned, STEPHANIE 350.1.13.10 [facility] 4.2.7.2.686 [id number] 009 2020-01-19 2020-01-19 Orders Doctor ANA 1.2.840.114 [id number] Univers 00:00:00 00:00:00 Only Unassigned, STEPHANIE 350.1.13.10 ity of [facility] 4.2.7.2.686 [place] [phone] [facility] [address] [place] 2020-01-08 2020-01-08 Outpatient R [facility] [id number] Univers 10:00:00 10:00:00 ity of [facility] 2020-01-05 2020-01-05 Nurse Visit, Lalo-Rmchp Nurse [facility] 1.2 .840.114 [id number] Univers 07:55:35 08:46:40 Visit Rebekah Oquendo [employer]EL[employer] 350.1.13. 10 ity of REGIONAL 4.2.7.2.686 [place] as MATERNAL [id number] [facility] ical & CHILD [address] [place] [address] 2020-01-05 2020-01-05 [facility] [id number] Univers 08:00:00 08:00:00 REBEKAH washington o geeta [facility] 2020-01-02 2020-01-02 Telephone [facility] 1.2.840.114 [id number] [facility] 00:00:00 00:00:00 Rebekah C [employer] DEVELOPER 350.1.13.10 ity of REGIONAL 4.2.7.2.686 [place] MATERNAL [id number] [facility] ical & CHILD [address] [place] [address] 2019-12-29 2019-12-29 Outpatient [facility] [id number] Univers 10:30:00 10:30:00 REBEKAH rosario geeta [facility] 2019-12-29 2019-12-29 Pattern Drafter Lab[facility] 1.2.840. 114 [id number] Univers 08:10:34 08:32:02 Visit Azra Rebekah C [employer]ELOPER 350.1.13. 10 ity of REGIONAL 4.2.7.2.686 [place] as MATERNAL [id number] [facility] ical & CHILD [address] [place] [address] 2019-12-28 2019-12-28 Telephone [facility] 1.2.840.114 [id number] Univers 00:00:00 00:00:00 Rebekah C [employer] DEVELOPER 350.1.13.10 ity of REGIONAL 4.2.7.2.686 [place] as MATERNAL [id number] [facility] & CHILD [address] [place] [address] 2019-12-28 2019-12-28 [facility] 1.2.840.114 [id number] Univers 00:00:00 00:00:00 Lloyd [employer] DEVELOPER 350.1.13.10 i ty of REGIONAL 4.2.7.2.686 [place] as MATERNAL [id number] [facility] & CHILD [address] [place] [address] 2019-12-26 2019-12-26 Routine [facility] 1.2.466.980 [id number] Univers 09:50:52 11:02:52 Rebekah C [employer] DEVELOPER 350.1.13.10 ity of Visit REGIONAL 4.2.7.2.686 [place] as MATERNAL [id number] [facility] [address] [place] [address] 2019-12-26 2019-12-26 Outpatient R AZRA [facility] [id number] Univers 10:00:00 10:00:00 REBEKAH connor [facility] 2019-12-26 2019-12-26 Orders Doctor PEREZ 1.2.840.114 [id number] Univers 00:00:00 00:00:00 Only Unassigned, STEPHANIE 350.1.13.[address] [facility] 4.2.7.2.686 [place] as [phone] [address] 2019-12-21 2019-12-21 Outpatient R AZRA [facility] [id number] Univers 13:00:00 13:00:00 REBEKAH connor [facility] 2019-12-12 2019-12-12 Nazario Oquendo [facility] 1.2.085.303 [id number] Univers 00:00:00 00:00:00 (Out) Rebekah Maloney [employer]EL[employer] 350.1.13.10 ity of [facility] 4.2.7.2.686 [place] MATERNAL [id number] [facility] & CHILD [address] [place] [address] 2019-12-05 2019-12-05 Outpatient R AZRA [facility] [id number] Univers 10:45:00 10:45:00 REBEKAH connor [facility] 2019-12-04 2019-12-04 Outpatient R AZRA [facility] [id number] Univers 11:00:00 11:00:00 REBEKAH connor [facility] 2019-11-13 2019-11-13 Outpatient P ELODIA [facility] [id number] Univers 10:00:00 10:00:00 LUZ washington [facility] 2019-11-06 2019-11-06 Telemedici [facility] 1.2.840.114 [id number] Univers 13:22:45 14:22:11 ne Visit Rebekah Maloney [employer]ELOPER 350.1.13.10 ity of [facility] 4.2.7.2.686 [place] MATERNAL [id number] [facility] [address] [place] [address] 2019-11-06 2019-11-06 Outpatient R AZRA [facility] [id number] Univers 14:15:00 14:15:00 REBEKAH washington o f [facility] 2019-10-11 2019-10-11 Pattern Drafter 5, [facility] Us Room UNIVERSIT 1 .2.840.114 [id number] Univers 10:50:56 14:13:19 Visit Luz Clifton [facility] 350.1.13.10 ity of Jennifer Bruner [facility] 4.2.7.2.686 [place] Rell Bruner [phone] [address] 2019-10-11 2019-10-11 Office [facility] 1.2.840.114 [id number] Univers 10:05:23 10:48:41 Visit Binta [facility] 350.1.13.10 ity of CL[place] [id number] [facility] [address] [place] 2019-10-11 2019-10-11 Outpatient P ELODIA [facility] [id number] Univers 10:45:00 10:45:00 LUZ washington [facility] 2019-10-11 2019-10-11 Abstract [facility] 1.2.840.114 [id number] Univers 00:00:00 00:00:00 Rebekah C [employer] DEVELOPER 350.1.13.10 ity of REGIONAL 4.2.7.2.686 [place] as MATERNAL [id number] Med ical & CHILD [address] [place] [address] 2019-10-11 2019-10-11 Orders Doctor PEREZ 1.2.840.114 [id number] Univers 00:00:00 00:00:00 Only Unassigned, STEPHANIE 350.1.13.10 ity of [place] [facility] 4.2.7.2.686 [place] as [phone] [facility] [address] [place] 2019 2019 Routine [facility] 1.2.435.452 [id number] Univers 09:13:55 10:34:00 Rebekah Maloney [employer] DEVELOPER 350.1.13.10 ity of Visit [facility] 4.2.7.2.686 [place] MATERNAL [id number] Med ical & CHILD [address] [place] [address] 2019-08-30 2019-08-30 Routine [facility] 1.2.077.794 [id number] Univers 10:17:25 11:03:45 Rebekah Haider [employer] DEVELOPER 350.1.13.10 ity of Visit [facility] 4.2.7.2.686 [place] MATERNAL [id number] Med ical & CHILD [address] [place] [address] 2019-08-25 2019-08-25 Pattern Drafter [facility] UNIVERSIT 1.2.840.114 [id number] Univers 13:26:34 13:41:34 Visit Rebekah Oquendo [facility] 350.1.13 .10 ity of CL[place] [id number] [address] 2019-08-25 2019-08-25 Pattern Drafter Lab, [facility] UNIVERSIT 1.2.84 0.114 [id number] [facility] 12:17:52 13:25:09 Visit [facility] 350.1.13.10 ity of Lloyd Peter [facility] 4.2.7.2.686 [place] [id number] [address] 2019-08-25 2019-08-25 Outpatient P LLOYD PETER [facility] [id number] Univers 11:15:00 12:13:10 LLOYD PETER ity of [facility] 2019-08-25 2019-08-25 Case Chucky [facility] 1.2.783.647 [id number] Univers 00:00:00 00:00:00 Management [facility] 350.1.13.10 it[place] of [place] [phone] [address] Results Test Description Test Time Test Comments Results Result Comments Source POCT ACT LOW RANGE 2023-06-21 14:24:42 Test Item Value Reference Range Interpretation Comme nts ACTLR (test code = 4100637054) 242 See_Comment H [Automated message] The system which generated this result transmitted ref erence range: 89 - 169 Seconds. The reference range was not u sed to interpret this result as normal/abnormal. Lab Interpretation (test code Abnormal = 54011-7) [facility] ACT LOW [id number] 14:24:42 Test Item Value Reference Range Interpretation Comments ACTLR (test code = 285 See_Comment H [Automat ed message] 7889498041) The system [employer] generated this result transmitted ref erence range: 89 - 169 Seconds. The reference range was not used to int erpret this result as normal/abnormal . Lab Interpretation (test Abnormal code = 06506-0) [facility] ACT LOW [id number] 14:24:42 Test Item Value Reference Range Interpretation Comments ACTLR (test code = 334 See_Comment H [Automat ed message] 7307311865) The system [employer] generated this result transmitted ref erence range: 89 - 169 Seconds. The reference range was not used to int erpret this result as normal/abnormal . Lab Interpretation (test Abnormal code = 35165-4) [facility] ACT LOW [id number] 14:24:42 Test Item Value Reference Range Interpretation Comments ACTLR (test code = 310 See_Comment H [Automat ed message] 8285338640) The system [employer] generated this result transmitted ref erence range: 89 - 169 Seconds. The reference range was not used to int erpret this result as normal/abnormal . Lab Interpretation (test Abnormal code = 09963-9) [facility] ACT LOW [id number] 14:24:42 Test Item Value Reference Range Interpretation Comments ACTLR (test code = 242 See_Comment H [Automat ed message] 1044713323) The system [employer] generated this result transmitted ref erence range: 89 - 169 Seconds. The reference range was not used to int erpret this result as normal/abnormal . Lab Interpretation (test Abnormal code = 24416-4) [facility] ACT LOW [id number] 14:24:42 Test Item Value Reference Range Interpretation Comments ACTLR (test code = 285 See_Comment H [Automat ed message] 1676441024) The system [employer] generated this result transmitted ref erence range: 89 - 169 Seconds. The reference range was not used to int erpret this result as normal/abnormal . Lab Interpretation (test Abnormal code = 29169-2) [facility] ACT LOW [id number] 14:24:42 Test Item Value Reference Range Interpretation Comments ACTLR (test code = 334 See_Comment H [Automat ed message] 3274938266) The system [employer] generated this result transmitted ref erence range: 89 - 169 Seconds. The reference range was not used to int erpret this result as normal/abnormal . Lab Interpretation (test Abnormal code = 32098-4) [facility] ACT LOW [id number] 14:24:42 Test Item Value Reference Range Interpretation Comments ACTLR (test code = 310 See_Comment H [Automat ed message] 8219454007) The system [employer] generated this result transmitted ref erence range: 89 - 169 Seconds. The reference range was not used to int erpret this result as normal/abnormal . Lab Interpretation (test Abnormal code = 53793-9) [facility] 17:55:44 Test Item Value Reference Range Interpretation Comments Height (test code = 64 in 3177215281) Weight (test code = 184 lbs 6475571068) Systolic BP (test 102 mmHg code = 2997613764) Diastolic BP (test 57 mmHg code = 9028898319) Heart Rate (test code 61 bpm = 3660297418) Radiology Study observation (narrative) (test code = 78931-1) PAUL (test code = PAUL) ?Pericardium: No pericardial effusion. Left VentricleLeft ventricle size is normal. Normal wall thickness. Normal systolic function.Right VentricleRight ventricle size is normal.Left AtriumLeft atrium size is normal.Right AtriumNot assessed.IVC/SVCIVC diameter is less than or equal to 21 mm and decreases greater than 50% during inspiration; therefore the estimated right atrial pressure is normal (~0-5 mmHg). IVC normal in size and respiratory variation.Mitral ValveMitral valve structure is normal.Tricuspid ValveTricuspid valve structure is normal.Aortic ValveAortic valve structure is normal.Pulmonic ValveNot well visualized.Ascending AortaNormal sized sinus of Valsalva.PericardiumNo pericardial effusion.Study DetailsStudy quality was good. A limited echocardiogram was performed using 2D. The apical and parasternal views were obtained. [facility]2023-06-19 17:55:44 Test Item Value Reference Range Interpretation Comments Height (test code = 64 in 2660511787) Weight (test code = 184 lbs 4054140615) Systolic BP (test 102 mmHg code = 5075841829) Diastolic BP (test 57 mmHg code = 4090333687) Heart Rate (test code 61 bpm = 4384175499) Radiology Study observation (narrative) (test code = 84846-3) PAUL (test code = PAUL) ?Pericardium: No pericardial effusion. Left VentricleLeft ventricle size is normal. Normal wall thickness. Normal systolic function.Right VentricleRight ventricle size is normal.Left AtriumLeft atrium size is normal.Right AtriumNot assessed.IVC/SVCIVC diameter is less than or equal to 21 mm and decreases greater than 50% during inspiration; therefore the estimated right atrial pressure is normal (~0-5 mmHg). IVC normal in size and respiratory variation.Mitral ValveMitral valve structure is normal.Tricuspid ValveTricuspid valve structure is normal.Aortic ValveAortic valve structure is normal.Pulmonic ValveNot well visualized.Ascending AortaNormal sized sinus of Valsalva.PericardiumNo pericardial effusion.Study DetailsStudy quality was good. A limited echocardiogram was performed using 2D. The apical and parasternal views were obtained. [facility] BranchType and Screen - ONCE [id number] 14:55:00 Test Item Value Reference Range Interpretation Comments ABO & RH (test code = 20) O POSITIVE IAT (test code = 1185) Negative [facility] - ONCE [id number] 14:55:00 Test Item Value Reference Range Interpretation Comments ABO & RH (test code = 20) O POSITIVE IAT (test code = 1185) Negative [facility] HospitalPREGNANCY TEST, [id number] 14:30:53 Test Item Value Reference Range Interpretation Comments PREG SERUM (test code Negative = 3337874353) PAUL (test code = PAUL) Less than 10 IU/L. ?If low titer or ectopic is suspected, resubmit specimen in 48-72 hours. [facility] HospitalPREG[facility]NCY TEST, [id number] 14:30:53 Test Item Value Reference Range Interpretation Comments PREG SERUM (test code Negative = 2275349491) PAUL (test code = PAUL) Less than 10 IU/L. ?If low titer or ectopic is suspected, resubmit specimen in 48-72 hours. [facility] HospitalMAGNESIUM2023-11-08 17:56:40 Test Item Value Reference Range Interpretation Comments MAGNESIUM (test code = 9478071973) 2.3 mg/dL 1.7-2.4 Lab Interpretation (test code = Normal 52796-9) [facility] HospitalBASI METABOLIC PANEL (NA, K, CL, CO2, GLUCOSE, BUN, CREATININE, CA)2023-06-16 17:56:24 Test Item Value Reference Range Interpretation Comments NA (test code = 137 mmol/L 135-145 7725702694) K (test code = 4.4 mmol/L 3.5-5.0 6091456272) CL (test code = 106 mmol/L 98-108 0332091662) CO2 TOTAL (test code = 20 mmol/L 23-31 L 2536889531) AGAP (test code = 11 2-16 2308299383) BUN (test code = 8 mg/dL 7-23 3259300705) GLUCOSE (test code = 93 mg/dL 70-110 7105459674) CREATININE (test code = 0.49 mg/dL 0.50-1.04 L 3816996264) CALCIUM (test code = 9.7 mg/dL 8.6-10.6 6851911538) eGFR (test code = 123.1 mL/min/1.73m2 CKD-EPI e GFR 55178-5) (2020). Assumin g creatinine has been stable day-to-d ay for at least th ree months, the eGF R indicates Categ ory G1 (>= 90 mL/min/1.73 m2) Lab Interpretation (test Abnormal code = 96175-6) [facility] HospitalPHOSPHORUS2023-11-08 17:56:19 Test Item Value Reference Range Interpretation Comments PHOSPHORUS (test code = 4868793894) 3.6 mg/dL 2.5-5.0 Lab Interpretation (test code = Normal 43231-8) [facility] HospitalProthrombin Time / [id number] 16:34:31 Test Item Value Reference Range Interpretation Comments PROTIME PATIENT (test 12.7 See_Comment [Auto mated message] code = 5964-2) The system ich generated this result transmitted ref erence range: 12.0 - 1 4.7 Seconds. The re ference range was not u sed to interpret this result as normal/abnor mal. INR (test code = 6301-6) 1.0 Nor mal INR <1.1; Warfarin Therap eutic range 2.0 to 3. 0 or 2.5 to 3.5, dep ending upon the indica tions. Lab Interpretation (test Normal code = 63134-0) [facility] WITHOUT [id number] 16:26:47 Test Item Value Reference Range Interpretation Comments WBC (test code = 6.37 See_Comment [Automated message] The 6690-2) system which [employer] nerated this result tra nsmitted reference range : 4.30 - 11.10 10*3/?L. The reference range was not used to interpr et this result as normal/abnormal . RBC (test code = 4.56 See_Comment [Automated message] The 789-8) system which [employer] nerated this result tra nsmitted reference range : 3.93 - 5.25 10*6/?L. T he reference range was not used to interpr et this result as normal/abnormal . HGB (test code = 12.9 g/dL 11.6-15.0 718-7) HCT (test code = 39.2 % 35.7-45.2 4544-3) MCH (test code = 28.3 pg 25.9-32.8 785-6) MCV (test code = 86.0 fL 80.6-95.5 787-2) MCHC (test code = 32.9 g/dL 31.6-35.1 786-4) PLT (test code = 275 See_Comment [Automated message] The 777-3) system which [employer] nerated this result tra nsmitted reference range : 166 - 358 10*3/?L. Th e reference range was not used to interpr et this result as normal/abnormal . MPV (test code = 10.7 fL 9.5-12.9 94019-1) RDW-CV (test code = 14.1 % 12.0-15.5 788-0) RDW-SD (test code = 43.7 fL 39.0-49.9 29092-8) NRBC x10^3 (test See_Comment [Automated message] The code = 2305240375) system [facility] generated this result tra nsmitted reference range : 10*3/?L. The reference r diana was not used to int erpret this result as normal/abnormal . NRBC/100 WBC (test 0.0 See_Comment [Automat ed message] The code = 9847383654) system [facility] generated this result tra nsmitted reference range : 0.0 - 10.0 /100 WBCs. The reference range was not used to interpr et this result as normal/abnormal . IPF % (test code = 8576630804) [facility] HospitalTransthoracic echo (TTE)2023-03-30 20:17:38 Test Item Value Reference Range Interpretation Comments Height (test code = 64 in 0902835951) Weight (test code = 180 lbs 7882937326) Systolic BP (test code = 110 mmHg 5532634673) Diastolic BP (test code 66 mmHg = 3607923682) Heart Rate (test code = 80 bpm 1742457315) BSA (test code = 1.89 m2 2277239449) LVIDD (test code = 4.40 cm 9062821909) Left Ventricular End 86.9 mL Diastolic Volume by Teichholz Method (test code = 7204140) IVS (test code = 0.90 cm 0808559772) Interventricular Septum 0.90 cm Diastolic Thickness by 2D (test code = 2556957) LVPWD (test code = 0.96 cm 8495729331) PW (test code = 0.96 cm 0.6-1.5 0611425088) EF(Teich) (test code = 68.60 % 5441315715) LVIDS (test code = 2.70 cm 0463441297) Left Ventricular End 27.3 mL Systolic Volume by Teichholz Method (test code = 1047265) FS (test code = 38 % 8488889364) EF - 2D (test code = 68.60 % 75278321) LVOT diameter (test code 1.80 cm = 5905404816) LVOT area (test code = 2.50 cm2 5116646657) Ao root diam (test code 2.60 cm = 4238124657) Aortic root (test code = 2.6 cm 0783894022) Ao root annulus (test 2.6 cm code = 2503002257) LA size (test code = 3.0 cm 6523727836) Pulmonic Regurgitant End 75.6 cm/s Max Velocity (test code = 6408760184) TR Peak Luis (test code = 225.3 cm/s 6337203562) Triscuspid Valve 20.3 mmHg Regurgitation Peak Gradient (test code = 7082297988) LAV(MOD-sp4) (test code 33.20 mL = 9686605522) MV Peak E Luis (test code 115.9 cm/s = 2576830463) E wave decelartion time 0.26 s (test code = 9230248563) MV Peak A Luis (test code 60.9 cm/s = 1632441032) E/A ratio (test code = 1.90 ratio 2187570571) LVOT stroke volume (test 59.10 cm3 code = 6888059091) LVOT peak luis (test code 113.7 cm/s = 1990397532) LVOT mn grad (test code 2.4 mmHg = 9112885184) AV LVOT peak gradient 5.2 mmHg (test code = 4946512752) LVOT peak VTI (test code 23.3 cm = 8678328627) LV V1 mean (test code = 71.90 cm/s 8454911827) TASV (test code = 16.6 cm/s 4693436001) LA Volume Index (BP) 20.9 mL/m2 (test code = 9599287471) LA volume (BP) (test 39.6 mL code = 9941020593) LAV(MOD-sp2) (test code 46.00 mL = 6363114396) Radiology Study observation (narrative) (test code = 99135-7) PAUL (test code = PAUL) ?Left?Ventricle: Left [...] Valve structure is grossly normal. Mild transvalvular regurgitation.Ascendi ng AortaNormal sized annulus and sinus of Valsalva.PericardiumT he pericardium is normal. No pericardial effusion.Study DetailsStudy quality was good. A complete echocardiogram was performed using 2D, color flow Doppler and spectral Doppler. [facility] METABOLIC [id number] 19:16:42 Test Item Value Reference Range Interpretation [...] eGF R is based on the CKD-EPI 2020 equation that d oes not use a race coefficientEsti mated GFR is not as accur ate as Creatinine Jeni gutierrez in predicting glom erular filtration rate . Estimated GFR is not appl icable for dialysis patien ts Vp Home Health ID - BSCBC W/PLT COUNT & AUTO [id number] 18:48:10 Test Item Value Reference Range Interpretation [...] (test code = 2801) RAD, CHEST, 2 [id number] 18:13:00Reason for exam:->HEADACHEReason for exam:->DIZZINESSX 6 days [facility] CENTERName: LOU MEYER : 1985 Sex: FFINAL REPORT [...] Date/Time: 11/13/2022 18:13:31 POCT URINALYSIS W/O SPECIFIC [id number] 19:28:00 Test Item Value Reference Range Interpretation Comments POCT PH U (test code = 3254) 7 mg/dl 5-8 POCT U LEUK EST (test code = 1+ Negative - Negative 3263) POCT U NIT (test code = 3262) neg Negative - Negative POCT U PROT (test code = 3259) trace Negative - Negative POCT U GLU (test code = 3256) neg Negative - Negative POCT U KETONE (test code = 3258) neg Negative - Negative POCT U BLD (test code = 3257) large Negative - Negative [facility] [id number] 14:11:00 Test Item Value Reference Range Interpretation Comments POCT PREG (test code = 1605) Negative On board controls acceptable with C Yes Line (test code = 3574) POCT PREG LOT # (test code = 3575) POCT PREG TEST DATE (test code = 3576) [facility] ([facility]) 2020-02-27 10:08:00 Test Item Value Reference Range Interpretation Comments SARS-COV2/RT-PCR (test Negative Not Detected, Negative, code = 2031403) See external report for linked test SARS-COV-2 PERFORMING LAB [facility] (test code = 4501182) Negative result for this test determines that [...] of the Act.Fact Sheet for Healthcare Prov iders:https://www.[facility]/sites/default/files/product/documents/Fact_Sheet_HC _Lxmtsneey_Ihpn_LKQX-QyB-9.pdfFact Sheet for Healthcare Patients:https://www.[facility]/sites/default/files/product/docume nts/Frqi_Ijxqa_Dlhxebrm_Asnl_QRFS-NoW-0.pdfPerforming Laboratory:[facility] [place] [address]
--- NOTE | 2023-06-23 22:07 | RAD REPORT ---
EXAM DESCRIPTION: RAD - Chest Single View - 06/23/2023 9:59 pm CLINICAL HISTORY: CHEST PAIN COMPARISON: Chest Single View dated 04/09/2023; Chest Single View dated 11/08/2022; Chest Single View da jerilyn 06/16/2021; Chest Single View dated 04/25/2021; Chest For Pe Angio dated 04/10/2023 FINDINGS: Lines: None. Lungs: Diffuse prominence of the pulmonary interstitium is similar. More focal opacities present the right lung base . Pleural: Small right pleural effusion which is new. Cardiac: The heart size is within normal limits. Mediastinum: Within normal limits. Bones: No acute fractures. Other: None IMPRESSION: New small right pleural effusion with either underlying atelectasis and/or pneumonia.
[2023-06-23 22:19] LABS: Absolute Lymphocytes (CBC) 1.9 K/uL (0.7-4.9); Hematocrit 33.2 % (36.0-45.0); Lymphocytes % 27.7 % (15.3-44.8); MCV 83.3 fL (80-100); Platelets 293 thou/uL (152-406); RBC Red Blood Cell Count 3.98 M/uL (3.86-4.86)
[2023-06-23 22:36] LABS: ALT/SGPT 62 U/L (13-56); AST/SGOT 22 U/L (15-37); Albumin 3.4 g/dL (3.4-5.0); Alkaline Phosphatase 105 U/L (45-117); BUN Blood Urea Nitrogen 8 mg/dL (7-18); Bicarbonate 22 mEq/L (21-32); Bilirubin Total 0.4 mg/dL (0.2-1.0); Glomerular Filtration Rate 113 ml/min (=/>90); Glucose Level 125 mg/dL (74-106); Magnesium 2.4 mg/dL (1.6-2.4); NT PRO-BNP 360 pg/mL (<125); Potassium 3.3 mEq/L (3.5-5.1); Protein, Total 7.7 g/dL (6.4-8.2); Sodium Level 139 mEq/L (136-145)
[2023-06-23 22:38] LABS: Specific Gravity < 1.005 (1.005-1.030)
[2023-06-23 22:40] LABS: Bilirubin Direct < 0.1 mg/dL (0-0.2); Bilirubin Indirect, Calculated ND mg/dL (0.2-0.8)
[2023-06-23 22:41] LABS: Troponin High Sensitivity 1055.1 pg/mL (<58.9)
[2023-06-23 23:08] LABS: Protime INR 1.45
--- NOTE | 2023-06-24 00:35 | ER ---
Nurse's Notes [facility] Name: Allyn Lynn Age: 37 yrs Sex: Female : 1985 Arrival Date: 06/23/2023 Time: 20:55 Bed 16 Private MD: Diagnosis: Chest pain, unspecified;Acute dizziness, palpitations, shortness of breath, atypical chest pain, elevated troponin Presentation: 06/23 21:03 Chief complaint: Patient states: "I was in [facility] on Wednesday for a ablation and had a DVT mb9 in my right leg. They sent me home yesterday. I have SOB and my at home SPO2 said I was 77% on RA and my heart felt like it was racing". Coronavirus screen: Vaccine status: Patient reports being unvaccinated. Ebola Screen: No symptoms or risks identified at this time. Initial Sepsis Screen: Does the patient meet any 2 criteria? No. Patient's initial sepsis screen is negative. Does the patient have a suspected source of infection? No. Patient's initial sepsis screen is negative. Risk Assessment: Do you want to hurt yourself or someone else? Patient reports no desire to harm self or others. Onset of symptoms was June 23, 2023. 21:03 Method Of Arrival: Wheelchair mb9 21:03 Acuity: ERICK 3 mb9 Triage Assessment: 21:07 General: Appears uncomfortable, Behavior is cooperative. Pain: Denies pain. EENT: No mb9 signs and/or symptoms were reported regarding the EENT system. Neuro: Renteria Agitation-Sedation Scale (RASS): 0 - Alert and Calm Level of Consciousness is awake, alert, obeys commands, Oriented to person, place, time, situation, Appropriate for age. Cardiovascular: Denies chest pain. Respiratory: Reports shortness of breath at rest Airway is patent Respiratory effort is even, unlabored, Respiratory pattern is regular, symmetrical. Derm: Skin is pink, warm \\T\\ dry. Musculoskeletal: Range of motion: intact in all extremities. 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 - Social history:: Smoking status: Patient denies any tobacco usage or history of. - Family history:: not pertinent. Screenin:15 [facility] ED Fall Risk Assessment (Adult) History of falling in the last 3 months, jw7 including since admission No falls in past 3 months (0 pts) Score/Fall Risk Level 0 - 2 = Low Risk Oriented to surroundings, Maintained a safe environment. Abuse screen: Denies threats or abuse. Denies injuries from another. Nutritional screening: No deficits noted. Tuberculosis screening: No symptoms or risk factors identified. Assessment: 21:30 General: Appears in no apparent distress. comfortable, Behavior is calm, cooperative. jw7 Pain: Denies pain. Neuro: [place]eria Agitation-Sedation Scale (RASS): 0 - Alert and Calm Level of Consciousness is awake, alert, obeys commands, Oriented to person, place, time, situation. Cardiovascular: Capillary refill < 3 seconds Clubbing of nail beds is absent JVD is absent Patient's skin is warm and dry. Rhythm is sinus rhythm. Respiratory: Airway is patent Trachea midline Respiratory effort is even, unlabored, Respiratory pattern is regular, symmetrical, tachypnea Breath sounds are clear bilaterally. GI: No deficits noted. No signs and/or symptoms were reported involving the gastrointestinal system. : No deficits noted. No signs and/or symptoms were reported regarding the genitourinary system. EENT: No deficits noted. No signs and/or symptoms were reported regarding the EENT system. Derm: No deficits noted. No signs and/or symptoms reported regarding the dermatologic system. Musculoskeletal: No deficits noted. No signs and/or symptoms reported regarding the musculoskeletal system. 22:30 Reassessment: Patient appears in no apparent distress at this time. No changes from jw7 previously documented assessment. Patient and/or family updated on plan of care and expected duration. Pain level reassessed. Patient is alert, oriented x 3, equal unlabored respirations, skin warm/dry/pink. 23:12 Reassessment: Patient appears in no apparent distress at this time. No changes from jw7 previously documented assessment. Patient and/or family updated on plan of care and expected duration. Pain level reassessed. Patient is alert, oriented x 3, equal unlabored respirations, skin warm/dry/pink. 06/24 00:27 Reassessment: Patient appears in no apparent distress at this time. No changes from jw7 previously documented assessment. Patient and/or family updated on plan of care and expected duration. Pain level reassessed. Patient is alert, oriented x 3, equal unlabored respirations, skin warm/dry/pink. 01:30 Reassessment: Patient appears in no apparent distress at this time. No changes from jw7 previously documented assessment. Patient and/or family updated on plan of care and expected duration. Pain level reassessed. Patient is alert, oriented x 3, equal unlabored respirations, skin warm/dry/pink. 02:42 Reassessment: Patient appears in no apparent distress at this time. No changes from jw7 previously documented assessment. Patient and/or family updated on plan of care and expected duration. Pain level reassessed. Patient is alert, oriented x 3, equal unlabored respirations, skin warm/dry/pink. 03:30 Reassessment: Patient appears in no apparent distress at this time. No changes from jw7 previously documented assessment. Patient and/or family updated on plan of care and expected duration. Pain level reassessed. Patient is alert, oriented x 3, equal unlabored respirations, skin warm/dry/pink. 03:33 General: attempted to call report, requested to call back in 10 mins, Nurse is busy. jw7 03:56 General: Report given to receiving nurse, RN. Myla . jw7 Vital Signs: 06/23 21:03 BP 145 / 73; Pulse 74; Resp 22; Temp 98.2; Pulse Ox 99% on R/A; Weight 81.19 kg; Height mb9 5 ft. 5 in. ; 21:30 BP 119 / 73; Pulse 64; Resp 23; Pulse Ox 99% on 2 lpm NC; jw7 22:30 BP 121 / 84; Pulse 66; Resp 28; Pulse Ox 97% on 2 lpm NC; jw7 23:30 BP 125 / 72; Pulse 63; Resp 24 S; Pulse Ox 98% on 2 lpm NC; jw7 06/24 00:27 BP 115 / 70; Pulse 52; Resp 23 S; Pulse Ox 98% on 2 lpm NC; jw7 01:30 BP 132 / 79; Pulse 52; Resp 26 S; Pulse Ox 98% on 2 lpm NC; jw7 02:30 BP 118 / 73; Pulse 52; Resp 24 S; Pulse Ox 100% on 2 lpm NC; jw7 03:26 BP 122 / 71; Pulse 52; Resp 26 S; Pulse Ox 100% on 2 lpm NC; jw7 06/23 21:03 Body Mass Index 29.79 (81.19 kg, 165.1 cm) 9 ED Course: 06/23 20:58 Patient arrived in ED. jj6 21:05 George Hutton MD is Attending Physician. sp4 21:05 Triage completed. mb9 21:07 Arm band placed on. mb9 21:15 Patient has correct armband on for positive identification. Bed in low position. Call jw7 light in reach. Side rails up X2. 21:21 Susan Baumann, RN is Primary Nurse. jw7 22:00 Initial lab(s) drawn, by ED staff, sent to lab. Urine collected: clean catch specimen, jw7 clear. Inserted saline lock: 22 gauge in left antecubital area, using aseptic technique. Blood collected. 22:01 XRAY Chest (1 view) In Process Unspecified. EDMS 22:41 Notified ED physician of a critical lab result(s). Troponin 1055.1. jw7 06/24 00:58 Influenza Screen (a \\T\\ B) Sent. jw7 00:58 COVID-19 SARS RT PCR Sent. jw7 01:34 Initiated transfer with Nicolette at [facility]. rv1 03:40 Provided Education on: need for transfer. jw7 03:40 No provider procedures requiring assistance completed. jw7 04:03 Patient transferred, IV remains in place. jw7 Administered Medications: 06/23 21:49 Not Given (Patient Refused): diazepam5 mg PO once jw7 Medication: 06/24 03:40 VIS not applicable for this client. jw7 Outcome: 00:34 ER care complete, transfer ordered by . sp4 04:02 Transferred by ground EMS to [facility], jw7 04:02 Condition: stable 04:02 Instructed on the need for transfer, Demonstrated understanding of instructions, 04:16 Patient left the ED. jw7 Signatures: Dispatcher [employer] EDMS Terri Byrd jj6 Susan Baumann RN RN jw7 Mare Arreguin RN RN mb9 Kanwal Lord rv1 George Hutton MD MD sp4 Corrections: (The following items were deleted from the chart) 06/23 21:09 21:03 Chief complaint: Patient states: "I was in [facility] on Wednesday for a ablation and had mb9 a DVT in my right leg. They sent me home yesterday. I have SOB and my at home SPO2 said I was 77% on RA." mb9
--- NOTE | 2023-06-24 00:35 | EDPHYS ---
Physician Documentation [facility] Name: Allyn Lynn Age: 37 yrs Sex: Female : 1985 Arrival Date: 06/23/2023 Time: 20:55 Bed 16 Private MD: ED Physician George Hutton HPI: 06/23 21:06 This 37 yrs old Female presents to ER via Wheelchair with complaints of sp4 Shortness Of Breath. 21:07 PMH - Historical: Allergies: No Known Allergies; PMHx: Hyperlipidemia; palpitations sp4 PSHx: Cholecystectomy;. 21:13 37-year-old female presents with acute dizziness palpitations shortness of breath chest sp4 pressure starting today just prior to arrival. Patient states she just had an ablation for SVT at [facility]. Patient's medical record review reveals that she has had catheter ablation, procedural sedation, she was started on Eliquis 5 mg p.o. 2 tabs twice a day. Patient is managed by [facility] room service food service attendant, her PCP is Dr. Oquendo, patient's other medications include Compazine and Zofran as needed, patient has history of hypertriglyceridemia, metrorrhagia, obesity, PSVT, with history of recent ablation. Patient was apparently managed at [facility] from 06/18/2023 through 06/22/2023 . Last troponin measurement from 05/20/2023 is 1.930.. TOWN MANAGER: 06/24 03:40 LMP 05/23/2023, unknown jw7 Historical: - Allergies: 06/23 21:05 No Known Allergies; mb9 - Home Meds: 21:05 Eliquis 5 mg oral tablet 2 times per day [Active]; mb9 - PMHx: 21:05 Hyperlipidemia; palpitations; SVT; mb9 - PSHx: 21:05 Cholecystectomy; Ablation (Cholecystectomy); mb9 - Immunization history:: Adult Immunizations up to date. - Social history:: Smoking status: Patient denies any tobacco usage or history of. - Family history:: not pertinent. ROS: 06/24 00:32 Constitutional: Negative for fever, chills, and weight loss, positive dizziness , sp4 positive blurry vision positive chest pressure positive shortness of breath, positive palpitations All other systems are negative, Exam: 00:30 Constitutional: This is a well developed, well nourished patient who is awake, alert, sp4 and in no acute distress. Patient is anxious appearing Head/Face: Normocephalic, atraumatic. Eyes: Pupils equal round and reactive to light, extra-ocular motions intact. Lids and lashes normal. Conjunctiva and sclera are not injected. Cornea within normal limits. Periorbital areas with no swelling, redness, or edema. ENT: Nares patent. No nasal discharge, no septal abnormalities noted. Tympanic membranes are normal and external auditory canals are clear. Oropharynx with no redness, swelling, or masses, exudates, or evidence of obstruction, uvula midline. Mucous membranes moist. Neck: Trachea midline, no thyromegaly or masses palpated, and no cervical lymphadenopathy. Supple, full range of motion without nuchal rigidity, or vertebral point tenderness. Chest/axilla: Normal chest wall appearance and motion. Nontender with no deformity. No lesions are appreciated. Cardiovascular: Regular rate and rhythm with a normal S1 and S2. No gallops, murmurs, or rubs. Normal PMI, no JVD. No pulse deficits. Respiratory: Lungs have equal breath sounds bilaterally, clear to auscultation and percussion. No rales, rhonchi or wheezes noted. No increased work of breathing, no retractions or nasal flaring. Abdomen/GI: Soft, non-tender, with normal bowel sounds. No distension or tympany. No guarding or rebound. No evidence of tenderness throughout. Back: No spinal tenderness. No costovertebral tenderness. Skin: Warm, dry with normal turgor. Normal color with no rashes, no lesions, and no evidence of cellulitis. MS/ Extremity: Pulses equal, no cyanosis. Neurovascular intact. Full, normal range of motion. Neuro: Awake and alert, GCS 15, oriented to person, place, time, and situation. Cranial nerves II-XII grossly intact. Motor strength 5/5 in all extremities. Sensory grossly intact. Psych: Awake, alert, with orientation to person, place and time. Behavior, mood, and affect are within normal limits 00:30 ECG was reviewed by the Attending Physician. There he is EKG at 2208, there is normal sinus rhythm with short VA otherwise normal EKG, no ectopy Vital Signs: 06/23 21:03 BP 145 / 73; Pulse 74; Resp 22; Temp 98.2; Pulse Ox 99% on R/A; Weight 81.19 kg; Height mb9 5 ft. 5 in. ; 21:30 BP 119 / 73; Pulse 64; Resp 23; Pulse Ox 99% on 2 lpm NC; jw7 22:30 BP 121 / 84; Pulse 66; Resp 28; Pulse Ox 97% on 2 lpm NC; jw7 23:30 BP 125 / 72; Pulse 63; Resp 24 S; Pulse Ox 98% on 2 lpm NC; 7 06/24 00:27 BP 115 / 70; Pulse 52; Resp 23 S; Pulse Ox 98% on 2 lpm NC; 7 01:30 BP 132 / 79; Pulse 52; Resp 26 S; Pulse Ox 98% on 2 lpm NC; 7 02:30 BP 118 / 73; Pulse 52; Resp 24 S; Pulse Ox 100% on 2 lpm NC; 7 03:26 BP 122 / 71; Pulse 52; Resp 26 S; Pulse Ox 100% on 2 lpm NC; 7 06/23 21:03 Body Mass Index 29.79 (81.19 kg, 165.1 cm) 9 MDM: 06/23 21:11 Patient medically screened. 4 06/24 00:32 Differential diagnosis: Anxiety Reaction asthma, Bronchitis Myocardial Infarction sp4 pneumonia, Pneumothorax Psychogenic pulmonary edema. Data reviewed: vital signs, nurses notes, old medical records, lab test result(s), EKG, radiologic studies, plain films. 02:05 ED course: Patient accepted to [facility] by Dr. Jalyn Venegas . sp4 06/23 21:12 Order name: Basic Metabolic Panel; Complete Time: 00:03 4 06/23 21:12 Order name: CBC with Diff; Complete Time: 00:03 4 06/23 21:12 Order name: LFT's; Complete Time: 00:03 [facility] 06/23 21:12 Order name: Magnesium; Complete Time: 00:03 4 06/23 21:12 Order name: NT PRO-BNP; Complete Time: 00:03 4 06/23 21:12 Order name: PT-INR; Complete Time: 00:03 4 06/23 21:12 Order name: Troponin HS; Complete Time: 00:03 sp4 06/23 21:13 Order name: Test, Urine; Complete Time: 00:03 sp4 06/24 00:33 Order name: COVID-19 SARS RT PCR; Complete Time: 01:47 sp4 06/24 00:33 Order name: Influenza Screen (a \T\ B); Complete Time: 01:47 sp4 06/23 21:12 Order name: XRAY Chest (1 view); Complete Time: 00:03 sp4 06/23 21:12 Order name: EKG; Complete Time: 21:40 sp4 06/23 21:12 Order name: Cardiac monitoring; Complete Time: 23:06 sp4 06/23 21:12 Order name: EKG - Nurse/Tech; Complete Time: 23:06 4 06/23 21:12 Order name: IV Saline Lock; Complete Time: 23:06 sp4 06/23 21:12 Order name: Labs collected and sent; Complete Time: 23:06 4 06/23 21:12 Order name: O2 Per Protocol; Complete Time: 23: 4 06/23 21:12 Order name: O2 Sat Monitoring; Complete Time: 23:06 sp4 EC:30 Rate is 60 beats/min. Rhythm is regular, Normal Sinus Rhythm. QRS [place] is Normal. VA sp4 interval is shortened. QRS interval is normal. QT interval is normal. No Q waves. T waves are Normal. No ST changes noted. Clinical impression: No evidence of ischemia. Interpreted by me. Reviewed by me. Administered Medications: 06/23 21:49 Not Given (Patient Refused): diazepam5 mg PO once jw7 Disposition Summary: 06/24/23 00:34 Transfer Ordered Notes: Transfer Location: [facility]-System sp4 Reason: Higher level of care sp4 Condition: Stable sp4 Problem: new sp4 Symptoms: have improved sp4 Accepting Physician: [facility] Attending MD (06/24/23 04:16) jw7 Diagnosis - Chest pain, unspecified sp4 - Acute dizziness, palpitations, shortness of breath, atypical chest pain, elevated sp4 troponin Forms: - Medication Reconciliation Form sp4 - SBAR form sp4 Signatures: Dispatcher [employer] EDMS Susan Baumann RN RN jw7 Mare Arreguin RN RN mb9 George Hutton MD MD sp4 Corrections: (The following items were deleted from the chart) 06/24 04:16 00:34 [facility] Attending sp4 jw7
[2023-06-24 04:30] VITALS: TEMP 98.2
[2023-06-24 04:45] VITALS: O2SAT 100
[2023-06-24 04:46] VITALS: BP 122/71
--- NOTE | 2023-06-24 10:41 | EKG ---
Test Date: 2023-06-23 Test Time: 22:08:59 Literary Agent: ROSS MEASUREMENT RESULTS: Intervals: Rate: 60 NC: 110 QRSD: 78 QT: 428 QTc: 428 [place]: P: 73 NC: 110 QRS: 17 T: -3 INTERPRETIVE STATEMENTS: Sinus rhythm with short NC Nonspecific ST abnormality Abnormal ECG Compared to ECG 04/10/2023 02:35:27 Short NC interval now present ST (T wave) deviation now present Sinus arrhythmia no longer present Ventricular premature complex(es) no longer present Electronically Signed On 06-24-23 10:40:50 [employer]OTH STOCK SORTER by Dean Santana
== END 2023-06-24 04:16 | disposition short-term general hospital (02) ==
LOC: ER 20:55
DX: R07.89 Other chest pain (principal); R77.8 Other specified abnormalities of plasma proteins; R42 Dizziness and giddiness; R00.2 Palpitations; R06.02 Shortness of breath; Z79.01 Long term (current) use of anticoagulants
CPT/HCPCS: 36415; 71045; 80048; 80076; 81025; 83735; 83880; 84484; 85025; 85610; 87635; 87804; 93005; 99285

== ENCOUNTER 2023-07-08 08:18 | Observation (INO) | payer SELFPAY ==
--- OUTSIDE RECORDS SUMMARY | 2023-07-08 08:26 | XMS REPORT | Continuity of Care Document ---
:1985 Author Organization [facility] t Address [address] [facility] [address] [place] [address] Care Team Providers Name Role Phone REBEKAH OQUENDO Primary Care Physician Unavailable REBEKAH OQUENDO Attending Clinician Unavailable MILAGRO MARTINEZ Attending Clinician Unavailable MILAGRO MARTINEZ Attending Clinician Unavailable GILBERT VIVEROS Attending Clinician Unavailable GILBERT VIVEROS Attending Clinician Unavailable KATHY MCCLURE Attending Clinician Unavailable Kathy Browne Attending Clinician Gilbert Viveros DO Attending Clinician Julita HERNANDEZ, Rosanne Attending Clinician TY LUNDBERG Attending Clinician Unavailable Jalyn Chamorro DO Attending Clinician Ty Lundberg MD Attending Clinician Misti Nath PA-C Attending Clinician PASTOR MEEK Attending Clinician Unavailable Chandan Medel MD Attending Clinician Pastor Meek MD Attending Clinician Doctor Unassigned, Derwood Attending Clinician Unavailable Pob, [facility] Attending Clinician Unavailable Mirna Zacarias CNM Attending Clinician URVASHI SIMON Attending Clinician Unavailable Urvashi Simon DNP Attending Clinician PICKHARDT, MIRNA A Attending Clinician Unavailable Akins[facility], Rebekah Maloney Attending Clinician [phone] Room, [facility] Attending Clinician Unavailable Clyde Guzman MD Attending Clinician CLYDE GUZMAN Attending Clinician Unavailable CHRISTINA COSTA Attending Clinician Unavailable Yaneth HERNANDEZ, Eileen Attending Clinician Unavailable Christina Costa MD Attending Clinician KYM WADE Attending Clinician Unavailable Kym Wade DO Attending Clinician Huseyin Wells Attending Clinician Unavailable Tee Granados MD Attending Clinician TEE GRANADOS Attending Clinician Unavailable HUSEYIN RODRIGUEZ Attending Clinician [facility]available [facility] Attending Clinician Unavailable Richar HUTCHINS, Cruz K.H. Attending Clinician CRUZ MCQUEEN K.H. Attending Clinician Unavailable Herminio Almendarez DO Attending Clinician 5, [facility] Room Attending Clinician Unavailable Elli Almendarez MD Attending Clinician Visit, [facility] Nurse Attending Clinician Unavailable Lloyd Parsons MD Attending Clinician LUZ CLIFTON Attending Clinician Unavailable Luz Clifotn MD Attending Clinician Jennifer Li Attending Clinician Rell Bruner MD Attending Clinician Binta Azevedo MD Attending Clinician [facility] Attending Clinician Unavailable Lab, [facility] Attending Clinician Unavailable LLOYD PARSONS Attending Clinician Unavailable LLOYD PARSONS Attending Clinician Unavailable Neeta Paige Attending Clinician TY LUNDBERG Admitting Clinician Unavailable Ty Lundberg MD Admitting Clinician MILAGRO MARTINEZ Admitting Clinician Unavailable KYM WADE Admitting Clinician Unavailable Payers Payer Name Policy Type Policy Number Effective Date Expiration Date S ource MEDICAID [place] PENDING 2023 PENDING 00:[place]:00 [place] IN[place] [id number] 2019 HEALTH PLAN MOM 00:00:00 CHIP LOW FPL Problems Condition Condition Condition Status Onset Resolution Last Treating Co mments Source Name Details Category Date Date Treatment Clinician Date Chest pain Chest pain Disease Active 2022-08 U nivers 1-16 ity of 00:00: [place] [facility] Palpitatio Palpitatio Disease Active 2022-08 U nivers ns ns 1-16 ity of 00:00: [place] [facility] SOB SOB Disease Active 2022-08 Univers (shortness (shortness 1-16 it y of of breath[place] breath[place] Paroxysmal Paroxysmal Disease Active 2022-08 U nivers supraventr supraventr 0-05 it y of icular icular 00:00: [place] tachycardi tachycardi 00 Me dical a a Branch Metrorrhag Metrorrhag Disease Active U nivers ia ia 5-12 ity of 00:00: [place] [facility] Hematuria, Hematuria, Disease Active U nivers unspecifie unspecifie 5-12 it y of d type d type 00:00: [place] [facility] Other Other Disease Active Univers general general 3-08 ity of counseling counseling 00:00: [place] and advice and advice 00 Me dical for for Branch contracept contracept tyrone tyrone management management Family Family Disease Active Univers history of history of 3-08 it y of diabetes diabetes 00:00: [place] mellitus mellitus 00 Medica l Branch Screen [...] ity of 30-39.9) 30-39.9) 00:00: [place] 00 Medical Branch Allergies, Adverse Reactions, Alerts Allergy Allergy Status Severity Reaction(s) Onset Inactive Treating Comm ents Source Name Type Date Date Clinician NO KNOWN Allergy Active [facility] NO KNOWN Drug Active [facility] ALLERG Class ity of [facility] Social History Social Habit Start Date Stop Date Quantity Comments Source Sexual orientation [facility] Gender identity [facility] y [facility] ASSERTION [facility] Exposure to 2023-01-29 2023-02-08 Not sure [facility] SARS-CoV-2 (event) 00:00:00 10:59:00 [facility] Tobacco use and 2022-11-13 2022-11-[address] [facility] exposure 00:00:00 00:00:00 tobacco non-user [facility] Alcohol intake 2022-11-13 2022-11-[address] [facility] 00:[facility]00 00[facility]00[facility]00 [facility] History of Social 2022-11-13 2022-11-[address] [facility] function 00:00:00 00:00:00 [facility] Sex Assigned At [address] [facility] 00:00:00 00:00:00 [facility] Smoking Status Start Date Stop Date Source Never smoked tobacco [facility] Medications Ordered Filled Start Stop Current Ordering Indication Dosage Frequency Signature Comments Components Source Medication Medication Date Date Medication? Clinician (SIG) Name Name acetaminoph 2022-08- No 1000mg 1,000 mg, Univers en 09-04 Oral, ity of (TYLENOL) 22:30: 23:09 ONCE, [place] tablet 00 :00 dose, On Medical 1,000 mg Mon Branch 07/05/23 at 1630, [place] oseltamivir 2022-08- Yes [id number] 75mg Take 1 Univers (TAMIFLU) 09-04 capsule by ity of 75 mg 00:00: 05:59 mouth in [place] capsule 00 :00 the Medical morning Branch and 1 capsule in the evening. Do all this for 5 days. oseltamivir 2022-08- Yes [id number] 75mg Take 1 Univers (TAMIFLU) 09-04 capsule by ity of 75 mg 00:00: 05:59 mouth in [place] capsule 00 :00 the Medical morning Branch and 1 capsule in the evening. Do all this for 5 days. oseltamivir 2022-08- Yes [id number] 75mg Take 1 Univers (TAMIFLU) 09-04 capsule by ity of 75 mg 00:00: 05:59 mouth in [place] capsule 00 :00 the [facility] Branch and 1 capsule in the evening. Do all this for 5 days. oseltamivir 2022-08- Yes [id number] 75mg Take 1 Univers (TAMIFLU) 09-04 capsule by ity of 75 mg 00:00: 05:59 mouth in [place] capsule 00 :00 the [facility] and 1 capsule in the evening. Do all this for 5 days. apixaban 2022-08 Yes 5mg 5 mg, Univers (ELIQUIS) 08-25 Oral, BID, ity of tablet 5 mg 14:00: First dose 00 on Wed [facility] 06/25/23 Branch at 0800, Until Discontinu ed, Routine
Indicatio ns: DVT/PE methylpredn 2022-08 No 60mg 60 mg, Uni vers isolone sod 08-25 Slow IV ity of succ 02:00: 14:00 [place], [place] (SOLU-MEDRO 00 :00 Q12H, 2 Medic al L) doses, Branch injection First dose 60 mg on Wed06/24/23 at 2000, Last dose on Wed06/25/23 at 0800, Routine apixaban 2022-08 Yes [id number] 5mg Take 1 Univers (ELIQUIS) 5 -17 tablet by ity of mg tablet 00:00: mouth in the [facility] morning Branch and 1 tablet in the evening. Indication s: atrial arrhythmia , a type or abnormal heart beat apixaban 2022-08 Yes [id number] 5mg Take 1 Univers (ELIQUIS) 5 1-17 tablet by ity of mg tablet 00:00: mouth in the Medical morning Branch and 1 tablet in the evening. Indication s: atrial arrhythmia , a type or abnormal heart beat apixaban 2022-08 Yes [id number] 5mg Take 1 Univers (ELIQUIS) 5 -17 tablet by ity of mg tablet 00:00: mouth in the [facility] morning Branch and 1 tablet in the evening. Indication s: atrial arrhythmia , a type or abnormal heart beat apixaban 2022-08 Yes [id number] 5mg Take 1 Univers (ELIQUIS) 5 1-17 tablet by ity of mg tablet 00:00: [place] 00 the Medical morning Branch and 1 tablet in the evening. Indication s: atrial arrhythmia , a type or abnormal heart beat apixaban 2022-08 Yes [id number] 5mg Take 1 Univers (ELIQUIS) 5 1-17 tablet by ity of mg tablet 00:00: [place] 00 the Medical morning Branch and 1 tablet in the evening. Indication s: atrial arrhythmia , a type or abnormal heart beat apixaban 2022-08 Yes [id number] 5mg Take 1 Univers (ELIQUIS) 5 1-17 tablet by ity of mg tablet 00:00: [place] 00 the Medical morning Branch and 1 tablet in the evening. Indication s: atrial arrhythmia , a type or abnormal heart beat apixaban 2022-08 Yes [id number] 5mg Take 1 Univers (ELIQUIS) 5 1-17 tablet by ity of mg tablet 00:00: [place] 00 the Medical morning Branch and 1 tablet in the evening. Indication s: atrial arrhythmia , a type or abnormal heart beat apixaban 2022-08 Yes [id number] 5mg Take 1 Univers (ELIQUIS) 5 1-17 tablet by ity of mg tablet 00:00: [place] 00 the Medical morning Branch and 1 tablet in the evening. Indication s: atrial arrhythmia , a type or abnormal heart beat apixaban 2022-08- Yes 1292 Take 2 Univ ers mg (74 1-17 02-23 tablets by ity of tabs) 5 mg 00:00: 05:59 mouth 2 [place] as VTE starter 00 :00 (two) Medical pack times Branch daily for 7 days, THEN 1 tablet 2 (two) times daily for 90 days. Follow dosing instructio ns included in package. Indication s: acute blood clot in a blood vessel supplying the lungs apixaban 2022-08- Yes 1292 Take 2 Univ ers mg (74 1-17 02-23 tablets by ity of tabs) 5 mg 00:00: 05:59 mouth 2 [place] as VTE starter 00 :00 (two) Medical pack times Branch daily for 7 days, THEN 1 tablet 2 (two) times daily for 90 days. Follow dosing instructio ns included in package. Indication s: acute blood clot in a blood vessel supplying the lungs apixaban 2022-08- Yes 1292 Take 2 Univ ers mg (74 1-17 02-23 tablets by ity of tabs) 5 mg 00:00: 05:59 mouth 2 [place] as VTE starter 00 :00 (two) Medical pack times Branch daily for 7 days, THEN 1 tablet 2 (two) times daily for 90 days. Follow dosing instructio ns included in package. Indication s: acute blood clot in a blood vessel supplying the lungs apixaban 2022-08- Yes 1292 Take 2 Univ ers mg (74 1-17 02-23 tablets by ity of tabs) 5 mg 00:00: 05:59 mouth 2 [place] as VTE starter 00 :00 (two) Medical pack times Branch daily for 7 days, THEN 1 tablet 2 (two) times daily for 90 days. Follow dosing instructio ns included in package. Indication s: acute blood clot in a blood vessel supplying the lungs apixaban 2022-08- Yes 1292 Take 2 Univ ers mg (74 1-17 02-23 tablets by ity of tabs) 5 mg 00:00: 05:59 mouth 2 [place] as VTE starter 00 :00 (two) Medical pack times Branch daily for 7 days, THEN 1 tablet 2 (two) times daily for 90 days. Follow dosing instructio ns included in package. Indication s: acute blood clot in a blood vessel supplying the lungs apixaban 2022-08- Yes 1292 Take 2 Univ ers mg (74 1-17 02-23 tablets by ity of tabs) 5 mg 00:00: 05:59 mouth 2 [place] as VTE starter 00 :00 (two) Medical pack times Branch daily for 7 days, THEN 1 tablet 2 (two) times daily for 90 days. Follow dosing instructio ns included in package. Indication s: acute blood clot in a blood vessel supplying the lungs apixaban 2022-08- Yes 1292 Take 2 Univ ers mg (74 1-17 02-23 tablets by ity of tabs) 5 mg 00:00: 05:59 mouth 2 [place] as VTE starter 00 :00 (two) Medical pack times Branch daily for 7 days, THEN 1 tablet 2 (two) times daily for 90 days. Follow dosing instructio ns included in package. Indication s: acute blood clot in a blood vessel supplying the lungs apixaban 5 2022-08- Yes 1292 Take 2 Univ ers mg (74 17 10-01 tablets by ity of tabs) 5 mg 00:00: 05:59 mouth 2 [place] as VTE starter 00 :00 (two) Medical pack times Branch daily for 7 days, THEN 1 tablet 2 (two) times daily for 90 days. Follow dosing instructio ns included in package. Indication s: acute blood clot in a blood vessel supplying the lungs iopamidol 2022-08- No [id number] 100mL 100 mL, Univers (ISOVUE 08-24 Intravenou ity o f 370-500 mL) 18:15: 17:10 s, ONCE, 1 [place] injection 00 :00 dose, On Medica l 100 mL [facility] Branch 06/24/23 at 1215, Routine aspirin 2022-08 Yes 81mg 81 mg, Univers chewable 08-24 Oral, ity of tablet 81 15:00: DAILY, [place] mg 00 First dose Medical on [facility] Branch 06/24/23 at 0900, Until Discontinu ed, Routine enoxaparin 2022-08- No 1mg/kg 80 mg Uni vers (LOVENOX) 08-24 (rounded ity o f injection 11:45: 01:52 [place] 82.8 [place] 80 mg 00 :28 mg = 1 Medical mg/kg Branch ?82.8 kg), Subcutaneo , Q12H ABX, First dose on [place] 06/24/23 at 0545, Until Discontinu ed, Routine ondansetron 2022-08 Yes 4mg 4 mg, Slow Univers (ZOFRAN 16 IV [place], ity of (PF)) 11:30: Q6HPRN, [place] injection 4 24 Starting Medi tiny mg on [place] Branch 06/24/23 at 0530, Until Discontinu ed, Routine, Nausea and Vomiting (N/V) acetaminoph 2022-08 Yes 650mg 650 mg, Un [place] en 16 Oral, ity of (TYLENOL) 11:30: Q6HPRN, [place] tablet 650 24 Starting Medic al mg on [place] Branch 06/24/23 at 0530, Until Discontinu ed, Routine, Pain (scale 1-3) HYDROcodone 2022-08- Yes 1{tbl} 1 tablet, Univers -acetaminop 08-24 Oral, ity of hen (NORCO 11:30: 11:29 Q6HPRN, [place] as 5) 5-325 mg 24 :24 Starting Medi tiny tablet 1 on [place] Branch tablet 06/24/23 at 0530, Until 06/26/23 at 0529, Routine, Pain (scale 4-6) hydralAZINE 2022-08 Yes 10mg 10 mg, Univ ers (APRESOLINE 08-24 Slow IV ity o f ) injection 11:29: Push, [place] 10 mg 50 Q4HPRN, Medical Starting Branch on [place] 06/24/23 at 0529, Until Discontinu ed, Routine, DBP=>10 0; SBP=>160 apixaban 2022-08 Yes 1291 5mg Take 2 [...] 1 tablet by mouth twice daily. apixaban 5 2022-08 Yes 1291 5mg Take 2 Unive rs mg (74 1-14 tablets by ity of tabs) 5 mg 00:00: mouth [place] VTE starter 00 twice Medical pack daily for Branch 7 days. Then, take 1 tablet by mouth twice daily. KCL 2022-08 No 40meq 40 mEq, Univers (KLOR-CON 08-21 Oral, ity of M20) tablet 15:15: 14:16 ONCE, 1 [place] 40 mEq 00 :00 dose, On [facility] 06/21/23 at 0915, Routine KCL 2022-08 No 40meq 40 mEq, Univers (KLOR-CON 08-21 Oral, ity of M20) tablet 15:15: 14:16 ONCE, 1 [place] 40 mEq 00 :00 dose, On [facility] 06/21/23 at 0915, Routine enoxaparin 2022-08 Yes 1mg/kg 80 mg Univ ers (LOVENOX) 08-21 (rounded ity of injection 02:30: from 83.5 [place] as 80 mg 00 mg = 1 Medical mg/kg Branch ?83.5 kg), Subcutaneo us, Q12H, First dose on [place] 06/20/23 at 2030, Until Discontinu ed, Routine enoxaparin 2022-08- No 1mg/kg 80 mg Uni vers (LOVENOX) 08-21 (rounded ity o f injection 02:30: 19:16 [place] 83.5 [place] 80 mg 00 :41 mg = 1 Medical mg/kg Branch ?83.5 kg), Subcutaneo us, Q12H, First dose on [place] 06/20/23 at 2030, Until Discontinu ed, Routine iopamidol 2022-08- No [id number] 80mL 80 mL, Un [place]cel[place] (ISOVUE 08-21 Intravenou ity o f 370-500 mL) 01:15: 01:15 s, ONCE, 1 [place] injection 00 :00 dose, On Medica l 80 mL [facility] 06/20/23 at 1915, Routine iopamidol 2022-08- No [id number] 80mL 80 mL, Un [place] (ISOVUE 08-21-13 Intravenou ity o f 370-500 mL) 01:15: 01:15 s, ONCE, 1 [place] injection 00 :00 dose, On Medica l 80 mL [facility] 06/20/23 at 1915, Routine apixaban 5 2022-08- [...] clot in the lung apixaban 2022-08- No [id number] 5mg 5 mg, Un [place] (ELIQUIS) 08-20 Oral, BID, ity of tablet 5 mg 14:00: 02:21 First dose [place] 00 :33 (after Medical last Branch modificati on) on [place] 06/20/23 at 0800, Until Discontinu ed, Routine
Indicatio ns: Non-Valvul ar Atrial Fibrillati on apixaban 2022-08- No [id number] 5mg 5 mg, Un [place] (ELIQUIS) 08-20 Oral, BID, ity of tablet 5 mg 14:00: 02:21 First dose [place] 00 :33 (after Medical last Branch modificati on) on [place] 06/20/23 at 0800, Until Discontinu ed, Routine
Indicatio ns: Non-Valvul ar Atrial Fibrillati on atropine 2022-08- No .2mg 0.2 mg, IV Un [place] injection 08-19 Push, ity of 0.2 mg 08:00: 07:23 ONCE, 1 [place] 00 :00 dose, On Medical Sat Branch 06/19/23 at 0200, Routine atropine 2022-08 No .2mg 0.2 mg, IV Un [place] injection 08-19 Push, ity of 0.2 mg 08:00: 07:23 ONCE, 1 [place] 00 :00 dose, On Medical Sat Branch 06/19/23 at 0200, Routine NaCl 0.9% 2022-08- No 500mL at 999 Univ ers (NS) bolus 08-19 mL/hr, 500 it y of infusion 07:45: 06:58 mL, IV [place] 500 mL 00 :00 Piggyback, Medical ONCE, 1 Branch dose, On [facility] 06/19/23 at 0145, STAT NaCl 0.9% 2022-08- No 500mL at 999 Univ ers (NS) bolus 08-19 mL/hr, 500 it y of infusion 07:45: 06:58 mL, IV [place] 500 mL 00 :00 Piggyback, Medical ONCE, 1 Branch dose, On [facility] 06/19/23 at 0145, STAT proCHLORper 2022-08 Yes 5mg 5 mg, IV Un [place] azine 08-19 Piggyback, ity of (COMPAZINE) 06:41: at 100 [place] 5 mg in 41 mL/hr Medical NaCl 0.9% Administer Bran ch (NS) over 30 piggyback Minutes, Q4HPRN, Starting on 06/19/23 at 0041, Until Discontinu ed, Routine, Nausea and Vomiting (N/V) proCHLORper 2022-08 No 5mg 5 mg, IV U nivers azine 08-19 Piggyback, ity of (COMPAZINE) 06:41: 19:16 at 100 [place] as 5 mg in 41 :41 mL/hr Medical NaCl 0.9% Administer Bran ch (NS) over 30 piggyback Minutes, Q4HPRN, Starting on 06/19/23 at 0041, Until 06/22/23 at 1316, Routine, Nausea and Vomiting (N/V) NaCl 0.9% 2022-08 No 1000mL at 100 Uni vers (NS) IV 08-19-13 mL/hr, IV ity of infusion 03:15: 17:01 [...] 1000mL at 999 Uni vers (NS) bolus 08-19-11 mL/hr, ity of infusion 02:00: 01:19 1,000 mL, [place] as 1,000 mL 00 :34 IV Medical Infusion, Branch ONCE, 1 dose, On Wed06/18/23 at 2000, STAT ondansetron 2022-08 Yes 4mg 4 mg, [...] ECG monitoring is advisable.
ondansetron 2022-08- No [id number] 4mg 4 mg, Slow Univers (ZOFRAN 1-10 11-10 IV Push, ity of (PF)) 21:45: 21:01 ONCE, 1 [place] injection 4 00 :00 dose, On Medi tiny mg Wed Branch 06/18/23 at 1545, Routine NaCl 0.9% 2022-08- No [id number] 500mL at 999 Univers (NS) bolus 1-10 11-10 mL/hr, 500 it y of infusion 21:45: 21:03 mL, IV [place] 500 mL 00 :00 Infusion, Medical ONCE, 1 Branch dose, On Wed06/18/23 at 1545, STAT ondansetron 2022-08- No [id number] 4mg 4 mg, Slow Univers (ZOFRAN 1-10 11-10 IV Push, ity of (PF)) 21:45: 21:01 ONCE, 1 [place] injection 4 00 :00 dose, On Medi tiny mg Wed Branch 06/18/23 at 1545, Routine NaCl 0.9% 2022-08- No [id number] 500mL at 999 Univers (NS) bolus 1-10 11-10 mL/hr, 500 it y of infusion 21:45: 21:03 mL, IV [place] 500 mL 00 :00 Infusion, Medical ONCE, 1 Branch dose, On Wed06/18/23 at 1545, STAT ondansetron 2022-08- No [id number] 4mg 4 mg, Slow Univers (ZOFRAN 1-10 11-10 IV Push, ity of (PF)) 20:00: 19:20 ONCE, 1 [place] injection 4 00 :00 dose, On Medi tiny mg Wed Branch 06/18/23 at 1400, Routine ondansetron 2022-08- No [id number] 4mg 4 mg, Slow Univers (ZOFRAN 1-10 11-10 IV Push, ity of (PF)) 20:00: 19:20 ONCE, 1 [place] injection 4 00 :00 dose, On Medi tiny mg Wed Branch 06/18/23 at 1400, Routine iopamidol 2022-08- No ONCE INTRA U nivers (ISOVUE 08-18 PROCEDURE, ity o f 300-500 mL) 17:02: 17:23 Starting [place] injection 46 :05 on Fri Medical 06/18/23 Branch at 1102, Until Wed06/18/23 at 1123, Routine, CV Intraproce dure lidocaine 2022-08- No ONCE INTRA U nivers 1% (PF) 08-18 PROCEDURE, ity o f (XYLOCAINE) 15:14: 17:23 Starting [place] injection 00 :05 on Fri Medical 06/18/23 Branch at 0914, Until Wed06/18/23 at 1123, Routine, CV Intraproce dure apixaban 5 2022-08- No 5mg Take 1 Univ ers mg tablet 08-18 11-13 tablet by ity of 00:00: 00:00 mouth in [place] 00 :00 the Medical morning Branch and 1 tablet in the evening. Indication s: atrial tachycardi a ablation apixaban 5 2022-08- No 5mg Take 1 Univ ers mg tablet 08-18 11-13 tablet by ity of 00:00: 00:00 mouth in [place] 00 :00 the Medical morning Branch and 1 tablet in the evening. Indication s: atrial tachycardi a ablation amoxicillin 2022-08- Yes [id number] 500mg Take 1 Univers -pot 0-07 10-13 tablet by ity of clavulanate 00:00: 04:59 mouth in [place] 500 mg 00 :00 the Medical 500-125 mg morning Branch tablet and 1 tablet in the evening. Do all this for 5 days. amoxicillin 2022-08- Yes [id number] 500mg Take 1 Univers -pot 0-07 10-13 tablet by ity of clavulanate 00:00: 04:59 mouth in [place] 500 mg 00 :00 the Medical 500-125 mg morning Branch tablet and 1 tablet in the evening. Do all this for 5 days. metroNIDAZO 2022-08- Yes [id number] 500mg Take 1 Univers LE 500 mg 0-04 10-12 tablet by ity of tablet 00:00: 04:59 mouth in [place] 00 :00 the Medical morning Branch and 1 tablet in the evening. Do all this for 7 days. metroNIDAZO 2022-08- Yes [id number] 500mg Take 1 Univers LE 500 mg 0-04 10-12 tablet by ity of tablet 00:00: 04:59 mouth in [place] 00 :00 the [facility] morning Branch and 1 tablet in the evening. Do all this for 7 days. metroNIDAZO 2022-08- Yes [id number] 500mg Take 1 Univers LE 500 mg 0-04 10-12 tablet by ity of tablet 00:00: 04:59 mouth in [place] 00 :00 the [facility] and 1 tablet in the evening. Do all this for 7 days. metroNIDAZO 2022-08- Yes [id number] 500mg Take 1 Univers LE 500 mg 0-04 10-12 tablet by ity of tablet 00:00: 04:59 mouth in [place] 00 :00 the [facility] morning [place] and 1 tablet in the evening. Do all this for 7 days. metroNIDAZO 2022-08- Yes [id number] 500mg Take 1 Univers LE 500 mg 0-04 10-12 tablet by ity of tablet 00:00: 04:59 mouth in [place] 00 :00 the [facility] and 1 tablet in the evening. Do all this for 7 days. metroNIDAZO 2022-08- Yes [id number] 500mg Take 1 Univers LE 500 mg 0-04 10-12 tablet by ity of tablet 00:00: 04:59 mouth in [place] 00 :00 the [facility] and 1 tablet in the evening. Do all this for 7 days. metroNIDAZO 2022-08- Yes [id number] 500mg Take 1 Univers LE 500 mg 0-04 10-12 tablet by ity of tablet 00:00: 04:59 mouth in [place] 00 :00 the [facility] morning [place] and 1 tablet in the evening. Do all this for 7 days. metroNIDAZO 2022-08- Yes [id number] 500mg Take 1 Univers LE 500 mg 0-04 10-12 tablet by ity of tablet 00:00: 04:59 mouth in [place] 00 :00 the [facility] morning [place] and 1 tablet in the evening. Do all this for 7 days. metroNIDAZO 2022-08- Yes [id number] 500mg Take 1 Univers LE 500 mg 0-04 10-12 tablet by ity of tablet 00:00: 04:59 mouth in [place] 00 :00 the Medical morning Branch and 1 tablet in the evening. Do all this for 7 days. metroNIDAZO 2022-08- Yes [id number] 500mg Take 1 Univers LE 500 mg 0-04 10-12 tablet by ity of tablet 00:00: 04:59 mouth in [place] 00 :00 the Medical morning Branch and 1 tablet in the evening. Do all this for 7 days. fluconazole 2022-08- No [id number] 150mg Take 1 Univers (DIFLUCAN) 0-04 10-05 tablet by ity of 150 mg 00:00: 04:59 mouth [place] tablet 00 :00 now for 1 Medical dose. Branch fluconazole 2022-08- No [id number] 150mg Take 1 Univers (DIFLUCAN) 0-04 10-05 tablet by ity of 150 mg 00:00: 04:59 mouth [place] tablet 00 :00 now for 1 Medical dose. Branch acetaminoph 2022- No 1000mg 1,000 mg, Univers en 01-27 Oral, ity of (TYLENOL) 00:15: 00:12 ONCE, 1 [place] tablet 00 :00 dose, On Medical 1,000 mg Tue Branch 01/26/23 at 1915, [place] doxycycline 0 Yes 100mg Q.5D Take [address] [facility] [...] Take 1 [facility] (ANTIVERT) 11-13 tablet (25 Jeanne kes 25 mg 00:00: 23:59 mg total) Medica l tablet 00 :00 by mouth 3 Center (three) times daily as needed for up to 10 days. No known No Univers medications 5-12 ity of 13:02: [place] 02 Medical Branch diltiazem 2020-08- No [id number] 120mg Take 1 Univers (CARDIZEM -10 -11 capsule by ity of ) 120 mg 00:00: 05:59 mouth [place] 24 hr 00 :00 daily for Medical capsule 30 days. Branch Immunizations Ordered Filled Date Status Comments Source Immunization Name Immunization Name TDAP (ADACEL) 2019-12-26 Completed University of VACCINE 00:00:00 [facility] TDAP (ADACEL) 2019-12-26 Completed University of VACCINE 00:00:00 [facility] TDAP (ADACEL) 2019-12-26 Completed [facility] VACCINE 00:00:00 [facility] TDAP (ADACEL) 2019-12-26 Completed [facility] VACCINE 00:00:00 [facility] TDAP (ADACEL) 2019-12-26 Completed [facility] VACCINE 00:00:00 [facility] TDAP (ADACEL) 2019-12-26 Completed [facility] VACCINE 00:00:00 [facility] TDAP (ADACEL) 2019-12-26 Completed [facility] VACCINE 00:00:00 [facility] TDAP (ADACEL) 2019-12-26 Completed [facility] VACCINE 00:00:00 [facility] TDAP (ADACEL) 2019-12-26 Completed [facility] VACCINE 00:00:00 [facility] TDAP (ADACEL) 2019-12-26 Completed [facility] VACCINE 00:00:00 [facility] TDAP (ADACEL) 2019-12-26 Completed [facility] VACCINE 00:00:00 [facility] TDAP (ADACEL) 2019-12-26 Completed [facility] VACCINE 00:00:00 [facility] TDAP (ADACEL) 2019-12-26 Completed [facility] VACCINE 00:00:00 [facility] TDAP (ADACEL) 2019-12-26 Completed [facility] VACCINE 00:00:00 [facility] TDAP (ADACEL) 2019-12-26 Completed [facility] VACCINE 00:00:00 [facility] TDAP (ADACEL) 2019-12-26 Completed [facility] VACCINE 00:00:00 [facility] TDAP (ADACEL) 2019-12-26 Completed [facility] VACCINE 00:00:00 [facility] TDAP (ADACEL) 2019-12-26 Completed [facility] VACCINE 00:00:00 [facility] TDAP (ADACEL) 2019-12-26 Completed [facility] VACCINE 00:00:00 [facility] TDAP (ADACEL) 2019-12-26 Completed [facility] VACCINE 00:00:00 [facility] TDAP (ADACEL) 2019-12-26 Completed [facility] VACCINE 00:00:00 [facility] TDAP (ADACEL) 2019-12-26 Completed [facility] VACCINE 00:00:00 [facility] TDAP (ADACEL) 2019-12-26 Completed [facility] VACCINE 00:00:00 [facility] TDAP (ADACEL) 2019-12-26 Completed [facility] of VACCINE 00:00:00 [facility] Influenza Virus 2019-07-10 Completed Universit y of Vaccine Quad .5 mL 00:00:00 [facility] IM 6+ MO Branch Influenza Virus [...] y of Vaccine Quad .5 mL 00:00:00 [facility] IM 6+ MO Branch Influenza Virus [...] y of Vaccine Quad .5 mL 00:00:00 [facility] IM 6+ MO Branch Influenza Virus [...] y of Vaccine Quad .5 mL 00:00:00 [facility] IM 6+ MO Branch (FLUZONE/FLULAVAL/F LUARIX) TDAP 2014-11-30 Completed [facility] of 00:00:00 [facility] TDAP 2014-11-30 Completed [facility] of 00:00:00 [facility] TDAP 2014-11-30 Completed [facility] of 00:00:00 [facility] TDAP 2014-11-30 Completed [facility] of 00:00:00 [facility] TDAP 2014-11-30 Completed [facility] of 00:00:00 [facility] TDAP 2014-11-30 Completed [facility] of 00:00:00 [facility] TDAP 2014-11-30 Completed [facility] 00:00:00 [facility] TDAP 2014-11-30 Completed [facility] 00:00:00 [facility] TDAP 2014-11-30 Completed [facility] of 00:00:00 [facility] TDAP 2014-11-30 Completed [facility] of 00:00:00 [facility] TDAP 2014-11-30 Completed [facility] of 00:00:00 [facility] TDAP 2014-11-30 Completed [facility] of 00:00:00 [facility] TDAP 2014-11-30 Completed [facility] of 00:00:00 [facility] TDAP 2014-11-30 Completed [facility] of 00:00:00 [facility] TDAP 2014-11-30 Completed [facility] of 00:00:00 [facility] TDAP 2014-11-30 Completed [facility] of 00:00:00 [facility] TDAP 2014-11-30 Completed [facility] of 00:00:00 [facility] TDAP 2014-11-30 Completed [facility] of 00:00:00 [facility] TDAP 2014-11-30 Completed [facility] of 00:00:00 [facility] TDAP 2014-11-30 Completed [facility] of 00:00:00 [facility] TDAP 2014-11-30 Completed [facility] of 00:00:00 [facility] TDAP 2014-11-30 Completed [facility] of 00:00:00 [facility] TDAP 2014-11-30 Completed [facility] of 00:00:00 [facility] TDAP 2014-11-30 Completed [facility] of 00:00:00 [facility] Influenza Virus 2014-09-05 Completed Universit y [...] Branch Rubella 2009-10-22 Completed [facility] of 00:00:00 [facility] Rubella 2009-10-22 Completed [facility] of 00:00:00 [facility] Rubella 2009-10-22 Completed [facility] of 00:00:00 [facility] Rubella 2009-10-22 Completed [facility] of 00:00:00 [facility] Rubella 2009-10-22 Completed [facility] of 00:00:00 [facility] Rubella 2009-10-22 Completed [facility] of 00:00:00 [facility] Rubella 2009-10-22 Completed [facility] of 00:00:00 [facility] Rubella 2009-10-22 Completed [facility] of 00:00:00 [facility] Rubella 2009-10-22 Completed [facility] of 00:00:00 [facility] Rubella 2009-10-22 Completed [facility] of 00:00:00 [facility] Rubella 2009-10-22 Completed [facility] of 00:00:00 [facility] Rubella 2009-10-22 Completed [facility] of 00:00:00 [facility] Rubella 2009-10-22 Completed [facility] of 00:00:00 [facility] Rubella 2009-10-22 Completed [facility] of 00:00:00 [facility] Rubella 2009-10-22 Completed [facility] of 00:00:00 [facility] Rubella 2009-10-22 Completed [facility] of 00:00:00 [facility] Rubella 2009-10-22 Completed [facility] of 00:00:00 [facility] Rubella 2009-10-22 Completed [facility] of 00:00:00 [facility] Rubella 2009-10-22 Completed [facility] of 00:00:00 [facility] Rubella 2009-10-22 Completed [facility] of 00:00:00 [facility] Rubella 2009-10-22 Completed [facility] of 00:00:00 [facility] Rubella 2009-10-22 Completed [facility] of 00:00:00 [facility] Rubella 2009-10-22 Completed [facility] of 00:00:00 [facility] Rubella 2009-10-22 Completed [facility] of 00:00:00 [facility] Influenza Virus Unknown Completed [facility] y of Vaccine Quad IM [place] [facility] Multi-dose 6+ MO Branch TDAP Unknown Completed [facility] Influenza Virus Unknown Completed [facility]it y of Vaccine Quad .5 mL [facility] 6+ MO Branch (FLUZONE/FLULAVAL/F LUARIX) TDAP (ADACEL) Unknown Completed [facility] Rubella Unknown Completed [facility] Influenza Virus Unknown Completed [facility] y of Vaccine Quad IM [place] [facility] Multi-dose 6+ MO Branch TDAP Unknown Completed [facility] Influenza Virus Unknown Completed [facility] y of Vaccine Quad .5 mL [facility] 6+ MO Branch (FLUZONE/FLULAVAL/F LUARIX) TDAP (ADACEL) Unknown Completed [facility] Rubella Unknown Completed [facility] Influenza Virus Unknown Completed [facility] y of Vaccine Quad IM [place] [facility] Multi-dose 6+ MO Branch TDAP Unknown Completed [facility] Influenza Virus Unknown Completed [facility]it y of Vaccine Quad .5 mL [facility] IM 6+ MO Branch (FLUZONE/FLULAVAL/F LUARIX) TDAP (ADACEL) Unknown Completed [facility] Rubella Unknown Completed [facility] Influenza Virus Unknown Completed [facility] y of Vaccine Quad IM [place] [facility] Multi-dose 6+ MO Branch TDAP Unknown Completed [facility] Influenza Virus Unknown Completed [facility]it y of Vaccine Quad .5 mL [facility] IM 6+ MO Branch (FLUZONE/FLULAVAL/F LUARIX) TDAP (ADACEL) Unknown Completed [facility] Rubella Unknown Completed [facility] Influenza Virus Unknown Completed [facility] y of Vaccine Quad IM [place] [facility] Multi-dose 6+ MO Branch TDAP Unknown Completed [facility] Influenza Virus Unknown Completed [facility] y of Vaccine Quad .5 mL [place] [facility] 6+ MO Branch (FLUZONE/FLULAVAL/F LUARIX) TDAP (ADACEL) Unknown Completed [facility] Rubella Unknown Completed [facility] Influenza Virus Unknown Completed [facility] y of Vaccine Quad IM [place] [facility] Multi-dose 6+ MO Branch TDAP Unknown Completed [facility] Influenza Virus Unknown Completed [facility] y of Vaccine Quad .5 mL [facility] IM 6+ MO Branch (FLUZONE/FLULAVAL/F LUARIX) TDAP (ADACEL) Unknown Completed [facility] Rubella Unknown Completed [facility] Influenza Virus Unknown Completed Universit y of Vaccine Quad IM [facility] ical Multi-dose 6+ MO Branch TDAP Unknown Completed [facility] Influenza Virus Unknown Completed [facility]it y of Vaccine Quad .5 mL [facility] 6+ MO Branch (FLUZONE/FLULAVAL/F LUARIX) TDAP (ADACEL) Unknown Completed [facility] Rubella Unknown Completed [facility] Influenza Virus Unknown Completed [facility]it y of Vaccine Quad IM [facility] ical Multi-dose 6+ MO Branch TDAP Unknown Completed [facility] Influenza Virus Unknown Completed [facility]it y of Vaccine Quad .5 mL [facility] 6+ MO Branch (FLUZONE/FLULAVAL/F LUARIX) TDAP (ADACEL) Unknown Completed [facility] Rubella Unknown Completed [facility] Influenza Virus Unknown Completed [facility]it y of Vaccine Quad IM [facility] ical Multi-dose 6+ MO Branch TDAP Unknown Completed [facility] Influenza Virus Unknown Completed [facility]it y of Vaccine Quad .5 mL [facility] IM 6+ MO Branch (FLUZONE/FLULAVAL/F LUARIX) TDAP (ADACEL) Unknown Completed [facility] Rubella Unknown Completed [facility] Influenza Virus Unknown Completed Universit y of Vaccine Quad IM [facility] ical Multi-dose 6+ MO Branch TDAP Unknown Completed [facility] Influenza Virus Unknown Completed [facility] y of Vaccine Quad .5 mL [facility] 6+ MO Branch (FLUZONE/FLULAVAL/F LUARIX) TDAP (ADACEL) Unknown Completed [facility] Rubella Unknown Completed [facility] Influenza Virus Unknown Completed [facility] y of Vaccine Quad IM [place] [facility] Multi-dose 6+ MO Branch TDAP Unknown Completed [facility] Influenza Virus Unknown Completed [facility]it y of Vaccine Quad .5 mL [facility] IM 6+ MO Branch (FLUZONE/FLULAVAL/F LUARIX) TDAP (ADACEL) Unknown Completed [facility] Rubella Unknown Completed [facility] Influenza Virus Unknown Completed [facility]it y of Vaccine Quad IM [facility] ical Multi-dose 6+ MO Branch TDAP Unknown Completed [facility] Influenza Virus Unknown Completed [facility]it y of Vaccine Quad .5 mL [facility] 6+ MO Branch (FLUZONE/FLULAVAL/F LUARIX) TDAP (ADACEL) Unknown Completed [facility] Rubella Unknown Completed [facility] Influenza Virus Unknown Completed [facility]it y of Vaccine Quad IM [facility] ical Multi-dose 6+ MO Branch TDAP Unknown Completed [facility] Influenza Virus Unknown Completed [facility]it y of Vaccine Quad .5 mL [facility] 6+ MO Branch (FLUZONE/FLULAVAL/F LUARIX) TDAP (ADACEL) Unknown Completed [facility] Rubella Unknown Completed [facility] Influenza Virus Unknown Completed [facility]it y of Vaccine Quad IM [facility] ical Multi-dose 6+ MO Branch TDAP Unknown Completed [facility] Influenza Virus Unknown Completed [facility] y of Vaccine Quad .5 mL [facility] 6+ MO Branch (FLUZONE/FLULAVAL/F LUARIX) TDAP (ADACEL) Unknown Completed [facility] Rubella Unknown Completed [facility] Influenza Virus Unknown Completed Universit y of Vaccine Quad IM [facility] ical Multi-dose 6+ MO Branch TDAP Unknown Completed [facility] Influenza Virus Unknown Completed [facility]it y of Vaccine Quad .5 mL [facility] IM 6+ MO Branch (FLUZONE/FLULAVAL/F LUARIX) TDAP (ADACEL) Unknown Completed [facility] Rubella Unknown Completed [facility] Influenza Virus Unknown Completed Universit y of Vaccine Quad IM [facility] ical Multi-dose 6+ MO Branch TDAP Unknown Completed [facility] Influenza Virus Unknown Completed [facility] y of Vaccine Quad .5 mL [facility] IM 6+ MO Branch (FLUZONE/FLULAVAL/F LUARIX) TDAP (ADACEL) Unknown Completed [facility] Rubella Unknown Completed [facility] Influenza Virus Unknown Completed [facility] y of Vaccine Quad IM [place] [facility] Multi-dose 6+ MO Branch TDAP Unknown Completed [facility] Influenza Virus Unknown Completed [facility] y of Vaccine Quad .5 mL [place] [facility] IM 6+ MO Branch (FLUZONE/FLULAVAL/F LUARIX) TDAP (ADACEL) Unknown Completed [facility] Rubella Unknown Completed [facility] Influenza Virus Unknown Completed [facility]it y of Vaccine Quad IM [facility] ical Multi-dose 6+ MO Branch TDAP Unknown Completed [facility] Influenza Virus Unknown Completed [facility]it y of Vaccine Quad .5 mL [facility] IM 6+ MO Branch (FLUZONE/FLULAVAL/F LUARIX) TDAP (ADACEL) Unknown Completed [facility] Rubella Unknown Completed [facility] Influenza Virus Unknown Completed [facility]it y of Vaccine Quad IM [facility] ical Multi-dose 6+ MO Branch TDAP Unknown Completed [facility] Influenza Virus Unknown Completed [facility] y of Vaccine Quad .5 mL [facility] IM 6+ MO Branch (FLUZONE/FLULAVAL/F LUARIX) TDAP (ADACEL) Unknown Completed [facility] Rubella Unknown Completed [facility] Influenza Virus Unknown Completed [facility]it y of Vaccine Quad IM [facility] ical Multi-dose 6+ MO Branch TDAP Unknown Completed [facility] Influenza Virus Unknown Completed [facility]it y of Vaccine Quad .5 mL [facility] IM 6+ MO Branch (FLUZONE/FLULAVAL/F LUARIX) TDAP (ADACEL) Unknown Completed [facility] Rubella Unknown Completed [facility] Influenza Virus Unknown Completed [facility] y of Vaccine Quad IM [place] [facility] Multi-dose 6+ MO Branch TDAP Unknown Completed [facility] Influenza Virus Unknown Completed [facility] y of Vaccine Quad .5 mL [facility] IM 6+ MO Branch (FLUZONE/FLULAVAL/F LUARIX) TDAP (ADACEL) Unknown Completed [facility] Rubella Unknown Completed [facility] Influenza Virus Unknown Completed [facility]it y of Vaccine Quad IM [facility] ical Multi-dose 6+ MO Branch TDAP Unknown Completed [facility] Influenza Virus Unknown Completed [facility] y of Vaccine Quad .5 mL [place] [facility] IM 6+ MO Branch (FLUZONE/FLULAVAL/F LUARIX) TDAP (ADACEL) Unknown Completed [facility] Rubella Unknown Completed [facility] Influenza Virus Unknown Completed [facility] y of Vaccine Quad IM [place] [facility] Multi-dose 6+ MO Branch TDAP Unknown Completed [facility] Influenza Virus Unknown Completed [facility] y of Vaccine Quad .5 mL [facility] IM 6+ MO Branch (FLUZONE/FLULAVAL/F LUARIX) TDAP (ADACEL) Unknown Completed [facility] Rubella Unknown Completed [facility] Influenza Virus Unknown Completed [facility]it y of Vaccine Quad IM [facility] ical Multi-dose 6+ MO Branch TDAP Unknown Completed [facility] Influenza Virus Unknown Completed [facility] y of Vaccine Quad .5 mL [facility] 6+ MO Branch (FLUZONE/FLULAVAL/F LUARIX) TDAP (ADACEL) Unknown Completed [facility] Rubella Unknown Completed [facility] Influenza Virus Unknown Completed [facility]it y of Vaccine Quad IM [facility] ical Multi-dose 6+ MO Branch TDAP Unknown Completed [facility] Influenza Virus Unknown Completed [facility] y of Vaccine Quad .5 mL [facility] 6+ MO Branch (FLUZONE/FLULAVAL/F LUARIX) TDAP (ADACEL) Unknown Completed [facility] Rubella Unknown Completed [facility] Influenza Virus Unknown Completed [facility]it y of Vaccine Quad IM [facility] ical Multi-dose 6+ MO Branch TDAP Unknown Completed [facility] Influenza Virus Unknown Completed [facility]it y of Vaccine Quad .5 mL [facility] IM 6+ MO Branch (FLUZONE/FLULAVAL/F LUARIX) TDAP (ADACEL) Unknown Completed [facility] Rubella Unknown Completed [facility] Influenza Virus Unknown Completed [facility]it y of Vaccine Quad IM [facility] ical Multi-dose 6+ MO Branch TDAP Unknown Completed [facility] Influenza Virus Unknown Completed [facility] y of Vaccine Quad .5 mL [facility] 6+ MO Branch (FLUZONE/FLULAVAL/F LUARIX) TDAP (ADACEL) Unknown Completed [facility] Rubella Unknown Completed [facility] Influenza Virus Unknown Completed [facility] y of Vaccine Quad IM [place] [facility] Multi-dose 6+ MO Branch TDAP Unknown Completed [facility] Influenza Virus Unknown Completed [facility] y of Vaccine Quad .5 mL [place] [facility] IM 6+ MO Branch (FLUZONE/FLULAVAL/F LUARIX) TDAP (ADACEL) Unknown Completed [facility] Rubella Unknown Completed [facility] Influenza Virus Unknown Completed [facility] y of Vaccine Quad IM [facility] ical Multi-dose 6+ MO Branch TDAP Unknown Completed [facility] Influenza Virus Unknown Completed [facility]it y of Vaccine Quad .5 mL [facility] IM 6+ MO Branch (FLUZONE/FLULAVAL/F LUARIX) TDAP (ADACEL) Unknown Completed [facility] Rubella Unknown Completed [facility] Influenza Virus Unknown Completed [facility] y of Vaccine Quad IM [place] [facility] Multi-dose 6+ MO Branch TDAP Unknown Completed [facility] Influenza Virus Unknown Completed [facility] y of Vaccine Quad .5 mL [facility] 6+ MO Branch (FLUZONE/FLULAVAL/F LUARIX) TDAP (ADACEL) Unknown Completed [facility] Rubella Unknown Completed [facility] Influenza Virus Unknown Completed [facility] y of Vaccine Quad IM [place] [facility] ical Multi-dose 6+ MO Branch TDAP Unknown Completed [facility] Influenza Virus Unknown Completed [facility] y of Vaccine Quad .5 mL [facility] 6+ MO Branch (FLUZONE/FLULAVAL/F LUARIX) TDAP (ADACEL) Unknown Completed [facility] Rubella Unknown Completed [facility] Influenza Virus Unknown Completed [facility]it y of Vaccine Quad IM [facility] ical Multi-dose 6+ MO Branch TDAP Unknown Completed [facility] Influenza Virus Unknown Completed [facility] y of Vaccine Quad .5 mL [place] [facility] IM 6+ MO Branch (FLUZONE/FLULAVAL/F LUARIX) TDAP (ADACEL) Unknown Completed [facility] Rubella Unknown Completed [facility] Vital Signs Vital Name Observation Time Observation Value Comments Source Systolic blood 2023-07-06 22:16:00 117 mm[Hg] [facility] [place] [facility] Diastolic blood 2023-07-06 22:16:00 74 mm[Hg] Unive rsity of [facility] Heart rate 2023-07-06 22:16:00 61 /min [facility] Body temperature 2023-07-06 22:16:00 36.67 Cora [facility] [place] [facility] Respiratory rate 2023-07-06 22:16:00 16 /min [facility] Body height 2023-07-06 22:16:00 165.1 cm [facility] Body weight 2023-07-06 22:16:00 78.382 kg [facility] [place] [facility] BMI 2023-07-06 22:16:00 28.76 kg/m2 [facility] Oxygen saturation in 2023-07-06 22:16:00 100 /min [facility] of Arterial blood by [facility] Pulse oximetry Branch Systolic blood 2023-07-06 02:10:00 107 mm[Hg] Univer sity of pressure [facility] Diastolic blood 2023-07-06 02:10:00 61 mm[Hg] Unive rsity of pressure [facility] Heart rate 2023-07-06 02:10:00 62 /min [facility] Respiratory rate 2023-07-06 02:10:00 16 /min [facility] Oxygen saturation in 2023-07-06 02:10:00 100 /min [facility] of Arterial blood by [facility] Pulse oximetry Branch Body temperature 2023-07-05 22:07:00 37.5 Cora [facility] [place] [facility] Body height 2023-07-05 22:07:00 165.1 cm [facility] Body weight 2023-07-05 22:07:00 79.379 kg [facility] BMI 2023-07-05 22:07:00 29.12 kg/m2 [facility] [place] [facility] Systolic blood 2023-06-29 17:29:00 104 mm[Hg] [facility] of [facility] Diastolic blood 2023-06-29 17:29:00 67 mm[Hg] Unive rsity of pressure [facility] Heart rate 2023-06-29 17:29:00 55 /min [facility] Respiratory rate 2023-06-29 17:29:00 19 /min [facility] Body weight 2023-06-29 17:29:00 79.379 kg per pt [facility] BMI 2023-06-29 17:29:00 29.12 kg/m2 [facility] [place] [facility] Oxygen saturation in 2023-06-29 17:29:00 97 /min [facility] Arterial blood by [place] [facility] Systolic blood 2023-06-25 17:22:00 112 mm[Hg] [facility] pressure [facility] Diastolic blood 2023-06-25 17:22:00 63 mm[Hg] Unive rsity of pressure [facility] Heart rate 2023-06-25 17:22:00 59 /min [facility] [place] [facility] Respiratory rate 2023-06-25 17:22:00 18 /min [facility] [place] [facility] Oxygen saturation in 2023-06-25 17:22:00 97 /min [facility] Arterial blood by [place] [facility] Body temperature 2023-06-25 13:34:00 36.5 Cora [facility] [place] [facility] Body height 2023-06-24 11:29:00 165.1 cm [facility] Body weight 2023-06-24 11:29:00 82.8 kg [facility] BMI 2023-06-24 11:29:00 30.38 kg/m2 [facility] [place] [facility] Systolic blood 2023-06-22 13:13:00 115 mm[Hg] [facility] Diastolic blood 2023-06-22 13:13:00 80 mm[Hg] Unive rsity of pressure [facility] Heart rate 2023-06-22 13:13:00 62 /min [facility] [place] [facility] Body temperature 2023-06-22 13:13:00 36.89 Cora [facility] Respiratory rate 2023-06-22 13:13:00 18 /min [facility] Oxygen saturation in 2023-06-22 13:13:00 97 /min University of Arterial blood by [place] charming charlie tiny Pulse oximetry Branch Body height 2023-06-19 04:19:00 162.6 cm [facility] [place] [facility] Body weight 2023-06-19 04:19:00 83.462 [...] 2023-06-18 13:35:00 36.83 Cora Univ ersity of [facility] Branch Respiratory rate 2023-06-18 13:35:00 22 /min Univ ersity of [facility] Oxygen saturation in 2023-06-18 13:35:00 100 /min University of Arterial blood by [facility] Pulse oximetry Branch Systolic blood 2023-05-13 21:30:00 119 mm[Hg] Univer sity of pressure [place] [facility] Diastolic blood 2023-05-13 21:30:00 75 mm[Hg] Unive rsity of pressure [place] [facility] Heart rate 2023-05-13 21:30:00 72 /min [facility] [place] [facility] [place] Body temperature 2023-05-13 21:30:00 36.61 Cora Univ [...] 19:15:00 68 mm[Hg] Unive rsity of pressure [place] [facility] Heart rate 2023-05-13 19:15:00 70 /min [facility] [place] [facility] Body temperature 2023-05-13 19:15:00 36.78 Cora Univ [facility]ity [facility] [place] [facility] Respiratory rate 2023-05-13 19:15:00 16 /min Univ ersity of [facility] Body height 2023-05-13 19:15:00 162.6 cm [facility] [place] [facility] [place] Body weight 2023-05-13 19:15:00 83.462 kg [facility] [place] [facility] BMI 2023-05-13 19:15:00 31.58 kg/m2 Universi ty of [facility] Oxygen saturation in 2023-05-13 19:15:00 100 /min University Arterial blood by [facility] Pulse oximetry Branch Systolic blood 2023-05-12 15:06:00 122 mm[Hg] Univer sity of pressure [facility] Diastolic blood 2023-05-12 15:06:00 63 mm[Hg] Unive rsity of [facility] Heart rate 2023-05-12 15:06:00 66 /min Universi ty of [facility] Body temperature 2023-05-12 15:06:00 36.78 Cora [address] [facility] Respiratory rate 2023-05-12 15:06:00 16 /min Univ ersity of [facility] Body height 2023-05-12 15:06:00 162.6 cm [facility] [place] [facility] [place] Body weight 2023-05-12 15:06:[address] [facility] BMI 2023-05-12 15:06:00 31.41 kg/m2 Universi ty of [facility] Systolic blood 2023-03-09 18:57:00 110 mm[Hg] Univer sity of pressure [facility] Diastolic blood 2023-03-09 18:57:00 66 mm[Hg] Unive rsity of pressure [facility] Heart rate 2023-03-09 18:57:00 78 /min Universi ty of [facility] Body temperature 2023-03-09 18:57:00 36.56 Cora [facility] [address] [facility] Body height 2023-03-09 18:57:00 162.6 cm [facility] [place] [facility] [place] Body weight 2023-03-09 18:57:00 81.647 kg [facility] [place] [facility] BMI 2023-03-09 18:57:00 30.90 kg/m2 Universi ty [facility] Systolic blood 2023-03-09 14:35:00 126 mm[Hg] [...] 99 /min University of Ar[place]ial blood by [place] Pulse oximetry Branch Body height 2023-01-27 00:07:00 154.9 cm [facility] [place] [facility] Body weight 2023-01-27 00:07:00 79.379 kg [facility] [place] [facility] BMI 2023-01-27 00:07:00 33.07 kg/m2 [facility] [place] [facility] Systolic blood 2023-01-27 00:06:00 132 [...] 100 /min University of Arterial blood by [place] charming charlie tiny Pulse oximetry Branch Systolic blood 2022-12-21 13:39:00 113 mm[Hg] Univer sity of pressure [place] [facility] Diastolic blood 2022-12-21 13:39:00 65 mm[Hg] Unive rsity of pressure [place] [facility] Heart rate 2022-12-21 13:39:00 67 /min Universi ty of [facility] Body temperature 2022-12-21 13:39:00 35.11 Cora [address] [facility] Respiratory rate 2022-12-21 13:39:00 18 /min Univ ersity of [facility] Body height 2022-12-21 13:39:00 154.[address] [facility] Body weight 2022-12-21 13:39:00 83[address] [facility] BMI 2022-12-21 13:39:00 34.65 kg/m2 [facility] [place] [facility] HEIGHT 2022-11-13 17:02:00 154.9 cm WEIGHT 2022-11-13 17:02:00 77.111 kg HEIGHT 2022-11-13 17:02:00 154.9 cm WEIGHT 2022-11-13 17:02:00 77.111 kg HEIGHT 2022-11-13 17:02:00 154.9 cm WEIGHT 2022-11-13 17:02:00 77.111 kg Systolic blood 2021-12-18 14:07:00 121 mm[Hg] Univer sity of pressure [facility] Diastolic blood 2021-12-18 14:07:00 65 mm[Hg] Unive rsity of pressure [facility] Heart rate 2021-12-18 14:07:00 67 /min Universi ty of [facility] Body temperature 2021-12-18 14:07:00 36.56 Cora [facility] ersity of [facility] Respiratory rate 2021-12-18 14:07:00 16 /min Univ ersity of [facility] Body height 2021-12-18 14:07:00 154.9 cm [facility] [place] [facility] Body weight 2021-12-18 14:07:00 73.619 kg Universi ty of [facility] BMI 2021-12-18 14:07:00 30.67 kg/m2 Universi ty of [facility] Systolic blood 2022-11-13 20:40:00 110 mm[Hg] [facility] Diastolic blood 2022-11-13 20:40:00 63 mm[Hg] [facility] [place] [facility] Heart rate 2022-11-13 20:40:00 61 /min [facility] Body temperature 2022-11-13 20:40:00 36.94 Cora [facility] Respiratory rate 2022-11-13 20:40:00 15 /min [facility] Oxygen saturation in 2022-11-13 20:40:00 98 /min [facility] Arterial blood by Medical Ce nter Pulse oximetry Body height 2022-11-13 17:02:00 154.9 cm [facility] Body weight 2022-11-13 17:02:00 77.111 kg [facility] BMI 2022-11-13 17:02:00 32.12 kg/m2 [facility] Procedures Procedure Date / Time Performing Clinician Source Performed ASSIGNMENT OF BENEFITS 2023-07-05 23:36:26 Doctor Unassigned, [facility] [place] [facility] XR CHEST 1 VW 2023-07-05 22:51:20 Kathy Mcclure [place] [facility] RAPID STREP SCREEN FOR 2023-07-05 22:35:00 Kathy Mcclure [facility] GROUP A [facility] RAPID INFLUENZA A/B 2023-07-05 22:35:00 Kathy Mcclure [facility] COVID-19 (ID NOW RAPID 2023-07-05 22:35:00 Kathy Mcclure [facility] TESTING) Medical Branch CONSENT/REFUSAL FOR 2023-07-05 21:54:57 Doctor Unassigned, [facility] DIAGNOSIS AND TREATMENT [place] [facility] TRANSTHORACIC ECHO (TTE) 2023-06-25 20:22:46 Misti Nath [facility] COMPLETE [facility] TROPONIN I 2023-06-25 05:06:00 Jose Sandoval [facility] CT HEAD WO CONTRAST 2023-06-24 17:05:00 Ynes Landaverde [facility] CT CHEST PULMONARY 2023-06-24 17:05:00 Jose Sandoval [facility] ANGIOGRAM Medical Branch PHOSPHORUS 2023-06-24 12:40:00 Jose Sandoval [facility] MAGNESIUM 2023-06-24 12:40:00 Lori, [facility] TROPONIN I 2023-06-24 12:40:00 Lori [facility] THYROID STIMULATING HORMONE 2023-06-24 12:40:00 Lori [facility] HEPATIC FUNCTION PANEL 2023-06-24 12:40:00 [id number] (ALB,T.PRO,BILI [facility] T,BU/BC,ALT,AST,ALK PHOS) BASIC METABOLIC PANEL (NA, 2023-06-24 12:40:00 Lori [facility] K, CL, CO2, GLUCOSE, BUN, Medica l Branch CREATININE, CA) LIPID PANEL ([id number])(TOTAL 2023-06-24 12:40:00 [facility] CHOLESTEROL, TRIGLYCERIDES, Medi tiny Branch HDL) CBC WITH DIFF 2023-06-24 12:40:00 Lori [facility] GLYCOSYLATED HEMOGLOBIN 2023-06-24 12:40:00 [facility] D-DIMER 2023-06-24 12:40:00 Lori [facility] ACTIVATED PARTIAL THRMPLAS 2023-06-24 12:40:[address] [facility] N-TERMINAL PRO-BNP 2023-06-24 12:40:00 Jose Sandoval [facility] BASIC METABOLIC PANEL (NA, 2023-06-21 12:37:00 Felix Bernardo [facility] K, CL, CO2, GLUCOSE, BUN, Medica l Branch CREATININE, CA) CBC WITHOUT DIFF 2023-06-21 12:37:00 Az [facility] BASIC METABOLIC PANEL (NA, 2023-06-21 12:37:00 Felix Bernardo [facility] K, CL, CO2, GLUCOSE, BUN, Medica l Branch CREATININE, CA) CBC WITHOUT DIFF 2023-06-21 12:37:00 Az [facility] CT CHEST PULMONARY 2023-06-21 00:22:29 Felix Bernardo [facility] [place] CT CHEST PULMONARY 2023-06-21 00:22:29 Felix Bernardo [facility] [place] TROPONIN I 2023-06-20 08:44:00 Kirill [facility] TROPONIN I 2023-06-20 08:44:00 [facility] TRANSTHORACIC ECHO (TTE) 2023-06-19 14:26:06 Steven Madrigal U [facility] TRANSTHORACIC ECHO (TTE) 2023-06-19 14:26:06 Steven Madrigal [facility] ELECTROPHYSIOLOGY PROCEDURE 2023-06-18 16:58:57 Juan [facility] ELECTROPHYSIOLOGY PROCEDURE 2023-06-18 16:58:57 Juan [facility] POCT ACT LOW RANGE 2023-06-18 16:56:00 Juan [facility] POCT ACT LOW RANGE 2023-06-18 16:56:00 Juan [facility] POCT ACT LOW RANGE 2023-06-18 16:26:00 Juan [facility] POCT ACT LOW RANGE 2023-06-18 16:26:00 Juan [facility] POCT ACT LOW RANGE 2023-06-18 16:08:00 Juan [facility] POCT ACT LOW RANGE 2023-06-18 16:08:00 Juan [facility] POCT ACT LOW RANGE 2023-06-18 15:48:00 Juan [facility] POCT ACT LOW RANGE 2023-06-18 15:48:00 Juan [facility] CATH PROCEDURE LOG 2023-06-18 15:14:00 Juan [facility] CATH PROCEDURE LOG 2023-06-18 15:14:00 Sabayon, [facility] HB INDIRECT ANTIGLOBULIN 2023-06-18 14:41:[address] [facility] HB INDIRECT ANTIGLOBULIN 2023-06-18 14:41:[address] [facility] ASSIGNMENT OF BENEFITS 2023-06-18 13:02:37 Doctor Unassigned, Un [facility] [place] Medical Branch PHOSPHORUS 2023-06-16 16:20:00 [facility] [place] [facility] MAGNESIUM 2023-06-16 16:20:00 Juan [facility] BASIC METABOLIC PANEL (NA, 2023-06-16 16:20:00 Milagro Martinez [facility] K, CL, CO2, GLUCOSE, BUN, Medica l Branch CREATININE, CA) CBC WITHOUT DIFF 2023-06-16 16:20:00 Juan [facility] PROTHROMBIN TIME / INR 2023-06-16 16:20:00 Milagro Martinez [facility] TEST, SERUM 2023-06-16 16:20:00 [facility] TEST, SERUM 2023-06-16 16:20:00 [facility] XR ANKLE 3+ VW RIGHT 2023-05-13 21:43:00 [facility] HB ECG ROUTINE & RHYTHM 2023-05-13 19:19:31 [facility] GC & CHLAMYDIA AMPLIFIED 2023-05-12 18:59:00 Mirna Zacarias [facility] ASSAY [facility] URINE CULTURE 2023-05-12 16:39:00 Mirna Zacarias [facility] TRANSTHORACIC ECHO (TTE) 2023-03-30 19:03:09 Milagro Martinez [facility] XR ANKLE 3+ VW RIGHT 2023-03-09 19:22:17 [facility] XR ANKLE <3 VW RIGHT 2023-02-10 16:21:32 Coleman Grace [facility] XR ANKLE 3+ VW RIGHT 2023-02-10 16:00:43 Clyde Guzman [facility] XR ANKLE 3+ VW RIGHT 2023-01-27 00:38:00 Kym Wade [facility] NOTICE OF PRIVACY PRACTICES 2023-01-26 23:55:30 Doctor Brayden martins [facility] [place] [facility] CONSENT/REFUSAL FOR 2023-01-26 23:54:58 Doctor Raf [facility] DIAGNOSIS AND TREATMENT [place] [facility] ASSIGNMENT OF BENEFITS 2022-12-21 13:14:11 Doctor Raf [facility] Name [facility] BASIC METABOLIC PANEL 2022-11-13 18:52:00 Tee Granados [facility] CBC W/PLT COUNT & AUTO 2022-11-13 18:32:00 Tee Granados CH I [facility] CBC W/PLT COUNT & AUTO 2022-11-13 18:32:[address] [facility] XR CHEST 2 VIEWS 2022-11-13 18:08:00 Tee Granados [facility] POCT URINALYSIS W/O 2021-12-18 19:28:00 [facility]in [facility] SPECIFIC GRAVITY [facility] POCT TEST 2021-12-18 14:11:00 Huseyin Rodriguez [facility] Plan of Care Planned Activity [...] [facility] 00:[facility] [code = Influenza Vaccine Me dical Center (#1)] Future Scheduled 2023-04-09 Influenza Vaccine (#1) [facility] 00:00:00 [code = Influenza Vaccine Me dical Center (#1)] Future Scheduled 2023-04-09 Influenza Vaccine (#1) [facility] 00:00:00 [code = Influenza Vaccine Me dical Center (#1)] Future Scheduled 2022-08-09 DEPRESSION [...] cervix Medical C enter (procedure) [code = 690885854] Future Scheduled 2004 Screening for malignant [facility] Test 00:00:00 neoplasm of cervix Medical C enter (procedure) [code = 934344659] Future Scheduled 2004 Screening for malignant [facility] Test 00:00:00 neoplasm of cervix Medical C enter (procedure) [code = 292280130] Future Scheduled 2003 Lipid panel (procedure) [facility] Test 00:00:00 [code = 95445611] Medical Ce nter Future Scheduled 2003 Lipid panel (procedure) [facility] Test 00:00:00 [code = 52530241] Medical Ce nter Future Scheduled 2003 Lipid panel (procedure) [facility] Test 00:00:00 [code = 55513544] Medical Ce nter Future Scheduled 2001 HEPATITIS [...] screening Medical Cent er (procedure) [code = 909497538] Future Scheduled 1998 Human immunodeficiency [facility] 00:00:00 virus screening Medical Cent er (procedure) [code = 307330873] Future Scheduled 1998 Human immunodeficiency [facility] Test 00:00:00 virus screening Medical Cent er (procedure) [code = 809298852] Future Scheduled 1984-03-29 COVID-19 VACCINE (#1) CH [...] Department ID 2023-12-22 2023-12-[address] [facility] [id number] Univers 14:30:00 14:30:[address] [facility] 2023-09-21 2023-09-21 Outpatient R MILAGRO MARTINEZ [facility] [id number] Univers 11:45:00 11:45:00 MILAGRO MARTINEZ selena [facility] 2023-07-06 2023-07-06 Office [facility] 1.2.840.114 [id number] Univers 16:15:00 16:30:00 Visit [facility] [id number] it [place] [id number] [address] OFFICE BUILDING 2023-07-06 2023-07-06 Outpatient R [address] MARTINEZ [facility] [id number] Univers 16:15:00 16:15:00 MILAGRO MARTINEZ [facility] 2023-07-05 2023-07-05 Emergency [facility] ERT [id number] Univers 16:08:00 20:47:00 [facility] 2023-07-05 2023-07-05 [facility] 1.2.840.114 [id number] Univers 16:08:00 20:47:00 Vinnieharjeet [facility] [id number] i ty [facility] [place].2.[place].2.[place] [id number] [address] 2023-07-05 2023-07-05 Telephone [facility] 1.2.840.114 [id number] Univers 00:00:00 00:00:00 [facility] 350.1.13.10 it [place] [id number] [address] OFFICE BUILDING 2023-06-29 2023-06-29 Outpatient R GILBERT VIVEROS [facility] [id number] Univers 11:30:00 12:12:57 GILBERT VIVEROS i ty of [facility] 2023-06-29 2023-06-29 Office [facility] 1.2.840.114 [id number] Univers 11:30:00 12:12:57 Visit Gilbert SERRANO 350.1.13.10 i ty of [place] [id number] Ok dical NAL 085 [facility] 2023-06-28 2023-06-28 Transition Rosanne Cancino 1.2.840.114 [id number] Univers 00:00:00 00:00:00 of Care [place] 350.1.13.10 [place] [id number] [place] [address] Branch 2023-06-24 2023-06-25 Inpatient U TOÑO, [facility] DIOGO [id number] Univers 05:16:00 17:36:00 TY [facility] 2023-06-24 2023-06-25 [facility] Jalyn Chamorro [facility] [id number] Univers 05:16:00 17:36:00 Encounter [facility] 350.1.13. 10 ity [place] [id number] [facility] 123 Branch (CLC) 2023-06-25 2023-06-25 Telephone [facility] 1.2.410.142 [id number] Univers 00:00:00 00:00:00 Misti HEALTH 350.1.13.10 it [place] [id number] [facility] [address] OFFICE BUILDING 2023-06-23 2023-06-23 Telephone Juan [facility] 1.2.840.114 [id number] Univers 00:00:00 00:00:00 Mupre HEALTH 350.1.13.10 [place] [id number] [facility] 059 Branch OFFICE BUILDING 2023-06-23 2023-06-23 Telephone [facility] 1.2.316.621 [id number] Univers 00:00:00 00:00:00 Gilbert SERRANO 350.1.13.10 i ty [place] [id number] Ok dical NAL [address] [place] [address] 2023-06-18 2023-06-22 Outpatient R [facility] [id number] Univers 07:09:00 11:16:[address] [facility] 2023-06-18 2023-06-22 Hospital Milagro Martinez [facility] 1.2.840.11 [id number] Univers 07:09:00 11:16:00 Encounter Chandan Medel HEALTH 350.1.13.10 ity of Pastor Meek [place] 4.2.7.2.686 [place] CHOUDHARY [id number] [facility] 113 Branch ([facility]) 2023-06-18 2023-06-18 Surgery [facility] 1.2.840.114 [id number] Univers 09:30:00 10:30:00 [facility] HEALTH 350.1.13.10 it [place] [id number] 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 [id number] Univers 10:00:00 10:00:00 JUAN NARCISOKATHERINE ity of [facility] 2023-05-17 2023-05-17 Telephone GricelabdiasUN[facility] 1.2.840.114 [id number] Univers 00:00:00 00:00:00 [facility] 350.1.13.10 it [place] [id number] [address] OFFICE [facility] 2023-05-15 2023-05-15 Case [facility] 1.2.840.114 [id number] Univers 00:00:00 00:00:00 Management Mirna A CAUSTIC OPERATOR 350.1.13.10 ity of REGIONAL 4.2.7.2.686 [place] as MATERNAL [id number] Med ical & CHILD 107 [facility] 2023-05-13 2023-05-13 Outpatient R [facility] [id number] Univers 16:32:58 23:59:00 URVASHI ity [facility] 2023-05-13 2023-05-13 [facility] 1.2.840.114 [id number] Univers 15:30:00 23:59:00 Encounter Urvashi SPECIALTY 350.1.13.10 ity of [place] CENTER AT [id number] Ok clayfernando PASCUALSelena 809 [facility] 2023-05-13 2023-05-13 Office [facility] 1.2.840.114 [id number] Univers 16:40:00 16:48:08 Visit Urvashi SPECIALTY 350.1.13.10 it[place] of [place] CENTER AT [id number] Ok clayfernando MCDUFFIE 198 [facility] 2023-05-13 2023-05-13 Office [facility] 1.2.840.114 [id number] Univers 14:00:00 14:15:00 Visit [facility] 350.1.13.10 it [place] [id number] [address] 2023-05-12 2023-05-12 [facility] [id number] Univers 10:15:00 10:37:59 MIRNA ity [facility] 2023-05-12 2023-05-12 Office [facility] 1.2.840.114 [id number] Univers 10:15:00 10:37:59 Visit Mirna Self CAUSTIC OPERATOR 350.1.13.10 i ty of REGIONAL 4.2.7.2.686 [place] as MATERNAL [id number] [facility] & CHILD [address] [place] [address] 2023-05-11 2023-05-11 Telephone Otis[facility]om[facility]UN[facility] 1.2.840.114 [id number] Univers 00:00:00 00:00:00 Rebekah Haider CAUSTIC OPERATOR 350.1.13.10 ity of REGIONAL 4.2.7.2.686 [place] as MATERNAL [phone] [facility] & [address] 2023-04-20 2023-04-20 Outpatient [facility] [id number] Univers 14:40:00 14:40:00 [facility] 2023-04-09 2023-04-09 Telephone [facility] 1.2.840.114 [id number] Univers 00:00:00 00:00:00 [facility] 350.1.13.10 it [place] [id number] [address] OFFICE [facility] 2023-04-05 2023-04-05 Telephone [facility] 1.2.840.114 [id number] Univers 00:00:00 00:00:00 [facility] 350.1.13.10 it y of [place] [id number] [address] OFFICE [facility] 2023-03-30 2023-03-30 Outpatient R [address]ELABDIASMILAGRO [facility] [id number] Univers 13:17:03 23:59:00 [facility] 2023-03-30 2023-03-30 [facility] [id number] Univers 13:17:03 23:59:00 Encounter [facility] 350.1.13.10 ity of [place] [id number] [address] OFFICE BUILDING 2023-03-30 2023-03-30 Hospital [facility] 1.2.167.506 [id number] Univers 13:00:00 13:16:00 Encounter [facility] HEALTH 350.1.13.10 ity of [place] [id number] [facility] [address] OFFICE BUILDING 2023-03-30 2023-03-30 Telephone [facility] 1.2.840.114 [id number] Univers 00:00:00 00:00:00 [facility] HEALTH 350.1.13.10 it [place] of [place] [id number] [facility] [address] OFFICE BUILDING 2023-03-29 2023-03-29 Patient Doctor ANA 1.2.840.114 [id number] Univers 00:00:00 00:00:00 Secure Msg Unassigned, STEPHANIE 350.1.13.10 ity of [place] [facility] 4.2.7.2.686 [place] as [id number] [address] 2023-03-09 2023-03-09 Outpatient R [facility] [id number] Univers 14:12:55 23:59:[address] [facility] 2023-03-09 2023-03-09 Hospital [facility] 1.2.840.114 [id number] Univers 14:05:00 23:59:00 Encounter Urvashi SPECIALTY 350.1.13.10 it[place] of [place] CENTER [place] [id number] Ok clayfernando MCDUFFIE 809 [facility] 2023-03-09 2023-03-09 Office [facility] 1.2.840.114 [id number] Univers 14:40:00 14:40:00 Visit [facility] [id number] [id number] [phone] Ok clayfernando MCDUFFIE 198 [facility] 2023-03-09 2023-03-09 Office [facility] [id number] Univers 09:30:00 10:00:00 Visit [facility] HEALTH [id number] [id number] [phone] [facility] [address] OFFICE BUILDING 2023-02-18 2023-02-18 [employer] Room, [facility] 1. 2.840.114 [id number] Univers 13:00:00 13:30:00 Visit Clyde Guzman [facility] 350.1.13.10 it[place] [phone] Ok cheryle [address] 2023-02-18 2023-02-18 Outpatient R CLYDE GUZMAN [facility] [id number] Univers 13:00:00 13:00:[address] [facility] 2023-02-13 2023-02-13 Nurse ANA Wolfe 1.2.840.114 [id number] Univers 00:00:00 00:00:00 Triage Eileen STEPHANIE 350.1.13.10 it y of HOSPITAL 4.2.7.2.686 [place] as [id number] [address] 2023-02-10 2023-02-10 [address]YDE GUZMAN [facility] [id number] Univers 11:09:21 23:59:[address] [facility] 2023-02-10 2023-02-10 Hospital Clyde Guzman [facility] 1.2.840.114 [id number] Univers 11:09:21 23:59:00 Encounter HEALTH 350.1.13.10 [place] [phone] [facility] [address] OFFICE BUILDING 2023-02-10 2023-02-10 Hospital Clyde Guzman [facility] 1.2.840.114 [id number] Univers 10:54:21 11:08:00 Encounter HEALTH 350.1.13.10 [place] [id number] [address] OFFICE BUILDING 2023-01-28 2023-01-28 Telephone Carmen [facility] 1.2.840.114 [id number] Univers 00:00:00 00:00:00 [facility] 350.1.13.10 it y of [place] 4.2.7.2.686 [place] as MARGY?BLEA [phone] Ok cheryle [address] MEDICAL OFFICE BUILDING 2023-01-27 2023-01-27 Patient Doctor ANA 1.2.840.114 [id number] Univers 00:00:00 00:00:00 Secure Msg Unassigned, STEPHANIE 350.1.13.10 ity of [place] [facility] 4.2.7.2.686 [place] as [phone] [facility] [address] [place] 2023-01-26 2023-01-26 Emergency X [facility] ERT [id number] Univers 19:07:00 20:52:00 KYM washington [facility] 2023-01-26 2023-01-26 Emergency [facility] 1.2.840.114 10 [id number] Univers 19:07:00 20:52:00 Kym SERRANO 350.1.13.10 ity of [place] 4.2.7.2.686 [place] [facility] [phone] [facility] [address] [place] 2022-12-22 2022-12-22 Telephone Azra [facility] 1.2.840.114 [id number] Univers 00:00:00 00:00:00 Rebekah Maloney CAUSTIC OPERATOR 350.1.13.10 ity of [facility] 4.2.7.2.686 [place] as MATERNAL [phone] Med ical & CHILD [address] [place] [address] 2022-12-21 2022-12-[address] [facility] [id number] Univers 08:15:00 09:59:08 REBEKAH washington o f [facility] 2022-12-21 2022-12-21 Office Rebekah Oquendo [facility] 1.2.8 40.114 [id number] Univers 08:15:00 09:59:08 Visit Huseyin Rodriguez CAUSTIC OPERATOR 350.1.13.10 ity of [facility] 4.2.7.2.686 [place] MATERNAL [phone] [facility] ical & CHILD [address] [place] [address] 2022-12-21 2022-12-21 Orders Doctor ANA 1.2.840.114 [id number] Univers 00:00:00 00:00:00 Only Unassigned, STEPHANIE 350.1.13.10 [facility] 4.2.7.2.686 [place] [phone] [address] 2022-11-13 2022-11-13 Emergency Tee Granados [facility] [id number] 17:05:00 20:43:00 [facility] 2022-11-13 2022-11-13 Emergency ER Tee Granados [facility] [id number] 17:05:00 20:43:00 [facility] 2022-11-13 2022-11-13 Emergency ER TEE GRANADOS [facility] Emergency 20 [id number] [facility] 17:05:00 20:43:00 2022-11-13 2022-11-13 Travel [facility] [id number] [facility] 00:00:00 [facility] 2022-11-13 2022-11-13 Travel [facility] [id number] [facility] 00:[facility] 00:00:00 [facility] 2021-12-18 2021-12-18 [facility] [id number] Univers 09:00:00 09:42:45 HUSEYIN [place] o f [facility] 2021-12-18 2021-12-18 [facility] 1.2.840.114 [id number] Univers 09:00:00 09:42:45 Visit Huseyin R CAUSTIC OPERATOR 350.1.13.10 ity of [facility] 4.2.7.2.686 [place] MATERNAL [phone] Med ical & CHILD [address] [place] [address] 2021-12-18 2021-12-18 Outpatient [facility] [id number] Univers 09:00:00 09:42:45 [address] le[address]oy o f [facility] 2021-10-17 2021-10-17 Telephone [facility] 1.2.840.114 [id number] Univers 00:00:00 00:00:00 Rebekah C CAUSTIC OPERATOR 350.1.13.10 ity of [facility] 4.2.7.2.686 [place] MATERNAL [phone] Med ical & CHILD [address] [place] [address] 2021-10-15 2021-10-15 [employer], [facility] 1.2.840. 114 [id number] Univers 08:30:00 09:01:47 Visit Rebekah Oquendo CAUSTIC OPERATOR 350.1.13. 10 ity of [facility] 4.2.7.2.686 [place] MATERNAL [phone] Med ical & CHILD [address] [place] [address] 2021-10-15 2021-10-15 [facility] [id number] [facility] 08:30:00 09:01:[address] [facility] 2021-10-14 2021-10-14 Office [facility] 1.2.305.132 [id number] [facility] 10:30:00 11:14:59 Visit Rebekah CAUSTIC OPERATOR 350.1.13.10 ity of [facility] 4.2.7.2.686 [place] MATERNAL [id number] [facility] ical & CHILD [address] [place] [address] 2021-10-14 2021-10-14 [facility] [id number] [facility] 10:30:00 11:14:[address] [facility] 2021-10-14 2021-10-14 Orders Doctor ANA 1.2.840.114 [id number] Univers 00:00:00 00:00:00 Only Unassigned, STEPHANIE 350.1.13.10 ity of [place] [facility] 4.2.7.2.686 [place] [id number] [address] 2021-07-07 2021-07-07 Telephone [facility] 1.2.840.114 [id number] Univers 00:00:00 00:00:00 Rebekah C CAUSTIC OPERATOR 350.1.13.10 ity of [facility] 4.2.7.2.686 [place] MATERNAL [phone] Med ical & CHILD [address] [place] [address] 2021-06-27 2021-06-27 Patient Doctor [facility] 1.2.840.114 [id number] Univers 00:00:00 00:00:00 Secure Msjonathon Unassigned [place] 350.1.13.10 ity of [place] [facility] [place] [id number] [address] 2021-06-23 2021-06-23 Telephone [facility] 1.2.639.880 [id number] Univers 00:00:00 00:00:00 Sendil Bashir SERRAN[place] 350.1.13.10 ity of [facility] 4.2.7.2.[place] [phone] [address] 2021-06-18 2021-06-18 Outpatient [facility] [id number] Univers 11:00:00 11:34:21 SENDIL ity [facility] 2021-06-18 2021-06-18 Office [facility] 1.2.840.114 [id number] Univers 10:47:15 11:34:21 Visit Sendjoan SERRANO 350.1.13.10 ity of [facility] 4.2.7.2.[place] [phone] [address] 2021-06-18 2021-06-18 [facility] [id number] Univers 11:00:00 11:00:00 SENDIL ity [facility] 2021-06-03 2021-06-03 Telephone [facility] 1.2.249.467 [id number] Univers 00:00:00 00:00:00 Sendil Bashir [place] 350.1.13.10 it[place] of [place] Profess[place] [phone] [address] 2021-06-02 2021-06-02 Out[facility] [id number] Univers 11:30:00 11:30:00 SENDIL ity [facility] 2021-05-29 2021-05-29 Telephone [facility] 1.2.756.168 [id number] Univers 00:00:00 00:00:00 Sendil Bashir [place] 350.1.13.10 it[place] of [place] Profess[place] [phone] [place] 176589 [facility] 2021-05-20 2021-05-20 Hospital [facility] 1.2.840.114 [id number] Univers 11:00:00 23:59:00 Encounter Cruz [place] 350.1.13.10 ity of [place]2.[place] Profess[place] [id number] [address] 2021-05-20 2021-05-20 Outpatient [facility] [id number] Univers 11:00:00 11:00:00 SENDIL ity [facility] 2021-05-09 2021-05-09 Telephone [facility] 1.2.473.661 [id number] Univers 00:00:00 00:00:00 Sendjoan Serrano 350.1.13.10 [place] of [place] Profess[place] [id number] [address] 2021-05-02 2021-05-02 Office [facility] 1.2.840.114 [id number] Univers 11:06:47 11:58:39 Visit Cruz Serrano 350.1.13.10 ity of [place] 4[place].7.2.[place] Profess[place] [phone] [address] 2021-05-02 2021-05-02 Outpatient [facility] [id number] Univers 11:00:00 11:00:00 SENDIL ity [facility] 2021-05-02 2021-05-02 Orders Doctor PEREZ 1.2.840.114 [id number] Univers 00:00:00 00:00:00 Only Unassigned, STEPHANIE 350.1.13.10 ity of [place] [facility] 4.2.7.2.686 [place] [phone] Medi tiny [address] 2020-10-28 2020-10-28 Patient Erickson LAJULIAN 1.2.840.114 [id number] Univers 00:00:00 00:00:00 Outreach Herminio PRIMARY 350.1.13.10 i ty of Stephan [facility] 4.2.7.2.[place] [phone] Ok dical [address] 2020-10-28 2020-10-28 Patient Erickson [facility] 1.2.840.114 [id number] 00:00:00 00:00:00 Outreach Herminio PRIMARY 350.1.13.10 Stephan CARE 4.2.7.2.686 PAVILLION [phone] [facility] 2020-04-19 2020-04-19 Office [facility] 1.2.840.114 [id number] Univers 08:06:56 09:49:01 Visit [facility] R CAUSTIC OPERATOR 350.1.13.10 ity of [facility] 4.2.7.2.686 [place] MATERNAL [id number] Med ical & CHILD [address] [place] [address] 2020-04-19 2020-04-19 Office [facility]UNM [facility] 1.2.840.114 [id number] 08:06:56 09:49:01 Visit [facility] R CAUSTIC OPERATOR 350.1.13.10 REGIONAL 4.2.7.2.686 MATERNAL [phone] & CHILD [address] [place] [address] 2020-04-19 2020-04-19 Outpatient R AKINSIPE, [facility] [id number] Univers 07:30:00 07:30:00 REBEKAH ity o f [facility] 2020-04-09 2020-04-09 Outpatient R AKINSIPE, [facility] [id number] Univers 08:15:00 08:15:00 REBEKAH ity o f [facility] 2020-04-09 2020-04-09 Outpatient R AKINSIPE, [facility] [id number] Univers 08:15:00 08:15:00 REBEKAH ity o f [facility] 2020-04-09 2020-04-[address] [facility] [id number] Univers 07:45:00 07:45:[address] [facility] 2020-03-19 2020-03-19 Routine Akinsipe, [facility] 1.2.720.129 [id number] Univers 13:07:40 14:13:11 Rebekah C CAUSTIC OPERATOR 350.1.13.10 ity of Visit REGIONAL 4.2.7.2.686 [place] as MATERNAL [id number] [facility] ical & CHILD [address] [place] [address] 2020-03-19 2020-03-19 Outpatient R AKINSIPE, [facility] [id number] Univers 09:15:00 09:15:00 REBEKAH ity o f [facility] 2020-02-22 2020-02-22 Routine Akinsipe, [facility] 1.2.348.249 [id number] Univers 14:22:22 14:37:22 Rebekah C CAUSTIC OPERATOR 350.1.13.10 ity of Visit REGIONAL 4.2.7.2.686 [place] as MATERNAL [phone] [facility] & CHILD [address] [place] [address] 2020-02-22 2020-02-22 Outpatient R AKINSIPE, [facility] [id number] Univers 14:15:00 14:15:00 REBEKAH ity o f [facility] 2020-02-22 2020-02-22 Orders Doctor ANA 1.2.840.114 [id number] Univers 00:00:00 00:00:00 Only Unassigned, STEPHANIE 350.1.13.10 ity of [place] [facility] 4.2.7.2.686 [place] [phone] [address] 2020-02-14 2020-02-14 Routine Akinsipe, [facility] 1.2.356.687 [id number] Univers 13:59:03 14:14:03 Rebekah C CAUSTIC OPERATOR 350.1.13.10 ity of Visit [facility] 4.2.7.2.686 [place] MATERNAL [phone] [facility] ical & CHILD [address] [place] [address] 2020-02-14 2020-02-14 Outpatient R AKINSIPE, [facility] [id number] Univers 14:00:00 14:00:00 REBEKAH [place] o f [facility] 2020-02-14 2020-02-14 Orders Doctor ANA 1.2.840.114 [id number] 00:00:00 00:00:00 Only Unassigned, STEPHANIE 350.1.13.10 [place] [facility] 4.2.7.2.686 [id number] 2020-02-14 2020-02-14 Orders Doctor ANA 1.2.840.114 [id number] Univers 00:00:00 00:00:00 Only Unassigned, STEPHANIE 350.1.13.10 ity of [place] [facility] 4.2.7.2.686 [place] as [phone] [address] 2020-02-07 2020-02-07 Routine [facility] 1.2.655.094 [id number] Univers 14:04:13 14:44:35 Rebekah C CAUSTIC OPERATOR 350.1.13.10 ity of Visit REGIONAL 4.2.7.2.686 [place] as MATERNAL [id number] Med ical & CHILD [address] [place] [address] 2020-02-07 2020-02-07 Outpatient R [facility] [id number] Univers 14:15:00 14:15:00 REBEKAH [place] o f [facility] 2020-02-06 2020-02-06 Telephone [facility] 1.2.840.114 [id number] Univers 00:00:00 00:00:00 Rebekah C CAUSTIC OPERATOR 350.1.13.10 ity of REGIONAL 4.2.7.2.686 [place] as MATERNAL [phone] [facility] & [address] 2020-02-05 2020-02-05 Orders Doctor ANA 1.2.840.114 [id number] 00:00:00 00:00:00 Only Unassigned, STEPHANIE 350.1.13.10 [place] [facility] 4.2.7.2.686 [id number] 2020-02-05 2020-02-05 Telephone [facility] 1.2.840.114 [id number] Univers 00:00:00 00:00:00 Rebekah C CAUSTIC OPERATOR 350.1.13.10 ity of REGIONAL 4.2.7.2.686 [place] MATERNAL [phone] Med ical & CHILD 107 [facility] 2020-02-05 2020-02-05 Orders Doctor ANA 1.2.840.114 [id number] Univers 00:00:00 00:00:00 Only Unassigned, STEPHANIE 350.1.13.10 ity of [place] [facility] 4.2.7.2.686 [place] [phone] [place] [address] [address] 2020-02-03 2020-02-03 Patient Doctor [facility] 1.2.840.114 [id number] Univers 00:00:00 00:00:00 Secure Msg Unassigned, HEALTH 350.1.13.10 ity of [place] 4.2.7.2.686 [place] [facility] [id number] [facility] PRIMARY & [facility] Branch SPECIALTY CARE 2020-02-02 2020-02-02 Routine Azra [facility] 1.2.096.244 [id number] Univers 10:51:51 11:50:42 Rebekah Maloney CAUSTIC OPERATOR 350.1.13.10 ity of Visit [facility] 4.2.7.2.686 [place] MATERNAL [phone] [facility] ica & CHILD [address] [place] [address] 2020-02-02 2020-02-[address] [facility] [id number] Univers 11:00:00 11:00:00 REBEKAH [place] o f [facility] 2020-01-29 2020-01-29 Abstract Azra [facility] 1.2.840.114 [id number] Univers 00:00:00 00:00:00 Rebekah Maloney CAUSTIC OPERATOR 350.1.13.10 ity of REGIONAL 4.2.7.2.686 [place] as MATERNAL [phone] [facility] ical & CHILD [address] [place] [address] 2020-01-24 2020-01-24 Aircraft Armorer 5, [facility] Usg Room UNIVERSIT 1 .2.840.114 [id number] Univers 10:46:01 11:16:01 Visit Elli Almendarez HEALTH 350.1.13.10 ity of CL[place] 4[place]2.[place].2.[place] [phone] [facility] [address] 2020-01-24 2020-01-[address] [facility] [id number] Univers 11:00:00 11:00:00 ity [facility] 2020-01-19 2020-01-19 Routine Azra, [facility] 1.2.017.269 [id number] Univers 08:25:29 09:08:35 Rebekah C CAUSTIC OPERATOR 350.1.13.10 ity of Visit REGIONAL 4.2.7.2.686 [place] as MATERNAL [phone] [facility] ical & CHILD [address] [place] [address] 2020-01-19 2020-01-19 Outpatient R AZRA, [facility] [id number] Univers 08:30:00 08:30:[address] [facility] 2020-01-19 2020-01-19 Orders Doctor ANA 1.2.840.114 [id number] 00:00:00 00:00:00 Only Unassigned, STEPHANIE 350.1.13.10 [place] [facility] 4.2.7.2.686 [phone] 009 2020-01-19 2020-01-19 Orders Doctor ANA 1.2.840.114 [id number] Univers 00:00:00 00:00:00 Only Unassigned, STEPHANIE 350.1.13.10 ity of [place] [facility] 4.2.7.2.686 [place] [phone] [facility] [address] [place] 2020-01-08 2020-01-[address] [facility] [id number] Univers 10:00:00 10:00:00 ity [facility] 2020-01-05 2020-01-05 Nurse Visit, Lalo-Rmchp Nurse [facility] 1.2 .840.114 [id number] Univers 07:55:35 08:46:40 Visit Rebekah Oquendo CAUSTIC OPERATOR 350.1.13. 10 ity of REGIONAL 4.2.7.2.686 [place] as MATERNAL [phone] [facility] & CHILD [address] [place] [address] 2020-01-05 2020-01-05 Outpatient R AZRA, [facility] [id number] Univers 08:00:00 08:00:00 REBEKAH itselena o f [facility] 2020-01-02 2020-01-02 Telephone [facility] 1.2.840.114 [id number] Univers 00:00:00 00:00:00 Rebekah C CAUSTIC OPERATOR 350.1.13.10 ity of REGIONAL 4.2.7.2.686 [place] as MATERNAL [id number] [facility] & CHILD [address] [place] [address] 2019-12-29 2019-12-[address] [facility] [id number] Univers 10:30:00 10:30:00 [address] ity o f [facility] 2019-12-29 2019-12-29 Aircraft Armorer Lab, [facility] 1.2.840. 114 [id number] Univers 08:10:34 08:32:02 Visit Rebekah Oquendo C CAUSTIC OPERATOR 350.1.13. 10 ity of REGIONAL 4.2.7.2.686 [place] as MATERNAL [phone] [facility] & CHILD [address] [place] [address] 2019-12-28 2019-12-28 Telephone [facility] 1.2.840.114 [id number] Univers 00:00:00 00:00:00 Rebekah C CAUSTIC OPERATOR 350.1.13.10 ity of REGIONAL 4.2.7.2.686 [place] as MATERNAL [id number] [address] 2019-12-28 2019-12-28 William [facility] 1.2.840.114 [id number] Univers 00:00:00 00:00:00 Lloyd CAUSTIC OPERATOR 350.1.13.10 i ty of REGIONAL 4.2.7.2.686 [place] as MATERNAL [phone] [facility] & CHILD [address] [place] [address] 2019-12-26 2019-12-26 Routine [facility] 1.2.377.016 [id number] Univers 09:50:52 11:02:52 Rebekah C CAUSTIC OPERATOR 350.1.13.10 ity of Visit REGIONAL 4.2.7.2.686 [place] MATERNAL [id number] [facility] & CHILD [address] [place] [address] 2019-12-26 2019-12-26 Outpatient R BRYCEJOMAR, [facility] [id number] Univers 10:00:00 10:00:[address] [facility] 2019-12-26 2019-12-26 Orders Doctor ANA 1.2.840.114 [id number] Univers 00:00:00 00:00:00 Only Unassigned, STEPHANIE 350.1.13.10 ity of [place] [facility] 4.2.7.2.686 [place] as [phone] [address] 2019-12-21 2019-12-21 Outpatient R AKINBROOKEPE, [facility] [id number] Univers 13:00:00 13:00:[address] [facility] 2019-12-12 2019-12-12 Letter [facility] 1.2.543.163 [id number] Univers 00:00:00 00:00:00 (Out) Rebekah Maloney CAUSTIC OPERATOR 350.1.13.10 ity [facility] 4.2.7.2.686 [place] as MATERNAL [phone] [facility] ical & CHILD [address] [place] [address] 2019-12-05 2019-12-05 [facility] [id number] Univers 10:45:00 10:45:[address] [facility] 2019-12-04 2019-12-04 [facility] [id number] Univers 11:00:00 11:00:[address] [facility] 2019-11-13 2019-11-[address] [facility] [id number] Univers 10:00:00 10:00:00 [facility] 2019-11-06 2019-11-06 Telemedici OtisdexterUN[facility] 1.2.840.114 [id number] Univers 13:22:45 14:22:11 ne Visit Rebekah Maloney CAUSTIC OPERATOR 350.1.13.10 ity of [facility] 4.2.7.2.686 [place] as MATERNAL [phone] [facility] ical & CHILD [address] [place] [address] 2019-11-06 2019-11-06 Outpatient R AZRA, [facility] [id number] Univers 14:15:00 14:15:00 [address] ity o f [facility] 2019-10-11 2019-10-11 Aircraft Armorer 5, [facility] Mf Usg Room UNIVERSIT 1 .2.840.114 [id number] Univers 10:50:56 14:13:19 Visit Luz Clifton [facility] 350.1.13.10 ity of AlbiaJennifer [facility] 4.2.7.2.686 [place] Rell [place] [phone] [address] 2019-10-11 2019-10-11 Office [place], [facility] 1.2.840.114 [id number] Univers 10:05:23 10:48:41 Visit [facility] 350.1.13.10 ity of CLINICS 4[place]2.7.2.[place] [phone] [facility] [address] [place] 2019-10-11 2019-10-11 Outpatient [facility] [id number] Univers 10:45:00 10:45:00 LUZ ity [facility] 2019-10-11 2019-10-11 Abstract [facility] 1.2.840.114 [id number] Univers 00:00:00 00:00:00 Rebekah C CAUSTIC OPERATOR 350.1.13.10 ity of [facility] 4.2.7.2.686 [place] as MATERNAL [phone] Med ical & CHILD [address] [place] [address] 2019-10-11 2019-10-11 Orders Doctor PEREZ 1.2.840.114 [id number] Univers 00:00:00 00:00:00 Only Unassigned, STEPHANIE 350.1.13.10 ity of [place] [facility] 4.2.7.2.686 [place] [phone] [facility] 00[address] [place] 2019 2019 Routine [facility] 1.2.290.396 [id number] Univers 09:13:55 10:34:00 Rebekah C CAUSTIC OPERATOR 350.1.13.10 ity of Visit [facility] 4.2.7.2.686 [place] as MATERNAL [phone] Med ical & CHILD [address] [place] [address] 2019-08-30 2019-08-30 Routine Akinsipe, [facility] [id number] Univers 10:17:25 11:03:45 Rebekah Maloney CAUSTIC OPERATOR 350.1.13.10 ity of Visit [facility] 4.2.7.2.686 [place] as MATERNAL [phone] Med ical & CHILD 107 [facility] 2019-08-25 2019-08-25 Aircraft Armorer [facility] UNIVERSIT [id number] Univers 13:26:34 13:41:34 Visit Rebekah Oquendo [facility] 350.1.13 .10 ity of CLIN[place] [id number] [facility] [address] 2019-08-25 2019-08-25 Aircraft Armorer Lab, [facility] UNIVERSIT 1.2.84 0.114 [id number] Univers 12:17:52 13:25:09 Visit Elodia, Luz [facility] 350.1.13.10 ity of Lloyd Parsons [facility] 4.2.7.2.686 [place] [phone] [facility] [address] 2019-08-25 2019-08-25 Outpatient P LLOY[facility] [id number] Univers 11:15:00 12:13:10 LLOYD PARSONS ity of [facility] 2019-08-25 2019-08-25 Case Chucky, UNIVERSIT 1.2.169.269 [id number] Univers 00:00:00 00:00:00 Management [facility] 350.1.13.10 ity of CLIN[place] [phone] [facility] [address] Results Test Description Test Time Test Comments Results Result Comments Source Transthoracic echo (TTE) 2023-06-25 21:00:16 Test Item Value Reference Range Interpretation Comme nts Height (test code = 5909111276) 65 in Weight (test code = 9652835870) 182 lbs Systolic BP (test code = 3136771582) 121 mmHg Diastolic BP (test code = 3426861201) 63 mmHg Heart Rate (test code = 7080118416) 58 bpm BSA (test code = 3683995969) 1.90 m2 IVS (test code = 5158737198) 0.80 cm Interventricular Septum Diastolic 0.80 cm Thickness by 2D (test code = 2108153) LVIDD (test code = 3042088763) 4.60 cm Left Ventricular End Diastolic Volume 97.0 mL by Teichholz Method (test code = 3498142) LVPWD (test code = 3395702030) 0.76 cm PW (test code = 7468056006) 0.76 cm 0.6-1.1 LVOT diameter (test code = 1155099205) 1.94 cm LVOT area (test code = 8556242082) 3.00 cm2 Ao root diam (test code = 5421812120) 2.60 cm Aortic root (test code = 7390048766) 2.6 cm Ao root annulus (test code = 2.6 cm 9005771445) LA size (test code = 0448046225) 3.4 cm LAV(MOD-sp4) (test code = 0651226044) 50.30 mL MV Peak E Luis (test code = 7192075406) 79.0 cm/s MV valve area p 1/2 method (test code 2.90 cm2 = 7251205633) MV dec slope (test code = 2120751434) 439.30 cm/s2 MV P1/2t max luis (test code = 114.30 cm/s 8362346771) MV Prop V (test code = 6042370369) 39.50 cm/s TR Peak Luis (test code = 0451668464) 205.4 cm/s Triscuspid Valve Regurgitation Peak 16.9 mmHg Gradient (test code = 5346391495) Tapse (test code = 0484273236) 2.15 cm LVOT stroke volume (test code = 57.40 cm3 7463276129) LVOT peak luis (test code = 5428288048) 122.3 cm/s LVOT mn grad (test code = 3271113163) 2.5 mmHg AV LVOT peak gradient (test code = 6.0 mmHg 6590000919) LVOT peak VTI (test code = 4188078100) 19.4 cm LV V1 mean (test code = 1314527818) 72.10 cm/s Aortic valve mean velocity (test code 70.7 cm/s = 5660624889) Ao peak luis (test code = 6520453333) 115.6 cm/s Ao VTI (test code = 1662522685) 18.3 cm AV area by cont VTI (test code = 3.1 cm2 9430570617) AV area peak luis (test code = 3.1 cm2 2371989571) Ao max PG (test code = 5216192830) 5.30 mm[Hg] AV peak gradient (test code = 5.3 mmHg 1136422478) AV valve area (test code = 0465915457) 3.10 cm2 AV mean gradient (test code = 2.44 mmHg 8301529110) LA Volume Index (BP) (test code = 25.5 mL/m2 1340653951) LA volume (BP) (test code = 48.5 mL 0201062553) LAV(MOD-sp2) (test code = 9487172129) 43.30 mL EF(Teich) (test code = 5175158008) 77.00 % LVIDS (test code = 8699542836) 2.50 cm Left Ventricular End Systolic Volume 22.3 mL by Teichholz Method (test code = 0092440) FS (test code = 8528196596) 46 % EF - 2D (test code = 08707130) 77.00 % Radiology Study observation (narrative) (test code = 49528-8) PAUL (test code = PAUL) ?Left?Ventricle: Left ventricle size is normal. Normal wall thickness. Septal motion is normal. Normal wall motion. Normal systolic function with a visually estimated EF of 60 - 65%. Normal diastolic function. ?Right?Ventricle: Right ventricle is mildly dilated. Normal wall thickness. Normal systolic function. ?Tricuspid?Valve: Mild transvalvular regurgitation. Right ventricular systolic pressure is 20-25 mmHg. ?Pericardium: No pericardial effusion. Left VentricleLeft ventricle size is normal. Normal wall thickness. Septal motion is normal. Normal wall motion. Normal systolic function with a visually estimated EF of 60 - 65%. Normal diastolic function.Right VentricleRight ventricle is mildly dilated. Normal wall thickness. Normal systolic function.Left AtriumLeft atrium size is normal.Right AtriumRight atrium is dilated.IVC/SVCIVC diameter is less than or equal to 21 mm and decreases less than 50% during inspiration; therefore the estimated right atrial pressure is intermediate (~8 mmHg).Mitral ValveMitral valve structure is normal. Trace transvalvular regurgitation. No stenosis.Tricuspid ValveTricuspid valve structure is normal. Mild transvalvular regurgitation. Right ventricular systolic pressure is 20-25 mmHg. No stenosis.Aortic ValveTricuspid. No transvalvular regurgitation. No evidence of aortic stenosis.Pulmonic ValveNot well visualized. Valve structure is normal. Trace transvalvular regurgitation. No stenosis.Ascending AortaNormal sized aortic root.PericardiumThe pericardium is normal. No pericardial effusion.Study DetailsStudy quality was adequate. A complete echocardiogram was performed using 2D, color flow Doppler and spectral Doppler. Patient exhibited sinus rhythm. [facility] [id number] 05:40:28 Test Item Value Reference Range Interpretation Comments TROPONIN I (test code = 0.136 ng/mL <=0.034 H 3053858677) PAUL (test code = PAUL) Reference (Normal) Range (defined by the 99th percentile reference limit): <= 0.034 ng/mL Note: Cardiac troponin begins to rise 3-4 hours after the onset of ischemia. Repeat in 4-6 hours if the sample was drawn within 3-4 hours of the onset of the symptom and found normal. Diagnosis of myocardial injury is made with acute changes in cTn concentrations with at least one serial sample above the 99th percentile upper reference limit (URL), taken together with the patient's clinical presentation. Biotin has been reported to cause a negative bias, interpret results relative to patient's use of biotin. Lab Interpretation Abnormal (test code = 17685-0) [facility] ACT LOW [id number] 14:24:42 Test Item Value Reference Range Interpretation Comments ACTLR (test code = 242 See_Comment H [Automat ed message] 1644801556) The system GetFeedback generated this result transmitted ref erence range: 89 - 169 Seconds. The reference range was not used to int erpret this result as normal/abnormal . Lab Interpretation (test Abnormal code = 61622-7) [facility] ACT LOW [id number] 14:24:42 Test Item Value Reference Range Interpretation Comments ACTLR (test code = 285 See_Comment H [Automat ed message] 7094361032) The system GetFeedback generated this result transmitted ref erence range: 89 - 169 Seconds. The reference range was not used to int erpret this result as normal/abnormal . Lab Interpretation (test Abnormal code = 20807-6) [facility] ACT LOW [id number] 14:24:42 Test Item Value Reference Range Interpretation Comments ACTLR (test code = 334 See_Comment H [Automat ed message] 6698124955) The system GetFeedback generated this result transmitted ref erence range: 89 - 169 Seconds. The reference range was not used to int erpret this result as normal/abnormal . Lab Interpretation (test Abnormal code = 43317-9) [facility] ACT LOW [id number] 14:24:42 Test Item Value Reference Range Interpretation Comments ACTLR (test code = 310 See_Comment H [Automat ed message] 2613332498) The system GetFeedback generated this result transmitted ref erence range: 89 - 169 Seconds. The reference range was not used to int erpret this result as normal/abnormal . Lab Interpretation (test Abnormal code = 40303-3) [facility] ACT LOW [id number] 14:24:42 Test Item Value Reference Range Interpretation Comments ACTLR (test code = 242 See_Comment H [Automat ed message] 3198641233) The system GetFeedback generated this result transmitted ref erence range: 89 - 169 Seconds. The reference range was not used to int erpret this result as normal/abnormal . Lab Interpretation (test Abnormal code = 78650-5) [facility] ACT LOW [id number] 14:24:42 Test Item Value Reference Range Interpretation Comments ACTLR (test code = 285 See_Comment H [Automat ed message] 6861534983) The system GetFeedback generated this result transmitted ref erence range: 89 - 169 Seconds. The reference range was not used to int erpret this result as normal/abnormal . Lab Interpretation (test Abnormal code = 42176-7) [facility] ACT LOW [id number] 14:24:42 Test Item Value Reference Range Interpretation Comments ACTLR (test code = 334 See_Comment H [Automat ed message] 8265859481) The system GetFeedback generated this result transmitted ref erence range: 89 - 169 Seconds. The reference range was not used to int erpret this result as normal/abnormal . Lab Interpretation (test Abnormal code = 43349-0) [facility] [id number] 14:24:42 Test Item Value Reference Range Interpretation Comments ACTLR (test code = 310 See_Comment H [Automat ed message] 4624659246) The system GetFeedback generated this result transmitted ref erence range: 89 - 169 Seconds. The reference range was not used to int erpret this result as normal/abnormal . Lab Interpretation (test Abnormal code = 52102-2) [facility] 17:55:44 Test Item Value Reference Range Interpretation Comments Height (test code = 64 in 4992487365) Weight (test code = 184 lbs 0322362865) Systolic BP (test 102 mmHg code = 5916380833) Diastolic BP (test 57 mmHg code = 3331269424) Heart Rate (test code 61 bpm = 7061486130) Radiology Study observation (narrative) (test code = 43110-7) PAUL (test code = PAUL) ?Pericardium: No [...] The apical and parasternal views were obtained. [facility] 17:55:44 Test Item Value Reference Range Interpretation Comments Height (test code = 64 in 4936265398) Weight (test code = 184 lbs 2739904285) Systolic BP (test 102 mmHg code = 3362784917) Diastolic BP (test 57 mmHg code = 3680501607) Heart Rate (test code 61 bpm = 5388100520) Radiology Study observation (narrative) (test code = 26063-3) PAUL (test code = PAUL) ?Pericardium: No [...] The apical and parasternal views were obtained. [facility] [id number] 14:55:00 Test Item Value Reference Range Interpretation Comments ABO & RH (test code = 20) O POSITIVE IAT (test code = 1185) Negative [facility] [id number] 14:55:00 Test Item Value Reference Range Interpretation Comments ABO & RH (test code = 20) O POSITIVE IAT (test code = 1185) Negative [facility], [id number] 14:30:53 Test Item Value Reference Range Interpretation Comments PREG SERUM (test code Negative = 5063042232) PAUL (test code = PAUL) Less than 10 IU/L. ?If low titer or ectopic is suspected, resubmit specimen in 48-72 hours. [facility], [id number] 14:30:53 Test Item Value Reference Range Interpretation Comments PREG SERUM (test code Negative = 3165574644) PAUL (test code = PAUL) Less than 10 IU/L. ?If low titer or ectopic is suspected, resubmit specimen in 48-[address] [facility] 17:56:40 Test Item Value Reference Range Interpretation Comments MAGNESIUM (test code = 3911687655) 2.3 mg/dL 1.7-2.4 Lab Interpretation (test code = Normal 30958-9) [facility]OL[facility] PANEL (NA, K, CL, CO2, GLUCOSE, BUN, CREATININE, CA)2023-06-16 17:56:24 Test Item Value Reference Range Interpretation Comments NA (test code = 137 mmol/L 135-145 4929405422) K (test code = 4.4 mmol/L 3.5-5.0 8005530151) CL (test code = 106 mmol/L 98-108 0019410669) CO2 TOTAL (test code = 20 mmol/L 23-31 L 3867741501) AGAP (test code = 11 2-16 4307519523) BUN (test code = 8 mg/dL 7-23 2311507863) GLUCOSE (test code = 93 mg/dL 70-110 2789821903) CREATININE (test code = 0.49 mg/dL 0.50-1.04 L 2886288919) CALCIUM (test code = 9.7 mg/dL 8.6-10.6 6066261178) eGFR (test code = 123.1 mL/min/1.73m2 CKD-EPI e GFR 30216-5) (2020). Assumin g creatinine has been stable day-to-d ay for at least th ree months, the eGF R indicates Categ ory G1 (>= 90 mL/min/1.73 m2) Lab Interpretation (test Abnormal code = 83746-6) [facility] 17:56:19 Test Item Value Reference Range Interpretation Comments PHOSPHORUS (test code = 6909485029) 3.6 mg/dL 2.5-5.0 Lab Interpretation (test code = Normal 41547-6) [facility] CenterProthrombin Time / [id number] 16:34:31 Test Item Value Reference Range Interpretation Comments PROTIME PATIENT (test 12.7 See_Comment [Auto mated message] code = 5964-2) The system Klatcher generated this result transmitted ref erence range: 12.0 - 1 4.7 Seconds. The re ference range was not u sed to interpret this result as normal/abnor mal. INR (test code = 6301-6) 1.0 Nor mal INR <1.1; Warfarin Therap eutic range 2.0 to 3. 0 or 2.5 to 3.5, dep ending upon the indica tions. Lab Interpretation (test Normal code = 41237-3) [facility] WITHOUT [id number] 16:26:47 Test Item Value Reference Range Interpretation Comments WBC (test code = 6.37 See_Comment [Automated message] The 6690-2) system which nerated this result tra nsmitted reference range : 4.30 - 11.10 10*3/?L. The reference range was not used to interpr et this result as normal/abnormal . RBC (test code = 4.56 See_Comment [Automated message] The 789-8) system which nerated this result tra nsmitted reference range [...] See_Comment [Automated message] The 777-3) system which nerated this result tra nsmitted reference range : 166 - 358 10*3/?L. Th e reference range was not used to interpr et this result as normal/abnormal . MPV (test code = 10.7 fL 9.5-12.9 02982-9) RDW-CV (test code = 14.1 % 12.0-15.5 788-0) RDW-SD (test code = 43.7 fL 39.0-49.9 72810-2) NRBC x10^3 (test See_Comment [Automated message] The code = 6262820234) system [facility] generated this result tra nsmitted reference range : 10*3/?L. The reference r diana was not used to int erpret this result as normal/abnormal . NRBC/100 WBC (test 0.0 See_Comment [Automat ed message] The code = 3899120003) system [facility] generated this result tra nsmitted reference range : 0.0 - 10.0 /100 WBCs. The reference range was not used to interpr et this result as normal/abnormal . IPF % (test code = 5506746716) [facility]2023-03-30 20:17:38 Test Item Value Reference Range Interpretation Comments Height (test code = 64 in 1358986520) Weight (test code = 180 lbs 4994420570) Systolic BP (test code = 110 mmHg 8356262743) Diastolic BP (test code 66 mmHg = 1933971751) Heart Rate (test code = 80 bpm 7902331860) BSA (test code = 1.89 m2 2934818522) LVIDD (test code = 4.40 cm 1689232710) Left Ventricular End 86.9 mL Diastolic Volume by Teichholz Method (test code = 6890159) IVS (test code = 0.90 cm 2717394705) Interventricular Septum 0.90 cm Diastolic Thickness by 2D (test code = 7605581) LVPWD (test code = 0.96 cm 5519309879) PW (test code = 0.96 cm 0.6-1.1 6390055198) EF(Teich) (test code = 68.60 % 6474178253) LVIDS (test code = 2.70 cm 4934954768) Left Ventricular End 27.3 mL Systolic Volume by Teichholz Method (test code = 8200844) FS (test code = 38 % 1805776615) EF - 2D (test code = 68.60 % 65017164) LVOT diameter (test code 1.80 cm = 5612206826) LVOT area (test code = 2.50 cm2 3360492567) Ao root diam (test code 2.60 cm = 7584453387) Aortic root (test code = 2.6 cm 2600390099) Ao root annulus (test 2.6 cm code = 9506093464) LA size (test code = 3.0 cm 4916779471) Pulmonic Regurgitant End 75.6 cm/s Max Velocity (test code = 9989393819) TR Peak Luis (test code = 225.3 cm/s 9285686792) Triscuspid Valve 20.3 mmHg Regurgitation Peak Gradient (test code = 4652042306) LAV(MOD-sp4) (test code 33.20 mL = 0124059952) MV Peak E Luis (test code 115.9 cm/s = 1056181543) E wave decelartion time 0.26 s (test code = 2456716256) MV Peak A Luis (test code 60.9 cm/s = 3600394337) E/A ratio (test code = 1.90 ratio 4019502651) LVOT stroke volume (test 59.10 cm3 code = 0054938851) LVOT peak luis (test code 113.7 cm/s = 7882548266) LVOT mn grad (test code 2.4 mmHg = 6614816225) AV LVOT peak gradient 5.2 mmHg (test code = 4827404967) LVOT peak VTI (test code 23.3 cm = 2116463115) LV V1 mean (test code = 71.90 cm/s 8005695162) TASV (test code = 16.6 cm/s 0408426401) LA Volume Index (BP) 20.9 mL/m2 (test code = 3096373759) LA volume (BP) (test 39.6 mL code = 9254442745) LAV(MOD-sp2) (test code 46.00 mL = 7891247307) Radiology Study observation (narrative) (test code = 56154-2) PAUL (test code = PAUL) ?Left?Ventricle: Left [...] 2D, color flow Doppler and spectral Doppler. [facility] METABOLIC [id number] 19:16:42 Test Item Value Reference Range Interpretation [...] G3b Moderately to s everely 30-44 G4 Sever ly decreased 15-29 G5 Kidney failure <15Repo rted eGFR is based on the CKD-EPI 2020 equation t hat does not use a race coefficientEsti mated GFR is not as accur ate as Creatinine Jeni matt in predicting glom erular filtration rate . Estimated GFR is not appl icable for dialysis patien ts [employer] ID - BSCBC W/PLT COUNT & AUTO [id number] 18:48:10 Test Item Value Reference Range Interpretation [...] (test code = 2801) RAD, CHEST, 2 [id number] 18:13:00Reason for exam:->HEADACHEReason for exam:->DIZZINESSX 6 days [facility] 1985 Sex: FFINAL REPORT TECHNIQUE: Frontal and lateral views of the chest. INDICATION: HEADACHEDIZZINESS COMPARISON: None FINDINGS: LINES/TUBES: None. LUNGS: The lungs are well inflated and clear. No consolidation or pulmonary edema. PLEURA: No pleural effusion or pneumothorax. HEART AND MEDIASTINUM:The cardiomediastinal contour within normal limits. SOFT TISSUES AND BONES: Unremarkable. IMPRESSION:No acute cardiopulmonary process. Signed: Doni Camilo Verified Date/Time: 11/13/2022 18:13:31 XR chest 2 [id number] 18:13:00FINAL REPORT TECHNIQUE: Frontal and lateral views of the chest. INDICATION: HEADACHEDIZZINESS COMPARISON: None FINDINGS: LINES/TUBES: None. LUNGS: The lungs are well inflated and clear. No consolidation or pulmonary edema. PLEURA: No pleural effusion or pneumothorax. HEART AND MEDIASTINUM: The cardiomediastinal contour within normal limits. SOFT TISSUES AND BONES: Unremarkable. IMPRESSION:No acute cardiopulmonary process. Signed: Doni Camilo Verified Date/Time:11/13/2022 18:13:31 [facility] SPECIFIC [id number] 19:28:00 Test Item Value Reference Range Interpretation [...] code = 3257) large Negative - Negative [facility] [id number] 14:11:00 Test Item Value Reference Range Interpretation Comments POCT PREG (test code = 1605) Negative On board controls acceptable with C Yes Line (test code = 3574) POCT PREG LOT # (test code = 3575) POCT PREG TEST DATE (test code = 3576) [facility]) 2020-02-27 10:08:00 Test Item Value Reference Range Interpretation Comments SARS-COV2/RT-PCR (test Negative Not Detected, Negative, code = 7696818) See external report for linked test SARS-COV-2 PERFORMING LAB [facility] (test code = 7304115) Negative result for this test determines that [...] of the Act.Fact Sheet for Healthcare Prov iders:https://www.Car[employer]oo!/sites/default/files/product/documents/Fact_Sheet_HC _Mvascwbry_Qzyo_NKSF-HpQ-9.pdfFact Sheet for Healthcare Patients:https://www.[employer]!/sites/default/files/product/docume nts/Cqww_Afnxz_Jnipdger_Arpn_AZMT-AeT-9.pdfPerforming Laboratory:[facility] [facility] [place] [address] Notes Date/Time Note Provider Source 2023-04-13 09:10:14 1201-34-71B79:10:14Formatting Ledy Tucker on RN [facility] of this note might be different from the original.Called pt and notified per [employer], "Yes but the cell service is only [place]. So they will have to use the Wi-Fi function. If it's short term trip then the monitor will save data until they come back." Pt states, "I did call the [facility] [facility] and they told me the same thing." 40214-4Iqtazupwv encounter CumqUN1148-89-09X85:25:23Telep danika encounter NoteTXT1.2.840.104673.1.13.104 .2.7.2.333545|[id number] lable for patient pezk29637-5LbxhAA986939017Owki marilynn Muniz RN[address] AekcKtngvhuxmZmcsqrvxoUVDH2598 357281OAFKCOHIWOYEWGXRHBOPMT40 01-05-0509:25:231.2.840.33851 0.1.72.3.15|1.2.840.056888.1.1 3.104.2.7.2.727879_[id number] 2023-04-09 15:32:26 4913-92-05Q65:32:26Formatting Jessy self [facility] of this note might be Sohail Harden different from the original.Lou Meyer is a 37 year old femalePatient is calling requesting for a nurse to call back to provide medical advise on whether or not she can travel out of the country with her heart monitor that she has had for a month please advise. 54045-1Seeavqyzm encounter MbyvTQ8856-63-16T26:34:58Telep danika encounter NoteTXT1.2.840.198076.1.13.104 .2.7.2.085231|[id number] [facility] patient [id number] mari Sabrina Sauceda [address] HeexFjlvwwrgyWgkfhriofEFJJ9448 382370JBZLATPPQWOXQALCLKOKYZ32 01-05-01T15:34:581.2.840.82068 0.1.72.3.15|1.2.840.668275.1.1 3.104.2.7.2.727879_[id number] 2023-04-05 13:26:23 5954-03-82C04:26:23Formatting Michell gray RN [facility] of this note might be different from the original.Images from the original note were not included.Called pt and she admits that she did feel a palpitation at the time of notification. Pt admits she was simply standing. 64575-1Bhstuuucy encounter FavgCH1975-04-41Q72:29:11Telep danika encounter NoteTXT1.2.840.358999.1.13.104 .2.7.2.515256|[id number] lable for patient ahxx30634-6AsddCN184662902Xsim mary Bhagat RN[address]vestonTXTX[address] 699603DSGURIPMYSZZXVTIBISOCZ59 31-03-28T13:29:111.2.840.62438 0.1.72.3.15|1.2.840.077495.1.1 3.104.2.7.2.727879_[id number] 2023-04-05 13:17:32 0879-52-82S56:17:32Formatting Irma Vega [facility] of this note might be different from the original.Lou Meyer is a 37 year old female [employer] calling with serious EKG. Please call [phone] signed by Irma Vega at 04/05/2023 1:19 PM AIA17673-1Bpqbrfsoe encounter DqbhDD6912-69-97M23:19:43Telep danika encounter NoteTXT1.2.840.157015.1.13.104 .2.7.2.044371|[id number] lable for patient fsbl21686-5AfptFQ681504676Tliw a Stephen[address] StreetTXTX[address] 861407ULZVIRKNSYDXYVJMEBIGUL30 31-03-28T13:19:431.2.840.12086 0.1.72.3.15|1.2.840.461192.1.1 3.104.2.7.2.727879_[id number] 2023-03-30 15:54:12 7849-84-31V99:54:12Formatting [facility] of this note might be different from the original.Called pt and notified that she must [facility]. Number is [phone].[place] [address]-5Gznfxjodr encounter JdnaWI4389-28-21J53:57:10Telep danika encounter NoteTXT1.2.840.070975.1.13.104 .2.7.2.320609|[id number] lable for patient faef64427-4UbzsVY175520848Xkni marilynn Muniz [address]TXTX[address] 481845MWJDGDPGJUNGOALFWKIBWD00 31-03-22T15:57:101.2.840.51461 0.1.72.3.15|1.2.840.519050.1.1 3.104.2.7.2.727879_[id number] 2023-03-30 14:00:00 4522-23-31T44:00:00Formatting Ledy Tucker on [facility] of this note might be different from the original.Event monitor placed on patient without complication. Questions and concerns answered and addressed. Pt instructed to call free number in info booklet if he should have any questions. Pt verbalizes understanding. 32962-7Uvrfv GxlbWU4788-88-01F34:41:50Nurse NoteTXT1.2.840.103884.1.13.104 .2.7.2.358419|[id number] lable for patient sgqc21328-3Rnasg QresKE101119588Asvwiw R Johnson RN[address]TXTX[address] 377155QTBSVJZWVXTGSQEOQSCJFX70 31-03-22T15:41:501.2.840.11047 0.1.72.3.15|1.2.840.187741.1.1 3.104.2.7.2.727879_[id number]
--- NOTE | 2023-07-08 09:46 | RAD REPORT ---
EXAM DESCRIPTION: RADChest Single View07/08/2023 9:37 am CLINICAL HISTORY: Cough;Dyspnea COMPARISON: Chest Single View dated 06/23/2023; Chest Single View dated 04/09/2023; Chest Single View dated 11/08/2022; Chest Single View dated 06/16/2021 TECHNIQUE: Portable AP view of the chest. FINDINGS: The lungs are clear. No pneumothorax or effusion. The cardiomediastinal contours are unre markable. IMPRESSION: No acute cardiopulmonary process.
[2023-07-08 09:47] LABS: Protime INR 1.27
[2023-07-08 09:58] LABS: Bilirubin Total 0.5 mg/dL (0.2-1.0); Potassium 3.1 mEq/L (3.5-5.1); Protein, Total 8.9 g/dL (6.4-8.2)
[2023-07-08 10:25] LABS: Hematocrit 38.5 % (36.0-45.0); MCV 80.7 fL (80-100); MPV 8.8 fL (7.6-11.3); Platelets 262 thou/uL (152-406); RBC Red Blood Cell Count 4.77 M/uL (3.86-4.86)
--- NOTE | 2023-07-08 10:52 | RAD REPORT ---
EXAM DESCRIPTION: CT - Chest For Pe Angio - 07/08/2023 9:58 am CLINICAL HISTORY: dyspnea, states recent PE, worse COMPARISON: Chest For Pe Angio dated 04/10/2023; Chest For Pe Angio dated 04/21/2021 TECHNIQUE: Thin axial CT images of the chest were obtained following administration of 100 mL mL Iso renee 370 IV contrast. Multiplanar reconstructions, and maximum intensity projection reconstructions we re generated and reviewed. Exam utilizes a protocol for optimal evaluation of pulmonary arterial tree . All CT scans are performed using dose optimization technique as appropriate and may include automated exposure control or mA/KV adjustment according to patient size. FINDINGS: Pulmonary arteries are normal. No emboli or other suspicious finding. No acute or signific ant aorta findings. No mass or infiltrate in the lung parenchyma. Motion artifact somewhat limits evaluation. No pleural thickening or pleural effusion. No pneumothorax. No abnormal mediastinal or hilar masses or lymphadenopathy seen. No chest wall mass or abnormal axill iary lymphadenopathy. 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 Callus post cholecystectomy. IMPRESSION: No evidence of acute central pulmonary emboli. No other acute pulmonary process.
[2023-07-08 10:56] LABS: Troponin High Sensitivity 49.8 pg/mL (<58.9)
[2023-07-08] MEDS ORDERED: APIXABAN 5 MG TABLET ONE (10:58)
[2023-07-08 11:02] LABS: Specific Gravity > 1.030 (1.005-1.030); Urine Bacteria <20 /HPF (<20); Urine Bilirubin NEGATIVE (Negative); Urine Blood Negative (Negative); Urine Clarity Clear (Clear); Urine Color Colorless (Yellow); Urine Glucose NEGATIVE (Negative); Urine Protein NEGATIVE (Negative); Urine RBC 21-50 /HPF (None Seen); Urine Urobilinogen Normal (Normal)
[2023-07-08 11:58] LABS: Platelet Estimate ADEQ
[2023-07-08 11:59] LABS: Blood Morphology Comment NOTED (NOT SEEN)
--- NOTE | 2023-07-08 12:06 | ER ---
Nurse's Notes [facility] Name: Allyn Lynn Age: 37 yrs Sex: Female : 1985 Arrival Date: 07/08/2023 Time: 08:18 Bed 6 Private MD: Diagnosis: Dyspnea, unspecified;Palpitations Presentation: 07/08 08:30 Chief complaint: Patient states: Flu + for past 3 days. + cough/SOB. Coronavirus ll1 screen: Client denies travel out of the [place] in the last 14 days. difficulty breathing, shortness of breath, Client presents with at least one sign or symptom that may indicate coronavirus-19. Standard/surgical mask placed on the client. Ebola Screen: Patient denies travel to an Ebola-affected area in the 21 days before illness onset. Initial Sepsis Screen: Does the patient meet any 2 criteria? No. Patient's initial sepsis screen is negative. Does the patient have a suspected source of infection? Yes: Productive cough/pneumonia. Risk Assessment: Do you want to hurt yourself or someone else? Patient reports no desire to harm self or others. Onset of symptoms was July 05, 2023. 08:30 Method Of Arrival: Ambulatory ll1 08:30 Acuity: ERICK 3 ll1 Historical: - Allergies: 08:30 No Known Allergies; ll1 - PMHx: 08:30 Hyperlipidemia; palpitations; SVT; blood clot (Cholecystectomy); ll1 - PSHx: 08:30 ablation (ys); Cholecystectomy; ll1 - Immunization history:: Adult Immunizations up to date. - Social history:: Smoking status: Patient denies any tobacco usage or history of. - Family history:: not pertinent. - Hospitalizations: : Patient was recently seen at. Screenin:25 [facility] ED Fall Risk Assessment (Adult) History of falling in the last 3 months, ph including since admission No falls in past 3 months (0 pts) Score/Fall Risk Level 0 - 2 = Low Risk Oriented to surroundings, Maintained a safe environment, Provided non-skid footwear, Hourly rounding (assess needs \T\ fall precautionary measures) done. Abuse screen: Denies threats or abuse. Denies injuries from another. Nutritional screening: No deficits noted. Tuberculosis screening: No symptoms or risk factors identified. Assessment: 10:00 Cardiovascular: Rhythm is sinus rhythm with multifocal PVCs. Respiratory: Breath sounds eh3 are clear. 10:06 General: Appears in no apparent distress. Behavior is calm, cooperative, appropriate ph for age, Reports fever for > 3 days, feeling ill for > 3 days. Pain: Denies pain. Neuro: Level of Consciousness is awake, alert, obeys commands, Oriented to person, place, time, situation. Cardiovascular: Reports fatigue, palpitations, shortness of breath. Respiratory: Reports shortness of breath at rest cough that is Airway is patent Respiratory effort is even, labored, Respiratory pattern is tachypnea. GI: No signs and/or symptoms were reported involving the gastrointestinal system. Derm: Skin is pink, warm \T\ dry. Musculoskeletal: Circulation, motion, and sensation intact. Range of motion: intact in all extremities. 11:00 Reassessment: Patient appears in no apparent distress at this time. Patient and/or eh3 family updated on plan of care and expected duration. Pain level reassessed. Patient is alert, oriented x 3, equal unlabored respirations, skin warm/dry/pink. 12:00 Reassessment: Patient appears in no apparent distress at this time. Patient and/or eh3 family updated on plan of care and expected duration. Pain level reassessed. Patient is alert, oriented x 3, equal unlabored respirations, skin warm/dry/pink. 18:02 Reassessment: Failed attempt to call report to 2nd floor, nurse did not answer phone. ll1 Vital Signs: 08:30 BP 139 / 102; Pulse 55; Resp 20; Temp 97.4; Pulse Ox 100% ; ll1 09:30 BP 118 / 64; Pulse 62; Resp 18; Pulse Ox 100% on 2 lpm NC; eh3 10:06 BP 116 / 71; Pulse 67; Resp 18; Pulse Ox 100% on R/A; ph 11:00 BP 107 / 68; Pulse 59; Resp 18; Pulse Ox 100% on 2 lpm NC; eh3 12:00 BP 114 / 63; Pulse 61; Resp 20; Pulse Ox 100% on R/A; eh3 ED Course: 08:22 Patient arrived in ED. im 08:25 Stephen Gleason MD is Attending Physician. rn 08:30 Arm band placed on. ll1 08:31 Triage completed. ll1 09:04 Inge Lora, RN is Primary Nurse. ko1 09:25 Patient has correct armband on for positive identification. Bed in low position. Call ph light in reach. Side rails up X 1. Client placed on continuous cardiac and pulse oximetry monitoring. NIBP monitoring applied. 09:26 CBC with Diff Sent. ph 09:26 CMP Sent. ph 09:26 Lactate w/ 2H reflex if indic. Sent. ph 09:26 Protime (+inr) Sent. ph 09:26 Ptt, Activated Sent. ph 09:39 Chest Single View XRAY In Process Unspecified. EDMS 10:00 CT Chest For PE Angio In Process Unspecified. EDMS 10:00 Provided Education on: use of call pierre. eh3 10:00 Oxygen administration via nasal cannula \T\ 2L/min. eh3 11:34 transfer initiated with [facility] transfer center; [facility] declines due to capacity. em1 12:04 Marlo White MD is Hospitalizing Provider. rn 19:13 No provider procedures requiring assistance completed. Patient admitted, IV remains in ll1 place. Administered Medications: 10:45 Drug: Eliquis PO 5 mg PO once Route: PO; 3 11:45 Follow up: Response: No adverse reaction 3 Medication: 09:26 VIS not applicable for this client. ph Outcome: 12:05 Decision to Hospitalize by Provider. rn 19:14 Admitted to Med/surg accompanied by tech, via wheelchair, room 219, with oxygen, Report 1 called to Tiffany 19:14 Condition: stable 19:14 Instructed on the need for admit, 19:15 Patient left the ED. ll1 Signatures: Dispatcher [employer] EDAZ Stephen Gleason MD MD rn Martinez, Eric em1 Gypsy Martinez RN RN ph Mynor Wang RN RN 1 Shyanne Martinez RN RN 3 Inge Lora, RN RN ko1 Hillary Grider Corrections: (The following items were deleted from the chart) 12:56 10:00 Respiratory: Breath sounds are coarse bilaterally. 3 eh3 19:15 19:14 Admitted to Med/surg accompanied by tech, via wheelchair, room 219, with oxygen, ll1 Report called to [facility]
--- NOTE | 2023-07-08 12:06 | EDPHYS ---
Physician Documentation [facility] Name: Allyn Lynn Age: 37 yrs Sex: Female : 1985 Arrival Date: 07/08/2023 Time: 08:18 Bed 6 Private MD: ED Physician Stephen Gleason HPI: 07/08 10:07 This 37 yrs old Female presents to ER via Ambulatory with complaints of rn Palpitations, Shortness Of Breath. 10:07 The patient presents with a history of heart racing. Context: The symptoms occur at rn rest, with anxiety. Onset: The symptoms/episode began/occurred this morning. Duration: The patient or guardian reports multiple episodes, that are intermittent. Modifying factors: The symptoms are aggravated by nothing. The symptoms are alleviated by nothing. Severity of symptoms: At their worst the symptoms were moderate in the emergency department the symptoms have improved. The patient has experienced similar episodes in the past. The patient has been recently seen by a physician:. Patient reports palpitations and shortness of breath that began this morning. Reports diagnosed with influenza a couple of days ago. No fever. Persistent cough. Reports has history of SVT and had ablation earlier this month at which time they also found a pulmonary embolism. Taking Eliquis and compliant. Patient reports uses oxygen as needed and oxygen this morning helped her symptoms. Patient also feels anxious.. Historical: - Allergies: 08:30 No Known Allergies; ll1 - PMHx: 08:30 Hyperlipidemia; palpitations; SVT; blood clot (Cholecystectomy); ll1 - PSHx: 08:30 ablation (ys); Cholecystectomy; ll1 - Immunization history:: Adult Immunizations up to date. - Social history:: Smoking status: Patient denies any tobacco usage or history of. - Family history:: not pertinent. - Hospitalizations: : Patient was recently seen at. ROS: 10:07 Constitutional: Negative for fever, chills, and weight loss, Cardiovascular: Positive rn for palpitations Respiratory: Positive for cough and shortness of breath Abdomen/GI: Negative for abdominal pain, nausea, vomiting, diarrhea, and constipation, MS/Extremity: Negative for injury and deformity, Neuro: Negative for headache, weakness, numbness, tingling, and seizure, Exam: 10:07 Constitutional: This is a well developed, well nourished patient who is awake, alert, overnight caregiver to room without assistance. Appears very anxious and hyperventilating Head/Face: Normocephalic, atraumatic. ENT: No stridor Cardiovascular: Regular rate and rhythm. No pulse deficits. Respiratory: Mild tachypnea, able to slow her breathing down with coaching Abdomen/GI: Soft, non-tender Skin: Warm, dry MS/ Extremity: Pulses equal, no cyanosis. Neurovascular intact. Full, normal range of motion. Equal circumference. Neuro: Awake and alert, GCS 15 10:37 ECG was reviewed by the Attending Physician. rn Vital Signs: 08:30 BP 139 / 102; Pulse 55; Resp 20; Temp 97.4; Pulse Ox 100% ; ll1 09:30 BP 118 / 64; Pulse 62; Resp 18; Pulse Ox 100% on 2 lpm NC; eh3 10:06 BP 116 / 71; Pulse 67; Resp 18; Pulse Ox 100% on R/A; ph 11:00 BP 107 / 68; Pulse 59; Resp 18; Pulse Ox 100% on 2 lpm NC; eh3 12:00 BP 114 / 63; Pulse 61; Resp 20; Pulse Ox 100% on R/A; eh3 MDM: 08:25 Patient medically screened. rn 12:02 Differential diagnosis: arrythmia, dehydration, stress disorder, Anxiety, PE, pulmonary rn edema, CAD. Data reviewed: vital signs, nurses notes, lab test result(s), EKG, radiologic studies, CT scan, plain films, and as a result, I will admit patient. Consideration of Admission/Observation Patient was admitted/placed on observation. Escalation of care including admission/observation considered. Management of patient was discussed with the following: Hospitalist: Hospitalist will admit. Independent interpretation of the following test(s) in the Emergency Department EKG: See my EKG interpretation above X-Ray: My interpretation is Chest x-ray images negative for pneumothorax or pneumonia per my interpretation. Counseling: I had a detailed discussion with the patient and/or guardian regarding the historical points, exam findings, and any diagnostic results supporting the discharge/admit diagnosis, lab results, radiology results, the need for further work-up and treatment in the hospital. ED course: Attempted transfer to [facility] as that is where she had her ablation last month, [facility] at capacity and not taking transfers. Will keep patient here for further evaluation. No acute findings at this time to explain her symptoms.. 07/08 08:34 Order name: Blood Culture Adult (2) rn 07/08 08:34 Order name: CBC with Diff; Complete Time: 12:00 rn 07/08 08:34 Order name: CMP; Complete Time: 10:25 rn 07/08 08:34 Order name: Lactate w/ 2H reflex if indic.; Complete Time: 10:25 rn 07/08 08:34 Order name: Protime (+inr); Complete Time: 09:58 rn 07/08 08:34 Order name: Ptt, Activated; Complete Time: 09:58 rn 07/08 09:03 Order name: Test, Urine; Complete Time: 11:06 rn 07/08 09:03 Order name: Urinalysis w/ reflexes; Complete Time: 11:06 rn 07/08 10:27 Order name: Troponin High Sensitivity; Complete Time: 11:06 rn 07/08 10:27 Order name: BNP; Complete Time: 11:06 rn 07/08 10:42 Order name: Manual Differential; Complete Time: 12:00 EDMS 07/08 13:19 Order name: T4 Free EDMS 07/08 13:19 Order name: Thyroid Stimulating Hormone EDMS 07/08 13:19 Order name: Basic Metabolic Panel EDMS 07/08 13:19 Order name: Basic Metabolic Panel EDMS 07/08 13:19 Order name: Basic Metabolic Panel EDMS 07/08 13:19 Order name: Basic Metabolic Panel EDMS 07/08 13:19 Order name: Basic Metabolic Panel EDMS 07/08 13:19 Order name: Basic Metabolic Panel EDMS 07/08 13:19 Order name: CBC with Automated Diff EDMS 07/08 13:19 Order name: CBC with Automated Diff EDMS 07/08 13:19 Order name: CBC with Automated Diff EDMS 07/08 13:19 Order name: CBC with Automated Diff EDMS 07/08 13:19 Order name: CBC with Automated Diff EDMS 07/08 13:19 Order name: CBC with Automated Diff EDMS 07/08 13:19 Order name: Magnesium EDMS 07/08 13:19 Order name: Magnesium EDMS 07/08 13:19 Order name: Magnesium EDMS 07/08 13:19 Order name: Magnesium EDMS 07/08 13:19 Order name: Magnesium EDMS 07/08 13:19 Order name: Magnesium EDMS 07/08 13:19 Order name: Phosphorus EDMS 07/08 13:19 Order name: Phosphorus EDMS 07/08 13:19 Order name: Phosphorus EDMS 07/08 13:19 Order name: Phosphorus EDMS 07/08 13:19 Order name: Phosphorus EDMS 07/08 13:19 Order name: Phosphorus EDMS 07/08 13:19 Order name: Troponin High Sensitivity EDMS 07/08 13:19 Order name: Troponin High Sensitivity EDMS 07/08 13:19 Order name: Troponin High Sensitivity EDMS 07/08 08:34 Order name: Chest Single View XRAY; Complete Time: 09:58 rn 07/08 08:34 Order name: CT Chest For PE Angio; Complete Time: 10:54 rn 07/08 13:25 Order name: Echo with Doppler EDAZ 07/08 08:34 Order name: EKG; Complete Time: 08:34 rn 07/08 13:18 Order name: CONS Physician Consult EDAZ 07/08 08:34 Order name: Accucheck; Complete Time: 09:26 rn 07/08 08:34 Order name: Cardiac monitoring; Complete Time: 09:33 rn 07/08 08:34 Order name: EKG - Nurse/Tech; Complete Time: 10:28 rn 07/08 08:34 Order name: IV Saline Lock - Large Bore; Complete Time: 09:26 rn 07/08 08:34 Order name: Labs collected and sent; Complete Time: 09:26 rn 07/08 08:34 Order name: O2 Per Protocol; Complete Time: 09:26 rn 07/08 08:34 Order name: O2 Sat Monitoring; Complete Time: 09:26 rn 07/08 08:34 Order name: Vital Signs; Complete Time: 09:26 rn EC:37 Rate is 57 beats/min. Rhythm is regular. QRS [place] is Normal. [place] interval is shortened rn at 108 msec. QRS interval is normal. QT interval is normal. No Q waves. T waves are Normal. ST Segment is depressed in leads II, III, aVF, V4, V5, V6. Clinical impression: Sinus bradycardia. Interpreted by me. Reviewed by me. Administered Medications: 10:45 Drug: Eliquis PO 5 mg PO once Route: PO; [facility] 11:45 Follow up: Response: No adverse reaction 3 Disposition Summary: 07/08/23 12:05 Hospitalization Ordered Notes: Hospitalization Status: Observation rn Provider: Marlo White rn Condition: Stable rn Problem: new rn Symptoms: have improved rn Bed/Room Type: Standard rn Location: Telemetry/MedSurg (observation)(07/08/23 17:33) em1 Room Assignment: 219(07/08/23 17:33) em1 Diagnosis - Dyspnea, unspecified rn - Palpitations rn Forms: - Medication Reconciliation Form rn - SBAR form rn - Leadership Thank You Letter rn Signatures: Dispatcher [employer] EDStephen Vaca MD MD rn Vincent, Will em1 Mynor Wang RN RN 1 Shyanne Martinez RN RN eh3 Corrections: (The following items were deleted from the chart) 13:12 12:05 Telemetry/MedSurg (observation) rn em1 13:12 12:05 rn em1 17:33 13:12 [facility] ER HOLD em1 em1 17:33 13:12 ERHOLD- em1 em1
--- NOTE | 2023-07-08 13:34 | P.HP ---
Patient History Date of Service: 07/08/23 Reason for admission: chest pain, SVT History of Present Illness: Allyn Lynn is a 37-year-old female with past medical history of hyperlipidemia; palpitations; SVT; blood clot presents to the ED with complaints of palpitations and shortness of breath that began around 7:30 this morning. She has been diagnosed with SVT with unknown timeframe but likely 1 to 2 years ago, and has had an ablation performed on the 18 of June. She is compliant with Eliquis, she sees for cardiac management. She reports feeling heart palpitations with heart rate 94, she is usually bradycardic with heart rate in the 40s and 50s. She presents bradycardic in the ED heart rate 55. Initial troponin is negative and EKG shows Rate 57 beats/min. Rhythm is regular. QRS [place] is Normal. CO interval is shortened at 108 msec. QRS interval is normal. QT interval is normal. No Q waves. T waves are Normal. ST Segment is depressed in leads II, III, aVF, V4, V5, Sinus bradycardia. Of note she was recently diagnosed with flu 3 or 4 days ago and had started Tamiflu. Initial vitals 0 BP 139 / 102; Pulse 55; Resp 20; Temp 97.4; Pulse Ox 100%. Laboratory evaluation troponin 49.8, BNP 99, potassium 3.1, sodium 138. CT chest angio reports " No evidence of acute central pulmonary emboli." Chest x-ray report "The lungs are clear. No pneumothorax or effusion. The cardiomediastinal contours are unremarkable." Aminah will be admitted to hospitalist service for further evaluation and treatment, Dr. Santana has been consulted. Allergies No Known Allergies Allergy (Unverified 05/16/12 21:18) Home Medications: Metoprolol Tartrate [Lopressor*] 12.5 mg PO BID 6AM 6PM #30 tab 04/22/21 - Past Medical/Surgical History Diabetic: Yes -: Gestational diabetic -: Cholecystectomy Psychosocial/ Personal History: Unemployed, lives with family - Family History Mother -: Hypertension, Diabetes Sister -: Hypertension - Social History Alcohol use: No CD- Drugs: No Caffeine use: No Review of Systems Eyes: Unremarkable ENT: Unremarkable Respiratory: Cough, Shortness of Breath Cardiovascular: Palpitations Gastrointestinal: Unremarkable Genitourinary: Unremarkable Musculoskeletal: Unremarkable Integumentary: Unremarkable Neurological: Unremarkable Lymphatics: Unremarkable Physical Examination - Physical Exam General: Alert, In no apparent distress, Oriented x3 HEENT: Atraumatic, Normocephalic, PERRLA Neck: Supple, 2+ carotid pulse no bruit, JVD not distended Respiratory: Clear to auscultation bilaterally, Normal air movement Cardiovascular: No edema, Normal pulses, Normal S1 S2, Irregular heart rate/rhythm (bradycardic) Capillary refill: <2 Seconds Gastrointestinal: Normal bowel sounds, Soft and benign Musculoskeletal: No clubbing, No swelling, No contractures Integumentary: No rashes, No breakdown, No significant lesion Neurological: Normal speech, Normal strength at 5/5 x4 extr, Normal tone - Studies Laboratory Data (last 24 hrs) 07/08/23 07/08/23 07/08/23 09:28 09:28 09:28 WBC 4.50 Hgb 12.7 Hct 38.5 Plt Count 262 PT 14.0 H INR 1.27 APTT 32.3 Sodium 138 Potassium 3.1 L BUN 9 Creatinine 0.67 Glucose 107 H Total Bilirubin 0.5 AST 13 L ALT 28 Alkaline Phosphatase 118 H Assessment and Plan - Plan Assessment and plan Chest pain rule out ACS History of SVT Status post ablation 06/18 at [facility] EKG Rate is 57 beats/min. Rhythm is regular. QRS [place] is Normal. [place] interval is shortened at 108 msec. QRS interval is normal. QT interval is normal. No Q waves. T waves are Normal. ST Segment is depressed in leads II, III, aVF, V4, V5, Sinus bradycardia Consult Dr. Santana Echo ordered Aspirin daily nitroglycerin PRN TSH, free T4 pending Troponin trending Continue Eliquis HLD Continue home medication DVT PPx Eliquis Full code LOS 24 hours Discharge Plan: Home Plan to discharge in: 48 Hours - Advance Directives Does patient have a Living Will: No Does patient have a Durable POA for Healthcare: No Time Spent Managing Pts Care (In Minutes): 55
[2023-07-08] MEDS ORDERED: BENZONATATE 100 MG CAP PO PRN (13:40)
[2023-07-08] MEDS: ASPIRIN EC 81 MG TAB PO SCH (13:45)
[2023-07-08] MEDS: NA CHLORIDE 0.9% 1,000 ML IV SCH (14:00)
--- NOTE | 2023-07-08 15:10 | EKG ---
Test Date: 2023-07-08 Test Time: 10:10:30 Braille Coder: FRANCIS MEASUREMENT RESULTS: Intervals: Rate: 57 SC: 108 QRSD: 80 QT: 442 QTc: 430 [place]: P: 78 SC: 108 QRS: 18 T: -25 INTERPRETIVE STATEMENTS: Sinus bradycardia with short SC ST & T wave abnormality, consider inferior ischemia ST & T wave abnormality, consider anterior ischemia Abnormal ECG Compared to ECG 06/23/2023 22:08:59 Possible ischemia now present Sinus rhythm no longer present ST (T wave) deviation still present Electronically Signed On 07-08-23 15:09:59 [facility] by Dean Santana
[2023-07-08] MEDS ORDERED: NA CHLORIDE 0.9% 1,000 ML ONE (15:45)
[2023-07-08] MEDS ORDERED: ASPIRIN EC 81 MG TAB PO ONE (15:45)
[2023-07-08] MEDS ORDERED: NITROGLYCERIN 0.4 MG/TAB SL PRN (17:21)
[2023-07-08 18:38] VITALS: O2SAT 100
[2023-07-08] MEDS: APIXABAN 5 MG TABLET PO SCH (22:23)
[2023-07-08 23:36] VITALS: BMI 28.0
[2023-07-09] MEDS: NA CHLORIDE 0.9% 1,000 ML IV SCH ×3 (05:14→20:00)
[2023-07-09 06:18] LABS: Absolute Lymphocytes (CBC) 2.2 K/uL (0.7-4.9); Hematocrit 30.8 % (36.0-45.0); Lymphocytes % 43.8 % (15.3-44.8); MCV 81.8 fL (80-100); MPV 8.6 fL (7.6-11.3); Platelets 252 thou/uL (152-406); RBC Red Blood Cell Count 3.76 M/uL (3.86-4.86)
[2023-07-09 06:57] LABS: Magnesium 2.5 mg/dL (1.6-2.4); Phosphorus 3.2 mg/dL (2.5-4.9); Potassium 3.2 mEq/L (3.5-5.1)
[2023-07-09] MEDS ORDERED: KCL 20 MEQ/100 mL IVPB 20 MEQ/100 ML BAG IV SCH (08:00)
[2023-07-09] MEDS: ASPIRIN EC 81 MG TAB PO SCH (08:53)
[2023-07-09] MEDS: APIXABAN 5 MG TABLET PO SCH ×2 (08:53→20:43)
[2023-07-09] MEDS ORDERED: POTASSIUM 25 MEQ EFFERV TAB PO ONE (09:07)
[2023-07-09 09:54] LABS: Thyroid Stimulating Hormone 1.86 uIU/mL (0.358-3.740)
--- NOTE | 2023-07-09 18:25 | P.PN ---
Date of Service: 07/09/23 Subjective Awake and oriented this AM some chest pain continue Hypokalemia in AM labs, replaced Bradycardic heart rate 56 ROS: 10 point ROS as noted above, otherwise negative Physical Exam General: Alert, In no apparent distress, Oriented x3 HEENT: Atraumatic, Normocephalic, PERRLA Neck: Supple, 2+ carotid pulse no bruit, JVD not distended Respiratory: Clear to auscultation bilaterally, Normal air movement Cardiovascular: No edema, Normal pulses, Normal S1 S2, Irregular heart rate/rhythm (bradycardic) Capillary refill: <2 Seconds Gastrointestinal: Normal bowel sounds, Soft and benign Musculoskeletal: No clubbing, No swelling, No contractures Integumentary: No rashes, No breakdown, No significant lesion Neurological: Normal speech, Normal strength at 5/5 x4 extr, Normal tone Vitals reviewed Assessment and plan Chest pain rule out ACS History of SVT Status post ablation 06/18 at [facility] EKG Rate is 57 beats/min. Rhythm is regular. QRS [place] is Normal. CO interval is shortened at 108 msec. QRS interval is normal. QT interval is normal. No Q waves. T waves are Normal. ST Segment is depressed in leads II, III, aVF, V4, V5, Sinus bradycardia Consult Dr. Santana Echo ordered Aspirin daily nitroglycerin PRN TSH 1.860, free T4 1.24 Troponin 49/47/48 Continue Eliquis Hypokalemia K 3.2 Replaced and repeat BMP ordered HLD Continue home medication DVT PPx Eliquis Full code LOS 24 hours Discharge Plan: Home Plan to discharge in: likely dc in the AM
[2023-07-10 03:54] LABS: Absolute Lymphocytes (CBC) 2.7 K/uL (0.7-4.9); Hematocrit 33.1 % (36.0-45.0); Lymphocytes % 38.9 % (15.3-44.8); MCV 81.3 fL (80-100); MPV 9.1 fL (7.6-11.3); Platelets 289 thou/uL (152-406); RBC Red Blood Cell Count 4.07 M/uL (3.86-4.86)
[2023-07-10 04:20] LABS: Magnesium 2.4 mg/dL (1.6-2.4); Phosphorus 2.8 mg/dL (2.5-4.9); Potassium 3.2 mEq/L (3.5-5.1)
[2023-07-10] MEDS: ASPIRIN EC 81 MG TAB PO SCH (08:42)
[2023-07-10] MEDS: APIXABAN 5 MG TABLET PO SCH (08:42)
[2023-07-10] MEDS ORDERED: POTASSIUM CL SA 10 MEQ TAB PO ONE (09:00)
[2023-07-10] MEDS: NA CHLORIDE 0.9% 1,000 ML IV SCH (14:19)
--- NOTE | 2023-07-10 17:15 | P.PN ---
Date of Service: 07/10/23 Subjective Awake and oriented this AM Dizziness today denies CP, SOB, and NEAL ROS: 10 point ROS as noted above, otherwise negative Physical Exam General: Alert, In no apparent distress, Oriented x3 HEENT: Atraumatic, Normocephalic, PERRLA Neck: Supple, 2+ carotid pulse no bruit, JVD not distended Respiratory: Clear to auscultation bilaterally, Normal air movement Cardiovascular: No edema, Normal pulses, Normal S1 S2, Irregular heart rate/rhythm (bradycardic) Capillary refill: <2 Seconds Gastrointestinal: Normal bowel sounds, Soft and benign Musculoskeletal: No clubbing, No swelling, No contractures Integumentary: No rashes, No breakdown, No significant lesion Neurological: Normal speech, Normal strength at 5/5 x4 extr, Normal tone Vitals reviewed Assessment and plan Chest pain rule out ACS History of SVT Status post ablation 06/18 at [facility] EKG Rate is 57 beats/min. Rhythm is regular. QRS [place] is Normal. [place] interval is shortened at 108 msec. QRS interval is normal. QT interval is normal. No Q waves. T waves are Normal. ST Segment is depressed in leads II, III, aVF, V4, V5, Sinus bradycardia Consult Dr. Santana Echo ordered Aspirin daily nitroglycerin PRN TSH 1.860, free T4 1.24 Troponin 49/47/48 Continue Eliquis Cortisol level 10.29 Hypokalemia K 3.2, 3.8 Replaced and repeat BMP ordered HLD Continue home medication DVT PPx Eliquis Full code LOS 24 hours Discharge Plan: Home Plan to discharge in: [place] when cleared by cardiology
[2023-07-10 17:36] VITALS: BP 109/64; TEMP 97.5
--- NOTE | 2023-07-10 17:36 | P.DS ---
Admission Date: 07/08/23 Discharge Date: 07/10/23 Disposition: ROUTINE DISCHARGE Discharge Condition: FAIR Reason for Admission: chest pain, SVT - Problems (1) Palpitation Current Visit: Yes Status: Acute (2) Abnormal EKG Current Visit: Yes Status: Acute (3) History of cardiac radiofrequency ablation Current Visit: Yes Status: Acute (4) Sinus bradycardia Current Visit: Yes Status: Acute Brief History of Present Illness: Allyn Lynn is a 37-year-old female with past medical history of hyperlipidemia; palpitations; SVT; blood clot presents to the ED with complaints of palpitations and shortness of breath that began around 7:30 this morning. She has been diagnosed with SVT with unknown timeframe but likely 1 to 2 years ago, and has had an ablation performed on the 18 of June. She is compliant with Eliquis, she sees for cardiac management. She reports feeling heart palpitations with heart rate 94, she is usually bradycardic with heart rate in the 40s and 50s. She presented bradycardic in the ED heart rate 55. Initial troponin is negative and EKG showed Rate 57 beats/min. Rhythm is regular. QRS [place] is Normal. CO interval is shortened at 108 msec. QRS interval is normal. QT interval is normal. No Q waves. T waves are Normal. ST Segment is depressed in leads II, III, aVF, V4, V5, Sinus bradycardia. Of note she was recently diagnosed with flu 3 or 4 days ago and had started Tamiflu. Initial vitals 0 BP 139 / 102; Pulse 55; Resp 20; Temp 97.4; Pulse Ox 100%. Laboratory evaluation troponin 49.8, BNP 99, potassium 3.1, sodium 138. CT chest angio reports " No evidence of acute central pulmonary emboli." Chest x-ray report "The lungs are clear. No pneumothorax or effusion. The cardiomediastinal contours are unremarkable." Patient was hospitalized for further evaluation and management. Hospital Course: Palpitation Abnormal EKG History of SVT Status post ablation 06/18 at [facility] EKG Rate is 57 beats/min. Rhythm is regular. QRS [place] is Normal. CO interval is shortened at 108 msec. QRS interval is normal. QT interval is normal. No Q waves. T waves are Normal. ST Segment is depressed in leads II, III, aVF, V4, V5, Sinus bradycardia Echo done and preliminary result is unremarkable. Cardiology consulted, case discussed with cardiology Dr. Santana and there was no further recommendation. No chest pain during the hospital stay. Patient was complaining of fatigue. She was recently diagnosed with influenza which may be contributing to the fatigue. She is on Eliquis which was continued during the hospital stay. Aspirin daily nitroglycerin PRN TSH 1.860, free T4 1.24 Troponin trended negative Continue Eliquis Case discussed with Dr. Santana and she is deemed stable for discharge. 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 Hypokalemia Potassium was replaced. HLD Continue home medication. Vital Signs/Physical Exam: Temp Pulse Resp BP Pulse Ox 97.5 F 100 H 18 109/64 100 07/10/23 16:00 07/10/23 16:00 07/10/23 16:00 07/10/23 16:00 07/10/23 16:00 General: Alert, In no apparent distress, Oriented x3 HEENT: Mucous membr. moist/pink Neck: Supple, JVD not distended Respiratory: Clear to auscultation bilaterally, Normal air movement Cardiovascular: No edema, Regular rate/rhythm, Normal S1 S2 Gastrointestinal: Normal bowel sounds, Soft and benign, Non-distended, No tenderness Musculoskeletal: No swelling, No tenderness Integumentary: No rashes, No cyanosis Neurological: Normal strength at 5/5 x4 extr Laboratory Data at Discharge: WBC 7.00 thou/uL (4.3-10.9) 07/10/23 03:26 Hgb 11.0 g/dL (12.0-15.0) L 07/10/23 03:26 Hct 33.1 % (36.0-45.0) L 07/10/23 03:26 Plt Count 289 thou/uL (152-406) 07/10/23 03:26 PT 14.0 SECONDS (9.5-12.5) H 07/08/23 09:28 INR 1.27 07/08/23 09:28 APTT 32.3 SECONDS (24.3-36.9) 07/08/23 09:28 Sodium 139 mEq/L (136-145) 07/10/23 02:44 Potassium Cancelled 07/10/23 Unknown BUN 9 mg/dL (7-18) 07/10/23 02:44 Creatinine 0.51 mg/dL (0.55-1.02) L 07/10/23 02:44 Glucose 97 mg/dL (74-106) 07/10/23 02:44 Phosphorus 2.8 mg/dL (2.5-4.9) 07/10/23 02:44 Magnesium 2.4 mg/dL (1.6-2.4) 07/10/23 02:44 Total Bilirubin 0.5 mg/dL (0.2-1.0) 07/08/23 09:28 AST 13 U/L (15-37) L 07/08/23 09:28 ALT 28 U/L (13-56) 07/08/23 09:28 Alkaline Phosphatase 118 U/L (45-117) H 07/08/23 09:28 Home Medications: Apixaban [Eliquis] BID 07/08/23 Diet: AHA Activity: Ad tara Followup: NONE,NONE [Primary Care Provider] - 1 Week Dean Santana MD [ACTIVE - CAN ADMIT] - 1 Week Time spent managing pt's care (in minutes): 28
--- NOTE | 2023-07-12 07:55 | ECHO ---
HEIGHT: 5 ft 5 in WEIGHT: 168 lb 3.2 oz DATE OF STUDY: 07/09/[address]: Rhonda Hayward NP 2-DIMENSIONAL: YES M.MODE: YES DOPPLER: YES COLOR FLOW: YES TDS: PORTABLE: YES DEFINITY: BUBBLE STUDY: DIAGNOSIS: CHEST PAIN, SUPRAVENTRICULAR TACHYCARDIA, ABLATION 06/18/23 CARDIAC HISTORY: CATHERIZATION: NO SURGERY: NO PROSTHETIC VALVE: NO PACEMAKER: NO MEASUREMENTS (cm) DIASTOLIC (NORMALS) SYSTOLIC (NORMALS) IVSd 1.1 (0.6-1.2) LA Diam 1.9 (1.9-4.0) LVEF 67% LVIDd 4.1 (3.5-5.7) LVIDs 2.6 (2.0-3.5) %FS 37% LVPWd 1.1 (0.6-1.2) Ao Diam 2.2 (2.0-3.7) 2 DIMENSIONAL ASSESSMENT: RIGHT ATRIUM: NORMAL LEFT ATRIUM: NORMAL RIGHT VENTRICLE: NORMAL LEFT VENTRICLE: NORMAL TRICUSPID VALVE: TRACE TRICUSPID REGURGITATION MITRAL VALVE: TRACE MITRAL REGURGITATION PULMONIC VALVE: NORMAL AORTIC VALVE: NORMAL PERICARDIAL EFFUSION: TRACE AORTIC ROOT: NORMAL LEFT VENTRICULAR WALL MOTION: NORMAL DOPPLER/COLOR FLOW: SEE BELOW COMMENTS: 1. NORMAL LEFT VENTRICULAR EJECTION FRACTION 60-65% WITH NORMAL WALL MOTION 2. NORMAL DIASTOLIC FUNCTION 3. TRACE MITRAL REGURGITATION, TRICUSPID REGURGITATION 4. TRACE PERICARDIAL EFFUSION TECHNOLOGIST: MAYLIN WADE
== END 2023-07-10 19:26 | disposition home or self-care (01) ==
LOC: ER 08:18 → ERHOLD 14:59 → 2ND 18:23
PROVIDERS: ADMIT Internal Medicine; ATTEND Internal Medicine
DX: R00.2 Palpitations (principal); R94.31 Abnormal electrocardiogram [ECG] [EKG]; R00.1 Bradycardia, unspecified; E78.5 Hyperlipidemia, unspecified; E87.6 Hypokalemia; I47.10 Supraventricular tachycardia, unspecified; Z79.82 Long term (current) use of aspirin; Z79.01 Long term (current) use of anticoagulants
CPT/HCPCS: 36415; 71045; 71275; 80048; 80053; 81001; 81025; 82533; 83605; 83735; 83880; 84100; 84132; 84439; 84443; 84484; 85025; 85610; 85730; 87040; 93005; 93306; 99285; G0378; J3480; J7030; Q9967

== ENCOUNTER 2024-04-05 13:07 | Emergency (ER) | payer OTHER, SELFPAY ==
--- NOTE | 2024-04-05 14:08 | RAD REPORT ---
EXAM DESCRIPTION: RAD - Chest Single View - 04/05/2024 1:49 pm CLINICAL HISTORY: CHEST PAIN Chest pain. COMPARISON: Chest Single View dated 07/08/2023; Chest Single View dated 06/23/2023; Chest Single Vie w dated 04/09/2023; Chest Single View dated 11/08/2022 FINDINGS: Portable technique limits examination quality. The lungs are grossly clear. The heart is normal in size. No displaced fractures. IMPRESSION: No acute intrathoracic process suspected.
[2024-04-05] MEDS ORDERED: ASPIRIN 81 MG CHEWABLE TABLET ONE ×2 (14:12→14:14)
[2024-04-05 14:27] LABS: Absolute Eosinophils 0.1 K/uL (0-0.5); Absolute Lymphocytes (CBC) 1.4 K/uL (0.7-4.9); Absolute Monocytes 0.3 K/uL (0.1-1.3); Absolute Neutrophil 4.8 K/uL (1.8-8.0); Basophils % 0.5 % (0-1.3); Eosinophils % 1.2 % (0-4.4); Hematocrit 37.8 % (36.0-45.0); Hemoglobin 11.9 g/dL (12.0-15.0); Lymphocytes % 21.4 % (15.3-44.8); MCH 24.3 pg (27.0-35.0); MCHC 31.4 g/dL (32.0-36.0); MCV 77.3 fL (80-100); MPV 8.5 fL (7.6-11.3); Monocytes % 5.1 % (3.3-12.3); Neutrophils % 71.8 % (41.7-73.7); Platelets 292 thou/uL (152-406); Red Cell Distribution Width 19.3 % (12.1-15.2)
[2024-04-05 14:47] LABS: Anion Gap 7.4 mEq/L (5.0-15.0); Potassium 3.4 mEq/L (3.5-5.1); Troponin High Sensitivity 33.3 pg/mL (<58.9)
--- NOTE | 2024-04-05 18:00 | EDPHYS ---
Physician Documentation [facility] Name: Allyn Lynn Age: 38 yrs Sex: Female : 1985 Arrival Date: 04/05/2024 Time: 13:07 Bed 23 Private MD: ED Physician Dmitriy Borden HPI: 04/05 13:40 This 38 yrs old Female presents to ER via Ambulatory with complaints of High ms3 Blood Pressure. 13:40 38-year-old female with past medical history of blood clots, hyperlipidemia, SVT status ms3 post ablation presents to the emergency department for dizziness and chest pressure. Patient states that symptoms began earlier today. She denies any alleviating or inciting factors. Patient denies pain at this time. Patient endorses nausea. MANAGER COMMUNITY RELATIONS: 16:14 LMP 03/21/2024, unknown me1 Historical: - Allergies: 13:25 No Known Allergies; ll1 - PMHx: 13:25 blood clot (Cholecystectomy); Hyperlipidemia; palpitations; SVT; ll1 - PSHx: 13:25 ablation; Cholecystectomy; ll1 - Immunization history:: Adult Immunizations up to date. - Infectious Disease History:: Denies. - Social history:: Smoking status: Patient denies any tobacco usage or history of. ROS: 13:40 Constitutional: Negative for fever, and chills. Cardiovascular: Negative for chest ms3 pain, and palpitations. Respiratory: Negative for shortness of breath, cough, wheezing, and pleuritic chest pain, Abdomen/GI: Negative for abdominal pain, nausea, vomiting, diarrhea, and constipation, MS/Extremity: Negative for injury and deformity, Skin: Negative for injury, rash, and discoloration, Exam: 13:40 Constitutional: This is a well developed, well nourished patient who is awake, alert, ms3 and in no acute distress. Chest/axilla: Normal chest wall appearance and motion. Nontender with no deformity. Cardiovascular: Regular rate and rhythm with a normal S1 and S2. No gallops, murmurs, or rubs. Normal PMI, no JVD. No pulse deficits. Respiratory: Lungs have equal breath sounds bilaterally, clear to auscultation and percussion. No rales, rhonchi or wheezes noted. No increased work of breathing, no retractions or nasal flaring. Abdomen/GI: Soft, non-tender, with normal bowel sounds. No distension or tympany. No guarding or rebound. No evidence of tenderness throughout. Skin: Warm, dry with normal turgor. Normal color with no rashes, no lesions, and no evidence of cellulitis. MS/ Extremity: Pulses equal, no cyanosis. Neurovascular intact. Full, normal range of motion. 14:43 ECG was reviewed by the Attending Physician. ms3 Vital Signs: 13:26 BP 134 / 73; Pulse 54; Resp 17; Pulse Ox 100% on R/A; Weight 77.11 kg; Height 5 ft. 3 ll1 in. ; Pain 0/10; 14:00 BP 133 / 65; Pulse 58; Resp 16; Pulse Ox 100% on R/A; me1 15:00 BP 127 / 80; Pulse 70; Resp 16; Pulse Ox 100% on R/A; me1 16:00 BP 127 / 70; Pulse 50; Resp 16; Pulse Ox 100% on R/A; me1 17:00 BP 122 / 73; Pulse 51; Resp 16; Pulse Ox 100% ; me1 18:13 BP 123 / 65; Pulse 72; Resp 16; Pulse Ox 100% on R/A; me1 13:26 Body Mass Index 30.11 (77.11 kg, 160.02 cm) ll1 13:26 Pain Scale: Adult ll1 MDM: 13:38 Patient medically screened. ms3 13:40 Differential diagnosis: Chest pain versus gastritis versus GERD versus hypertension. ms3 19:42 Data reviewed: vital signs, nurses notes, lab test result(s), EKG, radiologic studies, ms3 and as a result, I will discharge patient. I considered the following discharge prescriptions or medication management in the emergency department Medications were administered in the Emergency Department. See MAR. Independent interpretation of the following test(s) in the Emergency Department EKG: See my EKG interpretation above X-Ray: My interpretation is Chest x-ray image reviewed by me does not reveal pneumonia or pneumothorax. Counseling: I had a detailed discussion with the patient and/or guardian regarding the historical points, exam findings, and any diagnostic results supporting the discharge/admit diagnosis, lab results, radiology results, the need for outpatient follow up, to return to the emergency department if symptoms worsen or persist or if there are any questions or concerns that arise at home. Special discussion: Based on the patient's history, exam, and Dx evaluation, there is no indication for emergent intervention or inpatient Tx. It is understood by the patient/guardian that if the Sx's persist or worsen they need to return immediately for re-evaluation. ED course: Discussed labs and imaging with patient. Patient to follow-up with Dr. Santana in 2 to 3 days. All questions were answered. Return precautions discussed include nausea, vomiting, diaphoresis, worsening symptoms, or any other concerns. Patient understands and agrees with plan. On reevaluation patient symptoms improved, patient is alert and oriented x 4, in no apparent distress, nontoxic-appearing, ambulatory in the emergency department, speaking full sentences. 04/05 13:39 Order name: Basic Metabolic Panel; Complete Time: 15:10 ms3 04/05 13:39 Order name: CBC with Diff; Complete Time: 15:10 ms3 04/05 13:39 Order name: Magnesium; Complete Time: 15:10 ms3 04/05 13:39 Order name: Troponin HS; Complete Time: 15:10 ms3 04/05 15:59 Order name: Troponin High Sensitivity; Complete Time: 17:54 ms3 04/05 13:39 Order name: XRAY Chest (1 view) ms3 04/05 13:39 Order name: Cardiac monitoring; Complete Time: 16:12 ms3 04/05 13:39 Order name: EKG - Nurse/Tech; Complete Time: 14:11 ms3 04/05 13:39 Order name: IV Saline Lock; Complete Time: 14:28 ms3 04/05 13:39 Order name: Labs collected and sent; Complete Time: 14:28 ms3 04/05 13:39 Order name: O2 Per Protocol; Complete Time: 14:11 ms3 04/05 13:39 Order name: O2 Sat Monitoring; Complete Time: 14:11 ms3 EC:43 Rate is 51 beats/min. Rhythm is regular. QRS [place] is Normal. PA interval is normal. QRS ms3 interval is normal. Clinical impression: NSR w/ Non-specific ST/T Changes. Interpreted by me. Reviewed by me. Administered Medications: 14:15 Drug: Aspirin PO Chewable Tablet 324 mg PO once; 81 mg tablets x 4 Route: PO; me1 14:28 Follow up: Response: No adverse reaction me1 Disposition Summary: 04/05/24 18:00 Discharge Ordered Notes: Location: Home ms3 Condition: Stable ms3 Diagnosis - Chest pain, unspecified ms3 Followup: ms3 - With: Dean Santana MD - When: 2 - 3 days - Reason: Recheck today's complaints Discharge Instructions: - Discharge Summary Sheet ms3 - Nonspecific Chest Pain, Adult ms3 Forms: - Medication Reconciliation Form ms3 - Antibiotic Education ms3 - Prescription Opioid Use ms3 - Patient Portal Instructions ms3 - Leadership Thank You Letter ms3 Signatures: Dispatcher [employer] EDMS Mynor Wang, RN RN ll1 Dmitriy Borden DO DO ms3 Soraya Gonzalez RN RN me1 Corrections: (The following items were deleted from the chart) 13:39 13:39 Chest Single View+RAD.RAD.BRZ ordered. EDMS EDMS
--- NOTE | 2024-04-05 18:00 | ER ---
Nurse's Notes [facility] Name: Allyn Lynn Age: 38 yrs Sex: Female : 1985 Arrival Date: 04/05/2024 Time: 13:07 Bed 23 Private MD: Diagnosis: Chest pain, unspecified Presentation: 04/05 13:26 Chief complaint: Patient states: Dizzy, N/V, elevated BP 150/92 at home. started 30 min ll1 TRIAL MGR. Coronavirus screen: Client denies travel out of the [place] in the last 14 days. At this time, the client does not indicate any symptoms associated with coronavirus-19. Ebola Screen: Patient denies travel to an Ebola-affected area in the 21 days before illness onset. Initial Sepsis Screen: Does the patient meet any 2 criteria? No. Patient's initial sepsis screen is negative. Does the patient have a suspected source of infection? No. Patient's initial sepsis screen is negative. Risk Assessment: Do you want to hurt yourself or someone else? Patient reports no desire to harm self or others. Onset of symptoms was April 05, 2024. 13:26 Method Of Arrival: Ambulatory ll1 13:26 Acuity: ERICK 3 ll1 Triage Assessment: 13:26 General: Appears distressed, uncomfortable, Behavior is cooperative, appropriate for ll1 age, anxious. General: Reports elevated BP. Pain: Denies pain. Neuro: Reports dizziness, weakness. GI: Reports nausea, vomiting. 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 - Infectious Disease History:: Denies. - Social history:: Smoking status: Patient denies any tobacco usage or history of. Screenin:39 [facility] ED Fall Risk Assessment (Adult) History of falling in the last 3 months, me1 including since admission No falls in past 3 months (0 pts) Confusion or Disorientation No (0 pts) Intoxicated or Sedated No (0 pts) Impaired Gait No (0 pts) Mobility Assist Device Used No (0 pt) Altered Elimination No (0 pt) Score/Fall Risk Level 0 - 2 = Low Risk Maintained a safe environment, Provided non-skid footwear, Hourly rounding (assess needs \T\ fall precautionary measures) done. Abuse screen: Denies threats or abuse. Nutritional screening: No deficits noted. Tuberculosis screening: No symptoms or risk factors identified. 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 Pain: Denies pain. Neuro: Level of Consciousness is awake, alert, obeys commands, Oriented to person, place, time, situation, Appropriate for age. Cardiovascular: Patient's skin is warm and dry. Respiratory: Airway is patent Trachea midline Respiratory effort is even, unlabored, Respiratory pattern is regular, symmetrical. GI: No signs and/or symptoms were reported involving the gastrointestinal system. GI: Reports nausea, vomiting, since just manager deli. : No signs and/or symptoms were reported regarding the genitourinary system. EENT: No signs and/or symptoms were reported regarding the EENT system. Derm: Skin is intact, is healthy with good turgor, Skin is pink, warm \T\ dry. Musculoskeletal: No signs and/or symptoms reported regarding the musculoskeletal system. Vital Signs: 13:26 BP 134 / 73; Pulse 54; Resp 17; Pulse Ox 100% on R/A; Weight 77.11 kg; Height 5 ft. 3 ll1 in. ; Pain 0/10; 14:00 BP 133 / 65; Pulse 58; Resp 16; Pulse Ox 100% on R/A; me1 15:00 BP 127 / 80; Pulse 70; Resp 16; Pulse Ox 100% on R/A; me1 16:00 BP 127 / 70; Pulse 50; Resp 16; Pulse Ox 100% on R/A; me1 17:00 BP 122 / 73; Pulse 51; Resp 16; Pulse Ox 100% ; me1 18:13 BP 123 / 65; Pulse 72; Resp 16; Pulse Ox 100% on R/A; me1 13:26 Body Mass Index 30.11 (77.11 kg, 160.02 cm) ll1 13:26 Pain Scale: Adult ll1 ED Course: 13:09 Patient arrived in ED. ra3 13:10 Dmitriy Borden DO is Attending Physician. ms3 13:29 Triage completed. ll1 13:29 Arm band placed on. ll1 13:49 XRAY Chest (1 view) In Process Unspecified. EDMS 13:52 Soraya Gonzalez, RN is Primary Nurse. me1 14:11 EKG done, by ED staff, reviewed by Dmitriy Borden DO. me1 14:26 Initial lab(s) drawn, by me, sent to lab. Inserted saline lock: 22 gauge in left iw antecubital area, using aseptic technique. Blood collected. Flushed with 10 mL NS. 14:28 Basic Metabolic Panel Sent. me1 14:28 CBC with Diff Sent. me1 14:28 Magnesium Sent. me1 14:28 Troponin HS Sent. me1 14:39 Patient has correct armband on for positive identification. Bed in low position. Call me1 light in reach. Side rails up X2. Provided Education on: POC. Verbalized understanding. . Client placed on continuous cardiac and pulse oximetry monitoring. NIBP monitoring applied. bus monitor on. Pulse ox on. NIBP on. 14:39 No provider procedures requiring assistance completed. me1 17:59 Dean Santana MD is Referral Physician. ms3 18:30 IV discontinued, intact, bleeding controlled, No redness/swelling at site. Pressure me1 dressing applied. Administered Medications: 14:15 Drug: Aspirin PO Chewable Tablet 324 mg PO once; 81 mg tablets x 4 Route: PO; me1 14:28 Follow up: Response: No adverse reaction me1 Medication: 14:39 VIS not applicable for this client. me1 Outcome: 18:00 Discharge ordered by . ms3 18:30 Discharged to home ambulatory, with significant other, me1 18:30 Condition: stable 18:30 Discharge instructions given to patient, Instructed on discharge instructions, follow up and referral plans. Demonstrated understanding of instructions, follow-up care, 18:30 Patient left the ED. me1 Signatures: Dispatcher [employer] Kavitha Sarmiento RN RN Mynor Wang RN RN ll1 Dmitriy Borden DO DO ms3 Soraya Gonzalez RN RN dc1 Lana Maya ra3 Corrections: (The following items were deleted from the chart) 14:39 13:26 Chief complaint: Patient states: Dizzy, N/V, elevated BP 150/92 at home. started me1 30 min TRIAL MGR. ll1
[2024-04-05 18:46] VITALS: O2SAT 100
[2024-04-05 18:54] VITALS: BP 123/65
--- NOTE | 2024-04-07 14:46 | EKG ---
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
== END 2024-04-05 18:30 | disposition home or self-care (01) ==
LOC: ER 13:07
DX: R07.9 Chest pain, unspecified (principal); R11.0 Nausea; E78.5 Hyperlipidemia, unspecified
CPT/HCPCS: 36415; 71045; 80048; 83735; 84484; 85025; 93005; 99285